=== PATIENT | female | born 1945 | race Caucasian/White ===

== ENCOUNTER 2019-03-14 11:05 | Emergency (ER) | payer MEDICARE ==
[2019-03-14 11:25] LABS: #Lymphocytes 2.3 thou/uL (1.20-3.40); #Monocytes 0.7 thou/uL (0.11-0.59); #Neutrophils 11.4 thou/uL (1.40-6.50); %Basophils 0.3 % (0.0-1.0); %Eosinophils 0.1 % (0.0-10.0); %Lymphocytes 15.8 % (21.0-51.0); %Neutrophils 78.8 % (42.0-75.0); Hemoglobin 12.8 g/dL (12.0-16.0); Mean Corpuscular HGB CONC 31.4 g/dL (32.0-36.0); Mean Corpuscular Hemoglobin 27.4 pg (27.0-31.0); Mean Corpuscular Volume 87.2 fL (78.0-98.0); Mean Platelet Volume 9.1 fL (7.4-10.4); Platelet Count 256 thou/uL (130-400); RBC Distribution Width 13.6 % (11.5-14.5); Red Blood Cell (RBC) Count 4.66 mill/uL (4.20-5.40); White Blood Cell (WBC) Count 14.5 thou/uL (4.8-10.8)
--- NOTE | 2019-03-14 11:30 | RAD ---
Chest one view HISTORY: Dyspnea. COPD. COMPARISON: 04/10/2018. FINDINGS: Cardiac silhouette is magnified and upper limits of normal. Right restrictive mediastinum i s similar in appearance prior study with extensive volume loss and scarring throughout the right lung, most pronounced at the apex. Appearance is stable. Left lung is well-inflated. No evidence of p neumothorax. ekg monitor tech leads overlie the chest. IMPRESSION: Extensive volume loss and scarring throughout the right lung, stable. No active cardiopulmonary abnormalities are apparent.
[2019-03-14 11:49] LABS: ALT (SGPT) 20 U/L (8-55); AST (SGOT) 22 U/L (5-34); Albumin 4.5 g/dL (3.4-4.8); Alkaline Phosphatase 97 U/L (40-150); Anion Gap 16 mmol/L (10-20); BUN (Urea Nitrogen) 19 mg/dL (9.8-20.1); Bilirubin, Total 0.4 mg/dL (0.2-1.2); Calc. Creatinine Clearance 0 mL/min (70-130); Calcium 10.2 mg/dL (7.8-10.44); Carbon Dioxide 27 mmol/L (23-31); Chloride 97 mmol/L (98-107); Estimated GFR-MDRD 73; Globulin 2.7 g/dL (2.4-3.5); Glucose 103 mg/dL (83-110); Potassium 4.7 mmol/L (3.5-5.1); Protein, Total 7.2 g/dL (6.0-8.3); Sodium 135 mmol/L (136-145)
--- NOTE | 2019-03-14 12:15 | ULT ---
VENOUS DOPPLER ULTRASOUND OF THE RIGHT LOWER EXTREMITY: Date: 03/14/19 HISTORY: Right lower extremity pain. TECHNIQUE: Rios scale ultrasound with color flow and spectral Doppler imaging of the deep venous system of the r ight lower extremity performed. FINDINGS: There is good flow, compression, and augmentation noted in the right common femoral, femoral, deep fe moral, popliteal, posterior tibial, and greater saphenous veins. There is an avascular fluid collection in the posterior right knee superior to the popliteal vessels. IMPRESSION: No evidence of deep venous thrombosis in the right lower extremity. POS: TPC
== END 2019-03-14 12:55 | disposition home or self-care (01) ==
LOC: ERS 11:05
DX: L03.115 Cellulitis of right lower limb (principal); I11.0 Hypertensive heart disease with heart failure; I50.9 Heart failure, unspecified; J44.9 Chronic obstructive pulmonary disease, unspecified; F41.9 Anxiety disorder, unspecified; F17.210 Nicotine dependence, cigarettes, uncomplicated; Z79.899 Other long term (current) drug therapy; Z79.51 Long term (current) use of inhaled steroids; Z79.01 Long term (current) use of anticoagulants
CPT/HCPCS: 36415; 71045; 80053; 83605; 83880; 85025; 87040; 93005; 94640; J7620

== ENCOUNTER 2019-04-07 08:34 | Inpatient (IN) | payer MEDICARE ==
[2019-04-07 09:23] LABS: #Basophils 0.1 thou/uL (0.0-0.2); #Eosinphils 0.1 thou/uL (0.0-0.7); #Lymphocytes 2.5 thou/uL (1.20-3.40); #Monocytes 0.7 thou/uL (0.11-0.59); #Neutrophils 5.3 thou/uL (1.40-6.50); %Basophils 0.7 % (0.0-1.0); %Eosinophils 0.8 % (0.0-10.0); %Lymphocytes 29.4 % (21.0-51.0); %Neutrophils 61.1 % (42.0-75.0); Hemoglobin 13.5 g/dL (12.0-16.0); Mean Corpuscular HGB CONC 31.1 g/dL (32.0-36.0); Mean Corpuscular Hemoglobin 26.8 pg (27.0-31.0); Platelet Count 252 thou/uL (130-400); RBC Distribution Width 14.5 % (11.5-14.5); Red Blood Cell (RBC) Count 5.03 mill/uL (4.20-5.40); White Blood Cell (WBC) Count 8.6 thou/uL (4.8-10.8)
[2019-04-07 09:26] LABS: INR-International Normal Ratio 0.9; PTT 27.2 SEC (22.9-36.1); Prothrombin Time 12.4 SEC (12.0-14.7)
[2019-04-07] MEDS ORDERED: Morphine 4 MG/ML VIAL ONE (09:35)
[2019-04-07] MEDS ORDERED: Ondansetron PF 4 MG/2 ML Vial ONE (09:35)
--- NOTE | 2019-04-07 09:37 | RAD ---
Portable chest: HISTORY: Dyspnea COMPARISON: 03/14/2019 FINDINGS:Cardiomegaly. Right apical opacification is stable. Parenchymal and pleural opacities in the right mid and lower lung appear stable and probably chronic. Left lung remains clear. CP angles are blunted and stable in appearance. IMPRESSION:Stable chest findings
--- NOTE | 2019-04-07 09:42 | RAD ---
Right ankle: 3 views HISTORY: Infection COMPARISON: 03/12/2019 No osseous abnormality. No plain film evidence of osteomyelitis identified. Diffuse soft tissue swelling involving mid foot and forefoot, especially along the dorsal surface. So ft tissue swelling has increased consistent with cellulitis. IMPRESSION: No acute osseous abnormality or interval change in the osseous structures. Increased soft tissue swelling.
[2019-04-07 09:44] LABS: ALT (SGPT) 30 U/L (8-55); AST (SGOT) 43 U/L (5-34); Albumin 4.5 g/dL (3.4-4.8); Alkaline Phosphatase 111 U/L (40-150); Anion Gap 17 mmol/L (10-20); BUN (Urea Nitrogen) 18 mg/dL (9.8-20.1); Bilirubin, Total 0.4 mg/dL (0.2-1.2); CK (CPK) 126 U/L (29-168); Calc. Creatinine Clearance 0 mL/min (70-130); Calcium 10.5 mg/dL (7.8-10.44); Carbon Dioxide 24 mmol/L (23-31); Chloride 100 mmol/L (98-107); Estimated GFR-MDRD 61; Globulin 3.2 g/dL (2.4-3.5); Glucose 80 mg/dL (83-110); Protein, Total 7.7 g/dL (6.0-8.3); Sodium 136 mmol/L (136-145)
[2019-04-07] MEDS ORDERED: Piperacillin/Tazobactam 4.5 GM VIAL ONE (09:58)
[2019-04-07 10:26] LABS: Bilirubin Negative (Negative); Blood, Urine Negative (Negative); Clarity CLEAR (Clear); Glucose, Urine (Dipstick) Negative (Negative); Leukocyte Negative (Negative); Nitrite Negative (Negative); Protein, Urine (Dipstick) Negative (Neg-Trace); Specific Gravity, Urine 1.014 (1.002-1.036); Urobilinogen 0.2 mg/dL (0.2-1.0)
[2019-04-07] MEDS ORDERED: Diltiazem 125 MG/25 ML ONE (10:47)
[2019-04-07] MEDS ORDERED: ISOVUE-370 76%-LOCM 1 ML ONE (11:47)
[2019-04-07] MEDS ORDERED: Bisacodyl 5 MG TAB PO PRN (13:23)
[2019-04-07] MEDS ORDERED: Acetaminophen 325 MG TAB PO PRN (13:23)
--- NOTE | 2019-04-07 14:13 | HP ---
PRIMARY CARE PROVIDER: Dr. Leon. CHIEF COMPLAINT: Leg wound. HISTORY OF PRESENT ILLNESS: Ms. Powell is a pleasant 73-year-old lady, who was seen at [facility] on April 07, 2019. She reports that she developed some erythema over her right lateral malleolus about four weeks ago. This was followed by progressive worsening, with eventual skin breakdown. She was started on Bactrim by her primary care provider, but she did not take it because she did not like the medication. Following that, she was actually started on levofloxacin for respiratory infection. She has been taking levofloxacin. She describes that her leg wound has been having discharge, initially watery and now yellow. She denies any fevers or chills. She reports that she has 10/10 pain in the right leg, nonradiating, worse with movement. She is having a difficult time bearing weight on that foot. She denies any nausea or vomiting. She denies any diarrhea. REVIEW OF SYSTEMS: All other systems reviewed and found to be negative. PAST MEDICAL HISTORY: Congestive heart failure; hypertension; COPD, on home oxygen at 2 L while asleep; and atrial fibrillation. PAST SURGICAL HISTORY: Cholecystectomy. PSYCHIATRIC HISTORY: Anxiety. SOCIAL HISTORY: Occasional alcohol use. The patient smokes three packs of cigarettes a day. She denies recreational drug use. FAMILY HISTORY: Significant for heart disease. ALLERGIES: NO KNOWN DRUG ALLERGIES. CURRENT MEDICATIONS: 1. Sertraline 50 mg daily. 2. Protonix 20 mg daily. 3. Eliquis 5 mg two times a day. 4. Prednisone taper. 5. Lasix 20 mg daily. 6. Tramadol 50 mg every 12 hours as needed. 7. Levofloxacin 500 mg daily. 8. Cartia XT 300 mg daily. 9. DuoNeb p.r.n. 10. ProAir HFA p.r.n. 11. Symbicort two puffs two times a day. PHYSICAL EXAMINATION: GENERAL: On examination, Ms. Powell is awake and alert, not in acute distress. VITAL SIGNS: Blood pressure is 96/56, pulse 103, respiratory rate 20, and oxygen saturation 93% on 2 L of oxygen. She is afebrile. EYES: No scleral icterus, no conjunctival pallor. ENT: Moist mucosal membranes. No oropharyngeal erythema or exudates. NECK: Supple, nontender. Trachea is midline. RESPIRATORY: Accessory muscles of breathing are not active. She has occasional expiratory wheeze over the right lung. CARDIOVASCULAR: S1 and S2 are heard, tachycardic and irregular. Peripheral pulses palpable. No carotid bruit. No pericardial rub. ABDOMEN: Soft, nontender. Bowel sounds heard. NEUROLOGIC: Cranial nerves 2 through 12 are intact. MUSCULOSKELETAL: Power is 5/5 in all 4 extremities. SKIN: She has right leg and foot erythema. She has a circular ulcer over her right lateral malleolus with yellow base. LYMPHATIC: No inguinal lymphadenopathy. PSYCHIATRIC: Normal mood, normal affect. The patient is oriented to person, place, and time. LABORATORY DATA: Ms. Powell's labs and investigations were reviewed. I reviewed her electrocardiogram, which shows atrial fibrillation with rapid ventricular response with premature ventricular complexes. I reviewed her chest x-ray, which shows cardiomegaly. She also had x-rays of the right ankle, which did not show any acute osseous abnormality. She has an unremarkable CBC, INR 0.9, mildly elevated calcium of 10.5, mildly elevated AST of 43, otherwise unremarkable comprehensive metabolic profile. Normal CK and normal troponin-I. BNP is elevated at 990. Urinalysis is negative. ASSESSMENT AND PLAN: Ms. Powell is a pleasant 73-year-old lady, who was seen at [facility] on April 07, 2019, Her problem list includes: 1. Foot wound: Ms. Powell is presenting with foot wound. She was taking levofloxacin as outpatient for respiratory infection. She reports that the wound has been progressively getting worse. She will be admitted to the hospital for further management. She has received vancomycin and Zosyn in the emergency room , which I will continue. 2. Atrial fibrillation: We will continue the patient's home medications including calcium channel rica and anticoagulation. 3. Chronic obstructive pulmonary disease: The patient does not appear to be in chronic obstructive pulmonary disease exacerbation at this time. We will continue bronchodilators. 4. Tobacco abuse: The patient has been counseled regarding tobacco cessation, we will start nicotine replacement therapy. 5. Hypertension: We will monitor vital signs and titrate antihypertensives as needed. Many thanks for allowing me to participate in your patient's care. Please feel free to contact me with any questions or concerns. LEVEL OF RISK: High. LEVEL OF COMPLEXITY: High. Job ID: [id number] [facility]
[2019-04-07 17:14] VITALS: BMI 18.6
[2019-04-07] MEDS ORDERED: PROVENTIL INHALER 6.7 G (200 INHALATIONS) INH PRN (19:07)
[2019-04-07] MEDS ORDERED: Mometasone/Formoterol 120 PUFF INHALER INH PRN (19:08)
[2019-04-07] MEDS ORDERED: Furosemide 40 MG TAB PO PRN ×2 (19:09→21:39)
[2019-04-07] MEDS ORDERED: traMADol HCl 50 MG TAB PO SCH (21:00)
[2019-04-07 21:09] LABS: INR-International Normal Ratio 0.9; PTT 24.1 SEC (22.9-36.1); Prothrombin Time 12.6 SEC (12.0-14.7)
--- NOTE | 2019-04-07 21:13 | CT ---
CT Brain WO Con History: [Code stroke right-sided facial droop] Comparison: CT brain November 2016 Findings: There is subtle asymmetric loss of miller-white matter differentiation of the anterior left insula axial image 18. Extensive chronic microvascular ischemic changes. No acute hemorrhage. No midline shift or mass effect. Paranasal sinuses and mastoids are clear. Calvarium is intact. Globes are intact. Impression: Subtle loss of normal miller-white matter differentiation anterior left insula axial image 18 concerning for acute infarction.
[2019-04-07 21:25] LABS: Troponin I 0.031 ng/mL (< 0.028)
--- NOTE | 2019-04-07 21:29 | CT ---
CTA Angio Head W WO Con History: [Stroke alert. Right-sided facial droop.] Comparison: CT brain same day Findings: CT angiogram of the head and neck was performed after the intravenous ministration of contr ast. 3-D rendering provided. Severe emphysematous changes in lung apices. Large bullous formation in cavitation in the right upper lobe with volume loss. Advanced degenerative changes of the cervical spine. No cervical adenopathy. Vessels: Right vertebral artery origin is patent. No stenosis, thrombosis, nor aneurysm formation. [place] vertebral artery is dominant. No stenosis, thrombosis, or aneurysm formation. The intradural component of the vertebral arteries is poorly evaluated due to motion. Right common carotid artery origin is patent. Mass effect criteria, no hemodynamically significant stenosis, thrombosis, or aneurysm formation. Left common carotid artery origin is patent. Cardiac masses criteria there is approximately 50% steno sis proximal left internal carotid artery due to calcific plaque. [place] is patent. Impression: 1. Patent [place] without stenosis, thrombosis, nor aneurysm formation. 2. 50% stenosis proximal left internal carotid artery just after the carotid bulb due to calcific ximena que. 3. Scarring right lung apex with cavitation and underlying emphysematous changes.
--- NOTE | 2019-04-07 21:38 | PDOC.EVN ---
Event Note - Event Note Event Note: code green activated due to new stroke like symptoms, please see code sheet for details, pt sent for CT as per radiology there is concern for small acute infarction, will do stroke protocol, started on cardizem drip to control rate, consult cardiology, neuro, follow rec's
[2019-04-07] MEDS: Diltiazem 125 MG in Sodium Chloride 0.9% 100 ML IVPB SCH (22:18)
[2019-04-07] MEDS: Apixaban 5 MG TAB PO SCH (22:43)
[2019-04-07] MEDS ORDERED: Vancomycin HCl 1 GM in Premix Bag 1 BAG IVPB SCH (23:00)
[2019-04-08] MEDS: Piperacillin/Tazobactam 4.5 GM in Sodium Chloride 0.9% 100 ML IVPB SCH ×2 (02:07→09:50)
[2019-04-08 05:48] LABS: #Basophils 0.1 thou/uL (0.0-0.2); #Eosinphils 0.2 thou/uL (0.0-0.7); #Lymphocytes 2.1 thou/uL (1.20-3.40); #Monocytes 0.7 thou/uL (0.11-0.59); #Neutrophils 4.2 thou/uL (1.40-6.50); %Basophils 0.9 % (0.0-1.0); %Eosinophils 2.6 % (0.0-10.0); %Lymphocytes 29.5 % (21.0-51.0); %Neutrophils 57.9 % (42.0-75.0); Hemoglobin 12.4 g/dL (12.0-16.0); Mean Corpuscular Hemoglobin 27.9 pg (27.0-31.0); Mean Corpuscular Volume 87.5 fL (78.0-98.0); Platelet Count 207 thou/uL (130-400); RBC Distribution Width 14.5 % (11.5-14.5); Red Blood Cell (RBC) Count 4.44 mill/uL (4.20-5.40); White Blood Cell (WBC) Count 7.2 thou/uL (4.8-10.8)
[2019-04-08 06:03] LABS: Anion Gap 13 mmol/L (10-20); BUN (Urea Nitrogen) 12 mg/dL (9.8-20.1); Calc. Creatinine Clearance 58 mL/min (70-130); Calcium 9.1 mg/dL (7.8-10.44); Carbon Dioxide 26 mmol/L (23-31); Cardiac Risk 3.4 (Less than 4.5); Chloride 100 mmol/L (98-107); Cholesterol 209 mg/dl (< 200 Desired); Estimated GFR-MDRD 82; Glucose 78 mg/dL (83-110); HDL Cholesterol 61 mg/dL (>60 Neg Risk); LDL Cholesterol, Calculated 121 mg/dL; Potassium 4.3 mmol/L (3.5-5.1); Sodium 135 mmol/L (136-145); Triglycerides 134 mg/dL (Less than 150)
[2019-04-08] MEDS ORDERED: Acetaminophen 500 MG TAB PO PRN (07:19)
[2019-04-08] MEDS ORDERED: Loratadine 10 MG TAB PO PRN (07:19)
[2019-04-08] MEDS ORDERED: Artificial Tears 18 DROP/0.9 ML EA EYE PRN (07:19)
[2019-04-08] MEDS ORDERED: Loperamide HCl 2 MG CAP PO PRN (07:19)
[2019-04-08] MEDS ORDERED: Zolpidem Tartrate 5 MG TAB PO PRN (07:19)
[2019-04-08] MEDS ORDERED: Sodium Chloride 0.65% Nasal 44 ML BOT EA NARE PRN (07:19)
[2019-04-08] MEDS ORDERED: Ondansetron ODT 4 MG TAB PO PRN (07:19)
[2019-04-08] MEDS ORDERED: Cepastat Lozenges 1 LOZ PO PRN (07:19)
[2019-04-08] MEDS ORDERED: Ondansetron PF 4 MG/2 ML Vial IVP PRN (07:19)
[2019-04-08] MEDS ORDERED: Eucerin (Mineral Oil/Petrolatum,White) 30 gm Jar TOP PRN (07:19)
[2019-04-08] MEDS ORDERED: hydrALAZINE 20 MG/ML VIAL SLOW IVP PRN (07:19)
[2019-04-08] MEDS ORDERED: predniSONE 20 MG TAB PO SCH (08:00)
[2019-04-08] MEDS ORDERED: Apixaban 5 MG TAB PO SCH (09:00)
[2019-04-08] MEDS ORDERED: Non-Formulary Item 1 EACH (Sertraline Hcl [Zoloft] 50 MG) PO SCH (09:00)
[2019-04-08] MEDS ORDERED: Diltiazem HCl CD 300 mg Capsule PO SCH ×2 (09:00)
[2019-04-08] MEDS ORDERED: Non-Formulary Item 1 EACH (Pantoprazole Sodium [Protonix] 40 MG) PO SCH (09:00)
[2019-04-08] MEDS ORDERED: Aspirin 325 mg Enteric Coated Tablet PO SCH (09:00)
[2019-04-08] MEDS: Apixaban 5 MG TAB PO SCH ×2 (09:50→21:33)
[2019-04-08] MEDS: Aspirin Chewable 81 MG TAB PO SCH (09:50)
[2019-04-08] MEDS: Saccharomyces boulardii 250 MG CAP PO SCH (09:50)
--- NOTE | 2019-04-08 10:25 | PDOC.PN ---
- Subjective Encounter Start Date: 04/08/19 Encounter Start Time: 07:30 -: old records requested/rev last night code jessica was called for stroke like symptoms, this morning sleepy but arousable and follows command, moves all four limbs, not good historian - Objective Resuscitation Status - Order Detail: 04/07/19 13:23 Resuscitation Status Routine Resuscitation Status: DNAR: NO Resuscitation Discussed with: patient MAR Reviewed: Yes Vital Signs & Weight: Vital Signs (12 hours) Temp Pulse Resp BP Pulse Ox 04/08/19 07:56 98.3 F 103 H 18 111/67 92 L 04/08/19 06:35 84 16 95 04/08/19 04:00 98.5 F 87 19 98/53 L 96 04/08/19 00:00 99.5 F 95 20 115/55 L 95 Weight Weight 112 lb 3.2 oz I&O: 04/07/19 04/08/19 04/09/19 06:59 06:59 06:59 Output Total 20 Balance -20 Result Diagrams: 04/08/19 05:14 04/08/19 05:14 Additional Labs: Accuchecks 04/07/19 20:40 POC Glucose 94 Radiology Reviewed by me: Yes EKG Reviewed by me: Yes (afib) Phys Exam - Physical Examination Constitutional: NAD HEENT: PERRLA, moist MMs, sclera anicteric Neck: no JVD, supple Respiratory: no wheezing, no rhonchi Cardiovascular: no significant murmur, irregular Gastrointestinal: soft, non-tender, no distention, positive bowel sounds Musculoskeletal: no edema, pulses present multiple skin lesion noted with erythema Neurological: moves all 4 limbs Lymphatic: no nodes Psychiatric: normal affect Skin: no rash, normal turgor Dx/Plan (1) Acute CVA (cerebrovascular accident) Code(s): I63.9 - CEREBRAL INFARCTION, UNSPECIFIED Status: Acute (2) Wound infection Code(s): T14.8XXA - OTHER INJURY OF UNSPECIFIED BODY REGION, INITIAL ENCOUNTER; L08.9 - LOCAL INFECTION OF THE SKIN AND SUBCUTANEOUS TISSUE, UNSP Status: Acute (3) Anxiety and depression Code(s): F41.9 - ANXIETY DISORDER, UNSPECIFIED; F32.9 - MAJOR DEPRESSIVE DISORDER, SINGLE EPISODE, UNSPECIFIED Status: Chronic (4) Atrial fibrillation Code(s): I48.91 - UNSPECIFIED ATRIAL FIBRILLATION Status: Chronic Qualifiers: Atrial fibrillation type: chronic Qualified Code(s): I48.2 - Chronic atrial fibrillation Comment: with paroxysmal RVR (5) COPD (chronic obstructive pulmonary disease) Status: Chronic (6) Chronic stage c diastolic heart failure Code(s): I50.32 - CHRONIC DIASTOLIC (CONGESTIVE) HEART FAILURE Status: Chronic (7) Hypertension Code(s): I10 - ESSENTIAL (PRIMARY) HYPERTENSION Status: Chronic Qualifiers: Hypertension type: essential hypertension Qualified Code(s): I10 - Essential (primary) hypertension (8) Left carotid stenosis Code(s): I65.22 - OCCLUSION AND STENOSIS OF LEFT CAROTID ARTERY Status: Chronic (9) Protein-calorie malnutrition, moderate Code(s): E44.0 - MODERATE PROTEIN-CALORIE MALNUTRITION Status: Chronic (10) Tobacco use Code(s): Z72.0 - TOBACCO USE Status: Chronic - Plan cont current plan of care, continue antibiotics, PT/OT * today MRI brain , echo as a part of stroke work up * stroke team evaluation including neurology * medication reviewed as below * symptomatic treatment * continue empiric vancomycin and zosyn * ID consulted * wound care * continue cardizem drip * cardio consulted * continue elliquis * repeat labs * counselled to avoid smoking. * add lipitor * dc carotid US as she already had CT angio neck * selected home meds reconciled Review of Systems - Review of Systems ENT: negative: Ear Pain, Ear Discharge, Nose Pain, Nose Discharge, Nose Congestion, Mouth Pain, Mouth Swelling, Throat Pain, Throat Swelling, Other Respiratory: Cough. negative: Dry, Shortness of Breath, Hemoptysis, SOB with Excertion, Pleuritic Pain, Sputum, Wheezing Cardiovascular: negative: chest pain, palpitations, orthopnea, paroxysmal nocturnal dyspnea, edema, light headedness, other Gastrointestinal: negative: Nausea, Vomiting, Abdominal Pain, Diarrhea, Constipation, Melena, Hematochezia, Other Genitourinary: negative: Dysuria, Frequency, Incontinence, Hematuria, Retention , Other Musculoskeletal: negative: Neck Pain, Shoulder Pain, Arm Pain, Back Pain, Hand Pain, Leg Pain, Foot Pain, Other - Medications/Allergies Allergies/Adverse Reactions: Allergies Allergy/AdvReac Type Severity Reaction Status Date / Time sulfamethoxazole Allergy Verified 04/07/19 17:13 [From Bactrim] trimethoprim [From Bactrim] Allergy Verified 04/07/19 17:13 Medications: Current Medications Acetaminophen (Tylenol) 500 mg PO Q6H PRN PRN Reason: Mild Pain (1-3) Hydrocodone Bitart/Acetaminophen ([place] 5/325) 1 tab PO Q4H PRN PRN Reason: Moderate Pain (4-6) Albuterol Sulfate (Proventil Hfa) 2 puff INH Q6H PRN PRN Reason: SOB &/or Wheezing Albuterol/Ipratropium (Duoneb) 3 ml NEB [id number] [facility] Last Admin: 04/08/19 06:35 Dose: 3 ml Apixaban (Eliquis) 5 mg PO BID [facility] Last Admin: 04/08/19 09:50 Dose: 5 mg Artificial Tears (Tears Naturale) 2 drop EA EYE PRN PRN PRN Reason: Dry Eyes Aspirin (Aspirin Chewable) 81 mg PO DAILY [facility] Last Admin: 04/08/19 09:50 Dose: 81 mg Atorvastatin Calcium (Lipitor) 40 mg PO HS [facility] Bisacodyl (Dulcolax) 10 mg PO DAILYPRN PRN PRN Reason: Constipation Furosemide (Lasix) 40 mg PO DAILY PRN PRN Reason: SWELLING Guaifenesin (Robitussin Sf) 200 mg PO Q4H PRN PRN Reason: Cough Hydralazine HCl (Apresoline) 10 mg SLOW IVP Q4H PRN PRN Reason: SBP > 180 and HR < 70 Diltiazem HCl 125 mg/ Sodium (Chloride) 125 mls @ 5 mls/hr IVPB INF [facility]; Protocol Last Admin: 04/07/19 22:18 Dose: 125 mls Piperacillin Sod/Tazobactam (Sod 4.5 gm/ Sodium Chloride) 100 mls @ 200 mls/hr IVPB 0200,1000,1800 [facility] Last Admin: 04/08/19 09:50 Dose: 100 mls Vancomycin HCl 1 gm/ Device 200 mls @ 200 mls/hr IVPB 2300 [facility] Last Admin: 04/07/19 22:52 Dose: 200 mls Loperamide HCl (Imodium) 2 mg PO PRN PRN PRN Reason: Diarrhea/Loose Stools Loratadine (Claritin) 10 mg PO DAILYPRN PRN PRN Reason: Sinus Symptoms Methylprednisolone Sodium Succinate (Solu-Medrol) 20 mg IVP Q8HR [facility] Mineral Oil/White Petrolatum (Eucerin Cream) 0 gm TOP BIDPRN PRN PRN Reason: Dry Skin Miscellaneous Medication (Pharmacy To Dose) 1 each PO ONE PRN PRN Reason: DOSING Stop: 05/07/19 21:54 Mometasone Furoate/Formoterol Fumar (Dulera 200 Mcg/5 Mcg Inhaler) 2 puff INH DAILY-RT PRN PRN Reason: SOB &/or Wheezing Ondansetron HCl (Zofran Odt) 4 mg PO Q6H PRN PRN Reason: Nausea/Vomiting Ondansetron HCl (Zofran) 4 mg IVP Q6H PRN PRN Reason: Nausea/Vomiting Pantoprazole Sodium (Protonix) 40 mg PO DAILY [facility] Last Admin: 04/08/19 09:50 Dose: 40 mg Saccharomyces Boulardii (Florastor) 250 mg PO DAILY [facility] Last Admin: 04/08/19 09:50 Dose: 250 mg Sertraline HCl (Zoloft) 50 mg PO DAILY [facility] Last Admin: 04/08/19 09:50 Dose: 50 mg Sodium Chloride (Flush - Normal Saline) 10 ml IVF PRN PRN PRN Reason: Saline Flush Sodium Chloride ([place] Nasal [place] 0.65%) 0 ml EA NARE QIDPRN PRN PRN Reason: Nasal Congestion Throat Lozenges (Cepastat Lozenges) 1 cecy PO Q2H PRN PRN Reason: Sore Throat Zolpidem Tartrate (Ambien) 5 mg PO HSPRN PRN PRN Reason: Insomnia
[2019-04-08] MEDS ORDERED: Lorazepam 2 MG/ML VIAL SLOW IVP SCH (11:15)
--- NOTE | 2019-04-08 12:40 | CON ---
DATE OF CONSULTATION: 04/08/2019 CHIEF COMPLAINT: Possible stroke. HISTORY OF PRESENT ILLNESS: The patient is a 73-year-old lady, who was admitted for her skin problems and cellulitis in her legs and she has been found to have sudden onset of deterioration of consciousness and I have reviewed the code record, a jose m lopez was called for CVA. She was disoriented, unable to answer questions and she was in AFib and she was given a NIH Stroke Scale of [address] of the head with suspicious acute stroke and the patient had a CT of the head last night at about [address] and there was subtle loss of normal miller-white matter differentiation concerning for acute infarct. She is pending an MRI at this time. The patient herself does not remember any details of this event. She does not complain of weakness of arms or legs or numbness or any To the disorientation. At this time, she was back to her normal. PREVIOUS MEDICAL HISTORY: Significant for history of atrial fibrillation, she is on Eliquis at home. She has congestive heart failure, hypertension, and COPD, she is on home oxygen as well. PAST SURGICAL HISTORY: She had a cholecystectomy. PSYCHIATRIC HISTORY: Positive for anxiety. SOCIAL HISTORY: She uses alcohol occasionally. She smokes 3 packs of cigarettes a day. She lives with her . FAMILY HISTORY: Positive for heart disease. ALLERGIES: NO KNOWN DRUG ALLERGIES. MEDICATIONS: At home, she is on; 1. Sertraline. 2. Protonix. 3. Eliquis. 4. Prednisone taper. 5. Lasix. 6. Tramadol. 7. Levofloxacin. 8. Cartia. 9. DuoNeb. 10. ProAir HFA. 11. Symbicort. REVIEW OF SYSTEMS: PULMONARY: Positive for shortness of breath. CARDIAC: Positive for atrial fibrillation. NEUROLOGIC: Positive for disorientation, which was transient last night and has recovered overnight. Dermatologic: Skin with ulcer on the right lateral malleolar of her foot. HEMATOLOGIC: Negative for any bleeding diatheses. ENDOCRINE: Negative for diabetes or thyroid dysfunction. LABORATORY DATA: White count 7.2, hemoglobin 12.4, hematocrit 38.8, and platelet count 207, Chemistry; sodium 135, potassium 4.3, chloride 100, bicarb 26, BUN 12, and creatinine 0.7. Urinalysis is negative. Coags, PTT 24.1, INR 0.9, and PT 12.6. CT of the head and [place] and CT angio performed on 04/07 showed patent [place] of [place] without stenosis, 50% stenosis of the left ICA and scarring of the right lung apex with cavitation and underlying emphysematous changes. CT of the head performed on 04/07/2019 at 9:11 p.m. showed subtle loss of normal miller white matter differentiation in the anterior left insula and axial image 18, concerning for acute infarction. PHYSICAL EXAMINATION: VITAL SIGNS: Blood pressure 111/67, temperature 98.3, pulse 103, respiratory rate 18, and O2 saturations 92. GENERAL APPEARANCE: Thin built well-nourished lady with multiple scars and redness in her leg. She has very thin skin. She also had redness in the right arm in the legs. She had a wound on the right lateral malleolus and she also has a right shoulder restricted movement due to pain from arthritis. CHEST: Clear vesicular breathing with decreased breath sounds. Heart rate was rapid with tachycardia. ABDOMEN: Soft and nontender. NEUROLOGIC: Higher intellectual functions, normal orientation to time, place, and person and appropriate conversation. Cranial nerves 2 through 12 normal. Pupillary reaction at 2 mm bilaterally. Normal extraocular movements. No facial asymmetry. Mild facial asymmetry with mild facial weakness on the right side and she had tongue midline. No atrophy noted. Normal hearing bilaterally. Normal elevation of palate motor bulk normal. Tone normal. Strength is 5/5 throughout despite limitation of mobility in the right shoulder. Muscle groups tested are deltoid, biceps, triceps, wrist extension, flexion, finger extension and flexion bilaterally. Deep tendon reflexes were 1+ throughout. Normal sensory exam with normal sensation bilaterally. Coordination with normal [id number] and [id number]. Gait was not tested. IMPRESSION: The patient is elderly lady with history of atrial fibrillation and congestive heart failure. She was admitted for possible cellulitis in the right leg and abnormal skin with multiple injury. Multiple wounds and redness and she had acute neurological event last night with the associated with disorientation. She might have had a small stroke. Her examination today is normal except for mild right facial droop. She is currently pending MRI of the brain to establish the diagnosis. Her stroke with risk factors are atrial fibrillation and heart failure and less limited mobility. RECOMMENDATIONS: I will check on the MRI of the brain. If MRI is positive for acute stroke, we can add aspirin to Eliquis. Please start physical therapy for the patient. Please complete her stroke workup including echocardiogram. I will follow up the patient with you tomorrow. Job ID: [id number]
[2019-04-08] MEDS: methylPREDNISolone Sod Succ 40 MG VIAL IVP SCH ×2 (13:27→21:34)
--- NOTE | 2019-04-08 15:10 | CT ---
CTA Angio Head W WO Con History: [Stroke alert. Right-sided facial droop.] Comparison: CT brain same day Findings: CT angiogram of the head and neck was performed after the intravenous ministration of contr ast. 3-D rendering provided. Severe emphysematous changes in lung apices. Large bullous formation in cavitation in the right upper lobe with volume loss. Advanced degenerative changes of the cervical spine. No cervical adenopathy. Vessels: Right vertebral artery origin is patent. No stenosis, thrombosis, nor aneurysm formation. [place] vertebral artery is dominant. No stenosis, thrombosis, or aneurysm formation. The intradural component of the vertebral arteries is poorly evaluated due to motion. Right common carotid artery origin is patent. Mass effect criteria, no hemodynamically significant stenosis, thrombosis, or aneurysm formation. Left common carotid artery origin is patent. Cardiac masses criteria there is approximately 50% steno sis proximal left internal carotid artery due to calcific plaque. [place] is patent. Impression: 1. Patent [place] of [place] without stenosis, thrombosis, nor aneurysm formation. 2. 50% stenosis proximal left internal carotid artery just after the carotid bulb due to calcific ximena que. 3. Scarring right lung apex with cavitation and underlying emphysematous changes. Transcribed Date/Time: 04/08/2019 3:10 PM
--- NOTE | 2019-04-08 15:55 | CON ---
DATE OF CONSULTATION: 04/08/2019 REASON FOR CONSULTATION: Right ankle ulcer. HISTORY OF PRESENT ILLNESS: A 73-year-old with history of COPD; atrial fibrillation, paroxysmal; chronic smoking, still actively smoking, who has 1 previous admission 2 years ago for dyspnea, decompensated COPD, and respiratory tract infection. This time, she presented with a worsening ulceration in the right lateral malleolus, which has been present for the past 4 weeks approximately. This has failed oral Bactrim in the outpatient setting, although she did not take it more than few days. After that, she had some respiratory symptoms and was given levofloxacin. No headaches. No visual symptoms, sore throat, odynophagia, or dysphagia. No neck pain or back pain. Chronic dyspnea, unchanged. No cough or sputum production. No chest pain. No abdominal pain or diarrhea. She is actually constipated. Voiding without difficulty. No joint symptoms outside the area of involvement. PAST MEDICAL HISTORY: COPD, atrial fibrillation, previous normal cardiac stress test with normal EF. She is home O2 dependent. PAST SURGICAL HISTORY: Cholecystectomy. SOCIAL HISTORY: Still smoking 3 packs of cigarettes a day, believe it or not. FAMILY HISTORY: Coronary artery disease. ALLERGIES: NONE. CURRENT MEDICATIONS: 1. Tylenol. 2. [place]. 3. Proventil. 4. DuoNeb. 5. Eliquis. 6. Lipitor. 7. Diltiazem. 8. Lasix. 9. Robitussin. 10. Claritin. 11. Medrol. 12. Zosyn. 13. Vancomycin. PHYSICAL EXAMINATION: VITAL SIGNS: T-max 98.8 to 99.5, BP 115/57, pulse 101, respirations 16, O2 saturation 93%. SKIN: There is a round-shaped 3 x 2 cm ulcer with yellow base. A little bit of undermining right above the right lateral malleolus. The dermis is thin. There is some erythema along the extent of the leg. There is a little bit of exfoliation of the skin around that area. Onychodystrophy is noted in all toenails. There is one area of bruising, sort of a very tender area of bruising in the medial aspect of the right leg. She has a little bit of bruising in the anterior aspect of the left leg, but that is not tender to palpation. She has areas of superficial ulceration with scab in the presacral area. LYMPHATICS: No lymphadenopathy. HEENT: Ocular movements conjugate. No [place] teeth. Oral mucosa, normal. NECK: Supple. No jugular vein distention or carotid bruits. LUNGS: Symmetric air entry. No wheezing or crackles. HEART: S1 and S2. Regular rate. Soft aortic murmur, but no S3 or S4. ABDOMEN: Soft. Not distended or tender. No ascites. : No bladder distention. EXTREMITIES: No joint inflammatory activity. I was able to palpate popliteal pulses 1+. I could not identify any dorsalis pedis or posterior tibialis pulses. Quite tender skin of the distal lower extremity on the right side. She moves all extremities equally with limitations imposed by the ulcer and the tenderness of inflammatory process, right leg. NEUROLOGIC: Her cognitive function appears to be intact. She is oriented. Speech is normal. LABORATORY DATA: White cell count 8.6, hemoglobin 13.5, platelets 242 with normal differential. INR 0.9. Sodium 135, creatinine 0.7, calcium 10.5, AST 43, ALT 30, alkaline phosphatase 111. CK 126. BNP 990 with albumin 4.5. Urinalysis was normal. Microbiology: Two sets of blood cultures thus far negative. IMAGING STUDIES: Brain CT with loss of normal miller-white matter differentiation in the anterior left insula, axial image 18, concerning for acute infarction. She had a CT of [place] angio with contrast with patency of the [place], 50% stenosis of the left ICA. There is a consultation by neurologist with, I guess, looks like an MRI has been ordered and is pending. ASSESSMENT: 1. Heavy smoking. 2. Peripheral vascular disease. 3. Cellulitis, right leg with chronic ulcer. DISCUSSION: The ulcer is most likely ischemic in nature, and she has developed some cellulitis. I would switch her to Rocephin. Discontinue her vancomycin and Zosyn. Check arterial duplex ultrasound of lower extremity to see if she has any areas that could be revascularized and improve the blood flow to the feet to assist with healing of the ulcer. Job ID: [id number]
[2019-04-08] MEDS: cefTRIAXone\\ROCEPHIN 1 GM in Sodium Chloride 0.9% 100 ML IVPB SCH (16:05)
--- NOTE | 2019-04-08 16:14 | ULT ---
Doppler arterial evaluation the right lower extremity INDICATION: History of absent pulses to the right lower extremity with a chronic right ankle ulcer FINDINGS: There are triphasic waveforms seen from the right common femoral artery through the level o f the right posterior tibial artery. No hemodynamically significant stenosis is evident. Triphasic waveform is seen at the right anterior tibial artery. More biphasic wave forms seen at the level of t he right dorsalis pedis artery. There is moderate atherosclerotic calcification of the right common femoral artery. IMPRESSION: Mild atherosclerotic disease seen at the level of the right dorsalis pedis artery. No hem odynamically significant stenosis is evident.
[2019-04-08] MEDS: Diltiazem 125 MG in Sodium Chloride 0.9% 100 ML IVPB SCH (21:31)
[2019-04-08] MEDS: HYDROcodone/Acetaminophen 5/325 mg Tablet PO PRN (21:32)
[2019-04-08] MEDS: Diabetic Tussin 200 MG/10 ML UDCUP PO PRN (21:33)
[2019-04-08] MEDS: Atorvastatin Calcium 40 MG TAB PO SCH (21:33)
--- NOTE | 2019-04-08 22:53 | CON ---
DATE OF CONSULTATION: HISTORY OF PRESENT ILLNESS: Francia Powell is a 73-year-old white female, who was evaluated in November [address] Briseno. She was admitted for shortness of breath and mental status changes. She was found to be in atrial fibrillation. She had hypoxemia secondary to COPD exacerbation. She was discharged on Eliquis 5 mg b.i.d. She was placed on digoxin and Cardizem for rate control. During that admission , she underwent Cardiolite testing, which revealed no evidence of ischemia and ejection fraction of 66%. She now is admitted with skin breakdown over the right lateral malleolus. This started 4 or 5 weeks ago. She complains of a great deal of pain in the area. Prior to this skin breakdown, she denied any claudication. She however would have episodes of nocturnal cramping mostly in her right calf, but occasionally right thigh. She denied any fever or chills. Evaluation of this with lower extremity arterial ultrasound reveals mild atherosclerotic disease in the right dorsalis pedis artery, but otherwise unremarkable. Today she became disoriented, was unable to answer questions. CT was questionable for stroke. Apparently, MRI has been performed, but I do not see any result of that. PAST MEDICAL HISTORY: Diastolic heart failure, COPD, hypertension, chronic atrial fibrillation. OPERATIONS: Cholecystectomy. MEDICATIONS: 1. Albuterol 2 puffs q.6 hours p.r.n. 2. Eliquis 5 mg b.i.d. 3. Symbicort 2 puffs daily p.r.n. 4. Diltiazem 300 mg daily. 5. Furosemide 40 daily p.r.n. 6. DuoNebs q.6 hours. 7. Levaquin 500 mg daily. 8. Protonix 40 mg daily. 9. Prednisone 5 mg daily. 10. Zoloft 50 daily. 11. Tramadol 50 b.i.d. ALLERGIES: SULFA. SOCIAL HISTORY: She continues to smoke 2 packs per day. She does not drink. REVIEW OF SYSTEMS: Difficult to obtain at this time. PHYSICAL EXAMINATION: VITAL SIGNS: Blood pressure 111/56, pulse of 108, irregularly irregular, atrial fibrillation on the monitor. HEENT: PERRL. NECK: Supple. CHEST: Reveals occasional expiratory wheezing. CARDIOVASCULAR: S1, S2 normal without any S3, S4, or murmurs. ABDOMEN: Normal bowel sounds without tenderness. EXTREMITIES: Revealed trace pretibial edema. She has a sock on her right foot and due to pain, does not want me to take this off. NEUROLOGIC: At the present time, it is grossly intact except for very mild lethargy and some confusion. LABORATORY DATA: EKG revealed atrial fibrillation with fast ventricular response of 107 per minute with occasional PVC. Echocardiogram was technically difficult. Ejection fraction was 55% to 60% with mild left atrial enlargement, mild mitral regurgitation, and mild tricuspid regurgitation. Hemoglobin 12.4, hematocrit 38.8, white count 7200, platelets 207,000. Sodium 135, potassium 4.3, chloride 100, carbon dioxide 26, BUN 12, creatinine 0.70. Troponin I 0.031. Cholesterol 209, triglycerides 134, HDL 61, LDL 121. BNP 990.4. IMPRESSION: 1. Cellulitis of the right leg with chronic ulcer. Lower extremity arterial Dopplers are fairly unremarkable and it does not appear that this is arterial in nature. She also denies any claudication. In the past, she has had calf cramping at night and this certainly may be a venous stasis ulcer and at sometime lower extremity venous duplex scan should be performed in the office. 2. Chronic atrial fibrillation, chronically anticoagulated. 3. Possible stroke. 4. Hypertension. 5. Chronic obstructive pulmonary disease. The patient continues to smoke. PLAN: The patient currently is on Cardizem 5 mg/hour and heart rate is fairly well controlled. She should continue on the Eliquis. Certainly may need to add low- dose aspirin with her recent neurological event. She was given broad-spectrum antibiotics. Consideration should be given to lower extremity venous duplex scan in the office to evaluate for venous insufficiency. Job ID: [id number] [facility]
[2019-04-09] MEDS: methylPREDNISolone Sod Succ 40 MG VIAL IVP SCH (05:30)
[2019-04-09 05:45] LABS: #Lymphocytes 1.2 thou/uL (1.20-3.40); #Monocytes 0.2 thou/uL (0.11-0.59); #Neutrophils 3.1 thou/uL (1.40-6.50); %Basophils 0.9 % (0.0-1.0); %Eosinophils 0.5 % (0.0-10.0); %Lymphocytes 26.4 % (21.0-51.0); %Monocytes 4.1 % (0.0-10.0); %Neutrophils 68.1 % (42.0-75.0); Hemoglobin 11.7 g/dL (12.0-16.0); Mean Corpuscular HGB CONC 32.1 g/dL (32.0-36.0); Mean Corpuscular Hemoglobin 27.5 pg (27.0-31.0); Mean Corpuscular Volume 85.7 fL (78.0-98.0); Mean Platelet Volume 8.9 fL (7.4-10.4); Platelet Count 205 thou/uL (130-400); RBC Distribution Width 14.1 % (11.5-14.5); Red Blood Cell (RBC) Count 4.24 mill/uL (4.20-5.40); White Blood Cell (WBC) Count 4.5 thou/uL (4.8-10.8)
[2019-04-09 06:10] LABS: Anion Gap 11 mmol/L (10-20); BUN (Urea Nitrogen) 14 mg/dL (9.8-20.1); Calc. Creatinine Clearance 66 mL/min (70-130); Calcium 9.1 mg/dL (7.8-10.44); Carbon Dioxide 31 mmol/L (23-31); Cardiac Risk 3.4 (Less than 4.5); Chloride 98 mmol/L (98-107); Cholesterol 202 mg/dl (< 200 Desired); Estimated GFR-MDRD Greater than 90; Glucose 139 mg/dL (83-110); HDL Cholesterol 60 mg/dL (>60 Neg Risk); LDL Cholesterol, Calculated 126 mg/dL; Potassium 4.5 mmol/L (3.5-5.1); Sodium 135 mmol/L (136-145); Triglycerides 79 mg/dL (Less than 150)
[2019-04-09] MEDS: Saccharomyces boulardii 250 MG CAP PO SCH (09:27)
[2019-04-09] MEDS: Apixaban 5 MG TAB PO SCH ×2 (09:27→21:08)
[2019-04-09] MEDS: Aspirin Chewable 81 MG TAB PO SCH (09:27)
[2019-04-09] MEDS: HYDROcodone/Acetaminophen 5/325 mg Tablet PO PRN (09:28)
[2019-04-09] MEDS: Diabetic Tussin 200 MG/10 ML UDCUP PO PRN (09:29)
--- NOTE | 2019-04-09 10:02 | PDOC.PN ---
- Subjective Encounter Start Date: 04/09/19 Encounter Start Time: 07:30 yesterday MRI was not done as pt was not able to lie still, no new problems - Objective Resuscitation Status - Order Detail: 04/07/19 13:23 Resuscitation Status Routine Resuscitation Status: DNAR: NO Resuscitation Discussed with: patient JARROD Reviewed: Yes Vital Signs & Weight: Vital Signs (12 hours) Temp Pulse Resp BP Pulse Ox 04/09/19 08:00 98.0 F 118 H 18 159/77 H 96 04/09/19 07:03 103 H 20 94 L 04/09/19 04:00 98.2 F 97 16 133/75 96 04/09/19 00:22 84 16 04/09/19 00:00 98.1 F 113 H 16 129/76 99 Weight Admit Weight 112 lb 3.2 oz Weight 112 lb 3.2 oz I&O: 04/08/19 04/09/19 04/10/19 06:59 06:59 06:59 Intake Total 980 Output Total 20 1100 Balance -20 -120 Result Diagrams: 04/09/19 05:05 04/09/19 05:05 Phys Exam - Physical Examination Constitutional: NAD HEENT: PERRLA, moist MMs, sclera anicteric Neck: no JVD, supple Respiratory: no wheezing, no rales, no rhonchi Cardiovascular: no significant murmur, no rub, irregular Gastrointestinal: soft, non-tender, no distention, positive bowel sounds Musculoskeletal: no edema, pulses present Neurological: moves all 4 limbs Lymphatic: no nodes Psychiatric: normal affect, A&O x 3 Skin: normal turgor Dx/Plan (1) Acute CVA (cerebrovascular accident) Code(s): I63.9 - CEREBRAL INFARCTION, UNSPECIFIED Status: Acute (2) Wound infection Code(s): T14.8XXA - OTHER INJURY OF UNSPECIFIED BODY REGION, INITIAL ENCOUNTER; L08.9 - LOCAL INFECTION OF THE SKIN AND SUBCUTANEOUS TISSUE, UNSP Status: Acute Comment: ischemic ulcer over ankle with surrounding cellulitis (3) Anxiety and depression Code(s): F41.9 - ANXIETY DISORDER, UNSPECIFIED; F32.9 - MAJOR DEPRESSIVE DISORDER, SINGLE EPISODE, UNSPECIFIED Status: Chronic (4) Atrial fibrillation Code(s): I48.91 - UNSPECIFIED ATRIAL FIBRILLATION Status: Chronic Qualifiers: Atrial fibrillation type: chronic Qualified Code(s): I48.2 - Chronic atrial fibrillation Comment: with paroxysmal RVR (5) COPD (chronic obstructive pulmonary disease) Status: Chronic (6) Chronic stage c diastolic heart failure Code(s): I50.32 - CHRONIC DIASTOLIC (CONGESTIVE) HEART FAILURE Status: Chronic (7) Hypertension Code(s): I10 - ESSENTIAL (PRIMARY) HYPERTENSION Status: Chronic Qualifiers: Hypertension type: essential hypertension Qualified Code(s): I10 - Essential (primary) hypertension (8) Left carotid stenosis Code(s): I65.22 - OCCLUSION AND STENOSIS OF LEFT CAROTID ARTERY Status: Chronic (9) Protein-calorie malnutrition, moderate Code(s): E44.0 - MODERATE PROTEIN-CALORIE MALNUTRITION Status: Chronic (10) Tobacco use Code(s): Z72.0 - TOBACCO USE Status: Chronic - Plan cont current plan of care, plan discussed w/ family, continue antibiotics, PT/OT , social worker aide, respiratory therapy * try MRI if possible * medication reviewed as below * symptomatic treatment. * updated plan to son * continue cardizem drip * will change to prednisone * continue elliquis, aspirin Review of Systems - Review of Systems ENT: negative: Ear Pain, Ear Discharge, Nose Pain, Nose Discharge, Nose Congestion, Mouth Pain, Mouth Swelling, Throat Pain, Throat Swelling, Other Respiratory: negative: Cough, Dry, Shortness of Breath, Hemoptysis, SOB with Excertion, Pleuritic Pain, Sputum, Wheezing Cardiovascular: negative: chest pain, palpitations, orthopnea, paroxysmal nocturnal dyspnea, edema, light headedness, other Gastrointestinal: negative: Nausea, Vomiting, Abdominal Pain, Diarrhea, Constipation, Melena, Hematochezia, Other Genitourinary: negative: Dysuria, Frequency, Incontinence, Hematuria, Retention , Other Musculoskeletal: negative: Neck Pain, Shoulder Pain, Arm Pain, Back Pain, Hand Pain, Leg Pain, Foot Pain, Other - Medications/Allergies Allergies/Adverse Reactions: Allergies Allergy/AdvReac Type Severity Reaction Status Date / Time sulfamethoxazole Allergy Verified 04/07/19 17:13 [From Bactrim] trimethoprim [From Bactrim] Allergy Verified 04/07/19 17:13 Medications: Current Medications Acetaminophen (Tylenol) 500 mg PO Q6H PRN PRN Reason: Mild Pain (1-3) Hydrocodone Bitart/Acetaminophen ([place] 5/325) 1 tab PO Q4H PRN PRN Reason: Moderate Pain (4-6) Last Admin: 04/09/19 09:28 Dose: 1 tab Albuterol Sulfate (Proventil Hfa) 2 puff INH Q6H PRN PRN Reason: SOB &/or Wheezing Albuterol/Ipratropium (Duoneb) 3 ml NEB [id number] [facility] Last Admin: 04/09/19 07:03 Dose: 3 ml Apixaban (Eliquis) 5 mg PO BID [facility] Last Admin: 04/09/19 09:27 Dose: 5 mg Artificial Tears (Tears Naturale) 2 drop EA EYE PRN PRN PRN Reason: Dry Eyes Aspirin (Aspirin Chewable) 81 mg PO DAILY [facility] Last Admin: 04/09/19 09:27 Dose: 81 mg Atorvastatin Calcium (Lipitor) 40 mg PO HS [facility] Last Admin: 04/08/19 21:33 Dose: 40 mg Bisacodyl (Dulcolax) 10 mg PO DAILYPRN PRN PRN Reason: Constipation Furosemide (Lasix) 40 mg PO DAILY PRN PRN Reason: SWELLING Guaifenesin (Robitussin Sf) 200 mg PO Q4H PRN PRN Reason: Cough Last Admin: 04/09/19 09:29 Dose: 200 mg Hydralazine HCl (Apresoline) 10 mg SLOW IVP Q4H PRN PRN Reason: SBP > 180 and HR < 70 Diltiazem HCl 125 mg/ Sodium (Chloride) 125 mls @ 5 mls/hr IVPB INF JAZMIN; Protocol Last Admin: 04/08/19 21:31 Dose: 125 mls Ceftriaxone Sodium 1 gm/ (Sodium Chloride) 100 mls @ 200 mls/hr IVPB Q24HR [facility] Last Admin: 04/08/19 16:05 Dose: 100 mls Loperamide HCl (Imodium) 2 mg PO PRN PRN PRN Reason: Diarrhea/Loose Stools Loratadine (Claritin) 10 mg PO DAILYPRN PRN PRN Reason: Sinus Symptoms Methylprednisolone Sodium Succinate (Solu-Medrol) 20 mg IVP Q8HR [facility] Last Admin: 04/09/19 05:30 Dose: 20 mg Mineral Oil/White Petrolatum (Eucerin Cream) 0 gm TOP BIDPRN PRN PRN Reason: Dry Skin Miscellaneous Medication (Pharmacy To Dose) 1 each PO ONE PRN PRN Reason: DOSING Stop: 05/07/19 21:54 Mometasone Furoate/Formoterol Fumar (Dulera 200 Mcg/5 Mcg Inhaler) 2 puff INH DAILY-RT PRN PRN Reason: SOB &/or Wheezing Ondansetron HCl (Zofran Odt) 4 mg PO Q6H PRN PRN Reason: Nausea/Vomiting Ondansetron HCl (Zofran) 4 mg IVP Q6H PRN PRN Reason: Nausea/Vomiting Pantoprazole Sodium (Protonix) 40 mg PO DAILY [facility] Last Admin: 04/09/19 09:29 Dose: 40 mg Saccharomyces Boulardii (Florastor) 250 mg PO DAILY [facility] Last Admin: 04/09/19 09:27 Dose: 250 mg Sertraline HCl (Zoloft) 50 mg PO DAILY [facility] Last Admin: 04/09/19 09:29 Dose: 50 mg Sodium Chloride (Flush - Normal Saline) 10 ml IVF PRN PRN PRN Reason: Saline Flush Last Admin: 04/09/19 09:30 Dose: 10 ml Sodium Chloride ([place] Nasal [place] 0.65%) 0 ml EA NARE QIDPRN PRN PRN Reason: Nasal Congestion Throat Lozenges (Cepastat Lozenges) 1 cecy PO Q2H PRN PRN Reason: Sore Throat Zolpidem Tartrate (Ambien) 5 mg PO HSPRN PRN PRN Reason: Insomnia
[2019-04-09] MEDS ORDERED: Diazepam 10 MG/2 ML SYRINGE IVP SCH (12:15)
[2019-04-09] MEDS ORDERED: Lorazepam 2 MG/ML VIAL SLOW IVP SCH (14:30)
[2019-04-09] MEDS: cefTRIAXone\\ROCEPHIN 1 GM in Sodium Chloride 0.9% 100 ML IVPB SCH (15:43)
[2019-04-09] MEDS: Atorvastatin Calcium 40 MG TAB PO SCH (21:08)
[2019-04-09] MEDS: Diltiazem 125 MG in Sodium Chloride 0.9% 100 ML IVPB SCH (21:09)
--- NOTE | 2019-04-10 08:50 | PDOC.PN ---
- Subjective Encounter Start Date: 04/10/19 Encounter Start Time: 08:48 Subjective: no new problems, no distress - Objective Resuscitation Status - Order Detail: 04/07/19 13:23 Resuscitation Status Routine Resuscitation Status: DNAR: NO Resuscitation Discussed with: patient JARROD Reviewed: Yes Vital Signs & Weight: Vital Signs (12 hours) Temp Pulse Resp BP Pulse Ox 04/10/19 08:00 98.2 F 85 20 131/76 97 04/10/19 07:42 89 18 93 L 04/10/19 04:00 97.9 F 69 16 113/58 L 99 04/10/19 00:00 97.9 F 105 H 16 132/69 99 Weight Admit Weight 112 lb 3.2 oz Weight 112 lb 3.2 oz I&O: 04/09/19 04/10/19 04/11/19 06:59 06:59 06:59 Intake Total 980 680 Output Total 1100 900 Balance -120 -220 Result Diagrams: 04/09/19 05:05 04/09/19 05:05 Phys Exam - Physical Examination Neck: no JVD hyperresonant, coarse BS Cardiovascular: irregular controlled rate Gastrointestinal: soft, non-tender, positive bowel sounds Musculoskeletal: no edema bendaged R ankle Dx/Plan (1) Cellulitis of right ankle Code(s): L03.115 - CELLULITIS OF RIGHT LOWER LIMB Status: Acute (2) Atrial fibrillation Code(s): I48.91 - UNSPECIFIED ATRIAL FIBRILLATION Status: Chronic Qualifiers: Atrial fibrillation type: chronic Qualified Code(s): I48.2 - Chronic atrial fibrillation Comment: with paroxysmal RVR (3) COPD (chronic obstructive pulmonary disease) Status: Chronic (4) Chronic stage c diastolic heart failure Code(s): I50.32 - CHRONIC DIASTOLIC (CONGESTIVE) HEART FAILURE Status: Chronic (5) Hypertension Code(s): I10 - ESSENTIAL (PRIMARY) HYPERTENSION Status: Chronic Qualifiers: Hypertension type: essential hypertension Qualified Code(s): I10 - Essential (primary) hypertension (6) Tobacco use Code(s): Z72.0 - TOBACCO USE Status: Chronic - Plan cont iv rocephin, wound care -: cont eliquis, po cardizem, DC iv cardizem * .
[2019-04-10] MEDS: Diltiazem HCl CD 300 mg Capsule PO SCH (08:54)
[2019-04-10] MEDS: predniSONE 20 MG TAB PO SCH (08:54)
[2019-04-10] MEDS: Saccharomyces boulardii 250 MG CAP PO SCH (08:54)
[2019-04-10] MEDS: Apixaban 5 MG TAB PO SCH ×2 (08:54→20:04)
[2019-04-10] MEDS: Furosemide 40 MG TAB PO SCH (08:55)
[2019-04-10] MEDS: Aspirin Chewable 81 MG TAB PO SCH (08:55)
--- NOTE | 2019-04-10 11:17 | CT ---
EXAM: CT Brain W WO Con DATE: 04/10/2019 10:15 AM INDICATION: Possible CVA with inability to perform MRI COMPARISON: CTA of the head with and without contrast dated April 07, [address] of the brain dated April 07, 2019 FINDING: No acute infarct, hemorrhage or hydrocephalus is present. There is stable moderate chronic small vessel white matter ischemic change. No area of abnormal enhancement is demonstrated. The generalized cerebral and cerebellar atrophy is stable. Mastoid air cells and paranasal sinuses are cl ear. The skull is intact. IMPRESSION:No acute intracranial abnormality.
[2019-04-10] MEDS ORDERED: Iopamidol 370 76% 100 ML VIAL ONE (12:03)
[2019-04-10] MEDS: cefTRIAXone\\ROCEPHIN 1 GM in Sodium Chloride 0.9% 100 ML IVPB SCH (14:40)
[2019-04-10] MEDS: Atorvastatin Calcium 40 MG TAB PO SCH (20:04)
[2019-04-11] MEDS ORDERED: predniSONE 5 MG TAB PO SCH (08:00)
[2019-04-11] MEDS: Saccharomyces boulardii 250 MG CAP PO SCH (08:46)
[2019-04-11] MEDS: Diltiazem HCl CD 300 mg Capsule PO SCH (08:47)
[2019-04-11] MEDS: Aspirin Chewable 81 MG TAB PO SCH (08:48)
[2019-04-11] MEDS: Furosemide 40 MG TAB PO SCH (08:48)
[2019-04-11] MEDS: predniSONE 20 MG TAB PO SCH (08:49)
[2019-04-11] MEDS: Apixaban 5 MG TAB PO SCH ×2 (08:49→21:36)
[2019-04-11] MEDS: HYDROcodone/Acetaminophen 5/325 mg Tablet PO PRN ×2 (10:07→21:41)
[2019-04-11] MEDS: cefTRIAXone\\ROCEPHIN 1 GM in Sodium Chloride 0.9% 100 ML IVPB SCH (13:18)
--- NOTE | 2019-04-11 18:26 | PRG ---
DATE OF SERVICE: 04/11/2019 SUBJECTIVE: Still with quite a bit of pain, but less than before. No diarrhea. OBJECTIVE: VITAL SIGNS: T-max 98.8, BP 120/77, pulse 101. GENERAL: Still with pain in the right ankle, particularly around the ulcer, but less than before. LUNGS: Clear. HEART: S1 and S2. Regular rate. ABDOMEN: Soft. Ulcer is unchanged. LABORATORY DATA: White cell count 4.5, hemoglobin 11.7, platelets 205. Sodium 135, creatinine 0.61. Brain CT with no acute intracranial abnormality. Lower extremity ultrasound showed normal triphasic blood flow with mild atherosclerotic disease. ASSESSMENT AND DISCUSSION: Heavy smoking, peripheral vascular disease, cellulitis right leg, chronic ulcer. In view of the results of the arterial duplex ultrasound, it is more likely that the ulcer represents venous stasis or venous hypertension associated with ulceration with now cellulitis. Eventually transition to oral Keflex for discharge planning. She will be a candidate for compression stockings to accelerate healing of the ulcer. The other option would be to do a biopsy to confirm the diagnosis of ulcer associated with venous hypertension. I do not think it is necessary at this point in time. If she does not heal with compressive dressings, then biopsy would be necessary. Job ID: [id number]
--- NOTE | 2019-04-11 18:34 | PDOC.PN ---
- Subjective Encounter Start Date: 04/11/19 Encounter Start Time: 18:30 Subjective: f/u for RLE cellulitis on Rocephin with chronic RLE ulcer likely -: venous stasis in nature. Overall feels better. SOB moderately -: improved with pulmonary support, Duonebs. - Objective Resuscitation Status - Order Detail: 04/07/19 13:23 Resuscitation Status Routine Resuscitation Status: DNAR: NO Resuscitation Discussed with: patient MAR Reviewed: Yes Vital Signs & Weight: Vital Signs (12 hours) Temp Pulse Pulse Pulse Resp BP BP 04/11/19 18:17 92 20 04/11/19 15:28 98 F 84 17 04/11/19 12:07 106 H 18 04/11/19 11:38 98.7 F 113 H 20 04/11/19 11:08 101 H 113 H 122/77 04/11/19 08:47 103 H 128/76 04/11/19 07:53 97.2 F L 103 H 18 04/11/19 07:08 80 16 BP BP Pulse Ox Pulse Ox 04/11/19 18:17 95 04/11/19 15:28 109/62 95 04/11/19 12:07 96 04/11/19 11:38 121/63 96 04/11/19 11:08 121/63 96 04/11/19 08:47 04/11/19 07:53 128/76 96 04/11/19 07:08 98 Weight Admit Weight 112 lb 3.2 oz Weight 112 lb 3.2 oz I&O: 04/10/19 04/11/19 04/12/19 06:59 06:59 06:59 Intake Total 680 780 Output Total 900 Balance -220 780 Result Diagrams: 04/09/19 05:05 04/09/19 05:05 Additional Labs: Microbiology 04/07/19 09:12 Venous blood - Left Arm Blood Culture - Preliminary NO GROWTH AT 48 HOURS 04/07/19 08:55 Venous blood - Right Arm Blood Culture - Preliminary NO GROWTH AT 48 HOURS Radiology Reviewed by me: Yes (CT brain - no acute process) EKG Reviewed by me: Yes (Tele - A-fib in 90's) Phys Exam - Physical Examination Constitutional: NAD alert, responsive receiving Duoneb HEENT: PERRLA, sclera anicteric, oral pharynx no lesions Neck: no nodes, no JVD, supple, full ROM coarse sounds bilat, diminished in bases S1, S2 Cardiovascular: no significant murmur, no rub, gallop, irregular Gastrointestinal: soft, non-tender, no distention, positive bowel sounds RLE with mild erythema around ankle Musculoskeletal: pulses present Neurological: normal sensation, moves all 4 limbs Psychiatric: A&O x 3 Skin: normal turgor, cap refill <2 seconds Dx/Plan (1) Cellulitis of right ankle Code(s): L03.115 - CELLULITIS OF RIGHT LOWER LIMB Status: Acute Comment: Likely due to longstanding venous stasis and peripheral arterial insufficiency, currently tx with Rocephin with plans to transition to Keflex and use compression stockings retirement (2) Atrial fibrillation Code(s): I48.91 - UNSPECIFIED ATRIAL FIBRILLATION Status: Chronic Qualifiers: Atrial fibrillation type: chronic Qualified Code(s): I48.2 - Chronic atrial fibrillation Comment: with paroxysmal RVR, rate improved and controlled currently, continue Diltiazem, Eliquis and ASA (3) COPD (chronic obstructive pulmonary disease) Status: Chronic Comment: Continue Duonebs, Prednisone and Dulera, O2 prn (4) Hypertension Code(s): I10 - ESSENTIAL (PRIMARY) HYPERTENSION Status: Chronic Qualifiers: Hypertension type: essential hypertension Qualified Code(s): I10 - Essential (primary) hypertension Comment: Continue BP regimen, serial monitoring (5) Tobacco use Code(s): Z72.0 - TOBACCO USE Status: Chronic Comment: Tobacco cessation resources - Plan social professionals, respiratory therapy, out of bed/ambulate, DVT proph w/SCDs Stable currently -: Continue Rocephin another 24h -: Likely transition to Keflex -: Tobacco cessation resources -: CM assisting with SNF placement in [place] * .
[2019-04-11] MEDS: Atorvastatin Calcium 40 MG TAB PO SCH (21:36)
[2019-04-12 07:43] VITALS: BP 122/71; TEMP 98.6
[2019-04-12] MEDS: Diltiazem HCl CD 300 mg Capsule PO SCH (08:46)
[2019-04-12] MEDS: predniSONE 20 MG TAB PO SCH (08:46)
[2019-04-12] MEDS: Apixaban 5 MG TAB PO SCH (08:46)
[2019-04-12] MEDS: Aspirin Chewable 81 MG TAB PO SCH (08:46)
[2019-04-12] MEDS: Saccharomyces boulardii 250 MG CAP PO SCH (08:47)
[2019-04-12] MEDS: Furosemide 40 MG TAB PO SCH (08:48)
--- NOTE | 2019-04-13 04:18 | DIS ---
DATE OF ADMISSION: 04/07/2019 DATE OF DISCHARGE: 04/12/2019 DISCHARGE DIAGNOSES: 1. Right lower extremity venous stasis ulcer/cellulitis. 2. Chronic atrial fibrillation on chronic anticoagulation with Eliquis, rate controlled. 3. Chronic obstructive pulmonary disease with exacerbation, mild. 4. Hypertension, stable. 5. Tobacco abuse. 6. Deconditioning. CONSULTATIONS: 1. Dr. Jaramillo with Cardiology Service. 2. Dr. Jason Cotton with Infectious Disease Service. 3. Dr. Angel with Neurology Service. PERTINENT LAB AND X-RAY FINDINGS: Troponin I ranged between 0.018 to 0.031. BNP 990; previously noted 781, 03/14/2019. Total cholesterol 209, triglycerides 134, HDL 61, LDL 121. CBC within normal limits. Urinalysis, negative, 04/07/2019. Blood cultures x2 dated 04/07/2019 showed no growth at [address] angiogram of the head and neck dated 04/07/2019 showed 50% stenosis of the proximal left internal carotid artery. Patent nez perce of Jauregui without stenosis. Three views of the right ankle dated 04/07/2019 showed no acute process. Portable chest x-ray dated 04/07/2019 showed bilateral chronic lung changes consistent with emphysema. CT of the brain without contrast dated 04/07/2019 showed extensive chronic microvascular ischemic changes. Subtle asymmetry of the anterior left insula region. Arterial duplex Dopplers of the right lower extremity dated 04/08/2019 showed mild atherosclerotic changes at the level of the right dorsalis pedis artery. No hemodynamically significant stenosis noted. 2D transthoracic echocardiogram dated 04/08/2019 showed technically limited exam. Ejection fraction of 55% to 60%. Mild left atrial enlargement. CT of the brain without contrast dated 04/10/2019 showed no acute intracranial process. HOSPITAL COURSE: The patient was initially admitted after presenting with increasing redness of the right ankle region with skin breakdown and ulceration. The patient was initially placed on a broad-spectrum antibiotic therapy for right lower extremity ulceration and cellulitis. The patient apparently developed stroke-like symptoms on 04/07/2019 and was placed under general stroke protocol. Initial CT imaging showed questionable area of abnormality as stated previously undergoing general stroke protocol including evaluation by the Neurology Service. The patient remained on aspirin 81 mg daily and underwent vascular evaluation showing mild carotid artery disease in the left internal carotid approximately 50%. The patient continued to receive Rocephin intravenously throughout the hospital course after evaluation by the Infectious Disease Service. The patient also underwent arterial Doppler exam of the right lower extremity showing remarkably preserved arterial flow of the right lower extremity without insufficiency. The patient's condition likely venous stasis in nature, receiving local wound care and IV antibiotics. The patient transitioned to Keflex 500 mg b.i.d. and will continue a 10-day course of antibiotic therapy after discharge. The patient continued to receive general pulmonary supportive management throughout the hospital course including prednisone therapy, bronchodilator treatments with DuoNeb. The patient also continued on oxygen supplementation at 2 L/minute by nasal cannula. The patient was given counseling regarding the need for tobacco cessation and will need additional encouragement and followup after discharge. The patient was also treated transiently for atrial fibrillation with rapid ventricular response with Cardizem infusion, however, was able to rapidly transition to oral rate control measures including diltiazem 300 mg daily. The patient continued on Eliquis 5 mg b.i.d. for anticoagulation in addition to aspirin 81 mg daily. Due to the patient's overall deconditioned status and comorbid conditions, the patient was deemed an appropriate candidate for ongoing skilled care. The patient has been approved to transition to [facility] as well as Wound Care Services. I have examined the patient at the time of discharge and discussed followup instructions. The patient verbalized understanding and in agreement, ready for discharge on 04/12/2019. DISCHARGE MEDICATIONS: 1. ProAir HFA 2 puffs inhaled q.6 hours p.r.n. 2. Tramadol 50 mg p.o. b.i.d. p.r.n. 3. Eliquis 5 mg p.o. b.i.d. 4. Enteric-coated aspirin 81 mg p.o. daily. 5. Lipitor 40 mg p.o. at bedtime. 6. Keflex 500 mg p.o. b.i.d. until 04/22/2019. 7. Cardizem CD 300 mg p.o. daily. 8. Lasix 40 mg p.o. daily. 9. DuoNeb 3 mL nebulized q.6 hours p.r.n. 10. Dulera 2 puffs inhaled daily. 11. Protonix 40 mg p.o. daily. 12. Prednisone 20 mg p.o. q.a.m. until 04/18/2019. 13. Florastor 250 mg p.o. daily. 14. Zoloft 50 mg p.o. daily. FOLLOWUP: The patient may follow up with Dr. Leon at [facility]. CONDITION ON DISCHARGE: Fair. ACTIVITY: Ad-leeroy. Rolling walker with standby/contact guard assistance. DIET: Heart healthy with Ensure supplements t.i.d. CODE STATUS: Do not attempt resuscitation. DISPOSITION: Discharged to [facility] on 04/12/2019. TIME SPENT: Total time preparing and coordinating discharge is 35 minutes. Job ID: [id number]
--- NOTE | 2019-04-13 06:55 | PQF ---
[employer] Model Maker Crystal Reports Winform Viewer NANI PFEIFFER CAMRON CARABALLO [id number] [facility] [id number] CLINICAL DOCUMENTATION CLARIFICATION FORM: POST DISCHARGE Addendum to original discharge summary date: ____ Late entry note date: __ DATE: 04-13-2019 ATTN:Camron Womack Please exercise your independent, professional judgment in responding to the clarification form. Clinical indicators are provided on the bottom of this form for your review Can you please specify whether acute CVA is ruled in or ruled out during this encounter? Please check appropriate box(s) to clarify if the following diagnosis has been ruled in or ruled out: CVA [ ] Ruled in diagnosis [ ] Continue to treat [ ] Resolved [ x ] Ruled out diagnosis [ ] Cannot rule out diagnosis [ ] Other diagnosis please specify: [ ] Unable to determine For continuity of documentation, please document condition throughout progress notes and discharge summary. Thank You. CLINICAL INDICATORS: Event note 04/[address] Sanchez jose m lopez activated due to new stroke like symptoms, pt sent for CT as per radiology there is concern for small acute infarction PN 04/[address] Lindsey last night jose m lopez was called for stroke like symptoms, this morning sleepy but arousable and follow command, moves four limbs , not good historian PN 04/[address] Lindsey Acute CVA Consult 04/[address] Angel she has been found to have sudden onset of deterioration of consciousness and I have reviewed the code record, a jose m lopez was called for CVA. She was disoriented, unable to answer questions and she was in Afib and she was given a NIH stroke scale of [address] of the head with suspicious acute stroke and the patient had a CT of the head last night and there was subtle loss of normal miller white matter differentiation concerning for acute infarct Consult 04/[address] Angel Her examination today is normal except for mild facial droop. She is currently pending MRI of the brain to establish the diagnosis PN 04/[address] Lindsey yesterday MRI was not done as pt was not able to lie still, no new problems Brain CT 04/10 Dr. Esquivel- Impression: No acute intracranial abnormality DS 04/[address] of the brain without contrast dated 04/10/2019 showed no acute intracranial process. RISK FACTOR: H&P Dr. Posey- Smokes three packs of cigarettes a day H&P Dr. Posey- Congestive Heart failure H&P Dr. Posey-HTN H&P Dr. Posey- Atrial Fibrillation PN Dr. Lindsey- Left carotid stenosis TREATMENTS: CT angiography by Dr Hughes-04/[address] Jaramillo 04/08 Cardizem 125 mg drip-FEB 01 Discharge Medication addition: Enteric-coated aspirin 81 mg p.o. daily (This form is maintained as a part of the permanent medical record) 2014 [employer]. All Rights Reserved Naomi [email or web address] [not provided] MTDD
--- NOTE | 2019-04-13 14:41 | EKG ---
Test Reason : STAT Blood Pressure : / mmHG Vent. Rate : 118 BPM Atrial Rate : 129 BPM P-R Int : 000 ms QRS Dur : 098 ms QT Int : 302 ms P-R-T Axes : 000 086 081 degrees QTc Int : 423 ms Atrial fibrillation with rapid ventricular response with premature ventricular or aberrantly conducte d complexes Cannot exclude Septal infarct , age undetermined Abnormal ECG Confirmed by FLOR ORR ([id number]) on 04/13/2019 2:41:10 PM Referred By: BERNABE Confirmed By:FLOR ORR
== END 2019-04-12 11:07 | DRG 603 ==
LOC: ERS 08:34 → ERHOLD 11:25 → 2SE 16:31
PROVIDERS: ADMIT Internal Medicine; ATTEND Internal Medicine
DX: L03.115 Cellulitis of right lower limb (principal); I50.32 Chronic diastolic (congestive) heart failure; E44.0 Moderate protein-calorie malnutrition; Z68.1 Body mass index [BMI] 19.9 or less, adult; L97.919 Non-pressure chronic ulcer of unspecified part of right lower leg with unspecified severity; F41.9 Anxiety disorder, unspecified; Z66 Do not resuscitate; I11.0 Hypertensive heart disease with heart failure; F17.210 Nicotine dependence, cigarettes, uncomplicated; F32.9 Major depressive disorder, single episode, unspecified; I65.22 Occlusion and stenosis of left carotid artery; I48.0 Paroxysmal atrial fibrillation; I87.301 Chronic venous hypertension (idiopathic) without complications of right lower extremity; I73.9 Peripheral vascular disease, unspecified; J44.9 Chronic obstructive pulmonary disease, unspecified; R29.810 Facial weakness; I87.8 Other specified disorders of veins; Z88.1 Allergy status to other antibiotic agents; Z90.49 Acquired absence of other specified parts of digestive tract; Z99.81 Dependence on supplemental oxygen; Z88.2 Allergy status to sulfonamides; Z79.01 Long term (current) use of anticoagulants; Z79.52 Long term (current) use of systemic steroids; Z79.891 Long term (current) use of opiate analgesic
CPT/HCPCS: 36415; 36416; 70450; 70470; 70496; 70498; 71045; 80048; 80053; 80061; 81003; 82550; 82553; 83605; 83880; 84484; 85025; 85610; 85730; 87040; 93005; 93010; 93306; 93923; 94640; 94760; 96361; 96365; 96366; 96367; 96375; J0696; J2060; J2270; J2405; J2543; J2920; J3370; J3490; J7512; J7620; Q9966; Q9967

== ENCOUNTER 2019-05-12 04:44 | Inpatient (IN) | payer MEDICARE ==
[2019-05-12] MEDS ORDERED: Diltiazem 125 MG/25 ML ONE (05:16)
[2019-05-12] MEDS ORDERED: Magnesium 2 GM/50 ML BAG (IN WATER) ONE (05:16)
[2019-05-12] MEDS ORDERED: Ondansetron PF 4 MG/2 ML Vial IVP PRN (06:27)
[2019-05-12] MEDS ORDERED: Ondansetron ODT 4 MG TAB SL PRN (06:27)
[2019-05-12] MEDS ORDERED: Acetaminophen 325 MG TAB PO PRN ×2 (06:27→22:22)
[2019-05-12 06:28] VITALS: BMI 19.1
[2019-05-12] MEDS ORDERED: Diltiazem HCl 125 MG, Admixture Fee 1 EACH in Sodium Chloride 0.9% 100 ML IVPB SCH (06:30)
[2019-05-12 07:23] LABS: Troponin I Less than 0.010 ng/mL (< 0.028)
[2019-05-12] MEDS ORDERED: Nicotine 14 MG PATCH TD PRN (09:30)
[2019-05-12 10:13] LABS: Troponin I Less than 0.010 ng/mL (< 0.028)
--- NOTE | 2019-05-12 10:21 | HP ---
PRIMARY CARE PHYSICIAN: Dr. Leon. CHIEF COMPLAINT: Shortness of breath. HISTORY OF PRESENT ILLNESS: The patient is a 74-year-old female with COPD, on home oxygen; hypertension; tobacco dependence; and chronic atrial fibrillation, on anticoagulation; presented to the emergency room at [facility] with above complaints. Four days ago, the patient was seen in the emergency room with shortness of breath. A chest x-ray at that time was negative for infiltrate. She was diagnosed with COPD exacerbation. She received 1 dose of azithromycin and IV steroids and was discharged home on prednisone taper as well as azithromycin p.o. Her symptoms partially improved. However, over the last 2 to 3 days, her shortness of breath got worse. She had cough productive of thick yellowish phlegm. She was short of breath on minimal exertion. No leg swelling, orthopnea reported. She had intermittent palpitations, however, denies any chest pain or syncope. She denies recent immobilization travel. She is compliant with all of her medications including Eliquis and Cardizem. Please note, the patient was discharged from this facility a month ago with a diagnosis of right lower extremity venous stasis ulcer/cellulitis. PAST MEDICAL HISTORY: 1. COPD. 2. Chronic hypoxic respiratory failure, on home oxygen at night. 3. Chronic atrial fibrillation, on anticoagulation. 4. Chronic right lower extremity venous stasis ulcer. The patient has wound care by herself. 5. Hypertension. 6. Tobacco dependence. 7. Chronic diastolic heart failure. 8. Anxiety. PAST SURGICAL HISTORY: Cholecystectomy. ALLERGIES: THE PATIENT IS ALLERGIC TO BACTRIM. CURRENT HOME MEDICATIONS: 1. Eliquis 5 mg b.i.d. 2. Aspirin 81 mg daily. 3. DuoNeb every 6 hourly. 4. Florastor 250 mg daily. 5. Zoloft 50 mg daily. 6. Prednisone 50 mg daily, that was started in the emergency room 4 days ago (for a total of 5 days). 7. Protonix 20 mg daily. 8. Lasix 20 mg daily. 9. Cardizem CD 300 mg daily. 10. Symbicort two puffs b.i.d. 11. Albuterol inhaler as needed. 12. Flonase nasal spray daily. SOCIAL HISTORY: The patient continues to smoke up to three packs a day. She currently lives at home. She denies alcohol or drug use. She makes her own decision with the help of her family. FAMILY HISTORY: Positive for heart disease. REVIEW OF SYSTEMS: All other review of systems was reviewed and were found negative. PHYSICAL EXAMINATION: VITAL SIGNS: In the emergency room showed temperature 97.7, respirations of 24, pulse rate of 101, blood pressure 130/77, with O2 saturation of 85% on room air. GENERAL: A 74-year-old female, in mild respiratory distress. Feels somewhat better after ER treatment. HEENT: Head, atraumatic and normocephalic. Sclerae anicteric. Moist mucous membranes. No oral lesion. NECK: Supple. No JVD appreciated. No carotid bruit. LUNGS: There were accessory muscle use. There were diffuse expiratory wheezing with scattered rhonchi. No rales appreciated. HEART: S1 and S2 present. Irregularly irregular. No significant rubs or gallops appreciated. ABDOMEN: Soft, nontender. Bowel sounds present. EXTREMITIES: No edema or calf tenderness. NEUROLOGY: Grossly nonfocal. Moves all 4 extremities. PSYCHIATRY: Alert, awake, and oriented x3. SKIN: Warm and dry. Chronic ulcer over the right lateral malleolus approximately 4 cm in diameter with raised edges and well-healing granular base. LYMPH NODES: No palpable lymph nodes in the neck. PERIPHERAL VASCULAR: Radial pulses palpable bilaterally. MUSCULOSKELETAL: No joint swelling tenderness. LABORATORY FINDINGS: CBC showed WBC of 7.9 with hemoglobin of 11.5, hematocrit 35.3, platelets 273. PT/INR in normal range. BNP 461. Sodium 144, potassium 3.9, BUN 14, creatinine 0.5. Troponins negative. TSH 1.3. Chest x-ray by my review was negative for infiltrate. EKG by my review showed atrial fibrillation with rapid ventricular response. IMPRESSION: 1. Acute on chronic hypoxic respiratory failure secondary to chronic obstructive pulmonary disease exacerbation. 2. Atrial fibrillation with rapid ventricular response. 3. Ongoing tobacco abuse. The patient was counseled. 4. Chronic diastolic heart failure, appears to be compensated. 5. Hypertension. 6. History of chronic obstructive pulmonary disease. 7. Anxiety. 8. Chronic right lower extremity venous stasis ulcer. 9. Physical deconditioning. PLAN: The patient will be monitored on the telemetry unit. Cardizem drip will be continued. We will continue IV steroids along with cefepime and azithromycin. We will wean O2 as tolerated. The patient is on 2 L home oxygen. Her troponins have been negative. She had a recent echo that showed ejection fraction of 55% to 60% with mild mitral regurgitation and mild tricuspid regurgitation. Anticoagulation will be continued. We will consult Wound Care. We will start her on oral Cardizem and try weaning the drip. The patient will require 2 to 3 days for stabilization. Plan of care was discussed with the patient in detail. She stated understanding. Job ID: [id number]
[2019-05-12] MEDS ORDERED: Nitroglycerin 0.4 MG TAB (25 Tab Bottle) PO PRN (10:28)
[2019-05-12] MEDS ORDERED: PROVENTIL INHALER 6.7 G (200 INHALATIONS) INH PRN (10:29)
[2019-05-12] MEDS ORDERED: Aspirin Chewable 81 MG TAB PO SCH (10:30)
[2019-05-12] MEDS ORDERED: Apixaban 5 MG TAB PO SCH (10:30)
[2019-05-12] MEDS ORDERED: Diltiazem 125 MG in Sodium Chloride 0.9% 100 ML IVPB SCH (10:30)
[2019-05-12] MEDS: Azithromycin 500 MG in Sodium Chloride 0.9% 250 ML 250 ML IVPB SCH (11:34)
[2019-05-12] MEDS: traMADol HCl 50 MG TAB PO PRN (12:11)
[2019-05-12] MEDS: Cefepime 1 GM in Sodium Chloride 0.9% 100 ML IVPB SCH (13:12)
[2019-05-12] MEDS: Mometasone/Formoterol 120 PUFF INHALER INH SCH (18:23)
[2019-05-12] MEDS: guaiFENesin ER 600 MG TAB PO SCH (20:35)
[2019-05-12] MEDS: Apixaban 5 MG TAB PO SCH (20:35)
[2019-05-12] MEDS ORDERED: Non-Formulary Item 1 EACH (Budesonide-Formoterol [Symbicort 160-4.5] 2 PUFF) INH SCH (21:00)
[2019-05-12] MEDS: Diabetic Tussin 200 MG/10 ML UDCUP PO PRN (21:01)
[2019-05-13] MEDS: Cefepime 1 GM in Sodium Chloride 0.9% 100 ML IVPB SCH ×2 (01:01→13:38)
[2019-05-13] MEDS: Diabetic Tussin 200 MG/10 ML UDCUP PO PRN ×2 (01:01→21:57)
[2019-05-13 04:39] LABS: #Lymphocytes 1.7 thou/uL (1.20-3.40); #Monocytes 0.5 thou/uL (0.11-0.59); %Basophils 0.2 % (0.0-1.0); %Eosinophils 0.3 % (0.0-10.0); %Lymphocytes 20.5 % (21.0-51.0); %Monocytes 6.4 % (0.0-10.0); %Neutrophils 72.6 % (42.0-75.0); Hemoglobin 11.7 g/dL (12.0-16.0); Mean Corpuscular HGB CONC 31.6 g/dL (32.0-36.0); Mean Corpuscular Volume 85.6 fL (78.0-98.0); Mean Platelet Volume 7.9 fL (7.4-10.4); Platelet Count 310 thou/uL (130-400); RBC Distribution Width 14.7 % (11.5-14.5); Red Blood Cell (RBC) Count 4.35 mill/uL (4.20-5.40); White Blood Cell (WBC) Count 8.3 thou/uL (4.8-10.8)
[2019-05-13 04:44] LABS: Hemoglobin 11.6 g/dL (12.0-16.0); Platelet Count 303 thou/uL (130-400)
[2019-05-13 04:55] LABS: Calc. Creatinine Clearance 69 mL/min (70-130); Estimated GFR-MDRD Greater than 90
[2019-05-13 04:57] LABS: Anion Gap 12 mmol/L (10-20); BUN (Urea Nitrogen) 17 mg/dL (9.8-20.1); Calc. Creatinine Clearance 69 mL/min (70-130); Calcium 9.4 mg/dL (7.8-10.44); Carbon Dioxide 27 mmol/L (23-31); Chloride 102 mmol/L (98-107); Estimated GFR-MDRD Greater than 90; Glucose 143 mg/dL (83-110); Magnesium 2.2 mg/dL (1.6-2.6); Sodium 137 mmol/L (136-145)
[2019-05-13] MEDS ORDERED: Furosemide 40 MG TAB PO SCH (07:30)
[2019-05-13] MEDS: Mometasone/Formoterol 120 PUFF INHALER INH SCH ×2 (07:36→19:30)
[2019-05-13] MEDS: Famotidine 20 MG TAB PO SCH ×2 (08:08→21:57)
[2019-05-13] MEDS: predniSONE 20 MG TAB PO SCH ×2 (08:08→16:09)
[2019-05-13] MEDS: Aspirin Chewable 81 MG TAB PO SCH (08:08)
[2019-05-13] MEDS: Furosemide 20 MG TAB PO SCH (08:08)
[2019-05-13] MEDS: Apixaban 5 MG TAB PO SCH ×2 (08:08→21:56)
[2019-05-13] MEDS: Fluticasone Propionate Nasal Spray 16 gm Bottle NASAL SCH (08:09)
[2019-05-13] MEDS: Senokot S 8.6-50 MG TAB PO SCH ×2 (08:09→21:57)
[2019-05-13] MEDS: Saccharomyces boulardii 250 MG CAP PO SCH (08:09)
[2019-05-13] MEDS: guaiFENesin ER 600 MG TAB PO SCH ×2 (08:09→21:57)
[2019-05-13] MEDS: traMADol HCl 50 MG TAB PO PRN (08:13)
[2019-05-13] MEDS ORDERED: Digoxin 0.25 MG TAB PO SCH ×2 (08:30→21:00)
[2019-05-13] MEDS: Azithromycin 500 MG in Sodium Chloride 0.9% 250 ML 250 ML IVPB SCH (12:15)
--- NOTE | 2019-05-13 16:22 | PDOC.PN ---
- Subjective Encounter Start Date: 05/13/19 Encounter Start Time: 13:00 Patient seen and examined for Resp failure/Afib with RVR. Productive cough. Wheezing +. No CP. No new complaints. No overnight events - Objective Resuscitation Status - Order Detail: 05/12/19 22:22 Resuscitation Status Routine Resuscitation Status: FULL: Full Resuscitation MAR Reviewed: Yes Vital Signs & Weight: Vital Signs (12 hours) Temp Pulse Resp BP Pulse Ox 05/13/19 16:07 98.2 F 96 18 139/60 94 L 05/13/19 14:53 88 16 98 05/13/19 11:40 85 16 05/13/19 11:12 98.2 F 85 12 120/85 97 05/13/19 09:10 85 05/13/19 08:08 106 H 05/13/19 07:36 93 12 05/13/19 07:28 93 12 05/13/19 07:01 98.2 F 88 18 120/85 96 Weight Admit Weight 114 lb 14.4 oz Weight 115 lb I&O: 05/12/19 05/13/19 05/14/19 06:59 06:59 06:59 Intake Total 1340 Output Total 200 Balance 1140 Result Diagrams: 05/13/19 04:18 05/13/19 04:18 EKG Reviewed by me: Yes (Tele Afib) Phys Exam - Physical Examination Constitutional: NAD Respiratory: wheezing present Scat rhonchi, Few rales at bases, Minimal accessory muscle use Cardiovascular: no rub, irregular no heaves/pulsations Gastrointestinal: soft, non-tender, no distention, positive bowel sounds Musculoskeletal: no edema Neurological: non-focal, normal sensation, moves all 4 limbs Psychiatric: normal affect, A&O x 3 Skin: no rash Dx/Plan - Plan DVT proph w/SCDs IMPRESSION: 1. Acute on chronic hypoxic respiratory failure secondary to COPD exacerbation. 2. Atrial fibrillation with rapid ventricular response requiring Cardizem drip - on Eliquis. 3. Ongoing tobacco abuse. 4. Chronic diastolic heart failure - compensated 5. Hypertension. 6. Physical deconditioning. 7. Anxiety. 8. Chronic right lower extremity venous stasis ulcer. PLAN: Wean Cardizem drip Add Digoxin after loading dose. Cont PO Cardizem Cont IV Atbx Cont Steroids Cont Nebs/O2 supp DC in 24-48 hr if stable AM labs Review of Systems - Review of Systems Respiratory: Cough, SOB with Excertion, Sputum, Wheezing. negative: Dry, Shortness of Breath, Hemoptysis, Pleuritic Pain Cardiovascular: negative: chest pain, palpitations, orthopnea, paroxysmal nocturnal dyspnea, edema, light headedness, other - Medications/Allergies Allergies/Adverse Reactions: Allergies Allergy/AdvReac Type Severity Reaction Status Date / Time sulfamethoxazole Allergy Verified 05/12/19 08:48 [From Bactrim] trimethoprim [From Bactrim] Allergy Verified 05/12/19 08:48 Medications: Current Medications Acetaminophen (Tylenol) 650 mg PO Q4H PRN PRN Reason: Headache/Fever/Mild Pain (1-3) Albuterol Sulfate (Proventil Hfa) 2 puff INH Q4H PRN PRN Reason: Wheezing Albuterol/Ipratropium (Duoneb) 3 ml NEB [id number] [facility] Last Admin: 05/13/19 14:53 Dose: 3 ml Albuterol/Ipratropium (Duoneb) 3 ml NEB [id number] PRN PRN Reason: SOB &/or Wheezing Apixaban (Eliquis) 5 mg PO BID [facility] Last Admin: 05/13/19 08:08 Dose: 5 mg Aspirin (Aspirin Chewable) 81 mg PO DAILY [facility] Last Admin: 05/13/19 08:08 Dose: 81 mg Digoxin (Lanoxin) 0.125 mg PO DAILY [facility] Digoxin (Lanoxin) 0.25 mg PO HS [facility] Stop: 05/13/19 21:01 Diltiazem HCl (Cardizem Cd) 240 mg PO BID [facility] Last Admin: 05/13/19 08:08 Dose: 240 mg Famotidine (Pepcid) 20 mg PO BID [facility] Last Admin: 05/13/19 08:08 Dose: 20 mg Fluticasone Propionate (Flonase Nasal [place]) 0 gm NASAL DAILY [facility] Last Admin: 05/13/19 08:09 Dose: 1 spr Furosemide (Lasix) 20 mg PO DAILY-AC [facility] Last Admin: 05/13/19 08:08 Dose: 20 mg Guaifenesin (Mucinex) 600 mg PO Q12HR [facility] Last Admin: 05/13/19 08:09 Dose: 600 mg Guaifenesin (Robitussin Sf) 200 mg PO Q4H PRN PRN Reason: Cough Last Admin: 05/13/19 01:01 Dose: 200 mg Azithromycin 500 mg/ Sodium (Chloride) 250 mls @ 250 mls/hr IVPB Q24H [facility] Last Admin: 05/13/19 12:15 Dose: 250 mls Cefepime HCl 1 gm/ Sodium (Chloride) 100 mls @ 200 mls/hr IVPB 0100,1300 [facility] Last Admin: 05/13/19 13:38 Dose: 100 mls Mometasone Furoate/Formoterol Fumar (Dulera 200 Mcg/5 Mcg Inhaler) 2 puff INH BID-RT [facility] Last Admin: 05/13/19 07:36 Dose: 2 puff Nicotine (Nicoderm Patch) 14 mg TD Q24HR PRN PRN Reason: Smoking craving Nitroglycerin (Nitrostat) 0.4 mg PO Q5MIN PRN PRN Reason: Chest Pain Pantoprazole Sodium (Protonix) 40 mg PO DAILY [facility] Last Admin: 05/13/19 08:09 Dose: 40 mg Prednisone (Prednisone) 20 mg PO BID-[facility] Last Admin: 05/13/19 16:09 Dose: 20 mg Saccharomyces Boulardii (Florastor) 250 mg PO DAILY [facility] Last Admin: 05/13/19 08:09 Dose: 250 mg Senna/Docusate Sodium (Senokot S) 1 tab PO BID [facility] Last Admin: 05/13/19 08:09 Dose: 1 tab Sertraline HCl (Zoloft) 50 mg PO DAILY [facility] Last Admin: 05/13/19 08:09 Dose: 50 mg Sodium Chloride (Flush - Normal Saline) 10 ml IVF Q12HR [facility] Last Admin: 05/13/19 08:10 Dose: 10 ml Sodium Chloride (Flush - Normal Saline) 10 ml IVF PRN PRN PRN Reason: Saline Flush Last Admin: 05/13/19 01:01 Dose: 10 ml Tramadol HCl (Ultram) 50 mg PO BID PRN PRN Reason: pain Last Admin: 05/13/19 08:13 Dose: 50 mg
[2019-05-14] MEDS: Cefepime 1 GM in Sodium Chloride 0.9% 100 ML IVPB SCH (02:32)
[2019-05-14 05:18] LABS: Anion Gap 9 mmol/L (10-20); BUN (Urea Nitrogen) 19 mg/dL (9.8-20.1); Calc. Creatinine Clearance 74 mL/min (70-130); Calcium 9.3 mg/dL (7.8-10.44); Carbon Dioxide 33 mmol/L (23-31); Chloride 100 mmol/L (98-107); Estimated GFR-MDRD Greater than 90; Glucose 112 mg/dL (83-110); Potassium 3.6 mmol/L (3.5-5.1); Sodium 138 mmol/L (136-145)
[2019-05-14] MEDS: Mometasone/Formoterol 120 PUFF INHALER INH SCH (07:46)
[2019-05-14] MEDS: Fluticasone Propionate Nasal Spray 16 gm Bottle NASAL SCH (08:35)
[2019-05-14] MEDS: predniSONE 20 MG TAB PO SCH (08:36)
[2019-05-14] MEDS: Apixaban 5 MG TAB PO SCH (08:36)
[2019-05-14] MEDS: Famotidine 20 MG TAB PO SCH (08:37)
[2019-05-14] MEDS: Aspirin Chewable 81 MG TAB PO SCH (08:37)
[2019-05-14] MEDS: guaiFENesin ER 600 MG TAB PO SCH (08:37)
[2019-05-14] MEDS: Senokot S 8.6-50 MG TAB PO SCH (08:38)
[2019-05-14] MEDS: Furosemide 20 MG TAB PO SCH (08:38)
[2019-05-14] MEDS: Diabetic Tussin 200 MG/10 ML UDCUP PO PRN (08:41)
[2019-05-14] MEDS: Saccharomyces boulardii 250 MG CAP PO SCH (08:41)
[2019-05-14] MEDS ORDERED: Azithromycin 250 MG TAB PO SCH (09:00)
[2019-05-14] MEDS ORDERED: Digoxin 0.125 MG TAB PO SCH (09:00)
[2019-05-14] MEDS ORDERED: Cefdinir 300 MG CAP PO SCH (09:00)
[2019-05-14] MEDS ORDERED: Diltiazem HCl CD 300 mg Capsule PO SCH (09:00)
[2019-05-14 12:35] VITALS: BP 128/72; TEMP 97.8
--- NOTE | 2019-05-14 12:59 | DIS ---
DATE OF ADMISSION: 05/12/2019 DATE OF DISCHARGE: 05/14/2019 DISCHARGE DISPOSITION: Home. FOLLOWUP: 1. Follow up with primary care physician, Dr. Leon, in 1 week. 2. Follow up with Cardiology in 2 to 3 weeks. The patient was seen and examined on the day of discharge. Denies any new complaints. No chest pain, shortness of breath, or palpitations. DISCHARGE MEDICATIONS: 1. Digoxin 0.125 mg daily. 2. Omnicef 300 mg b.i.d. for next 5 days. 3. Azithromycin 250 mg daily for next 4 days. 4. Prednisone taper. All other home medications were left unchanged. BRIEF HOSPITAL COURSE: The patient is a 74-year-old female with COPD; chronic atrial fibrillation, on anticoagulation; and chronic respiratory failure, on home oxygen, presented to the hospital with shortness of breath. A workup was consistent with COPD exacerbation along with atrial fibrillation with rapid ventricular response. She was started on Cardizem drip along with nebulizer treatment, antibiotics, steroids, and O2 supplementation. Later on, Cardizem drip was weaned off. Digoxin was added as well. Antibiotics and steroids have been changed to p.o. She is symptomatically feeling much better. Her O2 saturation at discharge is 95% on 2 L nasal cannula. Her heart rate is in 80s. Tobacco cessation was extensively emphasized. FINAL DIAGNOSES: 1. Acute on chronic hypoxic respiratory failure, secondary to chronic obstructive pulmonary disease exacerbation. 2. Atrial fibrillation with rapid ventricular response, requiring Cardizem drip. 3. Chronic anticoagulation with Eliquis. 4. Ongoing tobacco abuse. The patient was counseled. 5. Chronic diastolic heart failure, compensated. 6. Hypertension. 7. Physical deconditioning. 8. Anxiety. 9. Chronic right lower extremity venous stasis ulcer, well healing. 10. Chronic anemia. Total time coordinating the discharge of this patient was 34 minutes. Job ID: [id number]
== END 2019-05-14 12:37 | disposition home or self-care (01) | DRG 189 ==
LOC: ERS 04:44 → 2NO 06:22
PROVIDERS: ADMIT Internal Medicine; ATTEND Internal Medicine
DX: J96.21 Acute and chronic respiratory failure with hypoxia (principal); J44.1 Chronic obstructive pulmonary disease with (acute) exacerbation; I50.32 Chronic diastolic (congestive) heart failure; I48.2 Chronic atrial fibrillation; I11.0 Hypertensive heart disease with heart failure; F41.9 Anxiety disorder, unspecified; I83.018 Varicose veins of right lower extremity with ulcer other part of lower leg; R53.81 Other malaise; I08.1 Rheumatic disorders of both mitral and tricuspid valves; D64.9 Anemia, unspecified; F17.210 Nicotine dependence, cigarettes, uncomplicated; Z71.6 Tobacco abuse counseling; Z90.49 Acquired absence of other specified parts of digestive tract; Z79.82 Long term (current) use of aspirin
CPT/HCPCS: 36415; 80048; 83735; 85025; 94640; 96365; J0456; J0692; J3475; J3490; J7050; J7512; J7620

== ENCOUNTER 2019-05-17 19:53 | Inpatient (IN) | payer MEDICARE ==
[2019-05-17] MEDS ORDERED: Ondansetron PF 4 MG/2 ML Vial IVP PRN (23:01)
[2019-05-17] MEDS ORDERED: Acetaminophen 650 MG Suppository PR PRN (23:01)
[2019-05-17] MEDS ORDERED: Bacteriostatic Water 30 ML VIAL FS PRN (23:36)
[2019-05-17] MEDS: methylPREDNISolone Sod Succ 40 MG VIAL IVP SCH (23:50)
[2019-05-17] MEDS: Cefepime 1 GM in Sodium Chloride 0.9% 100 ML IVPB SCH (23:50)
--- NOTE | 2019-05-18 01:27 | HP ---
CODE STATUS: Full code. TIME OF EVALUATION: 10 p.m. CHIEF COMPLAINT: Cough and rapid heart rate. Information was gathered from records. The patient is not a good historian. HISTORY OF PRESENT ILLNESS: This is a 74-year-old female patient with past medical history of COPD, came to the hospital and was discharged three days ago. The patient had at that time COPD exacerbation with AFib with RVR. The patient reported feeling better and she presented today with the similar symptoms, cough, shortness of breath, and also was found to be in AFib with RVR. Also, have low-grade fever. The reason for this admission, the patient may be having underlying infection at this time. Symptoms were moderate. No clear triggers, no alleviating factors, and has been gradually getting worse. REVIEW OF SYSTEMS: CONSTITUTIONAL: The patient has fever. No chills. The patient has generalized weakness. RESPIRATORY: The patient has cough, scant sputum production, and shortness of breath. CARDIOVASCULAR: Palpitation. No chest pain. GASTROINTESTINAL: No nausea. No vomiting, diarrhea, or abdominal pain. LICENSED MASTER SOCIAL WORKER: No dizziness, headache, or feeling lightheaded. GENITOURINARY: No burning on urination. EXTREMITIES: No leg swelling. All other systems were reviewed and negative except for the findings mentioned above. PAST MEDICAL HISTORY: The patient has history of arrhythmia, AFib, history of congestive heart failure, hypertension, and COPD. The patient uses home oxygen 2 L via nasal cannula at night. PAST SURGICAL HISTORY: Cholecystectomy. FAMILY HISTORY: Reviewed and non contributory to current presentation. PSYCHIATRIC HISTORY: Anxiety. SOCIAL HISTORY: No drug use. Lives at home with family. The patient drinks socially. The patient currently uses tobacco, smokes cigarettes. The patient smokes three packs per day, smoking since age 50. KNOWN ALLERGIES: Sulfa, trimethoprim. REPORTED MEDICATIONS: 1. HFA. 2. DuoNeb. 3. Protonix. 4. Eliquis. 5. Sertraline. 6. Cartia XT. 7. Symbicort. 8. Albuterol sulfate. PHYSICAL EXAMINATION: VITAL SIGNS: On presentation, blood pressure 148/78 with heart rate 116, respiratory rate was 24, temperature 100.6, oxygen saturation was 89% on room air. GENERAL APPEARANCE: The patient is chronically malnourished, slim body habitus. The patient is alert, oriented, not in acute distress. HEENT: Eyes; normal conjunctivae. Moist oral mucosa. Anicteric. No JVD. RESPIRATORY: Bilateral air entry. The patient has rales, bilateral wheezing. Symmetric expansion. CARDIOVASCULAR: The patient has irregular heart rhythm at the rate of 107. No murmurs. No gallop. No edema. ABDOMEN: Soft. Normal bowel sounds. MUSCULOSKELETAL: Baseline range of motion and strength. No tenderness. SKIN: Warm, intact. No pallor. No rash. No redness, except for two wounds that the patient has in the left leg and other on the right foot. Capillary refill seems to be intact. NEUROLOGIC: No evidence of any new focal weakness. Cranial nerves seems to be intact. PSYCHIATRIC: The patient is in good mood. No anxiety. Optimal judgment. RADIOLOGY DATA: Telemetry strip showed AFib with RVR at the rate of 107. Chest x-ray was reviewed, which shows stable chronic changes involving the right hemithorax with prominent right apical pleural-parenchymal scarring with questionable area of cavitation in the right lung apex. LABORATORY DATA: Labs were reviewed. The patient has a white count of 17.6 with hemoglobin 13.5, MCV 81, and platelet count 336. Sodium 140, potassium 4.2, chloride 97, carbon dioxide was 30, anion gap 17, BUN 12, creatinine 0.57, GFR greater than 90, glucose 95. LFTs were negative. Beta-natriuretic peptide was 385. Urine was done, was negative. ASSESSMENT AND PLAN: The patient will be placed in the hospital with following medical problems; 1. Atrial fibrillation with rapid ventricular rate, the patient was started on Cardizem drip; however, the rate is in better control right now, could be due to underlying infection. The patient has low-grade fever prior to transfer her. Reconcile home medications and we will call Cardiology. 2. Possible chronic obstructive pulmonary disease exacerbation. The patient has some wheezing, needing oxygen. She reported having the same symptoms when she first came here a few days ago and has been getting worse, so we will reconcile home medications with the patient's DuoNeb, antibiotics, and Solu-Medrol. 3. Possible sepsis. The patient has a fever of 100.5, and the patient also has leukocytosis. The patient is being started on antibiotics for now. We will follow cultures. We will do a CT chest since it has been reported by Cardiology that the patient may be having cavity in the right upper lobe. Lung could be a source for sepsis at this point. 4. Deep vein thrombosis prophylaxis. 5. Chronic respiratory failure. The patient needs oxygen at home, now needing oxygen 2 L nasal cannula. Job ID: [id number]
[2019-05-18 04:39] LABS: #Basophils 0.1 thou/uL (0.0-0.2); #Lymphocytes 1.8 thou/uL (1.20-3.40); #Monocytes 0.1 thou/uL (0.11-0.59); #Neutrophils 10.3 thou/uL (1.40-6.50); %Basophils 0.7 % (0.0-1.0); %Eosinophils 0.2 % (0.0-10.0); %Lymphocytes 14.6 % (21.0-51.0); %Neutrophils 83.4 % (42.0-75.0); Mean Corpuscular HGB CONC 31.8 g/dL (32.0-36.0); Mean Platelet Volume 8.4 fL (7.4-10.4); Platelet Count 267 thou/uL (130-400); RBC Distribution Width 14.7 % (11.5-14.5); Red Blood Cell (RBC) Count 4.82 mill/uL (4.20-5.40); White Blood Cell (WBC) Count 12.4 thou/uL (4.8-10.8)
[2019-05-18 04:58] LABS: Anion Gap 13 mmol/L (10-20); BUN (Urea Nitrogen) 14 mg/dL (9.8-20.1); Calc. Creatinine Clearance 65 mL/min (70-130); Calcium 9.5 mg/dL (7.8-10.44); Carbon Dioxide 30 mmol/L (23-31); Chloride 99 mmol/L (98-107); Estimated GFR-MDRD Greater than 90; Glucose 155 mg/dL (83-110); Sodium 137 mmol/L (136-145)
[2019-05-18] MEDS: methylPREDNISolone Sod Succ 40 MG VIAL IVP SCH ×3 (05:56→17:10)
--- NOTE | 2019-05-18 08:50 | CT ---
CT CHEST WITH IV CONTRAST HISTORY: Abnormal chest radiograph. Cavitation seen on chest x-ray FINDINGS: There is consolidative change in the right upper lobe with the a 2.9 cm cavity. No air-fluid level is seen in the cavity. The previous exam of 05/15/2011 demonstrated scarring in this region. Increased consolidative change on the current exam could represent worsening of scarring, though other etiologi es cannot be excluded. There are calcified pleural plaques in the right hemithorax. Mild the consolidation/atelectatic changes seen in the right posterior lung. A 8 mm nodule is seen posteriorly in the left upper lobe, 5 diameter nodule in the left lower lobe and 6 cm nodule in the right upper lobe. No pleural or pericardial effusions are seen. There are vascular calcifications without evidence of a neurysmal dilatation of the thoracic aorta. There are degenerative changes spine. IMPRESSION: 1. Right upper lobe cavity with associated surrounding consolidation/scarring. Acute process or neopl asm cannot be excluded. 2. Indeterminate lung nodules. Three-month follow-up exam is recommended.
[2019-05-18] MEDS ORDERED: Prevnar 13-Val Conj/PF 0.5 ML SYRINGE IM ONE (09:00)
[2019-05-18] MEDS: Cefepime 1 GM in Sodium Chloride 0.9% 100 ML IVPB SCH (12:51)
[2019-05-18] MEDS: Acetaminophen 325 MG TAB PO PRN (13:01)
[2019-05-18] MEDS ORDERED: Digoxin 0.125 MG TAB PO SCH (14:15)
--- NOTE | 2019-05-18 14:16 | PDOC.PN ---
- Subjective Encounter Start Date: 05/18/19 Encounter Start Time: 12:00 Subjective: Patient examined, resting comfortably, denies current SOB -: Admitted overnight for dyspnea, pneumonia -: Patient admits to still smoking when she is home - Objective Resuscitation Status - Order Detail: 05/17/19 23:01 Resuscitation Status Routine Resuscitation Status: FULL: Full Resuscitation Vital Signs & Weight: Vital Signs (12 hours) Temp Pulse Resp BP Pulse Ox 05/18/19 14:12 100 16 05/18/19 11:55 97.2 F L 118 H 18 126/58 L 99 05/18/19 10:45 90 14 05/18/19 07:35 96.8 F L 102 H 22 H 116/78 97 05/18/19 06:52 90 14 05/18/19 04:00 97.5 F L 101 H 20 137/71 95 Weight Admit Weight 50.031 kg Weight 50.031 kg Result Diagrams: 05/18/19 03:57 05/18/19 03:57 Phys Exam - Physical Examination HEENT: PERRLA, moist MMs Neck: no nodes, no JVD scattered rhonchi, wheezing, no increase work of breathing Cardiovascular: irregular Gastrointestinal: soft, non-tender Musculoskeletal: pulses present, edema present Neurological: non-focal, normal sensation Psychiatric: normal affect Deviation from normal: skin tear to left lower leg, ulceration to right ankle, dressings -: clean, dry and intact Dx/Plan (1) Acute exacerbation of chronic obstructive airways disease Code(s): J44.1 - CHRONIC OBSTRUCTIVE PULMONARY DISEASE W (ACUTE) EXACERBATION Status: Acute (2) Pneumonia Code(s): J18.9 - PNEUMONIA, UNSPECIFIED ORGANISM Status: Acute (3) Atrial fibrillation Code(s): I48.91 - UNSPECIFIED ATRIAL FIBRILLATION Status: Chronic Qualifiers: Atrial fibrillation type: chronic Qualified Code(s): I48.2 - Chronic atrial fibrillation Comment: with paroxysmal RVR, rate improved and controlled currently, continue Diltiazem, Eliquis and ASA (4) COPD (chronic obstructive pulmonary disease) Status: Chronic Comment: Continue Duonebs, Prednisone and Dulera, O2 prn (5) Chronic stage c diastolic heart failure Code(s): I50.32 - CHRONIC DIASTOLIC (CONGESTIVE) HEART FAILURE Status: Chronic (6) Hypertension Code(s): I10 - ESSENTIAL (PRIMARY) HYPERTENSION Status: Chronic Qualifiers: Hypertension type: essential hypertension Qualified Code(s): I10 - Essential (primary) hypertension Comment: Continue BP regimen, serial monitoring (7) Tobacco use Code(s): Z72.0 - TOBACCO USE Status: Chronic Comment: Tobacco cessation resources - Plan cont current plan of care, continue antibiotics, respiratory therapy Continue ABX, neb treatments, steroids, -: Lanoxin added on last admission, restarted, Dr. Sanford has been consulted -: for A fib RVR runs. -: Tobacco cessation counseling given * .
[2019-05-18] MEDS ORDERED: Digoxin 0.5 MG/2 ML AMP SLOW IVP SCH (16:00)
[2019-05-18] MEDS: Azithromycin 500 MG in Sodium Chloride 0.9% 250 ML 250 ML IVPB SCH (17:12)
[2019-05-18] MEDS: Mometasone/Formoterol 120 PUFF INHALER INH SCH (18:16)
[2019-05-18] MEDS ORDERED: Non-Formulary Item 1 EACH (Budesonide-Formoterol [Symbicort 160-4.5] 2 PUFF) INH SCH (21:00)
[2019-05-18] MEDS ORDERED: methylPREDNISolone Sod Succ 40 MG VIAL ONE (23:34)
[2019-05-18] MEDS ORDERED: Cefepime 1 GM VIAL ONE (23:34)
[2019-05-19] MEDS ORDERED: methylPREDNISolone Sod Succ 40 MG VIAL ONE (05:16)
[2019-05-19] MEDS: Mometasone/Formoterol 120 PUFF INHALER INH SCH ×3 (06:45→19:03)
--- NOTE | 2019-05-19 08:26 | CON ---
DATE OF CONSULTATION: PRIMARY CARE DOCTOR: Dr. Leon. PRIMARY MEDICATION COORDINATOR: Dr. Briseno. REASON FOR CARDIOLOGY CONSULTATION: Atrial fibrillation with RVR. HISTORY OF PRESENT ILLNESS: Ms. Powell is a 74-year-old female with a significant history of COPD, chronic atrial fibrillation, diastolic heart failure, hypertension, and current smoker. She was discharged from [facility] one week ago for atrial fibrillation with rapid ventricular response. The patient was discharged with digoxin. However, she has not taken the medicine at home according to nurse. The patient states that the patient is taking all medications that she was discharged from here. However, when the nurse asked the patient, she states that she has not been taking digoxin. She did citrus picker the medicine from pharmacy, but she has not taken it. However, she stated she is taking Eliquis 5 mg twice a day for chronic atrial fibrillation. Yesterday, she started having worsening of shortness of breath without any other cardiac complaints. She has home O2 she wears at night, but she cannot remember that she worn home O2 when she started having shortness of breath yesterday. She was transferred to emergency department for further evaluation and treatment. She was found to have atrial fibrillation with rapid ventricular response again at this time. She continues smoking 10 cigarettes per day. On the initial Cardiology consult assessment, the patient denied chest pain, discomfort, palpitation, fluttering in her chest, dizziness, lightheadedness, or any other cardiac complaints. She is on 2 L nasal cannula. Her oxygen level is stable. However, when she started coughing, it is very hard to stop, constant cough which she has. She had echocardiogram done in March 2019 with EF 55% to 60%, mild dilated left atrium, mild tricuspid regurgitation, and mild mitral valve regurgitation. The patient had a stress test done in November 2016 with no reversible ischemia and EF 66%. She has not followed up with any steward/stewardess banquet since 2017 except in the hospital. She stated the patient's primary care doctor prescribed those cardiac related medication and also her PCP managed her COPD medication. PAST MEDICAL HISTORY: 1. Diastolic heart failure. 2. COPD, with home O2. 3. Hypertension. 4. Chronic atrial fibrillation. 5. Anxiety. 6. Chronic anemia. 7. Current smoker, 10 cigarettes per day. PAST SURGICAL HISTORY: Cholecystectomy. FAMILY HISTORY: She does not have any significant family history of cardiac related disease. SOCIAL HISTORY: She is newly . She continues smoking at least 10 cigarettes per day. She denies EtOH or illicit drug abuse. She drinks at least two pitcher of tea a day. She does not do exercise. ALLERGIES: SHE IS ALLERGIC TO BACTRIM, WHICH CAUSES GENERALIZED ITCHINESS. HOME MEDICATIONS: 1. Eliquis 5 mg twice a day. 2. Zoloft 50 mg once a day. 3. Symbicort 160/4.5 two puffs twice a day. 4. Protonix 20 mg once a day. 5. Albuterol every 6 hours as needed. 6. Diltiazem 300 mg once a day. 7. DuoNeb 4 times a day as needed. 8. Albuterol (ProAir) one puff every 4 hours. 9. Again, she has not taken any digoxin at home. REVIEW OF SYSTEMS: 12-point review of systems negative unless otherwise mentioned in the HPI. She has ulcer to the left ankle for 5-6 months. She has a dressing over that site. She states that site is getting healing better, which is taken care of by the patient's home health nurse. PHYSICAL EXAMINATION: VITAL SIGNS: Blood pressure 126/58, pulse is 115, O2 saturation 99% on 2 L nasal cannula, temperature 97.2. GENERAL: The patient is alert and oriented x4, not in acute distress. HEENT: Normocephalic, atraumatic. Eyes, extraocular muscle movement intact. ENT and mouth, oral and nasal mucosa moist without lesion. NECK: Supple. Normal range of motion. No JVD. RESPIRATORY: Expiratory wheezing, coarse, very diminished at the bases. CARDIOVASCULAR: Irregular rate. No S3 or S4. No significant murmur, heaves, or thrill noted. EXTREMITIES: 2+ pulses in bilateral upper and lower extremities. No edema in lower extremities. Carotid pulses are present without bruit or thrill. ABDOMEN: Soft, nontender. No mass to palpitate. Bowel sounds are present. SKIN: The patient's skin is very thin and bruises in left hand and bruise to the bilateral forearms, but no rash or lesion noted except the left lateral lower extremity where she has a dressing. MUSCULOSKELETAL: The patient able to move all extremities. The patient denied claudication. NEUROLOGIC: The patient is alert and oriented x4. Nonfocal. PSYCHIATRIC: The patient's mood is appropriate. LABORATORY DATA: WBC 12.4, hemoglobin 13.0, hematocrit 40.9, platelets 267. D-dimer 0.87. Sodium 137, potassium 5.0, BUN 14, creatinine 0.60, glucose 155, calcium 9.5. CT chest for elevated D-dimer, which shows right upper lobe cavity with associated surrounding consolidation and scarring. Acute process or neoplasm cannot be excluded. Indeterminate lung nodule, 3-month followup exam is recommended. 12-lead EKG at the ER shows atrial fibrillation with heart rate 124. ASSESSMENT AND PLAN: 1. Atrial fibrillation with rapid ventricular response. The patient's heart rate today has been 100-130 and up to 180 with movement and severe cough. She is on diltiazem 300 mg once a day and Eliquis 5 mg twice a day. The patient's renal function is stable. She just received digoxin 0.125 mg p.o. However, since she has not taken digoxin for 1 week, we would like to give a loading dose of digoxin 0.25 mg IV push now and would like to continue digoxin 0.125 mg once a day. She is not on a beta rica at this moment due to the history of severe chronic obstructive pulmonary disease. 2. Chronic obstructive pulmonary disease extubation. The patient's condition is stable at this moment with 2 L nasal cannula. She has been on several breathing treatment, which is managed by primary care doctor. 3. Hypertension. The patient's blood pressure is stable at this moment. We would like to continue to monitor. 4. Anxiety. The patient's anxiety level is stable at this moment. She is on Zoloft at this moment. 5. Chronic anemia. The patient's hemoglobin level is stable at this moment. We would like to continue to monitor. 6. Current smoker. Smoking cessation education given to the patient. She would like to try Chantix if possible. She was prescribed Chantix before long time ago, however, she could not afford that time. Hopefully at this moment, she can afford it and she can quit smoking at this time. Thank you very much for allowing the Cardiology Service to participate in the care of this patient. We will follow along the patient's care team, make further recommendations as appropriate. Job ID: [id number] MTDD
--- NOTE | 2019-05-19 08:26 | CON ---
DATE OF CONSULTATION: 05/18/2019 INDICATION FOR CONSULTATION: A 74-year-old female with significant COPD, admitted with COPD exacerbation and also chronic atrial fibrillation. She is a patient who was recently seen by Dr. Briseno several years ago and has been readmitted recently back in March due to COPD exacerbation. At that time, she was noted to be in atrial fibrillation with rapid ventricular response. She was started on Eliquis as well as digoxin and diltiazem for rate control. She had been doing relatively well. She was in the hospital again recently and then was discharged to home. She was home for 3 days and then returned again due to increasing shortness of breath. She has home oxygen which she says she uses at night but not during the daytime and apparently this occurred at night. She was taken to the emergency room and then was transferred here for further evaluation and treatment. She is still somewhat confused. She is uncertain as to when she was here and exactly how many times, and what medicines, but otherwise can answer most of my questions and is denying any chest pain, but is still short of breath at this time despite being on oxygen and actually at the time she became short of breath at home, she was already taking oxygen. Also, she was on oxygen in the evening that night. PAST MEDICAL HISTORY: Significant for the COPD, chronic atrial fibrillation, hypertension, diastolic heart failure. She has had a cholecystectomy. MEDICATIONS: Prior to admission or at admission included; 1. Eliquis. 2. Symbicort. 3. Albuterol. 4. Furosemide. 5. Diltiazem. 6. DuoNeb. 7. Protonix. 8. Levaquin. 9. Prednisone. 10. Tramadol. 11. Zoloft. ALLERGIES: SHE IS ALLERGIC TO SULFA. SOCIAL HISTORY: Please refer to the notes dictated by my nurse practitioner, Regina Cain. REVIEW OF SYSTEMS: Please refer to the notes dictated by my nurse practitioner, Regina Cain. PHYSICAL EXAMINATION: GENERAL: Reveals an elderly, somewhat fragile female who appears to be somewhat confused. She is awake, however, and does answer most of the questions, but is confused about the timing and also does not give correct answers and does not know her medications and says that she is unaware that she had any atrial fibrillation, but then a few minutes later would admit that yes she does have an irregular rhythm. VITAL SIGNS: Her blood pressure is 126/58, heart rate is in the 100s to 118 with her atrial fibrillation, respiratory rate 16 to 18, O2 saturation 99%. She is afebrile. HEENT: Reveals the head to be normocephalic and atraumatic. Carotid pulses are present. I do not hear any gross bruits at this time. CHEST: Has decreased breath sounds throughout. I do not hear any rales, rhonchi, or wheezing. CARDIOVASCULAR: Reveals an irregularly irregular rhythm. I do not hear any gross murmurs. Heart sounds are somewhat distant, however. ABDOMEN: Soft and nontender. Positive bowel sounds are present. EXTREMITIES: Show no clubbing or cyanosis. She does have evidence of ecchymosis. She has a dressing on the left lateral lower leg. She also has a wound dressing on the right lateral aspect of the right foot on the ankle area due to a chronic ulceration. NEUROLOGIC: The patient is confused, but otherwise grossly intact. Femoral pulses are present as well as popliteal pulses. I cannot palpate pedal pulses. IMPRESSION: 1. Chronic atrial fibrillation with poorly controlled ventricular response. We will make sure that she is back on her medications at the correct doses. If she is most likely not able to take a beta rica, we may need to increase the dose of the diltiazem. We will reinstate her digoxin. She is not taking this I believe for the last 1 to 2 days. 2. Chronic obstructive pulmonary disease exacerbation. This is to be dealt with by the primary care service. She may need to see recovery auditor. 3. Cellulitis with nonhealing ulcers of the right lower ankle area and also now she has an ulceration which actually was caused due to an accident on the left lower extremity. 4. Hypertension. This is under reasonable control at this time. We will continue to monitor her. Further care of the patient will be by Dr. Briseno when he visits with the patient probably tomorrow. She did have an echocardiogram also in March of this year, which showed a normal ejection fraction of 55% to 60% with only mild mitral and tricuspid valve regurgitations. LABORATORY DATA: Show a WBC of 12.4, hemoglobin was 13, and platelet count was 267,000. Her D-dimer was 0.87. Chemistries show a sodium of 137, potassium 5.0, BUN 14, creatinine 0.6, and a blood sugar of 155. PLAN: At this time, from a cardiac standpoint, again we will try to lower her heart rate by digoxin as well as making sure that she is taking the right dose of diltiazem. If we are unable to control the heart rate, she may need to undergo pacemaker insertion and an AVJ ablation. This may be contributing some to her worsening of her shortness of breath and most likely is a combination of her COPD and some congestive heart failure. I suspect she has some degree of diastolic failure. Job ID: [id number]
[2019-05-19] MEDS: Digoxin 0.125 MG TAB PO SCH (09:47)
[2019-05-19] MEDS: Apixaban 5 MG TAB PO SCH ×3 (09:47→20:37)
[2019-05-19] MEDS: Diltiazem HCl CD 300 mg Capsule PO SCH (09:47)
[2019-05-19] MEDS: Cefepime 1 GM in Sodium Chloride 0.9% 100 ML IVPB SCH ×2 (10:02→12:43)
[2019-05-19] MEDS: methylPREDNISolone Sod Succ 40 MG VIAL IVP SCH ×3 (10:02→17:07)
[2019-05-19] MEDS: Mometasone/Formoterol 120 PUFF INHALER ONE ×2 (10:03→11:30)
[2019-05-19 11:01] LABS: Hemoglobin 11.9 g/dL (12.0-16.0); Platelet Count 289 thou/uL (130-400)
[2019-05-19 15:52] LABS: Calc. Creatinine Clearance 63 mL/min (70-130); Estimated GFR-MDRD Greater than 90
[2019-05-19] MEDS: Azithromycin 500 MG in Sodium Chloride 0.9% 250 ML 250 ML IVPB SCH (17:07)
--- NOTE | 2019-05-19 17:42 | PDOC.PN ---
- Subjective Encounter Start Date: 05/19/19 Encounter Start Time: 14:00 Ms. Powell was seen today in follow-up of COPD exacerbation. She says she feels fine. She does not have any new complaints - Objective Resuscitation Status - Order Detail: 05/17/19 23:01 Resuscitation Status Routine Resuscitation Status: FULL: Full Resuscitation MAR Reviewed: Yes Vital Signs & Weight: Vital Signs (12 hours) Temp Pulse Resp BP Pulse Ox 05/19/19 16:00 97.8 F 97 18 139/65 98 05/19/19 15:46 97 16 95 05/19/19 12:00 98.0 F 92 18 95 05/19/19 11:18 105 H 16 98 05/19/19 10:16 97 05/19/19 09:47 103 H 05/19/19 07:48 98.9 F 110 H 18 145/71 H 92 L 05/19/19 06:45 97 16 97 Weight Admit Weight 110 lb 4.8 oz Weight 110 lb 4.8 oz Result Diagrams: 05/19/19 05:49 05/19/19 15:09 Phys Exam - Physical Examination HEENT: PERRLA Respiratory: no wheezing, no rales, no rhonchi, clear to auscultation bilateral Cardiovascular: no significant murmur, no rub, irregular Gastrointestinal: soft, non-tender, no distention, positive bowel sounds Musculoskeletal: no edema, pulses present Neurological: non-focal, moves all 4 limbs Dx/Plan (1) Acute exacerbation of chronic obstructive airways disease Code(s): J44.1 - CHRONIC OBSTRUCTIVE PULMONARY DISEASE W (ACUTE) EXACERBATION Status: Acute (2) Atrial fibrillation Code(s): I48.91 - UNSPECIFIED ATRIAL FIBRILLATION Status: Chronic Qualifiers: Atrial fibrillation type: chronic Qualified Code(s): I48.2 - Chronic atrial fibrillation Comment: with paroxysmal RVR, rate improved and controlled currently, continue Diltiazem, Eliquis and ASA (3) Hypertension Code(s): I10 - ESSENTIAL (PRIMARY) HYPERTENSION Status: Chronic Qualifiers: Hypertension type: essential hypertension Qualified Code(s): I10 - Essential (primary) hypertension Comment: Continue BP regimen, serial monitoring - Plan * Acute respiratory failure due to COPD exacerbation- continue Azithromycin and Cefepime, Duonebs, and Dulera * Change steroids to p.o. * AFIB- she has been given Digoxin, and is on Cardizem- her heart rate is still a bit elevated- await further recommendations from Cardiology * Right upper lobe cavitary lesion- this may be unchanged, but I don't see another CT scan for comparison, and her potential for outpatient follow-up is unknown- will consult Pulmonary Medicine to evaluate * HTN- blood pressure is stable
[2019-05-19 18:59] LABS: Anion Gap 12 mmol/L (10-20); BUN (Urea Nitrogen) 23 mg/dL (9.8-20.1); Calc. Creatinine Clearance 70 mL/min (70-130); Carbon Dioxide 30 mmol/L (23-31); Chloride 99 mmol/L (98-107); Estimated GFR-MDRD Greater than 90; Glucose 130 mg/dL (83-110); Potassium 4.1 mmol/L (3.5-5.1); Sodium 137 mmol/L (136-145)
[2019-05-19 19:00] LABS: Calcium 9.5 mg/dL (7.8-10.44)
[2019-05-20] MEDS: Cefepime 1 GM in Sodium Chloride 0.9% 100 ML IVPB SCH ×2 (01:37→13:32)
[2019-05-20] MEDS: Mometasone/Formoterol 120 PUFF INHALER INH SCH ×2 (06:59→18:42)
[2019-05-20] MEDS: predniSONE 20 MG TAB PO SCH (08:52)
[2019-05-20] MEDS: Apixaban 5 MG TAB PO SCH ×2 (08:52→21:34)
[2019-05-20] MEDS: Digoxin 0.125 MG TAB PO SCH (08:53)
[2019-05-20] MEDS: Diltiazem HCl CD 300 mg Capsule PO SCH (08:53)
[2019-05-20] MEDS ORDERED: guaiFENesin ER 600 MG TAB PO SCH (11:15)
[2019-05-20] MEDS: Sodium Chloride 3% (15 ML) NEB NEB PRN (14:32)
--- NOTE | 2019-05-20 15:21 | CON ---
DATE OF CONSULTATION: 05/20/2019 SERVICE: Pulmonary Medicine. REASON FOR CONSULTATION: Cavitary lung lesion. HISTORY OF PRESENT ILLNESS: The patient is a 74-year-old white female with past medical history significant for a long smoking history. She has advanced COPD. She takes Symbicort and albuterol on a daily basis. She has been having increasing respiratory difficulties over several months. She notes daily sputum production. It ranges between yellow, green, and miller. Occasionally, she got flecks of blood in it. She has had a very profound weight loss over a period of 1-1/2 years. Additionally, she has been having night sweats. It has been occurring for a period of about 3 or 4 months. She denies any current nausea, vomiting, or diarrhea. Otherwise, she is in her usual state of health. She presented to the hospital because of shortness of breath and palpitations. She was discovered to have atrial fibrillation with RVR. At this point, she is still little short-winded, but much improved compared to presentation. PAST MEDICAL HISTORY: 1. COPD. 2. Chronic hypoxic respiratory failure. 3. Atrial fibrillation. 4. Chronic diastolic heart failure. 5. Hypertension. PAST SURGICAL HISTORY: Cholecystectomy. SOCIAL HISTORY: Negative for significant alcohol or illicit drug use. She does smoke 2 to 3 packs on a daily basis and has greater than [id number] history of smoking. She is not aware of any exposures to chemicals, dust, asbestos, or tuberculosis. FAMILY HISTORY: Non-contributory. ALLERGIES: SULFA. MEDICATIONS: List of her inpatient medications was reviewed. No specific updates were made at this time. REVIEW OF SYSTEMS: General; head, ears, eyes, nose, throat; cardiovascular; respiratory; GI; ; musculoskeletal; neurologic; and skin are negative except as mentioned is the HPI. PHYSICAL EXAMINATION: VITAL SIGNS: Afebrile, pulse 79, blood pressure 138/76, respirations 18, and saturation 98% on 2 L nasal cannula. GENERAL: The patient is awake and alert, in no apparent distress. LUNGS: There is profoundly reduced air entry. There is a long expiratory phase. I do not hear any adventitious sounds, but strictly told, she is not moving enough air to appreciate anything. HEART: Normal rate. Regular. ABDOMEN: Soft, nontender, and nondistended. Bowel sounds are positive. MUSCULOSKELETAL: No cyanosis or clubbing. There is trace pitting in bilateral lower extremities. NEUROLOGIC: Grossly nonfocal. LABORATORY DATA: WBC 12.4, hemoglobin 11.9, platelets 289,000. D-dimer 0.87. Creatinine 0.62 and stable. Basic metabolic profile is otherwise unremarkable. IMAGING STUDIES: CT of the chest shows a dense infiltrate in the right upper lobe. There is a cavitary lesion present. She also has nodular infiltrates with spiculation. Lastly, there were calcified pleural plaques predominantly in the right lung. Emphysematous changes are present. No obvious PE is present. ASSESSMENT: 1. Acute on chronic hypoxic respiratory failure. 2. Pulmonary cavity. 3. Community-acquired pneumonia. 4. Chronic obstructive pulmonary disease with acute exacerbation. 5. Atrial fibrillation with rapid ventricular response. 6. Likely asbestos-related lung disease, characterized by dependent rounded atelectasis and pleural plaques. DISCUSSION AND PLAN: We will see if we can liberate a sputum sample. I will have respiratory therapy administer 3% saline followed by nebulized medication. With physiotherapy, we will see if we can get a very nice sputum sample. We will send this for routine Gram stain and culture as well as AFB smear and culture. I will send off rheumatoid factor and ANCA, though I am doubtful she has a secondary reason to have cavitary disease. I am concerned most with atypical infectious organisms, and underlying cancer process. If we do not get a good answer from the sputum sample over the next 24 to 48 hours, we will need to prepare for bronchoscopy, likely on Thursday. Pulmonary/Critical Care will continue to follow along while the patient remains inhouse. 70 minutes have been devoted to this patient in various activities. I personally reviewed all imaging studies and laboratory data noted within this document. For fifty percent of this time, I was interacting with the patient at the bedside or coordinating care with the care team. For the remainder of the time I was immediately available to the patient in the hospital unit. Job ID: [id number] MTDD
--- NOTE | 2019-05-20 16:43 | PDOC.PN ---
- Subjective Encounter Start Date: 05/20/19 Encounter Start Time: 11:45 Ms. Powell was seen today in follow-up of COPD exacerbation, AFIB and RUL cavitary lesion. She does not have any complaints this afternoon. She says she feels fine and is breathing ok. She denies any chest pain. - Objective Resuscitation Status - Order Detail: 05/17/19 23:01 Resuscitation Status Routine Resuscitation Status: FULL: Full Resuscitation MAR Reviewed: Yes Vital Signs & Weight: Vital Signs (12 hours) Temp Pulse Resp BP Pulse Ox 05/20/19 14:32 79 16 98 05/20/19 14:18 85 20 98 05/20/19 14:09 77 16 99 05/20/19 13:06 99.7 F H 74 18 133/63 98 05/20/19 09:56 72 16 97 05/20/19 08:53 79 05/20/19 07:24 97.8 F 79 18 138/76 98 05/20/19 06:50 98 05/20/19 06:49 87 16 98 Weight Admit Weight 110 lb 4.8 oz Weight 115 lb I&O: 05/19/19 05/20/19 05/21/19 06:59 06:59 06:59 Intake Total 680 Balance 680 Result Diagrams: 05/19/19 05:49 05/19/19 15:09 Phys Exam - Physical Examination HEENT: PERRLA Respiratory: no wheezing, no rales, no rhonchi, clear to auscultation bilateral Cardiovascular: RRR, no significant murmur, no rub Gastrointestinal: soft, non-tender, no distention, positive bowel sounds Musculoskeletal: no edema, pulses present Neurological: non-focal Dx/Plan (1) Acute exacerbation of chronic obstructive airways disease Code(s): J44.1 - CHRONIC OBSTRUCTIVE PULMONARY DISEASE W (ACUTE) EXACERBATION Status: Acute (2) Atrial fibrillation Code(s): I48.91 - UNSPECIFIED ATRIAL FIBRILLATION Status: Chronic Qualifiers: Atrial fibrillation type: chronic Qualified Code(s): I48.2 - Chronic atrial fibrillation Comment: with paroxysmal RVR, rate improved and controlled currently, continue Diltiazem, Eliquis and ASA (3) Hypertension Code(s): I10 - ESSENTIAL (PRIMARY) HYPERTENSION Status: Chronic Qualifiers: Hypertension type: essential hypertension Qualified Code(s): I10 - Essential (primary) hypertension Comment: Continue BP regimen, serial monitoring - Plan * COPD exacerbation- continue Cefepime and Azithromycin * AFIB- her heart rate has improved * Continue Eliquis for stroke prevention * RUL cavitary lesion- Pulmonary input appreciated- she has been placed in respiratory isolation, and will need to rule out TB. * HTN- blood pressure is stable
[2019-05-20] MEDS: Azithromycin 500 MG in Sodium Chloride 0.9% 250 ML 250 ML IVPB SCH (17:32)
[2019-05-20] MEDS: guaiFENesin ER 600 MG TAB PO SCH (21:34)
[2019-05-20] MEDS: Temazepam 15 MG CAP PO PRN (21:47)
[2019-05-21] MEDS: Cefepime 1 GM in Sodium Chloride 0.9% 100 ML IVPB SCH ×2 (01:29→13:19)
[2019-05-21] MEDS: Sodium Chloride 3% (15 ML) NEB NEB PRN ×2 (06:25→12:44)
[2019-05-21] MEDS: Mometasone/Formoterol 120 PUFF INHALER INH SCH ×2 (06:44→19:00)
[2019-05-21] MEDS: Digoxin 0.125 MG TAB PO SCH (09:21)
[2019-05-21] MEDS: Apixaban 5 MG TAB PO SCH ×2 (09:22→20:19)
[2019-05-21] MEDS: Diltiazem HCl CD 300 mg Capsule PO SCH (09:22)
[2019-05-21] MEDS: predniSONE 20 MG TAB PO SCH (09:23)
[2019-05-21] MEDS: guaiFENesin ER 600 MG TAB PO SCH ×2 (09:24→20:19)
--- NOTE | 2019-05-21 15:48 | PRG ---
DATE OF SERVICE: 05/21/2019 SERVICE: Pulmonary Medicine. INTERVAL HISTORY: The patient has generated two very good sputum samples. Microbiology is going to be sending them soon. Third sample is going to be collected this evening. She has no complaints of chest pain, fevers, or chills. In fact, she indicates that her breathing is much improved with physiotherapy. PHYSICAL EXAMINATION: VITAL SIGNS: Afebrile. Pulse 63, blood pressure 122/59, respirations 20, and saturation 97% on 2 L nasal cannula. GENERAL: The patient is awake and alert, in no apparent distress. LUNGS: There is still profoundly reduced air entry. That being said, slightly improved compared to yesterday. I cannot appreciate any adventitious sounds, however. Heart: Normal rate. Regular. ABDOMEN: Soft, nontender, and nondistended. Bowel sounds are positive. MUSCULOSKELETAL: No cyanosis or clubbing. No pitting in the bilateral lower extremities. NEUROLOGIC: Grossly nonfocal. ASSESSMENT: 1. Acute on chronic hypoxic respiratory failure. 2. Pulmonary cavity. 3. Community-acquired pneumonia. 4. Chronic obstructive pulmonary disease with acute exacerbation. 5. Atrial fibrillation with rapid ventricular response, returned to normal rate. 6. Asbestos associated lung disease, characterized by rounded atelectasis and pleural plaques. DISCUSSION AND PLAN: We will get one more sample of sputum. If this is negative for AFB or a causative organism, we will proceed with bronchoscopy tomorrow morning. I will make her n.p.o. after midnight in the event that this is required. Pulmonary/Critical Care will continue to follow along. Job ID: [id number]
[2019-05-21] MEDS: Azithromycin 500 MG in Sodium Chloride 0.9% 250 ML 250 ML IVPB SCH (18:21)
[2019-05-21] MEDS: Temazepam 15 MG CAP PO PRN (20:19)
--- NOTE | 2019-05-21 21:29 | PDOC.PN ---
- Subjective Encounter Start Date: 05/21/19 Encounter Start Time: 09:45 Patient seen and examined for Afib and Resp failure. No CP. SOB better. Cough with small amt of sputum. No fever/chills. No new complaints. No overnight events - Objective Resuscitation Status - Order Detail: 05/17/19 23:01 Resuscitation Status Routine Resuscitation Status: FULL: Full Resuscitation MAR Reviewed: Yes Vital Signs & Weight: Vital Signs (12 hours) Temp Pulse Resp BP Pulse Ox 05/21/19 19:10 97.7 F 83 22 H 124/88 98 05/21/19 18:59 75 16 99 05/21/19 16:00 97.6 F 75 20 124/70 98 05/21/19 14:08 47 L 16 97 05/21/19 12:45 77 20 97 05/21/19 12:00 97.7 F 63 22 H 122/59 L 98 05/21/19 10:42 80 16 90 L Weight Admit Weight 110 lb 4.8 oz Weight 115 lb I&O: 05/20/19 05/21/19 05/22/19 06:59 06:59 06:59 Intake Total 680 660 Balance 680 660 Result Diagrams: 05/22/19 06:53 05/19/19 15:09 EKG Reviewed by me: Yes (Tele Afib) Phys Exam - Physical Examination Constitutional: NAD Respiratory: no wheezing Scat rhonchi Cardiovascular: no rub, irregular Gastrointestinal: soft, non-tender Musculoskeletal: no edema Neurological: moves all 4 limbs Dx/Plan - Plan DVT proph w/SCDs IMPRESSION: 1. Acute on chronic hypoxic respiratory failure due to COPD exacerbation/CAP ? Atypical bacteria 2. Atrial fibrillation with RVR on Eliquis. 3. Pulmonary cavitation in RUL 4. Chronic diastolic heart failure - compensated 5. Hypertension. 6. Physical deconditioning. 7. Anxiety. 8. Chronic right lower extremity venous stasis ulcer. 9. Ongoing tobacco abuse. 10. Lung nodules - 3 months f/u recommeded by Radiologist 11. Chronic anticoagulation with Eliquis PLAN: Cont Cefepime/Azithromycin with Prednisone Cont Nebs/O2 supp Cont PO Cardizem/Digoxin for rate control ?Bronchoscopy in AM AM labs Review of Systems - Review of Systems Cardiovascular: negative: chest pain, palpitations, orthopnea, paroxysmal nocturnal dyspnea, edema, light headedness, other Gastrointestinal: negative: Nausea, Vomiting, Abdominal Pain, Diarrhea, Constipation, Melena, Hematochezia, Other - Medications/Allergies Allergies/Adverse Reactions: Allergies Allergy/AdvReac Type Severity Reaction Status Date / Time sulfamethoxazole Allergy Verified 05/12/19 08:48 [From Bactrim] trimethoprim [From Bactrim] Allergy Verified 05/12/19 08:48 Medications: Current Medications Acetaminophen (Tylenol) 650 mg PO Q4H PRN PRN Reason: Headache/Fever/Mild Pain (1-3) Last Admin: 05/18/19 13:01 Dose: 650 mg Acetaminophen (Tylenol) 650 mg MS Q4H PRN PRN Reason: Headache/Fever/Mild Pain (1-3) Albuterol/Ipratropium (Duoneb) 3 ml NEB [id number] PRN PRN Reason: SOB &/or Wheezing Albuterol/Ipratropium (Duoneb) 3 ml NEB [id number] [facility] Last Admin: 05/21/19 18:59 Dose: 3 ml Apixaban (Eliquis) 5 mg PO BID [facility] Last Admin: 05/21/19 20:19 Dose: 5 mg Digoxin (Lanoxin) 0.125 mg PO DAILY [facility] Last Admin: 05/21/19 09:21 Dose: 0.125 mg Diltiazem HCl (Cardizem Cd) 300 mg PO DAILY [facility] Last Admin: 05/21/19 09:22 Dose: 300 mg Azithromycin 500 mg/ Sodium (Chloride) 250 mls @ 250 mls/hr IVPB Q24HR [facility] Last Admin: 05/21/19 18:21 Dose: 250 mls Cefepime HCl 1 gm/ Sodium (Chloride) 100 mls @ 200 mls/hr IVPB 1200,2359 [facility] Last Admin: 05/21/19 13:19 Dose: 100 mls Mometasone Furoate/Formoterol Fumar (Dulera 200 Mcg/5 Mcg Inhaler) 2 puff INH BID-RT [facility] Last Admin: 05/21/19 19:00 Dose: 2 puff Ondansetron HCl (Zofran) 4 mg IVP Q6H PRN PRN Reason: Nausea/Vomiting Pantoprazole Sodium (Protonix) 20 mg PO DAILY [facility] Last Admin: 05/21/19 09:23 Dose: 20 mg Prednisone (Prednisone) 40 mg PO QAM-WM [facility] Last Admin: 05/21/19 09:23 Dose: 40 mg Sertraline HCl (Zoloft) 50 mg PO DAILY [facility] Last Admin: 05/21/19 09:22 Dose: 50 mg Sodium Chloride (Flush - Normal Saline) 10 ml IVF Q12HR [facility] Last Admin: 05/21/19 20:20 Dose: 10 ml Sodium Chloride (Flush - Normal Saline) 10 ml IVF PRN PRN PRN Reason: Saline Flush Sodium Chloride (Sodium Chloride 3%) 15 ml NEB Q6H PRN PRN Reason: sputum sample Last Admin: 05/21/19 12:44 Dose: 15 ml Sterile Water (Bacteriostatic Water) 1 ml FS PRN PRN PRN Reason: RECONSTITUTION Temazepam (Restoril) 15 mg PO HSPRN PRN PRN Reason: Insomnia Last Admin: 05/21/19 20:19 Dose: 15 mg
[2019-05-22] MEDS: Cefepime 1 GM in Sodium Chloride 0.9% 100 ML IVPB SCH ×3 (00:24→23:13)
[2019-05-22] MEDS: Mometasone/Formoterol 120 PUFF INHALER INH SCH ×2 (06:34→19:14)
[2019-05-22 07:01] LABS: #Eosinphils 0.1 thou/uL (0.0-0.7); #Lymphocytes 2.6 thou/uL (1.20-3.40); #Monocytes 0.6 thou/uL (0.11-0.59); #Neutrophils 4.8 thou/uL (1.40-6.50); %Basophils 0.4 % (0.0-1.0); %Eosinophils 0.7 % (0.0-10.0); %Lymphocytes 32.2 % (21.0-51.0); %Monocytes 6.8 % (0.0-10.0); %Neutrophils 59.9 % (42.0-75.0); Hemoglobin 11.6 g/dL (12.0-16.0); Mean Corpuscular HGB CONC 31.9 g/dL (32.0-36.0); Mean Corpuscular Hemoglobin 27.4 pg (27.0-31.0); Mean Corpuscular Volume 85.8 fL (78.0-98.0); Mean Platelet Volume 7.9 fL (7.4-10.4); Platelet Count 263 thou/uL (130-400); RBC Distribution Width 14.7 % (11.5-14.5); Red Blood Cell (RBC) Count 4.25 mill/uL (4.20-5.40); White Blood Cell (WBC) Count 8.1 thou/uL (4.8-10.8)
[2019-05-22 07:21] LABS: Anion Gap 10 mmol/L (10-20); BUN (Urea Nitrogen) 13 mg/dL (9.8-20.1); Calc. Creatinine Clearance 76 mL/min (70-130); Calcium 9.5 mg/dL (7.8-10.44); Carbon Dioxide 35 mmol/L (23-31); Chloride 100 mmol/L (98-107); Estimated GFR-MDRD Greater than 90; Glucose 73 mg/dL (83-110); Magnesium 2.3 mg/dL (1.6-2.6); Potassium 3.9 mmol/L (3.5-5.1); Sodium 141 mmol/L (136-145)
[2019-05-22] MEDS ORDERED: Dextrose 50% Abboject 50 ML SYRINGE SLOW IVP PRN (07:25)
[2019-05-22] MEDS ORDERED: Dextrose 50% Abboject 50 ML SYRINGE SLOW IVP SCH (07:30)
[2019-05-22] MEDS ORDERED: Lidocaine 4% PF 5 ML AMP NEB SCH (08:15)
[2019-05-22] MEDS: Digoxin 0.125 MG TAB PO SCH (08:42)
[2019-05-22] MEDS: Diltiazem HCl CD 300 mg Capsule PO SCH (08:42)
[2019-05-22] MEDS: predniSONE 20 MG TAB PO SCH (08:42)
[2019-05-22] MEDS: Apixaban 5 MG TAB PO SCH ×2 (09:32→20:29)
[2019-05-22] MEDS ORDERED: Ondansetron PF 4 MG/2 ML Vial ONE (13:52)
[2019-05-22] MEDS ORDERED: Rocuronium Bromide 10 MG/ML (10ML VIAL) ONE (13:52)
[2019-05-22] MEDS ORDERED: Lidocaine 1% PF 5 ML VIAL ONE (13:52)
[2019-05-22] MEDS ORDERED: PROPOFOL 200 MG/20 ML VIAL ONE (13:52)
[2019-05-22] MEDS ORDERED: Dexamethasone 20 MG/5 ML VIAL ONE (13:52)
[2019-05-22] MEDS ORDERED: PHENYLEPHRINE-NS 100 MCG/ML 10 ML SYRINGE ONE (13:52)
[2019-05-22] MEDS ORDERED: Glycopyrrolate 0.2 MG/ML 5 ML SYRINGE ONE (13:52)
[2019-05-22] MEDS ORDERED: Fentanyl 100 MCG/2 ML VIAL ONE (14:18)
[2019-05-22] MEDS ORDERED: Midazolam HCl 2 mg/2 ml Vial ONE (14:23)
--- NOTE | 2019-05-22 15:07 | PRG ---
DATE OF SERVICE: 05/22/2019 SERVICE: Pulmonary Medicine. INTERVAL HISTORY: The patient is doing fine from respiratory standpoint. Denies any current chest pain, fevers, chills, nausea, or vomiting. She indicates her strength is improving day by day. She is coughing, bringing up a little bit of phlegm. That seems to be tapering off a little bit. There are no significant overnight events. PHYSICAL EXAMINATION: VITAL SIGNS: Afebrile currently with a T-max of 100.4, pulse 73, blood pressure 107/59, respirations 18, saturation 98% on 2 L nasal cannula. GENERAL: The patient is awake and alert, in no apparent distress. LUNGS: Much improved air entry. I can actually appreciate some wheezing today. There is a prolonged expiratory phase. No wheezing. HEART: Normal rate, regular. ABDOMEN: Soft, nontender, nondistended. Bowel sounds are positive. MUSCULOSKELETAL: No cyanosis or clubbing. No pitting in the bilateral lower extremities. NEUROLOGIC: Grossly nonfocal. LABORATORY DATA: WBC 8.1, hemoglobin 11.6, platelets 263,000. Bicarbonate 35. Basic metabolic profile is otherwise unremarkable. Magnesium 2.3. Sputum is growing Staph aureus. This is moderate. AFB smear is negative x2. Cultures are pending. ASSESSMENT: 1. Acute on chronic hypoxic respiratory failure. 2. Pulmonary cavity. 3. Community-acquired pneumonia, likely secondary to Staph aureus. 4. Chronic obstructive pulmonary disease with acute exacerbation. 5. Atrial fibrillation with rapid ventricular response, returned to normal rate. 6. Asbestos associated lung disease, characterized by rounded atelectasis, and pleural plaques. DISCUSSION AND PLAN: We will do a bronchoscopy today. Once the AFB smear comes back on the BAL specimen, if the AFB is negative, airborne isolation can be discontinued. We will add coverage for the Staph aureus, which is well known to cause cavitary lung disease. Rheumatoid factor and ANCA are currently pending, but unlikely to be abnormal. Dr. Alexander will assume care tomorrow morning. Job ID: [id number]
[2019-05-22] MEDS ORDERED: Promethazine HCl 25 MG/ML VIAL IM PRN (15:54)
[2019-05-22] MEDS ORDERED: Ondansetron HCl/PF 4 MG/2 ML Vial IVP PRN (15:54)
[2019-05-22] MEDS ORDERED: Promethazine HCl 25 MG/ML VIAL SLOW IVP PRN (15:54)
[2019-05-22] MEDS ORDERED: Vancomycin HCl 1 GM in Premix Bag 1 BAG IVPB SCH ×2 (16:00→21:00)
[2019-05-22 17:44] LABS: BF Color Colorless; BF RBC Count - Manual 1628 /cumm; BF WBC/Nonhematics Ct. - Manua 53 /cumm; Body Fluid Source Bronchial Washings; Clarity Cloudy/Turbid (Clear); Tube # EDTA
[2019-05-22] MEDS: Temazepam 15 MG CAP PO PRN (20:29)
--- NOTE | 2019-05-22 23:32 | PDOC.PN ---
- Subjective Encounter Start Date: 05/22/19 Encounter Start Time: 09:30 Patient seen and examined for Lung cavitation/Afib with RVR. Some dry cough. No fever/chills. No new complaints. No overnight events - Objective Resuscitation Status - Order Detail: 05/17/19 23:01 Resuscitation Status Routine Resuscitation Status: FULL: Full Resuscitation MAR Reviewed: Yes Vital Signs & Weight: Vital Signs (12 hours) Temp Pulse Resp BP Pulse Ox 05/22/19 22:25 74 12 05/22/19 19:13 84 16 96 05/22/19 19:00 96.7 F L 78 18 133/71 96 05/22/19 16:48 99.9 F H 84 20 103/57 L 92 L 05/22/19 12:00 97.8 F 73 18 107/59 L 98 Weight Admit Weight 110 lb 4.8 oz Weight 112 lb 6.4 oz I&O: 05/21/19 05/22/19 05/23/19 06:59 06:59 06:59 Intake Total 1370 240 Balance 1370 240 Result Diagrams: 05/23/19 05:18 05/23/19 05:18 Additional Labs: Accuchecks 05/22/19 05/22/19 17:21 08:11 POC Glucose 210 H 203 H EKG Reviewed by me: Yes (Tele Afib) Phys Exam - Physical Examination Constitutional: NAD Respiratory: no wheezing Scat rhonchi Cardiovascular: RRR, no rub Gastrointestinal: soft, non-tender, positive bowel sounds Musculoskeletal: no edema Neurological: moves all 4 limbs Dx/Plan - Plan DVT proph w/SCDs IMPRESSION: 1. Acute on chronic hypoxic respiratory failure due to COPD exacerbation/CAP ? Atypical bacteria 2. Atrial fibrillation with RVR - rate controlled. on Eliquis 3. Pulmonary cavitation in RUL 4. Chronic diastolic heart failure - compensated 5. Hypertension. 6. Physical deconditioning. 7. Anxiety. 8. Chronic right lower extremity venous stasis ulcer. 9. Ongoing tobacco abuse. 10. Lung nodules - 3 months f/u recommeded by Radiologist 11. Chronic anticoagulation with Eliquis PLAN: Cont curent IV Atbx Cont Prednisone Cont Nebs/O2 supp Cont PO Cardizem/Digoxin for rate control Bronchoscopy today AM labs Review of Systems - Review of Systems Cardiovascular: negative: chest pain, palpitations, orthopnea, paroxysmal nocturnal dyspnea, edema, light headedness, other Gastrointestinal: negative: Nausea, Vomiting, Abdominal Pain, Diarrhea, Constipation, Melena, Hematochezia, Other - Medications/Allergies Allergies/Adverse Reactions: Allergies Allergy/AdvReac Type Severity Reaction Status Date / Time sulfamethoxazole Allergy Verified 05/12/19 08:48 [From Bactrim] trimethoprim [From Bactrim] Allergy Verified 05/12/19 08:48 Medications: Current Medications Acetaminophen (Tylenol) 650 mg PO Q4H PRN PRN Reason: Headache/Fever/Mild Pain (1-3) Last Admin: 05/18/19 13:01 Dose: 650 mg Acetaminophen (Tylenol) 650 mg NE Q4H PRN PRN Reason: Headache/Fever/Mild Pain (1-3) Albuterol/Ipratropium (Duoneb) 3 ml NEB [id number] PRN PRN Reason: SOB &/or Wheezing Albuterol/Ipratropium (Duoneb) 3 ml NEB [id number] [facility] Last Admin: 05/22/19 22:25 Dose: 3 ml Apixaban (Eliquis) 5 mg PO BID [facility] Last Admin: 05/22/19 20:29 Dose: 5 mg Dextrose/Water (Dextrose 50%) 25 gm SLOW IVP ONE PRN PRN Reason: Hypoglycemia Stop: 05/25/19 07:26 Digoxin (Lanoxin) 0.125 mg PO DAILY [facility] Last Admin: 05/22/19 08:42 Dose: 0.125 mg Diltiazem HCl (Cardizem Cd) 300 mg PO DAILY [facility] Last Admin: 05/22/19 08:42 Dose: 300 mg Cefepime HCl 1 gm/ Sodium (Chloride) 100 mls @ 200 mls/hr IVPB 1200,2359 [facility] Last Admin: 05/22/19 23:13 Dose: 100 mls Vancomycin HCl 750 mg/ Sodium (Chloride) 250 mls @ 250 mls/hr IVPB 0400,1600 [facility] Miscellaneous Medication (Pharmacy To Dose) 1 each IVPB .VANCOMYCIN PRN PRN Reason: LABS Mometasone Furoate/Formoterol Fumar (Dulera 200 Mcg/5 Mcg Inhaler) 2 puff INH BID-RT [facility] Last Admin: 05/22/19 19:14 Dose: 2 puff Ondansetron HCl (Zofran) 4 mg IVP Q6H PRN PRN Reason: Nausea/Vomiting Pantoprazole Sodium (Protonix) 20 mg PO DAILY [facility] Last Admin: 05/22/19 08:42 Dose: 20 mg Prednisone (Prednisone) 40 mg PO QAM-WM [facility] Last Admin: 05/22/19 08:42 Dose: 40 mg Sertraline HCl (Zoloft) 50 mg PO DAILY [facility] Last Admin: 05/22/19 08:42 Dose: 50 mg Sodium Chloride (Flush - Normal Saline) 10 ml IVF Q12HR [facility] Last Admin: 05/22/19 20:29 Dose: 10 ml Sodium Chloride (Flush - Normal Saline) 10 ml IVF PRN PRN PRN Reason: Saline Flush Sodium Chloride (Sodium Chloride 3%) 15 ml NEB Q6H PRN PRN Reason: sputum sample Last Admin: 05/21/19 12:44 Dose: 15 ml Sterile Water (Bacteriostatic Water) 1 ml FS PRN PRN PRN Reason: RECONSTITUTION Temazepam (Restoril) 15 mg PO HSPRN PRN PRN Reason: Insomnia Last Admin: 05/22/19 20:29 Dose: 15 mg
--- NOTE | 2019-05-23 00:01 | OP ---
DATE OF PROCEDURE: 05/22/2019 SERVICE: Pulmonary Medicine. PROCEDURES PERFORMED: Fiberoptic bronchoscopy with: 1. Visual airway inspection. 2. Endobronchial brush of the right upper lobe, superior segment. 3. Bronchoalveolar lavage of the right upper lobe, superior segment. PREPROCEDURE DIAGNOSES: 1. Pulmonary cavity. 2. Pulmonary infiltrate. POSTPROCEDURE DIAGNOSES: 1. Pulmonary cavity. 2. Pulmonary infiltrate. MEDICATIONS USED: For list of medications, refer to Anesthesia documentation. PREANESTHESIA ASSESSMENT: H and P had been performed. The patient's medications and allergies were reviewed. Informed consent was obtained after discussing the risks, benefits, and rationale for performing the procedure as well as alternative options. DESCRIPTION OF PROCEDURE: A time-out was performed, identifying the correct procedure and patient with name and date of . A diagnostic fiberoptic bronchoscope was introduced through the 8.0 endotracheal tube. The bronchoscope was advanced into the trachea, where tracheobronchial tree inspection was carried out with clear identification of the right upper lobe, right middle lobe, right lower lobe, left upper lobe, lingula, and left lower lobe. Anatomy was normal to the segmental level. Bronchoalveolar lavage was obtained from the superior segment of the right upper lobe. Endobronchial brushings were obtained from the right upper lobe, superior segment under fluoroscopic guidance. Hemostasis was verified and the bronchoscope was subsequently removed from the patient. No endobronchial biopsies were performed as the patient is on anticoagulation. Postprocedure fluoroscopy did not demonstrate a pneumothorax. FINDINGS: 1. Karla was sharp. 2. Endobronchial secretions were moderate and quite thick and purulent. 3. No endobronchial disease was identified. SPECIMENS OBTAINED: 1. Pathology on BAL and brushing. 2. Microbiology on BAL. COMPLICATIONS: None. ESTIMATED BLOOD LOSS: 1 mL. FLUOROSCOPY TIME: 31 seconds. DISPOSITION: The patient will be sent back to the floor after she meets criteria in the postanesthesia care unit. Job ID: [id number]
[2019-05-23] MEDS: Vancomycin HCl 750 MG in Sodium Chloride 0.9% 250 ML 250 ML IVPB SCH ×2 (04:55→15:17)
[2019-05-23 05:35] LABS: #Lymphocytes 1.7 thou/uL (1.20-3.40); #Monocytes 0.2 thou/uL (0.11-0.59); #Neutrophils 6.6 thou/uL (1.40-6.50); %Basophils 0.2 % (0.0-1.0); %Eosinophils 0.3 % (0.0-10.0); %Lymphocytes 20.3 % (21.0-51.0); %Monocytes 2.8 % (0.0-10.0); %Neutrophils 76.5 % (42.0-75.0); Hemoglobin 11.8 g/dL (12.0-16.0); Mean Corpuscular HGB CONC 31.4 g/dL (32.0-36.0); Mean Corpuscular Hemoglobin 26.8 pg (27.0-31.0); Mean Corpuscular Volume 85.3 fL (78.0-98.0); Mean Platelet Volume 7.7 fL (7.4-10.4); Platelet Count 263 thou/uL (130-400); RBC Distribution Width 14.4 % (11.5-14.5); Red Blood Cell (RBC) Count 4.41 mill/uL (4.20-5.40); White Blood Cell (WBC) Count 8.6 thou/uL (4.8-10.8)
[2019-05-23 05:51] LABS: Anion Gap 13 mmol/L (10-20); BUN (Urea Nitrogen) 16 mg/dL (9.8-20.1); Calc. Creatinine Clearance 70 mL/min (70-130); Calcium 9.2 mg/dL (7.8-10.44); Carbon Dioxide 36 mmol/L (23-31); Chloride 94 mmol/L (98-107); Estimated GFR-MDRD Greater than 90; Glucose 122 mg/dL (83-110); Potassium 4.6 mmol/L (3.5-5.1); Sodium 138 mmol/L (136-145)
[2019-05-23] MEDS: Mometasone/Formoterol 120 PUFF INHALER INH SCH ×2 (07:29→19:18)
[2019-05-23] MEDS: Digoxin 0.125 MG TAB PO SCH (08:54)
[2019-05-23] MEDS: Apixaban 5 MG TAB PO SCH ×2 (08:54→22:00)
[2019-05-23] MEDS: predniSONE 20 MG TAB PO SCH (08:54)
[2019-05-23] MEDS: Diltiazem HCl CD 300 mg Capsule PO SCH (08:54)
--- NOTE | 2019-05-23 09:54 | PQF ---
CLINICAL DOCUMENTATION IMPROVEMENT CLARIFICATION FORM: ICD-10 Updated PLEASE DO AN ADDENDUM TO THE PROGRESS NOTE WITH ANY DOCUMENTATION UPDATES OR ADDITIONS AND CARRY THROUGH TO DC SUMMARY. THANK YOU. DATE: 05/23/19 ATTN: DR. CH Please exercise your independent, professional judgment in responding to the clarification form. Clinical indicators are provided on the bottom of this form for your review Please check appropriate box(s) to clarify if the following diagnosis has been ruled in or ruled out: "SEPSIS" [ ] Ruled in diagnosis [ ] Continue to treat [ ] Resolved [ ] Ruled out diagnosis [ ] Cannot rule out diagnosis [ ] Other diagnosis [ ] Unable to determine In addition, please specify: Present on Admission (POA): [ ] Yes [ ] No [ ] Unable to determine For continuity of documentation, please document condition throughout progress notes and discharge summary. Thank You. CLINICAL INDICATORS - SIGNS / SYMPTOMS / LABS H&P: "POSSIBLE SEPSIS" RR 24 WBC 12.4 RISKS: RUL CAVITARY LESION COPD TREATMENT: BRONCHOSCOPY RESPIRATORY CULTURE SERIAL LABS IV MAXIPIME (05/17-PRESENT) IV VANCOMYCIN (05/23) (This form is maintained as a part of the permanent medical record) [employer] 2015 [employer] All Rights Reserved SINA [email or web address] Office: [phone] [facility]
--- NOTE | 2019-05-23 10:06 | PQF ---
CLINICAL DOCUMENTATION IMPROVEMENT CLARIFICATION FORM: ICD-10 Updated PLEASE DO AN ADDENDUM TO THE PROGRESS NOTE WITH ANY DOCUMENTATION UPDATES OR ADDITIONS AND CARRY THROUGH TO DC SUMMARY. THANK YOU. DATE: 05/23/19 ATTN: DR. CH Please exercise your independent, professional judgment in responding to the clarification form. Clinical indicators are provided on the bottom of this form for your review Please check appropriate box(s) to clarify if the following diagnosis has been ruled in or ruled out: "PNEUMONIA" [ ] Ruled in diagnosis [ ] Continue to treat [ ] Resolved [ ] Ruled out diagnosis [ ] Cannot rule out diagnosis [ ] Other diagnosis [ ] Unable to determine In addition, please specify: Present on Admission (POA): [ ] Yes [ ] No [ ] Unable to determine For continuity of documentation, please document condition throughout progress notes and discharge summary. Thank You. CLINICAL INDICATORS - SIGNS / SYMPTOMS / LABS PROGRESS NOTE 05/18: "PNEUMONIA" WBC 12.4 RR 24 RISKS: COPD TREATMENT: RESPIRATORY ISOLATION BRONCHOSCOPY IV MAXIPIME (05/17-PRESENT) IV VANCOMYCIN (05/23) PULMONARY CONSULT [employer] Winform Viewer(This form is maintained as a part of the permanent medical record) 2014 [employer]. All Rights Reserved SINA [email or web address] Office: [phone] [facility] HOSPITALUmberto
[2019-05-23 12:15] LABS: CCP IgG Antibody Less than 0.4 EliAU/mL (<7 Negative); EliA RAS New Method **** NEW METHOD ****; Rheumatoid Factor IgA Antibody 1.9 IU/mL (<14 Negative)
[2019-05-23 12:42] VITALS: BMI 18.6
--- NOTE | 2019-05-23 12:42 | PRG ---
DATE OF SERVICE: 05/23/2019 SUBJECTIVE: Francia Powell says she is feeling much better. She underwent bronchoscopy yesterday. No endobronchial lesions were seen. Brushing pathology is pending. Brushings for acid-fast bacilli are pending. Two AFB sputum smears are negative. OBJECTIVE: VITAL SIGNS: She is afebrile, heart rate 80, respiratory rate 18, and oximetry is 97%. LUNGS: Clear. HEART: Regular rhythm. ABDOMEN: Soft. IMPRESSION: 1. Chronic obstructive pulmonary disease exacerbation. 2. Atrial fibrillation with controlled response now. 3. Necrotizing pneumonia, rule out tuberculosis. Staph aureus was isolated. 4. Pleural plaques. PLAN: Continue supportive care. Await stains and cultures as well as pathology. Job ID: [id number]
[2019-05-23] MEDS: Cefepime 1 GM in Sodium Chloride 0.9% 100 ML IVPB SCH (12:50)
--- NOTE | 2019-05-23 20:03 | PDOC.PN ---
- Subjective Encounter Start Date: 05/23/19 Encounter Start Time: 18:00 Patient seen and examined for SOB/Afib. No CP/SOB or palpitations. No new complaints. No overnight events - Objective Resuscitation Status - Order Detail: 05/17/19 23:01 Resuscitation Status Routine Resuscitation Status: FULL: Full Resuscitation MAR Reviewed: Yes Vital Signs & Weight: Vital Signs (12 hours) Temp Pulse Resp BP Pulse Ox 05/23/19 19:16 82 16 98 05/23/19 15:07 98.1 F 73 18 106/55 L 96 05/23/19 14:57 80 14 05/23/19 11:50 98.2 F 80 18 117/60 97 05/23/19 11:00 79 16 05/23/19 08:51 98 F 89 18 136/65 97 Weight Admit Weight 110 lb 4.8 oz Weight 111 lb 11.2 oz I&O: 05/22/19 05/23/19 05/24/19 06:59 06:59 06:59 Intake Total 1370 710 782 Balance 1370 710 782 Result Diagrams: 05/23/19 05:18 05/23/19 05:18 EKG Reviewed by me: Yes (Tele Afib) Phys Exam - Physical Examination Constitutional: NAD Respiratory: no rhonchi, wheezing present (scat) Cardiovascular: no rub, irregular Gastrointestinal: soft, non-tender, positive bowel sounds Musculoskeletal: no edema Neurological: moves all 4 limbs Dx/Plan - Plan IMPRESSION: 1. Acute on chronic hypoxic respiratory failure due to COPD exacerbation 2. Atrial fibrillation with RVR - rate controlled. on Eliquis 3. Sepsis due to Pnuemonia - ?Staph - on Vancomycin/Cefepime/Pulmonary cavitation in RUL s/p bronchoscopy 4. Chronic diastolic heart failure - compensated 5. Hypertension. 6. Physical deconditioning. 7. Anxiety. 8. Chronic right lower extremity venous stasis ulcer. 9. Ongoing tobacco abuse. 10. Lung nodules - 3 months f/u recommeded by Radiologist 11. Chronic anticoagulation with Eliquis PLAN: Cont IV Atbx/Prednisone/Nebs/O2 supp Cont PO Cardizem/Digoxin/Eliquis for Afib Await pathology Cont other meds as below SNF Eval Review of Systems - Review of Systems Cardiovascular: negative: chest pain, palpitations, orthopnea, paroxysmal nocturnal dyspnea, edema, light headedness, other Gastrointestinal: negative: Nausea, Vomiting, Abdominal Pain, Diarrhea, Constipation, Melena, Hematochezia, Other - Medications/Allergies Allergies/Adverse Reactions: Allergies Allergy/AdvReac Type Severity Reaction Status Date / Time sulfamethoxazole Allergy Verified 05/12/19 08:48 [From Bactrim] trimethoprim [From Bactrim] Allergy Verified 05/12/19 08:48 Medications: Current Medications Acetaminophen (Tylenol) 650 mg PO Q4H PRN PRN Reason: Headache/Fever/Mild Pain (1-3) Last Admin: 05/18/19 13:01 Dose: 650 mg Acetaminophen (Tylenol) 650 mg AK Q4H PRN PRN Reason: Headache/Fever/Mild Pain (1-3) Albuterol/Ipratropium (Duoneb) 3 ml NEB [id number] PRN PRN Reason: SOB &/or Wheezing Albuterol/Ipratropium (Duoneb) 3 ml NEB [id number] [facility] Last Admin: 05/23/19 19:16 Dose: 3 ml Apixaban (Eliquis) 5 mg PO BID [facility] Last Admin: 05/23/19 08:54 Dose: 5 mg Dextrose/Water (Dextrose 50%) 25 gm SLOW IVP ONE PRN PRN Reason: Hypoglycemia Stop: 05/25/19 07:26 Digoxin (Lanoxin) 0.125 mg PO DAILY [facility] Last Admin: 05/23/19 08:54 Dose: 0.125 mg Diltiazem HCl (Cardizem Cd) 300 mg PO DAILY [facility] Last Admin: 05/23/19 08:54 Dose: 300 mg Cefepime HCl 1 gm/ Sodium (Chloride) 100 mls @ 200 mls/hr IVPB 1200,2359 [facility] Last Admin: 05/23/19 12:50 Dose: 100 mls Vancomycin HCl 750 mg/ Sodium (Chloride) 250 mls @ 250 mls/hr IVPB 0400,1600 [facility] Last Admin: 05/23/19 15:17 Dose: 250 mls Miscellaneous Medication (Pharmacy To Dose) 1 each IVPB .VANCOMYCIN PRN PRN Reason: LABS Mometasone Furoate/Formoterol Fumar (Dulera 200 Mcg/5 Mcg Inhaler) 2 puff INH BID-RT [facility] Last Admin: 05/23/19 19:18 Dose: 2 puff Ondansetron HCl (Zofran) 4 mg IVP Q6H PRN PRN Reason: Nausea/Vomiting Pantoprazole Sodium (Protonix) 20 mg PO DAILY [facility] Last Admin: 05/23/19 08:54 Dose: 20 mg Prednisone (Prednisone) 40 mg PO QAM-WM [facility] Last Admin: 05/23/19 08:54 Dose: 40 mg Sertraline HCl (Zoloft) 50 mg PO DAILY [facility] Last Admin: 05/23/19 08:55 Dose: 50 mg Sodium Chloride (Flush - Normal Saline) 10 ml IVF Q12HR [facility] Last Admin: 05/23/19 08:55 Dose: 10 ml Sodium Chloride (Flush - Normal Saline) 10 ml IVF PRN PRN PRN Reason: Saline Flush Sodium Chloride (Sodium Chloride 3%) 15 ml NEB Q6H PRN PRN Reason: sputum sample Last Admin: 05/21/19 12:44 Dose: 15 ml Sterile Water (Bacteriostatic Water) 1 ml FS PRN PRN PRN Reason: RECONSTITUTION Temazepam (Restoril) 15 mg PO HSPRN PRN PRN Reason: Insomnia Last Admin: 05/22/19 20:29 Dose: 15 mg
[2019-05-23] MEDS: Temazepam 15 MG CAP PO PRN (22:00)
--- NOTE | 2019-05-23 22:58 | CON ---
DATE OF CONSULTATION: REASON FOR CONSULTATION: Cavitary lesion, right upper lung. HISTORY OF PRESENT ILLNESS: 74-year-old patient, whom I had seen in March 2019. At that time, she presented with a history of COPD and atrial fibrillation, still chronically smoking and right ankle ulcer. At that time, the impression was ischemic ulceration that is more likely scenario associated with cellulitis. Chest x-ray showed right apical opacification which appeared stable and probably felt to be chronic. On May 12, she presented to the emergency room with worsening dyspnea and sensation of tightness in the chest of gradual onset. She did have a cough productive for 5 days before this visit with no associated fever. She did not have a temperature elevation documented in the emergency room. There was mild respiratory distress with expiratory wheezing, which was diffuse. The breath sounds were diminished. Chest x-ray showed patchy infiltrate in right upper lobe and she was then admitted to [facility] and impression was acute on chronic hypoxic respiratory failure with COPD and stasis ulceration. She was given Cardizem drip and IV corticosteroids along with cefepime and azithromycin. She was discharged on Omnicef, azithromycin and prednisone taper. She presented back to the hospital with worsening cough and worsening dyspnea plus wheezing. This time, a CT of chest was completed which showed a 2.9 cm cavity in the right upper lobe without any air-fluid level and increased consolidative changes in the current exam. The patient underwent a bronchoscopy with lavage by Dr. Gao. The operative report was reviewed. Anatomy appeared normal to the segmental level and bronchoalveolar lavage was obtained from the superior segment of the right upper lobe with endobronchial brushings obtained as well. Under fluoroscopic guidance, biopsies were not feasible because of anticoagulation. The cultures from the specimen yielded Staphylococcus aureus with pending susceptibilities. Two samples of sputum and one bronchoalveolar lavage did not reveal any evidence of acid-fast bacilli on concentrated specimen stain. Cultures are pending. Ms. Powell is asking to go home at this time. She feels like she is back to baseline. Denies headaches. Mild dyspnea which is chronic. No chest pain. No sore throat, odynophagia, or dysphagia. No dental pain. No back pain. No abdominal pain or diarrhea. No genitourinary symptoms. No neurological symptoms. PAST MEDICAL HISTORY: Chronic obstructive lung disease with component of emphysema as a predominant one. Atrial fibrillation on Eliquis. Home O2 dependency. Still actively smoking. CHF, hypertension. PAST SURGICAL HISTORY: Cholecystectomy. FAMILY HISTORY: Noncontributory. SOCIAL HISTORY: Still smoking actively. Drinks occasionally. ALLERGIES: BACTRIM. MEDICATION LIST: 1. Tylenol. 2. DuoNeb. 3. Eliquis. 4. Cefepime. 5. Diltiazem. 6. Prednisone. 7. Protonix. 8. Zoloft. 9. Restoril. 10. Vancomycin. PHYSICAL EXAMINATION: VITAL SIGNS: T-max 100.4, blood pressure 106/55, pulse 73, respirations 18, O2 saturation 96. SKIN: Bruising in the extensor aspect of upper extremities. She has a round shaped ulcer in right ankle with about 50% red tissue. There is an area of dark eschar covered, more like a bruise covered area of shallow ulceration, mid lower leg, left side, some bruising in the right foot dorsal aspect. Peripheral IV access. She is urinating in the toilet. No lymphadenopathy. Temporal wasting noted. Ocular movements conjugate. Sclerae white. Conjunctivae normal. Oral cavity with dentures. NECK: Supple. LUNGS: Symmetric air entry but markedly diminished breath sounds, but no wheezing or crackles. HEART: S1 and S2, regular rate. ABDOMEN: Soft. No ascites. No bladder distention. No organomegaly. No joint inflammatory activity. Pulses 1+ in dorsalis pedis. No edema. Able to move extremities equally. She is awake and oriented, follows commands. LABORATORY DATA: White cell count is 12.4 and now is 8.6, hemoglobin 11, platelets 263. INR is not done. Chemistry with sodium 141, creatinine 0.52. The bronchoscopy sample with 53 WBCs, 1600 RBCs. Immunology with rheumatoid factor IgM at 9. Cyclic citrulline aided peptide was less than 0.4. Two sets of blood cultures from few days ago with no growth in 5 days. Multiple other blood cultures were negative. ASSESSMENT: Chronic obstructive pulmonary disease with marked reduction in functional capacity with progression of cavitary lesion with scarring and consolidation of right upper lobe associated with cough with purulent sputum. The patient has had diagnostic testing with bronchoscopy and cytology is pending from the specimen. The organism treated from the cultures may represent colonization of the airway rather than true pathogenic role. Typically in patients with cavitary tuberculosis have large numbers of bacilli and the acid-fast stain tends to be positive. Fungal etiology including Aspergillus appears to be less likely. Cryptococcus neoformans, Pneumocystis less likely as well. Rhodococcus is less likely as well. In view of the progression of disease for the past many months, malignancy is still a concern and we will wait for the pathology report. For the time being, we would advise treating the Staph aureus isolated as if it was truly pathogenic. We will have to adjust therapy according to results of the susceptibility profile. Job ID: [id number] MTDD
[2019-05-24] MEDS: Cefepime 1 GM in Sodium Chloride 0.9% 100 ML IVPB SCH ×2 (00:53→11:47)
[2019-05-24 03:42] LABS: Vancomycin, Trough 9.8 ug/mL
[2019-05-24] MEDS ORDERED: Vancomycin HCl 1 GM in Premix Bag 1 BAG IVPB SCH (04:00)
[2019-05-24] MEDS: Mometasone/Formoterol 120 PUFF INHALER INH SCH ×2 (07:16→18:31)
[2019-05-24] MEDS: Digoxin 0.125 MG TAB PO SCH (09:02)
[2019-05-24] MEDS: Apixaban 5 MG TAB PO SCH ×2 (09:03→20:45)
[2019-05-24] MEDS: predniSONE 20 MG TAB PO SCH (09:03)
[2019-05-24] MEDS: Diltiazem HCl CD 300 mg Capsule PO SCH (09:04)
--- NOTE | 2019-05-24 11:32 | PRG ---
DATE OF SERVICE: 05/24/2019 SUBJECTIVE: A 74-year-old female with COPD, chronic atrial fibrillation, on anticoagulation and recent COPD exacerbation, presented to the hospital on 17 May 2019, with shortness of breath along with rapid heart rate. A workup was consistent with atrial fibrillation with rapid ventricular response along with COPD exacerbation. She was started on Cardizem drip. She was also started on nebulizer treatment, antibiotics, as well as steroids. She had a chest CT scan next morning that showed right upper lobe cavity with associated surrounding consolidation/scarring. There were also some indeterminate lung nodules. She was seen by Pulmonary, Dr. Gao. On 22 May 2019, the patient underwent bronchoscopy with brush biopsies as well as bronchoalveolar lavage. Her sputum culture showed MRSA. She is currently on vancomycin and cefepime. Overnight, the patient denies any new changes. No new chest pain or shortness of breath. She continues to have intermittent wheezing. OBJECTIVE: VITAL SIGNS: Temperature 99.1, pulse rate of 89, respirations of 20, blood pressure 116/66, and O2 saturation 99% on 2 L nasal cannula. Telemetry monitoring by my review showed atrial fibrillation, rate controlled. CURRENT MEDICATIONS: Reviewed. The patient is on; 1. Cefepime. 2. Vancomycin. 3. Eliquis. 4. Digoxin. 5. Cardizem. 6. Protonix 40 mg. 7. Prednisone. 8. Zoloft. 9. Nebulizer treatment every 4 hours. PHYSICAL EXAMINATION: GENERAL: A 74-year-old female, in no apparent distress. LUNGS: Showed scattered rhonchi and wheezing. No significant rales appreciated. HEART: S1 and S2 present, irregularly irregular. ABDOMEN: Soft, nontender. Bowel sounds present. EXTREMITIES: No edema or calf tenderness. NEUROLOGIC: Grossly nonfocal. LABORATORY FINDINGS: CBC yesterday showed WBC 8.6, with hemoglobin 11.6, hematocrit 37.7, platelet 263. Sodium 138, potassium 4.6, chloride 94, bicarb 36, BUN 16, creatinine 0.57. Bronchial washing did not show any abnormal cells. Last vancomycin trough level was 9.8. Rheumatoid factor, IgM is 9.0. Acid fast smear was negative. Culture is pending at this time. IMPRESSION: 1. Acute on chronic hypoxic respiratory failure secondary to chronic obstructive pulmonary disease exacerbation. 2. Sepsis secondary to pneumonia, suspected Staphylococcal, on vancomycin and cefepime. 3. Right upper lobe pulmonary cavitation, status post bronchoscopy. 4. Atrial fibrillation with rapid ventricular response on admission, requiring Cardizem drip. Rate controlled on digoxin and Cardizem. The patient is also on Eliquis. 5. Chronic diastolic heart failure, appears to be compensated. 6. Hypertension. 7. Anxiety. 8. Chronic right lower extremity venous stasis ulcer, receiving wound care during this hospital stay. 9. Ongoing tobacco abuse. The patient was counseled. 10. Lung nodules found on the chest CT. A three-month followup is recommended by the radiologist. 11. Chronic anemia. 12. Abnormal rheumatoid factor, IgM. PLAN: Antibiotics will be continued. We will continue digoxin, Cardizem, with anticoagulation. The patient was evaluated by Dr. Cotton yesterday. According to Dr. Cotton, malignancy is still a concern. Pathology report is pending at this time. Dr. Cotton recommended to continue current antibiotics. We will adjust antibiotics based on the susceptibility profile. We will continue physical therapy, occupational therapy. Disposition to [facility]. plan manager is working. The patient will be transferred to medical floor. The patient has been cleared by Dr. Briseno for discharge. Disposition, probably in 1 to 2 days to [facility]. QuantiFERON TB testing as well as pathology is still pending. pANCA level is also pending at this time. Job ID: [id number]
--- NOTE | 2019-05-24 13:53 | PRG ---
DATE OF SERVICE: 05/24/2019 SUBJECTIVE: Francia Montiel says she is feeling better. She has not ambulated very far. Physical therapy has been consulted. Cultures were again reviewed. Her bronchial washings were growing out Pseudomonas in addition to Staph, so we will continue the cefepime. Vancomycin was discontinued. She will be started on Zyvox. It is impossible to know whether or not the MRSA is a pathogen or colonizer. I think it would be more likely that the gram negatives were necrotizing pneumonia and the MRSA is an incidental finding. In any event, she will be treated. OBJECTIVE: LUNGS: Remarkably free of wheezes. HEART: Regular rhythm. ABDOMEN: Soft. VITAL SIGNS: She is afebrile, heart rate is 80, respiratory rate is 16, oximetry is 98% on 2 L. LABORATORY DATA: Her acid-fast bacilli smears from bronchoscopy are negative. IMPRESSION: 1. Necrotizing pneumonia. 2. Chronic obstructive pulmonary disease. 3. Atrial fibrillation, on Eliquis. 4. Chronic hypoxemia with home oxygen dependency. 5. Ongoing tobacco use up until this admission. 6. History of cardiomyopathy. 7. Hypertension. PLAN: Continue supportive care. Dr. Cotton wants to adjust antibiotics __. I just realized she was consulted late yesterday afternoon. Job ID: [id number] [facility]
[2019-05-24 17:09] LABS: Cytoplasmic (C-ANCA) <1:20 titer (Neg:<1:20); Myeloperoxidase AutoAbs <9.0 U/mL (0.0-9.0); Perinuclear (P-ANCA) <1:20 titer (Neg:<1:20); Proteinase-3 AutoAbs Less than 3.5 U/mL (0.0-3.5)
--- NOTE | 2019-05-24 18:19 | PRG ---
DATE OF SERVICE: 05/24/2019 SUBJECTIVE: Sitting up, feeling okay, a little bit of cough here and there, but no sputum production, no chest pain, no dyspnea, no abdominal pain or diarrhea. OBJECTIVE: VITAL SIGNS: Temperature has been normal, BP is 100/62 and pulse is 76. LUNGS: With symmetric breath sounds, a little bit diminished in the right upper lobe. No wheezing. HEART: S1 and S2, regular rate. ABDOMEN: Soft and not distended. LABORATORY DATA: White cell count 8.6, hemoglobin 11.8, and platelets 263. Sodium 138, creatinine 0.57, now with bronchial washing with Pseudomonas and Staph aureus. We have the MRSA from the previous respiratory culture. Acid-fast stains are negative. The pathology showed reactive bronchial respiratory epithelial cells and macrophages, but no malignancy. ASSESSMENT AND DISCUSSION: Chronically obstructive lung disease, marked reduction in functional capacity, progression of area of scarring with infiltrate and cavitary lesion associated with cough and purulent sputum production. Does not appear that she has a malignancy there and mycobacterial infection is less likely as well in view of the negative stains in the setting of a cavitary lesion. My advice would be to continue treatment geared towards the Pseudomonas and the Staphylococcus aureus. May need IV therapy depending on the susceptibility results or could maybe potentially treat with oral Zyvox and quinolone if the organisms are susceptible. We will have to wait for the final results of susceptibility studies to plan continuation of therapy. The duration of therapy will be longer than the usual course of therapy in view of the cavitation. Job ID: [id number]
--- NOTE | 2019-05-24 20:21 | PDOC.PN ---
- Subjective Encounter Start Date: 05/24/19 Encounter Start Time: 14:30 - Objective Resuscitation Status - Order Detail: 05/17/19 23:01 Resuscitation Status Routine Resuscitation Status: FULL: Full Resuscitation Vital Signs & Weight: Vital Signs (12 hours) Temp Pulse Resp BP BP BP Pulse Ox 05/24/19 18:31 79 16 97 05/24/19 18:30 79 16 97 05/24/19 15:06 70 16 05/24/19 13:30 98.6 F 76 20 100/62 05/24/19 11:44 98.7 F 80 16 111/65 98 05/24/19 11:09 152/62 H 130/71 05/24/19 10:53 73 20 05/24/19 09:00 99.1 F 89 20 116/66 99 Pulse Ox Pulse Ox 05/24/19 18:31 05/24/19 18:30 05/24/19 15:06 05/24/19 13:30 05/24/19 11:44 05/24/19 11:09 95 95 05/24/19 10:53 05/24/19 09:00 Weight Admit Weight 110 lb 4.8 oz Weight 111 lb 11.2 oz I&O: 05/23/19 05/24/19 05/25/19 06:59 06:59 06:59 Intake Total 710 1182 300 Balance 710 1182 300 Result Diagrams: 05/23/19 05:18 05/23/19 05:18 Dx/Plan - Plan IMPRESSION: 1. Acute on chronic hypoxic respiratory failure due to COPD exacerbation 2. Atrial fibrillation with RVR - rate controlled. on Eliquis 3. Sepsis due to Pnuemonia - ?Staph - on Vancomycin/Cefepime/Pulmonary cavitation in RUL s/p bronchoscopy 4. Chronic diastolic heart failure - compensated 5. Hypertension. 6. Physical deconditioning. 7. Anxiety. 8. Chronic right lower extremity venous stasis ulcer. 9. Ongoing tobacco abuse. 10. Lung nodules - 3 months f/u recommeded by Radiologist 11. Chronic anticoagulation with Eliquis Review of Systems - Medications/Allergies Allergies/Adverse Reactions: Allergies Allergy/AdvReac Type Severity Reaction Status Date / Time sulfamethoxazole Allergy Verified 05/12/19 08:48 [From Bactrim] trimethoprim [From Bactrim] Allergy Verified 05/12/19 08:48 Medications: Current Medications Acetaminophen (Tylenol) 650 mg PO Q4H PRN PRN Reason: Headache/Fever/Mild Pain (1-3) Last Admin: 05/18/19 13:01 Dose: 650 mg Acetaminophen (Tylenol) 650 mg [place] Q4H PRN PRN Reason: Headache/Fever/Mild Pain (1-3) Albuterol/Ipratropium (Duoneb) 3 ml NEB [id number] PRN PRN Reason: SOB &/or Wheezing Albuterol/Ipratropium (Duoneb) 3 ml NEB [id number] [facility] Last Admin: 05/24/19 18:30 Dose: 3 ml Apixaban (Eliquis) 5 mg PO BID [facility] Last Admin: 05/24/19 09:03 Dose: 5 mg Dextrose/Water (Dextrose 50%) 25 gm SLOW IVP ONE PRN PRN Reason: Hypoglycemia Stop: 05/25/19 07:26 Digoxin (Lanoxin) 0.125 mg PO DAILY [facility] Last Admin: 05/24/19 09:02 Dose: 0.125 mg Diltiazem HCl (Cardizem Cd) 300 mg PO DAILY [facility] Last Admin: 05/24/19 09:04 Dose: 300 mg Cefepime HCl 1 gm/ Sodium (Chloride) 100 mls @ 200 mls/hr IVPB 1200,2359 [facility] Last Admin: 05/24/19 11:47 Dose: 100 mls Linezolid (Zyvox) 600 mg PO Q12HR [facility] Miscellaneous Medication (Pharmacy To Dose) 1 each IVPB .VANCOMYCIN PRN PRN Reason: LABS Mometasone Furoate/Formoterol Fumar (Dulera 200 Mcg/5 Mcg Inhaler) 2 puff INH BID-RT [facility] Last Admin: 05/24/19 18:31 Dose: 2 puff Ondansetron HCl (Zofran) 4 mg IVP Q6H PRN PRN Reason: Nausea/Vomiting Pantoprazole Sodium (Protonix) 20 mg PO DAILY [facility] Last Admin: 05/24/19 09:03 Dose: 20 mg Prednisone (Prednisone) 40 mg PO QAM-WM [facility] Last Admin: 05/24/19 09:03 Dose: 40 mg Sertraline HCl (Zoloft) 50 mg PO DAILY [facility] Last Admin: 05/24/19 09:04 Dose: 50 mg Sodium Chloride (Flush - Normal Saline) 10 ml IVF Q12HR [facility] Last Admin: 05/24/19 09:06 Dose: 10 ml Sodium Chloride (Flush - Normal Saline) 10 ml IVF PRN PRN PRN Reason: Saline Flush Sodium Chloride (Sodium Chloride 3%) 15 ml NEB Q6H PRN PRN Reason: sputum sample Last Admin: 05/21/19 12:44 Dose: 15 ml Sterile Water (Bacteriostatic Water) 1 ml FS PRN PRN PRN Reason: RECONSTITUTION Temazepam (Restoril) 15 mg PO HSPRN PRN PRN Reason: Insomnia Last Admin: 05/23/19 22:00 Dose: 15 mg
[2019-05-24] MEDS: Linezolid 600 MG TAB PO SCH (20:45)
[2019-05-25] MEDS: Cefepime 1 GM in Sodium Chloride 0.9% 100 ML IVPB SCH ×2 (00:39→15:05)
[2019-05-25 05:41] LABS: #Lymphocytes 2.4 thou/uL (1.20-3.40); #Monocytes 0.6 thou/uL (0.11-0.59); #Neutrophils 6.9 thou/uL (1.40-6.50); %Eosinophils 0.4 % (0.0-10.0); %Lymphocytes 24.6 % (21.0-51.0); %Neutrophils 69.1 % (42.0-75.0); Hemoglobin 11.2 g/dL (12.0-16.0); Mean Corpuscular HGB CONC 31.9 g/dL (32.0-36.0); Mean Corpuscular Hemoglobin 27.1 pg (27.0-31.0); Mean Corpuscular Volume 85.1 fL (78.0-98.0); Mean Platelet Volume 7.5 fL (7.4-10.4); Platelet Count 256 thou/uL (130-400); Red Blood Cell (RBC) Count 4.12 mill/uL (4.20-5.40); White Blood Cell (WBC) Count 9.9 thou/uL (4.8-10.8)
[2019-05-25 06:03] LABS: Anion Gap 9 mmol/L (10-20); BUN (Urea Nitrogen) 25 mg/dL (9.8-20.1); Calc. Creatinine Clearance 76 mL/min (70-130); Calcium 9.2 mg/dL (7.8-10.44); Carbon Dioxide 36 mmol/L (23-31); Chloride 100 mmol/L (98-107); Estimated GFR-MDRD Greater than 90; Glucose 85 mg/dL (83-110); Potassium 4.1 mmol/L (3.5-5.1); Sodium 141 mmol/L (136-145)
[2019-05-25] MEDS: Mometasone/Formoterol 120 PUFF INHALER INH SCH ×2 (08:11→18:20)
[2019-05-25] MEDS: predniSONE 20 MG TAB PO SCH (08:19)
[2019-05-25] MEDS: Apixaban 5 MG TAB PO SCH ×2 (08:20→20:36)
[2019-05-25] MEDS: Linezolid 600 MG TAB PO SCH ×2 (08:20→20:36)
[2019-05-25] MEDS: Digoxin 0.125 MG TAB PO SCH (08:38)
[2019-05-25] MEDS: Acetaminophen 325 MG TAB PO PRN ×2 (11:56→15:49)
[2019-05-25] MEDS: Diltiazem HCl CD 300 mg Capsule PO SCH (14:42)
--- NOTE | 2019-05-25 15:25 | PRG ---
DATE OF SERVICE: 05/25/2019 SUBJECTIVE: Ms. Powell has no new complaints other than wanting to go home. OBJECTIVE: VITAL SIGNS: She is afebrile. Heart rate 80, respiratory rate is 18, oximetry 99% on room air. LUNGS: Clear. HEART: Regular rhythm. ABDOMEN: Soft. Pseudomonas has been changed to Achromobacter, which is not sensitive to p.o. quinolones, but is sensitive to Bactrim and Zosyn. IMPRESSION: Pneumonia polymicrobial. PLAN: Antimicrobial therapy per Dr. Cotton. She is stable to go to a Swing Bed with a PICC line, if he feels this is indicated. We will continue to follow. Her COPD is stable. Job ID: [id number]
[2019-05-25] MEDS: Piperacillin/Tazobactam 4.5 GM in Sodium Chloride 0.9% 100 ML IVPB SCH (15:52)
--- NOTE | 2019-05-25 18:33 | PDOC.PN ---
- Subjective Encounter Start Date: 05/25/19 (f/u COPD exac) Encounter Start Time: 13:00 Subjective: Pt without complaints, is asking when she can go home. States her -: breathing is improved. Denies any n/v/abd pain/diarrhea - Objective Resuscitation Status - Order Detail: 05/17/19 23:01 Resuscitation Status Routine Resuscitation Status: FULL: Full Resuscitation Vital Signs & Weight: Vital Signs (12 hours) Temp Pulse Resp BP Pulse Ox 05/25/19 18:05 114 H 20 96 05/25/19 16:20 98.8 F 91 16 114/68 98 05/25/19 15:09 88 14 97 05/25/19 14:42 81 05/25/19 12:00 98.8 F 81 18 111/63 99 05/25/19 11:38 81 16 98 05/25/19 08:38 78 05/25/19 08:08 78 16 96 05/25/19 08:00 98.6 F 78 16 115/75 Weight Admit Weight 110 lb 4.8 oz Weight 111 lb 11.2 oz I&O: 05/24/19 05/25/19 05/26/19 06:59 06:59 06:59 Intake Total 1182 640 Balance 1182 640 Result Diagrams: 05/25/19 05:17 05/25/19 05:17 Phys Exam - Physical Examination Constitutional: NAD Respiratory: no rales, no rhonchi faint exp wheezing, fair air movement Cardiovascular: no significant murmur, irregular Gastrointestinal: soft, non-tender, no distention, positive bowel sounds Musculoskeletal: no edema Neurological: non-focal, moves all 4 limbs Psychiatric: normal affect Dx/Plan (1) Acute and chronic respiratory failure Code(s): J96.20 - ACUTE AND CHR RESP FAILURE, UNSP W HYPOXIA OR HYPERCAPNIA Status: Acute Qualifiers: Respiratory failure complication: hypoxia Qualified Code(s): J96.21 - Acute and chronic respiratory failure with hypoxia (2) Acute exacerbation of chronic obstructive airways disease Code(s): J44.1 - CHRONIC OBSTRUCTIVE PULMONARY DISEASE W (ACUTE) EXACERBATION Status: Acute (3) Sepsis Code(s): A41.9 - SEPSIS, UNSPECIFIED ORGANISM Status: Resolved (4) Chronic diastolic heart failure Code(s): I50.32 - CHRONIC DIASTOLIC (CONGESTIVE) HEART FAILURE Status: Chronic (5) Tobacco abuse Code(s): Z72.0 - TOBACCO USE Status: Chronic (6) Lung nodule Code(s): R91.1 - SOLITARY PULMONARY NODULE Status: Chronic (7) Pneumonia Code(s): J18.9 - PNEUMONIA, UNSPECIFIED ORGANISM Status: Acute Qualifiers: Laterality: right Lung location: upper lobe of lung (8) Atrial fibrillation Code(s): I48.91 - UNSPECIFIED ATRIAL FIBRILLATION Status: Chronic Qualifiers: Atrial fibrillation type: chronic Qualified Code(s): I48.2 - Chronic atrial fibrillation (9) Hypertension Code(s): I10 - ESSENTIAL (PRIMARY) HYPERTENSION Status: Chronic Qualifiers: Hypertension type: essential hypertension Qualified Code(s): I10 - Essential (primary) hypertension - Plan * Appreciate Pulm and ID consults - d/w Dr. Cotton antibiotics and changing cefepime to zosyn given what grew in the patient's culture, with a known adverse reaction with bactrim. Will plan for 10 days of abx and recommend repeat CXR at that time and f/u with Dr. Cotton. Continue zyvox to cover MRSA. Will order PICC line, and d/w patient going to SNF for abx treatment as a transition to home. * Continue nebs and steroids * given neg afb - will d/c droplet precautions * Known a fib - rate controlled, on full anticoagulation * continue home meds as ordered * * needs f/u in 3 months for lung nodules * * dvt prophy - full anticoag for known a fib * gi prophy - not indicated * code status full * * reviewed plan of care with patient, no questions or further needs at end of eval * pt remains at high risk in current condition *
[2019-05-26] MEDS: Piperacillin/Tazobactam 4.5 GM in Sodium Chloride 0.9% 100 ML IVPB SCH ×5 (00:25→23:23)
[2019-05-26] MEDS: Mometasone/Formoterol 120 PUFF INHALER INH SCH ×2 (06:57→19:06)
[2019-05-26] MEDS: Digoxin 0.125 MG TAB PO SCH (07:58)
[2019-05-26] MEDS: predniSONE 20 MG TAB PO SCH (07:59)
[2019-05-26] MEDS: Apixaban 5 MG TAB PO SCH ×3 (07:59→19:23)
[2019-05-26] MEDS: Diltiazem HCl CD 300 mg Capsule PO SCH (08:49)
[2019-05-26] MEDS: Linezolid 600 MG TAB PO SCH ×2 (08:53→20:14)
[2019-05-26 09:14] LABS: Fungus Stain Final report (.)
--- NOTE | 2019-05-26 15:47 | PQF ---
CLINICAL DOCUMENTATION IMPROVEMENT CLARIFICATION FORM: ICD-10 Updated PLEASE DO AN ADDENDUM TO THE PROGRESS NOTE WITH ANY DOCUMENTATION UPDATES OR ADDITIONS AND CARRY THROUGH TO DC SUMMARY. THANK YOU. Date: 05/26/19 ATTN: DR. HAYES Please exercise your independent, professional judgment in responding to the clarification form. Clinical indicators are provided on the bottom of this form for your review Please check appropriate box(s): [ ] Protein Calorie Malnutrition: [ ] Mild [ xx ] Moderate [ ] Severe [ ] Other Malnutrition (please specify) __ [ ] Underweight without malnutrition [ ] Cachexia [ ] Other diagnosis [ ] Unable to determine In addition, please specify: Present on Admission (POA): [ xx ] Yes [ ] No [ ] Unable to determine CLINICAL INDICATORS - SIGNS / SYMPTOMS / LABS H&P: "PATIENT IS CHRONICALLY MALNOURISHED; 2 WOUNDS LLE AND R FOOT" ID H&P (OTIS): "TEMPORAL MUSCLE WASTING" PULMONARY H&P (GINA): "SHE HAS HAD A VERY PROFOUND WEIGHT LOSS OVER A PERIOD OF 1 1/2 YEARS." BMI 18.6 RISKS: SEVERE COPD W/ CURRENT TOBACCO ABUSE RUL PULMONARY CAVITARY LESION TREATMENT: NUTRITION ASSESSMENT NUTRITION SUPPLEMENTS (JAYLEEN AND MIGHTY SHAKES) Moderate Malnutrition (in acute illness) Energy Intake: <75% of estimated energy requirement for > 7 days Weight Loss: 1-2%/1 week; 5%/ 1 month; 7.5%/3 months Other: mild body fat loss; mild muscle mass loss; mild fluid accumulation; Severe Malnutrition (in acute illness) Energy Intake: < 50% of estimated energy requirement for > 5 days Weight Loss: >1-2%/1 week; >5%/1 month; >7.5%/3 months Other: moderate body fat loss; moderate muscle mass loss; moderate- severe fluid accumulation; measurably reduced child nutrition director strength Moderate Malnutrition (in chronic illness) Energy Intake: <75% of estimated energy requirement for >1 month Weight Loss: 5%/1 month; 7.5%/3 months; 10%/6 months; 20%/1 year Other: mild body fat loss; mild muscle mass loss; mild fluid accumulation Severe Malnutrition (in chronic illness) Energy Intake: <75% of estimated energy requirement for >1 month Weight Loss: >5%/1 month; >7.5%/3 months; >10%/6 months; >20%/1 year Other: severe body fat loss; severe muscle mass loss; severe fluid accumulation ; measurably reduced child nutrition director strength (This form is maintained as a part of the permanent medical record) 2014 [employer], [employer]. All Rights Reserved [email or web address] Office: [phone] [facility]
--- NOTE | 2019-05-26 16:08 | PRG ---
DATE OF SERVICE: 05/26/2019 SUBJECTIVE: Ms. Powell has no complaints. She says she is ready to go to [place]. OBJECTIVE: GENERAL: She is in no distress. VITAL SIGNS: She is afebrile, heart rate is 84, respiratory rate 16, oximetry is 98% on 2L, and blood pressure 113/69. LUNGS: Remarkable for diffuse mild wheezes. HEART: Regular rhythm. ABDOMEN: Soft. IMPRESSION: 1. Pneumonia with lung abscess, it is polymicrobial. 2. Chronic obstructive pulmonary disease with ongoing tobacco use. 3. [id number] respiratory failure with hypoxemia. 4. Diastolic heart failure with heart failure exacerbation. PLAN: 1. I have explained to her that it is imperative that she keeps followup appointments as an outpatient. 2. She will need an x-ray in a month. I do not feel radiograph any sooner than that will add anything because her inflammatory infiltrates tend to heal slowly with significant obstructive lung disease. A PICC line has been ordered and Dr. Cotton has adjusted antimicrobial therapy. She remains anticoagulated for atrial fibrillation. Job ID: [id number]
--- NOTE | 2019-05-26 17:37 | PDOC.PN ---
- Subjective Encounter Start Date: 05/26/19 (f/u pneumonia) Encounter Start Time: 17:34 Subjective: Pt without complaints, states she remains ready to go home. Denies any -: shortness of breath, or concerns. Denies n/v/abd pain/diarrhea -: Pt reports she quit tobacco 3 months ago - Objective Resuscitation Status - Order Detail: 05/17/19 23:01 Resuscitation Status Routine Resuscitation Status: FULL: Full Resuscitation Vital Signs & Weight: Vital Signs (12 hours) Temp Pulse Resp BP BP Pulse Ox 05/26/19 14:37 70 16 98 05/26/19 12:31 98.3 F 84 18 113/69 99 05/26/19 10:22 103 H 16 98 05/26/19 08:49 111 H 120/73 05/26/19 08:00 98 05/26/19 07:58 107 H 05/26/19 07:11 98.4 F 107 H 18 110/77 98 05/26/19 06:59 97 05/26/19 06:58 106 H 16 97 05/26/19 06:57 106 H 16 97 Weight Admit Weight 110 lb 4.8 oz Weight 111 lb 11.2 oz I&O: 05/25/19 05/26/19 05/27/19 06:59 06:59 06:59 Intake Total 640 440 Balance 640 440 Result Diagrams: 05/25/19 05:17 05/25/19 05:17 Phys Exam - Physical Examination Constitutional: NAD Respiratory: no wheezing, no rales, no rhonchi fair air movement Cardiovascular: RRR, no significant murmur Gastrointestinal: soft, non-tender, no distention, positive bowel sounds Musculoskeletal: no edema Neurological: non-focal, moves all 4 limbs Psychiatric: normal affect Dx/Plan (1) Acute and chronic respiratory failure Code(s): J96.20 - ACUTE AND CHR RESP FAILURE, UNSP W HYPOXIA OR HYPERCAPNIA Status: Acute Qualifiers: Respiratory failure complication: hypoxia Qualified Code(s): J96.21 - Acute and chronic respiratory failure with hypoxia (2) Acute exacerbation of chronic obstructive airways disease Code(s): J44.1 - CHRONIC OBSTRUCTIVE PULMONARY DISEASE W (ACUTE) EXACERBATION Status: Acute (3) Sepsis Code(s): A41.9 - SEPSIS, UNSPECIFIED ORGANISM Status: Resolved (4) Chronic diastolic heart failure Code(s): I50.32 - CHRONIC DIASTOLIC (CONGESTIVE) HEART FAILURE Status: Chronic (5) Tobacco abuse Code(s): Z72.0 - TOBACCO USE Status: Chronic (6) Lung nodule Code(s): R91.1 - SOLITARY PULMONARY NODULE Status: Chronic (7) Pneumonia Code(s): J18.9 - PNEUMONIA, UNSPECIFIED ORGANISM Status: Acute Qualifiers: Laterality: right Lung location: upper lobe of lung (8) Atrial fibrillation Code(s): I48.91 - UNSPECIFIED ATRIAL FIBRILLATION Status: Chronic Qualifiers: Atrial fibrillation type: chronic Qualified Code(s): I48.2 - Chronic atrial fibrillation (9) Hypertension Code(s): I10 - ESSENTIAL (PRIMARY) HYPERTENSION Status: Chronic Qualifiers: Hypertension type: essential hypertension Qualified Code(s): I10 - Essential (primary) hypertension (10) Malnutrition Code(s): E46 - UNSPECIFIED PROTEIN-CALORIE MALNUTRITION Status: Chronic Qualifiers: Malnutrition type: protein-calorie malnutrition Protein-calorie malnutrition severity: moderate Qualified Code(s): E44.0 - Moderate protein- calorie malnutrition - Plan * Appreciate Pulm and ID consults - * PICC line and zosyn x 9 more days and zyvox for 9 more days * CBC and CMP tomorrow * Dr. Alexander recommends f/u CXR in a month - no sooner * Pt will need taper of steroids - will start that tomorrow. * Continue nebs and steroids * Known a fib - rate controlled, on full anticoagulation * continue home meds as ordered * moderate malnutrition associated with chronic disease on supplements * * needs f/u in 3 months for lung nodules * * dvt prophy - full anticoag for known a fib * gi prophy - not indicated * code status full * * reviewed plan of care with patient, no questions or further needs at end of eval * pt remains at high risk in current condition.
[2019-05-27] MEDS: Piperacillin/Tazobactam 4.5 GM in Sodium Chloride 0.9% 100 ML IVPB SCH ×2 (05:03→14:04)
[2019-05-27 05:21] LABS: #Eosinphils 0.1 thou/uL (0.0-0.7); #Lymphocytes 2.7 thou/uL (1.20-3.40); #Monocytes 0.4 thou/uL (0.11-0.59); #Neutrophils 5.6 thou/uL (1.40-6.50); %Basophils 0.4 % (0.0-1.0); %Eosinophils 0.7 % (0.0-10.0); %Lymphocytes 30.5 % (21.0-51.0); %Neutrophils 63.4 % (42.0-75.0); Hemoglobin 12.6 g/dL (12.0-16.0); Mean Corpuscular HGB CONC 31.3 g/dL (32.0-36.0); Mean Corpuscular Volume 86.3 fL (78.0-98.0); Mean Platelet Volume 8.2 fL (7.4-10.4); Platelet Count 250 thou/uL (130-400); RBC Distribution Width 15.2 % (11.5-14.5); Red Blood Cell (RBC) Count 4.67 mill/uL (4.20-5.40); White Blood Cell (WBC) Count 8.8 thou/uL (4.8-10.8)
[2019-05-27 05:28] LABS: Prothrombin Time 12.9 SEC (12.0-14.7)
[2019-05-27 05:39] LABS: ALT (SGPT) 19 U/L (8-55); AST (SGOT) 12 U/L (5-34); Albumin 3.8 g/dL (3.4-4.8); Alkaline Phosphatase 58 U/L (40-150); Anion Gap 12 mmol/L (10-20); BUN (Urea Nitrogen) 21 mg/dL (9.8-20.1); Bilirubin, Total 0.7 mg/dL (0.2-1.2); Calc. Creatinine Clearance 61 mL/min (70-130); Calcium 9.3 mg/dL (7.8-10.44); Carbon Dioxide 34 mmol/L (23-31); Chloride 98 mmol/L (98-107); Estimated GFR-MDRD 89; Globulin 2.1 g/dL (2.4-3.5); Glucose 88 mg/dL (83-110); Protein, Total 5.9 g/dL (6.0-8.3); Sodium 140 mmol/L (136-145)
[2019-05-27] MEDS: Mometasone/Formoterol 120 PUFF INHALER INH SCH (06:35)
[2019-05-27] MEDS ORDERED: predniSONE 5 MG TAB PO SCH (08:00)
[2019-05-27] MEDS: Digoxin 0.125 MG TAB PO SCH (08:57)
[2019-05-27] MEDS: Apixaban 5 MG TAB PO SCH (09:00)
[2019-05-27] MEDS: Linezolid 600 MG TAB PO SCH (09:04)
--- NOTE | 2019-05-27 10:13 | PRG ---
DATE OF SERVICE: 05/27/2019 SUBJECTIVE: She still does not have her PICC line. OBJECTIVE: VITAL SIGNS: She is afebrile. Heart rate is 102, respiratory rate is 18, oximetry is 100% on 2 L, and blood pressure 113/75. LUNGS: Clear. HEART: Regular rhythm. ABDOMEN: Soft. IMPRESSION: Pneumonia with lung abscess. PLAN: PICC line and then transfer to [facility] for ongoing antibiotic therapy and physical therapy. Job ID: [id number]
[2019-05-27 13:01] VITALS: BP 125/76; TEMP 98.4
[2019-05-27] MEDS: Diltiazem HCl CD 300 mg Capsule PO SCH (14:06)
[2019-05-27 20:08] LABS: QuantiFERON-TB Gold Plus Negative (Negative)
--- NOTE | 2019-05-28 01:52 | DIS ---
DATE OF ADMISSION: 05/17/2019 DATE OF DISCHARGE: 05/27/2019 CONSULTANTS: 1. Infectious Disease, Dr. Cotton. 2. Pulmonology, Dr. Alexander. 3. Cardiology, Dr. Briseno. MEDICATIONS RECONCILED AT DISCHARGE: Discontinued medications are: 1. DuoNeb. 2. Albuterol neb and albuterol inhaler. These have been replaced by scheduled medications here. New medications: 1. Tylenol 650 mg every 4 hours as needed for pain. 2. Digoxin 0.125 mg daily. 3. DuoNeb scheduled every 4 hours. 4. Linezolid 600 mg b.i.d. for 8 more days. 5. Zosyn 4.5 g IV q.6 hours for 8 more days. 6. Prednisone 30 mg daily to decrease by 10 mg every 3 days to stop. 7. Albuterol nebulizer 2.5 mg every 2 hours as needed for wheezing or shortness of breath. Medications to continue: 1. Eliquis 5 mg b.i.d. 2. Symbicort 160/4.5 two puffs b.i.d. 3. Diltiazem 300 mg daily. 4. Pantoprazole 20 mg daily. 5. Sertraline 50 mg daily. DISCHARGE DISPOSITION: [facility]. CODE STATUS: Full. FINAL DIAGNOSES: 1. Acute respiratory failure with hypoxia. 2. Atrial fibrillation. 3. Pneumonia with pulmonary cavitation. 4. Chronic obstructive pulmonary disease with exacerbation. 5. Leg wound secondary to reported falls. 6. Protein calorie malnutrition, moderate SECONDARY DIAGNOSES: 1. Chronic diastolic heart failure. 2. Hypertension. 3. History of tobacco abuse. 4. Gastroesophageal reflux disease. 5. Mood disorder, uncharacterized. HISTORY OF PRESENT ILLNESS: Ms. Powell is a 74-year-old female with the above medical problems, who re-presented to the hospital 3 days after her last discharge. The patient was complaining of cough, shortness of breath and found to be in atrial fibrillation with RVR. She also had a low-grade fever. The patient was admitted with a diagnosis of atrial fibrillation with RVR, as well as COPD with exacerbation. HOSPITAL COURSE: The patient was managed with Dr. Briseno for the atrial fibrillation, and has been rate controlled on diltiazem and digoxin. She has been fully anticoagulated with Eliquis here, and is asymptomatic. COPD with exacerbation. The patient found to have a cavitary lesion during this hospitalization and she underwent bronchoscopy on May 22, where BAL and endobronchial brushings were performed. She has been treated with broad- spectrum antibiotics initially, cefepime and vancomycin, transitioned to cefepime and Zyvox, and followed by transition to Zosyn and Zyvox. This is in response to the microbiology cultures. In discussion with Dr. Cotton, the plan is for 10 days of Zosyn starting 2 days ago, or two evenings ago, and patient will receive this over at the swing bed. The patient was ruled out for TB with 3 negative AFB smears here. For the COPD with exacerbation, she has been managed with steroids, nebulizer therapy, and has responded well. For other medical conditions,she has been kept on her usual home medicines for mood, reflux. The patient is overall improved, does meet criteria for discharge to the swing bed. The Zosyn and Zyvox will be for 8 more days to complete treatment. She will need a followup chest x-ray in a month and follow up with both Dr. Cotton and Dr. Alexander. She will also need her steroids titrated down with recommendation to 30 mg for 3 days, then 20 mg for 3 days, and then 10 mg for 3 days. PHYSICAL EXAMINATION: VITAL SIGNS: On day of discharge, blood pressure 125/76, temp 98.4, pulse 89, respirations 16, sats 100% on 2 L. GENERAL: She is awake, alert, responsive, in no apparent distress. LUNGS: Improved air movement. No audible wheezing, rhonchi, or rales. HEART: Normal S1, S2. No significant murmurs. ABDOMEN: Soft with present bowel sounds. EXTREMITIES: The patient does have crusting on her legs and will need wound care to them. SIERRA FINDINGS AND TEST RESULTS: CBC 8.8, 12.6, 40.3, 250. Chemistry; 140, 4.0, 98, 34, 21, 0.65, 88. LFTs, T bilirubin 0.7, AST 12, ALT 19, alkaline phosphatase 58, total protein 5.9, albumin 2.1. Bronchial washings showed 1628 red blood cells, 53 white blood cells. Rheumatoid factor IgM is 9.0, high IgA 1.9, CCP less than 0.4. Negative studies were anti-proteinase 3, ANCP-ANCA, anti myeloperoxidase, ANCA, ANCA pattern. Fungal stain was negative and fungal culture is pending. Microbiology, AFB smear x3 was negative, culture pending. Respiratory culture showed Achromobacter and Staph aureus. The Achromobacter is sensitive to Zosyn and Bactrim, indeterminate to Levaquin and tobramycin, and resistant to cefepime, amikacin, ceftriaxone, Cipro, and gentamicin. Sputum culture showed MRSA, sensitive to Bactrim, vancomycin, tetracycline, rifampin, linezolid, gentamicin, doxycycline, and clindamycin. The bronchial washings show reactive bronchial respiratory epithelium, no atypia or malignancy identified. Bronchoscopy performed on May 22 showed a visual airway inspection with samples taken. Chest CT performed May 18 shows a right upper lobe cavity with surrounding consolidations, scarring, acute process or neoplasm cannot be excluded, indeterminate lung nodules with 3-month followup recommended. DIET: Heart healthy with Hudson b.i.d. and MightyShakes daily for supplementation. ACTIVITY: As tolerated and encouraged with PT and OT. Wound care is needed to the lower extremities. CODE STATUS: Full. Reviewed with the patient's this hospitalization, plan for antibiotics, the transfer to [facility] and indication for it. There were no questions or further needs at the end of evaluation. TIME SPENT: Total time coordinating discharge is 45 minutes. FOLLOWUP: Follow up is needed with Dr. Cotton in [address] Alexander within a month. Job ID: [id number] [facility]
== END 2019-05-27 16:50 | DRG 871 ==
LOC: 2NO 20:47 → INTOOBSV 20:47 → OBSVTOIN 20:47 → 2NO 05-20 10:46 → T4-A 05-24 13:30
PROVIDERS: ADMIT Internal Medicine; ATTEND Internal Medicine
PROC: 0BD48ZX Extraction of Right Upper Lobe Bronchus, Via Natural or Artificial Opening Endoscopic, Diagnostic (ICD-10-PCS; principal; 2019-05-22)
PROC: 0B9C8ZX Drainage of Right Upper Lung Lobe, Via Natural or Artificial Opening Endoscopic, Diagnostic (ICD-10-PCS; 2019-05-22)
DX: A41.9 Sepsis, unspecified organism (principal); J96.21 Acute and chronic respiratory failure with hypoxia; J15.20 Pneumonia due to staphylococcus, unspecified; J44.1 Chronic obstructive pulmonary disease with (acute) exacerbation; J44.0 Chronic obstructive pulmonary disease with (acute) lower respiratory infection; I50.32 Chronic diastolic (congestive) heart failure; L03.115 Cellulitis of right lower limb; L97.819 Non-pressure chronic ulcer of other part of right lower leg with unspecified severity; E44.0 Moderate protein-calorie malnutrition; Z68.1 Body mass index [BMI] 19.9 or less, adult; I11.0 Hypertensive heart disease with heart failure; F17.210 Nicotine dependence, cigarettes, uncomplicated; I48.2 Chronic atrial fibrillation; I48.0 Paroxysmal atrial fibrillation; F41.9 Anxiety disorder, unspecified; D64.9 Anemia, unspecified; I83.018 Varicose veins of right lower extremity with ulcer other part of lower leg; R91.8 Other nonspecific abnormal finding of lung field; Z79.01 Long term (current) use of anticoagulants; Z79.52 Long term (current) use of systemic steroids; Z79.899 Other long term (current) drug therapy; Z88.2 Allergy status to sulfonamides; Z99.81 Dependence on supplemental oxygen; Z90.49 Acquired absence of other specified parts of digestive tract
CPT/HCPCS: 36415; 36416; 71260; 76000; 80048; 80053; 80202; 82565; 83520; 83735; 85014; 85018; 85025; 85049; 85060; 85379; 85610; 86200; 86256; 86480; 87070; 87077; 87102; 87116; 87186; 87205; 87206; 88112; 88305; 89051; 89220; 94640; 94664; 94667; 94668; J0456; J0692; J1100; J1160; J2001; J2250; J2405; J2543; J2704; J2920; J3010; J3370; J3490; J7050; J7512; J7620

== ENCOUNTER 2019-06-13 09:11 | Inpatient (IN) | payer MEDICARE ==
[2019-06-13 11:51] LABS: Troponin I Less than 0.010 ng/mL (< 0.028)
[2019-06-13] MEDS ORDERED: Albuterol Sulfate 2.5 mg/3 ml Neb NEB PRN (12:00)
[2019-06-13] MEDS ORDERED: Acetaminophen 325 MG TAB PO PRN (12:01)
[2019-06-13] MEDS ORDERED: Melatonin 3 MG TAB PO PRN (12:03)
--- NOTE | 2019-06-13 13:08 | HP ---
PRIMARY CARE PROVIDER: Shalom Leon MD CHIEF COMPLAINT: "Couldn't sleep." HISTORY OF PRESENT ILLNESS: This 74-year-old female with severe COPD, hospitalized at this facility from May 17 through May 27 for a cavitary lesion, treated with broad-spectrum antibiotics with linezolid and Zosyn that she completed at the [facility] for which she was discharged after completion of treatment on June 04. The patient also has known atrial fibrillation on full anticoagulation, hypertension, and history of depression, who presents to the emergency room in [place] due to shortness of breath that is interfering with her sleep. She is unable to say how long it has been going on, only that it is getting worse, and she is only sleeping at night for 2 to 3 hours. She wakes up short of breath and restless. There were no precipitating or relieving factors. She denies any chest pain, fevers, or chills. She is coughing that is productive of a light yellow fluid, and does endorse night sweats. The patient was evaluated with the AFB smears at this facility during her last hospitalization that were negative. She subsequently had positive cultures and was contacted by the community health, out at the [place] [facility]. In review of that discharge summary, the plan was to hold on treatment as the state was going to visit her home and determine if medication was needed. The patient states that she does not need medication; however, we do not have those records. In the emergency room in [place], the patient found to have atrial fibrillation with RVR, treated with diltiazem 10 mg IV, digoxin 500 mcg IV, as well as COPD with exacerbation, for which she received 3 DuoNebs and Solu-Medrol 250 mg IV. ALLERGIES TO MEDICINE: Bactrim/sulfa. CURRENT MEDICATIONS: Per her last discharge summary, 1. Tylenol 325 mg two tablets every 4 hours as needed. 2. DuoNeb every 4 hours as needed. 3. Eliquis 5 mg b.i.d. 4. Digoxin 0.125 mg daily. 5. Cardizem CD 300 mg daily. 6. Melatonin 3 mg at night as needed. 7. Symbicort 160/4.5 two inhalations b.i.d. 8. Pantoprazole 20 mg daily. 9. Sertraline 50 mg daily. PAST SURGICAL HISTORY: Cholecystectomy. FAMILY HISTORY: Significant for heart disease. REVIEW OF SYSTEMS: Positive for cough and night sweats. Negative for chest pains, fevers, or chills. Negative also for nausea, vomiting, abdominal pain, change in bowel or bladder function. All remaining review of systems are reviewed and negative. SOCIAL HISTORY: The patient is , does use tobacco 10 cigarettes per day , and drinks alcohol occasionally. Her is her surrogate decision maker and she is a full code. PHYSICAL EXAMINATION: VITAL SIGNS: Blood pressure 131/82, pulse 99, respirations 19, temperature 98.6 , and sats 97% on 2 L nasal cannula. GENERAL: She is awake, alert, responsive, speaking in regular sentences without difficulty. With movement, she does appear short of breath. HEENT: Her pupils are equal and round. Oral mucosa is pink and moist. NECK: Supple. Nontender. LYMPHATICS: No palpable cervical or supraclavicular lymphadenopathy. LUNGS: Fair air movement. Slight expiratory wheezing, faint bibasilar rales. HEART: Normal S1, S2. Irregular rate. No significant rhythm. ABDOMEN: Soft. Present bowel sounds. EXTREMITIES: Thin with no clubbing or cyanosis. SKIN: Area of crusting on her left lower extremity, a stage II ulcer overlying her right lateral malleolus. NEUROLOGIC: No gross focal deficits. PSYCH: Appears euthymic. VASCULAR: 2+ dorsalis pedis pulses. SIERRA FINDINGS AND TEST RESULTS: Chest x-ray shows chronic changes in the lung humphries bilateral. No acute abnormality. Troponin negative. CBC; 5.9, 9.3, 28.1, and 181. Chemistry; 147, 4.2, 108, 29, 33, 0.74 with a glucose of 77. Liver function tests are negative. BNP is 866. EKG, personally reviewed, tachycardia with a rate of 124, atrial fibrillation, normal axis, normal QRS, and QT corrected intervals and no ST changes and abnormal R-wave progression. IMPRESSION: 1. Severe chronic obstructive pulmonary disease with exacerbation in a patient with recent positive AFB cultures, and uncertain declaration by the [facility] with regard to need for antibiotic therapy. 2. Atrial fibrillation with rapid ventricular response, now controlled. 3. Anemia, appears chronic and normocytic. 4. Ongoing tobacco abuse. 5. Right lateral malleolus ulceration. 6. Chronic hypoxic respiratory failure. PLAN: 1. Admission to the hospital. 2. Consultation with ID and Pulmonology to help determine need on TB medications. We will have the patient in an isolation room until further recommendations by ID and/or Pulmonology. 3. Treat the COPD with exacerbation with steroids, inhaled nebulizers including long-acting bronchodilator, inhaled steroid, DuoNebs. 4. Continuing her home diltiazem and digoxin, with full anticoagulation by Eliquis. 5. Continuing her other home medications of sertraline, pantoprazole, and melatonin. 6. Wound care for the right lateral malleolus. 7. For the anemia, this appears stable and chronic. We will monitor. 8. Palliative care consult to discuss goals of care and support for patient/ . 9. DVT prophylaxis, not indicated. She is fully anticoagulated with Eliquis. 10. GI prophylaxis, not indicated. The patient is on a PPI at home. We will continue. 11. Code status is full. Surrogate decision maker is the patient's . The patient is at high risk given age, comorbidities, and current presentation. Reviewed the plan of care with the patient. No questions or further needs at the end of evaluation. Job ID: [id number] [id number]
[2019-06-13] MEDS: Arformoterol 15 MCG/2 ML NEB NEB SCH (18:51)
[2019-06-13] MEDS: Budesonide 0.5 MG/2 ML NEB INH SCH (18:52)
--- NOTE | 2019-06-13 21:28 | CON ---
DATE OF CONSULTATION: 06/13/2019 SERVICE: Pulmonary Medicine. REASON FOR CONSULT: AFB abnormalities in a cavitary lesion. HISTORY OF PRESENT ILLNESS: The patient is a 74-year-old white female with past medical history significant for COPD. Recently, she was in the hospital because of a COPD exacerbation. During the course of that investigation, CT of the chest was done demonstrating a cavitary lesion. I was consulted and ultimately did a bronchoscopy. The AFB was growing in all of the results. As such, the specimen was sent off to the [facility]. We just got confirmation back that this was not a tuberculous organism. 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 She is yet to initiate therapy. She has no other specific complaints of nausea, vomiting, or diarrhea, but came in with a 3-day history of increasing weakness, and shortness of breath. She is coughing and bringing up sputum. She is not having any night sweats and she indicates to me that her weight is stable. That being said, the patient's has suggested to me that he would like for her to be placed in a [place] [facility] facility where she can initiate the regimen that is going to be required because if she goes directly home from the hospital, she would be unlikely to comply with any of our request. PAST MEDICAL HISTORY: 1. COPD. 2. Chronic hypoxic respiratory failure. 3. Atrial fibrillation. 4. Chronic diastolic heart failure. 5. Hypertension. PAST SURGICAL HISTORY: Cholecystectomy. SOCIAL HISTORY: Negative for alcohol or illicit drug use. She smokes a pack to 2 packs on a daily basis and has a greater than [id number] history of smoking. She has no exposure to chemicals, dust, asbestos, or tuberculosis that she is aware of. FAMILY HISTORY: Noncontributory. ALLERGIES: SULFA. MEDICATIONS: List of her inpatient medications was reviewed. No specific updates were made at this time. REVIEW OF SYSTEMS: General, head, ears, eyes, nose, throat, cardiovascular, respiratory, GI, , musculoskeletal, neurologic, and skin is negative except as mentioned is the HPI. PHYSICAL EXAMINATION: VITAL SIGNS: Afebrile, pulse 72, respirations 15, and saturation 98% on room air. GENERAL: The patient is awake and alert, in no apparent distress. LUNGS: Reduced air entry with a prolonged expiratory phase. Polyphonic wheezing as well as rhonchi are present. I do not appreciate any crackles dependently. HEART: Normal rate, regular. ABDOMEN: Soft, nontender, nondistended. Bowel sounds are positive. MUSCULOSKELETAL: No cyanosis or clubbing. No pitting in the bilateral lower extremities. NEUROLOGIC: Grossly nonfocal. LABORATORY DATA: WBC 5.9, hemoglobin 9.3, platelets 181,000. INR 1.1. BNP 866 , which is near and historic high. Troponin is downtrending to less than the assay limit. TSH falls within the normal limits. Sodium 147, chloride 108. Basic metabolic profile is otherwise unremarkable. Albumin is 3.8 which is at her baseline. Rheumatoid factor was previously positive. ANCAs were unremarkable as well as the CCP. QuantiFERON Gold test was negative. Strep and Legionella urine antigens are unremarkable. Bronchial washings are growing AFB. The sputum is growing AFB in 2/2. These were non mycobacterial specimens. IMAGING: Chest x-ray demonstrates chronic changes of the lung without acute cardiopulmonary abnormality identified. ASSESSMENT: 1. Acute on chronic hypoxic respiratory failure. 2. Chronic obstructive pulmonary disease with acute exacerbation. 3. 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 4. Tobacco abuse. DISCUSSION AND PLAN: The patient does not require airborne isolation. These can be discontinued. We will continue antibiotics, nebulized medications, and steroids. We will watch her volume status very closely. Pulmonary/Critical Care will continue to follow along but Dr. Alexander has an established relationship with Ms. Powell and will take over from this point. Dr. Cotton has already been consulted. Three- drug therapy is likely indicated. Moving forward, the patient will likely require surveillance sputum samples. She will need at least 9 months of antibiotics from her 1st negative sputum. Dr. Alexander will assume coverage in the morning as he has an established relationship with Ms. Powell. 70 minutes have been devoted to this patient in various activities. I personally reviewed all imaging studies and laboratory data noted within this document. For fifty percent of this time, I was interacting with the patient at the bedside or coordinating care with the care team. For the remainder of the time I was immediately available to the patient in the hospital unit. Job ID: [id number] MTDD
[2019-06-13] MEDS: Apixaban 5 MG TAB PO SCH (21:34)
[2019-06-13 23:58] VITALS: BMI 18.1
[2019-06-14 05:03] LABS: #Basophils 0.1 thou/uL (0.0-0.2); #Lymphocytes 2.3 thou/uL (1.20-3.40); #Monocytes 0.5 thou/uL (0.11-0.59); #Neutrophils 4.2 thou/uL (1.40-6.50); %Basophils 0.9 % (0.0-1.0); %Eosinophils 0.1 % (0.0-10.0); %Lymphocytes 33.1 % (21.0-51.0); %Monocytes 6.3 % (0.0-10.0); %Neutrophils 59.5 % (42.0-75.0); Hemoglobin 10.4 g/dL (12.0-16.0); Mean Corpuscular HGB CONC 30.9 g/dL (32.0-36.0); Mean Corpuscular Hemoglobin 26.1 pg (27.0-31.0); Mean Corpuscular Volume 84.6 fL (78.0-98.0); Mean Platelet Volume 8.2 fL (7.4-10.4); Platelet Count 272 thou/uL (130-400); RBC Distribution Width 16.4 % (11.5-14.5); Red Blood Cell (RBC) Count 3.98 mill/uL (4.20-5.40); White Blood Cell (WBC) Count 7.1 thou/uL (4.8-10.8)
[2019-06-14 05:21] LABS: Anion Gap 14 mmol/L (10-20); BUN (Urea Nitrogen) 20 mg/dL (9.8-20.1); Calc. Creatinine Clearance 63 mL/min (70-130); Calcium 9.4 mg/dL (7.8-10.44); Carbon Dioxide 26 mmol/L (23-31); Chloride 103 mmol/L (98-107); Estimated GFR-MDRD Greater than 90; Glucose 104 mg/dL (83-110); Potassium 4.3 mmol/L (3.5-5.1); Sodium 139 mmol/L (136-145)
[2019-06-14] MEDS: Budesonide 0.5 MG/2 ML NEB INH SCH ×2 (07:17→18:35)
[2019-06-14] MEDS: Arformoterol 15 MCG/2 ML NEB NEB SCH ×2 (07:18→18:35)
[2019-06-14] MEDS ORDERED: methylPREDNISolone Sod Succ 40 MG VIAL IVP SCH (09:00)
[2019-06-14] MEDS: Digoxin 0.125 MG TAB PO SCH (09:26)
[2019-06-14] MEDS: predniSONE 20 MG TAB PO SCH (09:26)
[2019-06-14] MEDS: Apixaban 5 MG TAB PO SCH ×2 (09:26→21:03)
[2019-06-14] MEDS: Diltiazem HCl CD 300 mg Capsule PO SCH (09:26)
--- NOTE | 2019-06-14 16:10 | PRG ---
DATE OF SERVICE: 06/14/2019 SUBJECTIVE: Ms. Powell is in no distress. Events have been reviewed. She says she was smoking 10 cigarettes a day which likely led to her repeat admission. OBJECTIVE: VITAL SIGNS: She is afebrile, heart rate is 86, respiratory rate is 18, and oximetry is 100% on 2 L. LUNGS: Clear now. HEART: Regular rhythm. ABDOMEN: Soft. IMPRESSION: 1. Chronic obstructive pulmonary disease exacerbation. 2. Ongoing tobacco use. 3. Anemia of unclear etiology. 4. Mycobacterium which is nontuberculous, isolated on bronchial washings and sputum. Species has not yet been identified. She may be a candidate to go home tomorrow. We discussed multiple different ways to facilitate smoking cessation. Job ID: [id number]
--- NOTE | 2019-06-14 19:12 | PDOC.PN ---
- Subjective Encounter Start Date: 06/14/19 (f/u COPD exacerbation) Encounter Start Time: 19:10 Subjective: Pt reports feeling better today - able to sleep better last night. -: denies any n/v/abd pain - Objective Resuscitation Status - Order Detail: 06/13/19 12:01 Resuscitation Status Routine Resuscitation Status: FULL: Full Resuscitation Vital Signs & Weight: Vital Signs (12 hours) Temp Pulse Resp BP BP Pulse Ox 06/14/19 15:48 98 F 92 20 124/65 98 06/14/19 15:06 97 14 98 06/14/19 12:30 98.2 F 86 18 113/66 100 06/14/19 10:32 98 14 100 06/14/19 09:26 106 H 06/14/19 07:25 98 F 106 H 22 H 140/89 100 06/14/19 07:16 107 H 16 96 Weight Admit Weight 109 lb 4.8 oz Weight 109 lb 4.8 oz I&O: 06/13/19 06/14/19 06/15/19 06:59 06:59 06:59 Intake Total 350 1490 Balance 350 1490 Result Diagrams: 06/14/19 04:48 06/14/19 04:48 EKG Reviewed by me: Yes (tele - a fib with rates 110's, high of 135) Phys Exam - Physical Examination Constitutional: NAD Respiratory: no wheezing, no rales, no rhonchi slight improvement in air movement today Cardiovascular: no significant murmur, irregular Gastrointestinal: soft, non-tender, no distention, positive bowel sounds Musculoskeletal: no edema Neurological: non-focal, moves all 4 limbs Dx/Plan (1) Acute exacerbation of chronic obstructive airways disease Code(s): J44.1 - CHRONIC OBSTRUCTIVE PULMONARY DISEASE W (ACUTE) EXACERBATION Status: Acute (2) Mycobacterium avium complex Code(s): A31.0 - PULMONARY MYCOBACTERIAL INFECTION Status: Acute (3) Atrial fibrillation Code(s): I48.91 - UNSPECIFIED ATRIAL FIBRILLATION Status: Chronic Qualifiers: Atrial fibrillation type: chronic Qualified Code(s): I48.2 - Chronic atrial fibrillation (4) Cognitive impairment Code(s): R41.89 - OTH SYMPTOMS AND SIGNS W COGNITIVE FUNCTIONS AND AWARENESS Status: Chronic (5) Skin ulceration Code(s): L98.499 - NON-PRESSURE CHRONIC ULCER OF SKIN OF SITES W UNSP SEVERITY Status: Chronic Qualifiers: Non-pressure ulcer stage: limited to breakdown of skin Qualified Code(s): L98.491 - Non-pressure chronic ulcer of skin of other sites limited to breakdown of skin (6) Anemia Code(s): D64.9 - ANEMIA, UNSPECIFIED Status: Acute Qualifiers: Anemia type: unspecified type Qualified Code(s): D64.9 - Anemia, unspecified (7) Tobacco abuse Code(s): Z72.0 - TOBACCO USE Status: Chronic (8) Chronic respiratory failure Code(s): J96.10 - CHRONIC RESPIRATORY FAILURE, UNSP W HYPOXIA OR HYPERCAPNIA Status: Chronic Qualifiers: Respiratory failure complication: hypoxia Qualified Code(s): J96.11 - Chronic respiratory failure with hypoxia - Plan * Appreciate Pulm consult - continue steroids, nebs for COPD exacerbation, oxygen supplementation * Appreciate ID consult - await recs on tx of MAC - new diagnosis based on AFB cultures performed by the state and collected during her last hospitalization here. * * continue current home meds * wound care for chronic right lateral malleolus ulcer - present on admission. * * dvt prophy - fully anticoagulated * gi prophy - not indicated * code status full * * reviewed plan of care with patient, no questions or further needs at end of eval.
--- NOTE | 2019-06-14 20:13 | CON ---
DATE OF CONSULTATION: 06/14/2019 REASON FOR CONSULTATION: Atypical mycobacterial lung infection. HISTORY OF PRESENT ILLNESS: A 74-year-old who I had seen in May 23, 2019, when she presented with a history of COPD, atrial fibrillation, still actively smoking and right ankle ulcer, felt to be due to ischemic ulceration associated with cellulitis. She had evidence of reduction of functional capacity and a progression of cavitary lesion with scarring and consolidation of right upper lobe, associated with cough and purulent sputum. She had sputums and bronchoscopy samples submitted and the results indicate atypical mycobacterial organism yet to be fully identified. She continues to smoke. Her smokes as well and she was brought in because she was having worsening dyspnea that was interfering with her sleep. She is having some sputum production, but no hemoptysis. No fever. No chest pain. No diarrhea. No genitourinary symptoms. Chronic osteoarthritis in knees and ankles. MEDICAL HISTORY: COPD, cavitary lesion secondary to atypical mycobacterial infection, atrial fibrillation, on Eliquis, home O2 dependency, active smoking status, CHF, hypertension. SURGICAL HISTORY: Cholecystectomy, bronchoscopy. FAMILY HISTORY: Noncontributory. SOCIAL HISTORY: As above. She still smokes. Lives with her I believe in [place]. Drinks occasionally. ALLERGIES: BACTRIM WITH RASH. MEDICATIONS: 1. Tylenol. 2. Ventolin. 3. DuoNeb. 4. Eliquis. 5. Brovana. 6. Pulmicort. 7. Lanoxin. 8. Melatonin. 9. Protonix. 10. Prednisone. 11. Zoloft. PHYSICAL EXAMINATION: VITAL SIGNS: T-max 98.2, blood pressure 113/66, pulse 86, respirations 18, O2 saturation 100. SKIN: Area of round shaped ulcer around the right lateral malleolus. It has a better looking base with granulation tissue, most of it like pink, no erythema, no necrosis surrounding this ulcer, clearly improved from last visit. Peripheral IV access, she is voiding spontaneously. No lymphadenopathy. HEENT: Ocular movements conjugate. Sclerae white. Pupils are equal. Oral cavity with numerous missing teeth. NECK: Supple. LUNGS: With markedly diminished breath sounds. No obvious crackles or wheezing. HEART: S1 and S2. Diminished heart sounds. Irregular rate. ABDOMEN: Soft, not distended or tender. No ascites. No bladder distention. EXTREMITIES: Osteoarthrosis in knees and ankles. Pulses 1+ in dorsalis pedis, faintly palpable in popliteal. She moves all extremities equally. NEURO: Cognitive function appears to be intact. LABORATORY DATA: White cell count 7.1, hemoglobin 10.4, platelets 272 with normal differential. Sodium 139, creatinine 0.61, calcium 9.4. Immunology showed a positive rheumatoid factor IgM of 9, QuantiFERON was negative. Legionella and strep pneumoniae antigen negative from last admission. Microbiology; we have acid- fast in one to three different samples, one from BAL and two from sputums. She also has Staph aureus and Achromobacter, probably colonizers rather than true pathogens. Current chest x-ray with chronic changes in lung humphries bilaterally. Prominent heart size. ASSESSMENT: 1. Chronic obstructive pulmonary disease. 2. Active smoking status. 3. Chronic cavitary lesion right upper lobe among other chronic lesions. 4. Atypical mycobacterial lung infection with pending identification. DISCUSSION: The critical factor in her decompensation here is the continuing smoking habit. She is trying to cut down, but is going to be hard for her to achieve abstinence, particularly in view of the fact that her still smoking. The atypical mycobacterial pathogen is still being identified, I think it would be worthwhile to treat it and the nature of the treatment would heavily depend on the identification of the species of the organism and we will have to wait for that before recommending any treatment. Those infections are hard to treat. The end point is very difficult to achieve, which is basically a cure with negative serial sputum cultures. Typically the duration of therapy will last around 18 months and there is a higher rate of failure due to adverse reactions as well as relapse. So I think in her case, smoking cessation would be the top intervention to be attempted followed by the treatment of her atypical mycobacterial infection. Certain atypical mycobacterial pathogens are much harder to treat than others. Job ID: [id number] [facility]
--- NOTE | 2019-06-15 07:52 | HP ---
ADDENDUM: The history and physical is dated 06/13/2019. PAST MEDICAL HISTORY: Significant for; 1. Recent hospitalization for a pulmonary cavitation. 2. COPD. 3. Chronic atrial fibrillation. 4. Hypertension. 5. Chronic respiratory failure with hypoxia. 6. Right lower extremity venous stasis ulcer. 7. Tobacco abuse. 8. Chronic diastolic heart failure. 9. Anxiety. Job ID: [id number]
[2019-06-15] MEDS: predniSONE 20 MG TAB PO SCH (08:41)
[2019-06-15] MEDS: Apixaban 5 MG TAB PO SCH (08:42)
[2019-06-15] MEDS: Diltiazem HCl CD 300 mg Capsule PO SCH (08:42)
[2019-06-15] MEDS: Digoxin 0.125 MG TAB PO SCH (08:42)
[2019-06-15] MEDS: Budesonide 0.5 MG/2 ML NEB INH SCH (09:04)
[2019-06-15] MEDS: Arformoterol 15 MCG/2 ML NEB NEB SCH (09:14)
--- NOTE | 2019-06-15 14:40 | PRG ---
DATE OF SERVICE: 06/15/2019 SUBJECTIVE: Francia Powell states she is feeling much better. She states she will quit smoking and use electronic cigarettes, this is an option. I do believe it is a viable option for now. OBJECTIVE: VITAL SIGNS: She is afebrile. Heart rate 72, respiratory rate 15, oximetry is 99% on 2 L, blood pressure 140/65. She has a nebulizer medicine, on oxygen at home. LUNGS: Clear today. HEART: Regular rhythm. ABDOMEN: Soft, nontender. EXTREMITIES: Without edema. LABORATORY DATA: No new lab. IMPRESSION AND PLAN: Chronic obstructive pulmonary disease exacerbation, clinically stable. I do believe she is a candidate for discharge for routine follow up with me in the office in 2 weeks. I have given her my phone number. Job ID: [id number]
[2019-06-15 15:34] VITALS: TEMP 98.7
[2019-06-15 15:37] VITALS: BP 119/61
--- NOTE | 2019-06-15 22:34 | DIS ---
DATE OF ADMISSION: 06/13/2019 DATE OF DISCHARGE: 06/15/2019 DISCHARGE DIAGNOSES: 1. Severe chronic obstructive pulmonary disease exacerbation. 2. Acute on chronic hypoxic respiratory failure. 3. Cavitary lung disease with Mycobacterium avium with final ID pending. 4. Atrial fibrillation with rapid ventricular response. 5. Anemia, chronic normocytic. 6. Tobacco abuse. 7. Right lateral malleolus ulceration. 8. Chronic hypoxic respiratory failure. 9. Hypertension. HISTORY OF PRESENT ILLNESS: The patient is a 74-year-old female with severe COPD, chronic hypoxic respiratory failure requiring oxygen, who continues to smoke. The patient presented to the hospital via the emergency department complaining of shortness of breath to the point she was unable to sleep. The patient was noted to have a history of cavitary lesion previously found on the lung with AFB smears and cultures pending. TB has essentially been ruled out. Final ID had not been obtained as of yet. In the emergency department in [place], the patient was in atrial fibrillation with rapid ventricular response. Given diltiazem and digoxin. She was subsequently transferred to this facility. She was admitted to the hospital on the telemetry, seen in consultation by Pulmonary Critical Care, where she continued on aggressive nebulizer treatments, steroids, and it was felt that the cavitary lesion did not warrant immediate intervention. Dr. Cotton also saw the patient in consultation, who felt it was appropriate to wait for final identification before initiating treatment as this was likely going be a difficult AFB to treat. With the patient starting to feel better with her respiratory status getting back to her baseline, she was felt to be appropriate for discharge by her primary water quality technician, Dr. Alexander. The patient was perfectly comfortable with that. PHYSICAL EXAMINATION: VITAL SIGNS: On the day of discharge, temperature was 98.7, pulse 70, respirations 16, O2 saturation 98% on 2 L nasal cannula, BP was 119/61. GENERAL: She was awake, alert, pleasant, conversant. HEENT: PERRL. No OP lesions. EXTREMITIES: Regular rate and rhythm. LUNGS: Diminished with scattered wheezes and rales primarily at the bases, worse on the left. ABDOMEN: Soft, nontender, and nondistended. EXTREMITIES: No cyanosis, clubbing, or edema. DISPOSITION: The patient is discharged to home. ACTIVITY: As tolerated. DIET: She will be on a heart healthy diet. MEDICATIONS: She will be on prednisone 40 mg p.o. daily for 4 days. She will continue with, Eliquis, sertraline, Symbicort, pantoprazole, Cartia, Tylenol, albuterol, digoxin, DuoNeb, ethambutol, until final ID is noted. FOLLOWUP: She is to follow up with Dr. Leon, Dr. Cotton, and Dr. Alexander. She can return to the hospital should she have any problems prior to that time. Job ID: [id number]
== END 2019-06-15 17:07 | disposition home or self-care (01) | DRG 177 ==
LOC: ERS 09:11 → ERHOLD 10:12 → 2NO 18:15
PROVIDERS: ADMIT Family Medicine; ATTEND Family Medicine
DX: A31.0 Pulmonary mycobacterial infection (principal); J96.21 Acute and chronic respiratory failure with hypoxia; J44.1 Chronic obstructive pulmonary disease with (acute) exacerbation; I50.32 Chronic diastolic (congestive) heart failure; L97.329 Non-pressure chronic ulcer of left ankle with unspecified severity; F32.9 Major depressive disorder, single episode, unspecified; I48.91 Unspecified atrial fibrillation; F17.210 Nicotine dependence, cigarettes, uncomplicated; D64.9 Anemia, unspecified; I11.0 Hypertensive heart disease with heart failure; F41.9 Anxiety disorder, unspecified; Z79.01 Long term (current) use of anticoagulants; Z79.51 Long term (current) use of inhaled steroids; Z79.899 Other long term (current) drug therapy; Z99.81 Dependence on supplemental oxygen; Z90.49 Acquired absence of other specified parts of digestive tract; Z88.1 Allergy status to other antibiotic agents
CPT/HCPCS: 36415; 80048; 85025; 94640; 99285; J7512; J7611; J7620; J7626

== ENCOUNTER 2019-08-12 07:20 | Inpatient (IN) | payer MEDICARE ==
[2019-08-12] MEDS ORDERED: Morphine 2 MG/ML SYRINGE ONE (08:17)
[2019-08-12] MEDS ORDERED: Ondansetron PF 4 MG/2 ML Vial IVP PRN (09:15)
[2019-08-12] MEDS ORDERED: Dextrose 5% in Water 1,000 ML IV PRN (09:15)
[2019-08-12] MEDS ORDERED: Promethazine HCl 25 MG/ML VIAL IM PRN (09:15)
[2019-08-12] MEDS ORDERED: Dextrose 50% Abboject 50 ML SYRINGE SLOW IVP PRN (09:15)
[2019-08-12] MEDS ORDERED: hydrALAZINE 20 MG/ML VIAL SLOW IVP PRN (09:15)
--- NOTE | 2019-08-12 10:03 | CON ---
DATE OF CONSULTATION: 08/12/2019 This is Lakeshia Balbuena PA-C dictating a report for Chris Coburn MD. CONSULTING PHYSICIAN: Chris Coburn MD REASON FOR CONSULTATION: Left hip fracture. HISTORY OF PRESENT ILLNESS: This is a 74-year-old female, who presented to our facility by way of transfer from the [facility]. The patient resides at [facility] and suffered a mechanical fall. She was found to have a left hip fracture upon workup in the [place] [facility] and was transferred to our facility for higher level of care and orthopedic surgery. She has a history of underlying dementia, but reports that she tripped while getting up to give her friend a hamburger. She reports that she was unable to bear weight on the left lower extremity. She denies any numbness or tingling. She does state that she did strike her head, but did not lose consciousness. CT evaluation of the head has been negative at this time. Due to the patient's dementia, history is somewhat limited and obtained mainly from medical records. PAST MEDICAL HISTORY: Significant for atrial fibrillation, congestive heart failure, hyperlipidemia, hypertension, history of a cerebral infarct, pulmonary disease including COPD, cellulitis with MRSA in bilateral lower extremities, and carotid stenosis. The patient on home oxygen nasal cannula at night only. Depression and anxiety. PAST SURGICAL HISTORY: Cholecystectomy. SOCIAL HISTORY: The patient resides at [facility]. She states that she has been smoking for most of her life and currently still smokes. She states that she smokes 10 cigarettes per day, but her history includes 2 pack per day history of smoking. She states that she is an independent ambulator. FAMILY HISTORY: Reviewed and noncontributory. REVIEW OF SYSTEMS: Conducted and otherwise negative except for stated above. PHYSICAL EXAMINATION: VITAL SIGNS: Blood pressure 103/61, pulse of 104, respiratory rate of 20, temperature 98.1, and O2 saturation of 96% on room air. GENERAL: The patient is awake and alert. She answers questions, but seems somewhat confused. She does not know where she is located at this time, but believes she is still in [place]. She is in no apparent distress. Occasionally, she is wincing from muscle spasms and pain. HEENT: Head is normocephalic, but a large hematoma is noted to the anterior left forehead. This has been bandaged in the emergency department. NECK: Supple. Trachea midline. Breathing is nonlabored. EXTREMITIES: The left lower extremity is noticeably shortened and externally rotated. There are bandages that are present in both of her lower extremities including Coban and ABD pads. These were removed for examination. It does appear that she has multiple skin tears and what appears to be healing wounds and resolving cellulitis to bilateral lower extremities. The right lower extremity wounds appear mostly healed at this time. The left lower extremity wounds appear to have some drainage present to them. The patient is able to move toes in both feet. She is moving her right lower extremity about, mainly in pain and discomfort due to muscle cramping in the left side. Bilateral upper extremities were evaluated and no traumatic injuries were noted. RADIOGRAPHIC FINDINGS: I reviewed today with Dr. Coburn include views of the left hip, which demonstrate a comminuted and displaced intertrochanteric femur fracture. ASSESSMENT: Status post mechanical fall with dementia and left intertrochanteric femur fracture, on Eliquis. PLAN: At this time, the patient will be admitted to the trauma services. They will hold her Eliquis in preparation for surgery, which we will plan for Thursday. We would like Wound Care to address these wounds on her lower extremities. We will plan for a trochanteric nailing of intertrochanteric femur fracture on the left side in order to restore function and promote mobility. All questions have been answered at bedside today. No family is present. We will plan to proceed with the above-mentioned surgical intervention on Thursday. All questions have been answered today. Job ID: [id number]
[2019-08-12] MEDS: Acetaminophen 500 MG TAB PO SCH ×3 (12:42→23:10)
--- NOTE | 2019-08-12 12:54 | HP ---
TRAUMA SURGEON: Dr. Glez. CONSULTING PHYSICIAN: Dr. Coburn. HISTORY OF PRESENT ILLNESS: The patient is a 74-year-old female, who presents from longterm after a mechanical fall on Eliquis this morning. She was evaluated initially at an outside hospital with CT scans of the head C-spine, as well as a chest x-ray and x-rays of the left hip. It was noted that she has a left intertrochanteric femur fracture, a left forehead hematoma and chronic left lower extremity cellulitis. She was transferred here for orthopedic intervention. At the time of my evaluation, the patient denied loss of consciousness. She is on Eliquis for atrial fibrillation. She states that she has a left-sided thigh and hip pain as well as pain to the left forehead. She was previously hospitalized for cellulitis, and she will be completing her course of antibiotics next week. She denies loss of consciousness, shortness of breath, palpitations, chest pain, abdominal pain, numbness or tingling in the extremities. REVIEW OF SYSTEMS: All additional 10-point review of systems negative except as indicated above. PAST MEDICAL HISTORY: Cellulitis of the left lower extremity, pressure ulcer to the right lower extremity, moderate protein-calorie malnutrition, hyperlipidemia, depression, anxiety, hypertension, chronic atrial fibrillation, chronic diastolic heart failure, left carotid artery stenosis, COPD, CVA with facial weakness, and tobacco use. PAST SURGICAL HISTORY: The patient has previously had a cholecystectomy. No other surgical interventions that she can remember. SOCIAL HISTORY: The patient is a chronic smoker and smokes about half a pack per day. Denies drug and alcohol use. MEDICATIONS: 1. Silvadene cream. 2. Tylenol. 3. Breo Ellipta aerosol powder breathing, activated 100-25 mcg per inhalation. 4. Combivent. 5. Eliquis 5 mg once a day. 6. Ipratropium/albuterol scheduled and p.r.n. 7. Metoprolol 50 mg twice a day. 8. Nicotine patch. 9. Pantoprazole. 10. Sertraline. 11. Bactrim 800-160 mg twice a day until August 18, 2019. ALLERGIES: NO KNOWN DRUG ALLERGIES. PHYSICAL EXAMINATION: PRIMARY SURVEY: Airway intact. Adequate breath sounds bilaterally. 2+ pulses in the bilateral radials, femorals, and DPs. GCS is 15. Gross motor and sensation are intact. No lacerations. There is a large hematoma and abrasion to the left forehead. No external bleeding. SECONDARY SURVEY: HEAD: Normocephalic. There is a left-sided forehead bruise and hematoma with an abrasion. No active bleeding. EYES: Pupils 3 to 2, equal, round, and reactive to light bilaterally. ENT: No hemotympanum. No epistaxis. No septal hematoma. Midface stable to manipulation. No blood in the oropharynx. Dentition is intact. No anterior neck injury/crepitus/tenderness. C-SPINE: No step-offs or deformities. Nontender. C-collar not in place. CHEST: Nontender. No crepitus. No abrasions or ecchymosis. Equal chest movement. ABDOMEN: Soft, nontender, and nondistended. PELVIS: Stable to palpation. Tenderness to the left side. No ecchymosis or abrasions. RECTAL: Deferred. GENITOURINARY: Saxena in place with clear yellow urine in bag. EXTREMITIES: Left-sided thigh pain and hip pain with shortening of the left lower extremity. No abrasions or ecchymosis noted. 2+ pulses in the bilateral radials, femorals, and DPs. BACK/SPINE: No step-offs, deformities, or tenderness to palpation of the thoracic and lumbar spine. No abrasions or ecchymosis noted. NEUROLOGIC: 5/5 strength in bilateral stitching department supervisor, plantar flexion, and dorsiflexion. Gross normal sensation x4 extremities. LABORATORY FINDINGS: White count 7.5, hemoglobin 10.9, hematocrit 30.8, platelets 314. INR 1.2, PT 15.1. Sodium 136, potassium 4.5, chloride 101, carbon dioxide 25, BUN 22, creatinine 0.8, and glucose 118. UA is negative. DIAGNOSTIC FINDINGS: CT of the brain demonstrates no intracranial posttraumatic sequelae. There is a scalp hematoma and swelling. X-ray of the left hip demonstrates marked comminuted intertrochanteric and subtrochanteric fracture of the left femur with marked foreshortening and varus deformity. CT scan of the C-spine demonstrates no acute fracture. Chest x-ray demonstrates extensive chronic lung changes. No significant new processes. ASSESSMENT: 1. Status post mechanical fall, on Eliquis. 2. Left intertrochanteric femur fracture. 3. Left forehead hematoma. 4. Left lower extremity cellulitis, chronic, not new to this admission. 5. History of pressure ulcer to right lower extremity, moderate protein-calorie malnutrition, hyperlipidemia, depression, anxiety, hypertension, chronic atrial fibrillation, chronic diastolic heart failure, left carotid artery stenosis, chronic obstructive pulmonary disease, cerebrovascular accident with residual facial weakness. PLAN: The patient will be admitted to the Trauma Service. Orthopedic Surgery has been consulted, who recommends surgical fixation. They are planning for Thursday because the patient is on Eliquis. We will restart all of her home medications as clinically indicated except for her Eliquis. She will be n.p.o. at midnight the day of surgery. Postoperatively, she will work with Physical and Occupational Therapy and will be likely needed discharge to her long-term facility at the time of discharge. We will consult Wound Care to continue to evaluate her left lower extremity cellulitis. We will also continue her Bactrim until the previously scheduled August 18. The patient was discussed with Dr. Glez before this dictation. Job ID: [id number]
[2019-08-12 13:00] VITALS: BMI 19.6
[2019-08-12] MEDS: Ibuprofen 600 MG TAB PO SCH ×2 (14:06→21:26)
[2019-08-12] MEDS: Gabapentin 100 MG CAP PO SCH ×2 (14:07→21:26)
[2019-08-12] MEDS: Mometasone/Formoterol 120 PUFF INHALER INH SCH (19:48)
[2019-08-12] MEDS: Senokot S 8.6-50 MG TAB PO SCH (21:26)
[2019-08-12] MEDS: Metoprolol Tartrate 50 MG TAB PO SCH (21:26)
--- NOTE | 2019-08-12 22:15 | PRG ---
DATE OF SERVICE: 08/12/2019 SUBJECTIVE: This is a 74-year-old female who [facility] the [facility]. The patient does take Eliquis. The patient was found to have a left intertrochanteric femur fracture, left forehead hematoma, and chronic left lower extremity cellulitis. The patient is awake, alert, in no distress. The patient's family is at bedside and the patient denies any pain at this time. The patient has a good appetite currently. Family reports the patient is a heavy smoker and concerned about her going into nicotine withdrawals. OBJECTIVE: VITAL SIGNS: Stable, afebrile, mildly tachycardic. GENERAL: Elderly female, awake, alert, in no distress, sitting up in hospital bed. HEENT: Left-sided forehead hematoma with bandage clean, dry, and intact. RESPIRATORY: Equal chest rise and fall. Bilateral breath sounds clear. No respiratory distress. EXTREMITIES: Moves all extremities, pulses intact in all extremities. Left-sided thigh and hip pain with palpation. ASSESSMENT: 1. Status post mechanical fall, on Eliquis. 2. Left intertrochanteric femur fracture. 3. Left forehead hematoma. 4. Left lower extremity cellulitis, chronic, not new to this admission. 5. History of pressure ulcer to the right lower extremity, moderate protein calorie malnutrition, hyperlipidemia, depression, anxiety, hypertension, chronic atrial fibrillation, chronic diastolic heart failure, left carotid artery stenosis, chronic obstructive pulmonary disease, cerebrovascular accident with residual face weakness. PLAN: Continue supportive care. Continue pain regimen. Orthopedic Surgery plans to take the patient to the OR on Thursday for repair of her left intertrochanteric femur fracture as the patient is on Eliquis. The patient will be on a regular diet as tolerated in the meantime. We will continue nicotine patch. The plan has been discussed with the patient and family who agree. Job ID: [id number]
[2019-08-12] MEDS: Cyclobenzaprine 10 MG TAB PO PRN (23:10)
[2019-08-13] MEDS: Morphine 2 MG/ML SYRINGE SLOW IVP PRN ×2 (01:00→13:00)
[2019-08-13] MEDS ORDERED: Sodium Chloride 0.9% 250 ML IV SCH (02:15)
[2019-08-13] MEDS ORDERED: Sodium Chloride 0.9% 1,000 ML IV SCH (02:15)
[2019-08-13 04:42] LABS: #Basophils 0.1 thou/uL (0.0-0.2); #Lymphocytes 1.6 thou/uL (1.20-3.40); #Monocytes 0.9 thou/uL (0.11-0.59); #Neutrophils 5.3 thou/uL (1.40-6.50); %Basophils 0.8 % (0.0-1.0); %Eosinophils 0.4 % (0.0-10.0); %Lymphocytes 20.7 % (21.0-51.0); %Monocytes 10.9 % (0.0-10.0); %Neutrophils 67.3 % (42.0-75.0); Hemoglobin 8.4 g/dL (12.0-16.0); Mean Corpuscular HGB CONC 32.7 g/dL (32.0-36.0); Mean Corpuscular Hemoglobin 27.1 pg (27.0-31.0); Mean Corpuscular Volume 82.8 fL (78.0-98.0); Mean Platelet Volume 8.9 fL (7.4-10.4); Platelet Count 244 thou/uL (130-400); RBC Distribution Width 14.6 % (11.5-14.5); Red Blood Cell (RBC) Count 3.08 mill/uL (4.20-5.40); White Blood Cell (WBC) Count 7.9 thou/uL (4.8-10.8)
[2019-08-13 05:05] LABS: Anion Gap 14 mmol/L (10-20); BUN (Urea Nitrogen) 28 mg/dL (9.8-20.1); Calc. Creatinine Clearance 30 mL/min (70-130); Calcium 8.8 mg/dL (7.8-10.44); Carbon Dioxide 21 mmol/L (23-31); Chloride 106 mmol/L (98-107); Estimated GFR-MDRD 36; Glucose 88 mg/dL (83-110); Magnesium 1.9 mg/dL (1.6-2.6); Phosphorus 5.2 mg/dL (2.3-4.7); Potassium 4.5 mmol/L (3.5-5.1); Sodium 136 mmol/L (136-145)
[2019-08-13] MEDS ORDERED: Sodium Chloride 0.9% 500 ML IVPB SCH (06:15)
[2019-08-13] MEDS: Ibuprofen 600 MG TAB PO SCH ×2 (06:28→14:44)
[2019-08-13] MEDS: Acetaminophen 500 MG TAB PO SCH ×4 (06:29→23:00)
[2019-08-13] MEDS ORDERED: Magnesium 2 GM/50 ML 2 GM in Premix Bag 1 BAG IVPB SCH ×2 (07:00→08:15)
[2019-08-13] MEDS: Mometasone/Formoterol 120 PUFF INHALER INH SCH ×2 (07:57→18:30)
[2019-08-13] MEDS: Metoprolol Tartrate 50 MG TAB PO SCH ×2 (08:38→20:24)
[2019-08-13] MEDS: Gabapentin 100 MG CAP PO SCH ×3 (08:43→20:24)
[2019-08-13] MEDS: Polyethylene Glycol 3350 17 GM Packet PO SCH (08:43)
[2019-08-13] MEDS: Senokot S 8.6-50 MG TAB PO SCH ×2 (08:44→20:25)
[2019-08-13] MEDS: Nicotine 21 MG PATCH TD SCH (08:45)
--- NOTE | 2019-08-13 10:18 | PRG ---
DATE OF SERVICE: 08/13/2019 SUBJECTIVE: The patient was admitted for a left hip fracture after fall from standing. The patient is on Eliquis for atrial fibrillation and is therefore scheduled for surgery tomorrow. She is doing fine. She has no further complaints. OBJECTIVE: VITAL SIGNS: Her temperature is 98.2, pulse is 92, blood pressure is 88/53. HEENT: She has a hematoma on her left forehead that is stable. LUNGS: Clear. HEART: Regular rate and rhythm. ABDOMEN: Soft, nondistended, nontender. EXTREMITIES: Her left leg is externally rotated. She has an abrasion, avulsion of skin on the left knee, not bleeding. No cellulitis. No active cellulitis present, although she does have some dressings on the lower leg. LABORATORY DATA: Her white count is 7.9, H and H 8 and 25, platelet count of 244. Her electrolytes, her creatinine is elevated at 1.4, BUN of 28. Her BNP was 618. She has received some fluids. PLAN: The plan is to repeat her H and H. We will have some blood available for surgery. Job ID: [id number]
[2019-08-13] MEDS: traMADol HCl 50 MG TAB PO PRN ×2 (10:59→18:04)
[2019-08-13] MEDS ORDERED: Hydrocortisone Sod Succ/PF 100 mg/2 ml Vial IVP SCH (12:00)
[2019-08-13] MEDS: Cyclobenzaprine 10 MG TAB PO PRN (14:44)
[2019-08-13] MEDS: Sodium Chloride 0.9% 1,000 ML IV SCH (14:45)
[2019-08-13] MEDS: Hydrocortisone Sod Succ/PF 100 mg/2 ml Vial IVP SCH ×2 (18:05→23:03)
[2019-08-13] MEDS: Silver Sulfadiazine 1% Cream 50 GM JAR TOP SCH (18:52)
--- NOTE | 2019-08-13 22:24 | PRG ---
DATE OF SERVICE: 08/13/2019 SUBJECTIVE: This is a 74-year-old female, who [facility] [place] [facility] [place] [facility]. The patient remains on the surgical floor at this time. The patient is currently sleeping in no distress. OBJECTIVE: VITAL SIGNS: Stable, afebrile. RESPIRATORY: Equal chest rise and fall, no respiratory distress. ASSESSMENT: 1. Status post mechanical fall, on Eliquis. 2. Left intertrochanteric femur fracture. 3. Left forehead hematoma. 4. Left lower extremity cellulitis, chronic, not new to this admission. 5. Acute kidney injury. PLAN: Continue supportive care. The patient will be n.p.o. after midnight for Orthopedic Surgery tomorrow morning, repair of her left intertrochanteric femur fracture. The patient will be placed on maintenance fluids overnight. We will continue to monitor the patient's urinary output. Job ID: [id number]
[2019-08-14] MEDS: Sodium Chloride 0.9% 1,000 ML IV SCH ×3 (02:00→04:12)
[2019-08-14 05:19] LABS: #Lymphocytes 1.1 thou/uL (1.20-3.40); #Monocytes 0.4 thou/uL (0.11-0.59); #Neutrophils 6.5 thou/uL (1.40-6.50); %Basophils 0.1 % (0.0-1.0); %Eosinophils 0.2 % (0.0-10.0); %Lymphocytes 13.2 % (21.0-51.0); %Monocytes 5.1 % (0.0-10.0); %Neutrophils 81.3 % (42.0-75.0); Hemoglobin 7.6 g/dL (12.0-16.0); Mean Corpuscular HGB CONC 32.3 g/dL (32.0-36.0); Mean Corpuscular Hemoglobin 27.1 pg (27.0-31.0); Mean Corpuscular Volume 83.9 fL (78.0-98.0); Mean Platelet Volume 8.8 fL (7.4-10.4); Platelet Count 243 thou/uL (130-400); RBC Distribution Width 14.7 % (11.5-14.5); Red Blood Cell (RBC) Count 2.81 mill/uL (4.20-5.40)
[2019-08-14] MEDS: Acetaminophen 500 MG TAB PO SCH ×3 (05:39→17:23)
[2019-08-14] MEDS: traMADol HCl 50 MG TAB PO PRN ×2 (05:39→13:22)
[2019-08-14] MEDS: Hydrocortisone Sod Succ/PF 100 mg/2 ml Vial IVP SCH ×3 (05:40→17:24)
[2019-08-14 06:45] LABS: Anion Gap 11 mmol/L (10-20); BUN (Urea Nitrogen) 24 mg/dL (9.8-20.1); Calc. Creatinine Clearance 59 mL/min (70-130); Calcium 8.4 mg/dL (7.8-10.44); Carbon Dioxide 22 mmol/L (23-31); Chloride 107 mmol/L (98-107); Estimated GFR-MDRD 80; Glucose 124 mg/dL (83-110); Magnesium 2.2 mg/dL (1.6-2.6); Phosphorus 3.2 mg/dL (2.3-4.7); Potassium 4.7 mmol/L (3.5-5.1); Sodium 135 mmol/L (136-145)
[2019-08-14] MEDS: Mometasone/Formoterol 120 PUFF INHALER INH SCH ×2 (07:03→19:02)
[2019-08-14] MEDS ORDERED: Fentanyl 100 MCG/2 ML VIAL ONE ×2 (07:37→09:54)
--- NOTE | 2019-08-14 09:14 | RAD ---
Exam:Intraoperative fluoroscopy HISTORY: Left hip fracture COMPARISON: None FINDINGS: 4 intraoperative fluoroscopic views demonstrate internal fixation hardware with improved al ignment of a previously identified intertrochanteric fracture. EXPOSURE: 31.9 seconds. 3.74 mGy IMPRESSION: Intraoperative fluoroscopy as above
--- NOTE | 2019-08-14 09:22 | OP ---
DATE OF PROCEDURE: 08/14/2019 PROCEDURE PERFORMED: Left femur intramedullary nail. PREOPERATIVE DIAGNOSIS: Left intertrochanteric femur fracture. POSTOPERATIVE DIAGNOSIS: Left intertrochanteric femur fracture. COMPLICATIONS: None. ESTIMATED BLOOD LOSS: 100 mL. SUPERVISING PRODUCER: Lakeshia Balbuena PA-C IMPLANTS: Synthes 10-mm nail with helical blade. INDICATIONS: Ms. Powell is a 74-year-old female who fell and fractured her left femur. She was indicated for intramedullary nail fixation to restore anatomic alignment and promote healing. Risks have been reviewed. Goal is to provide the ability to ambulate and prevent complications of prolonged bedrest. DESCRIPTION OF PROCEDURE: Ms. Powell was identified in the preoperative holding area. Her correct extremity was marked. She was carried to the operating room. Positioned supine. General anesthesia was induced. The left lower extremity was prepped and draped in sterile fashion. At this point, we made a small incision over the tip of the trochanter. We dissected down through the subcutaneous tissues. We then inserted our guidewire in the proximal femur using intraoperative x-ray. We then overreamed the guide wire. Next, we placed our 10-mm Synthes trochanteric nail. This was seated appropriately. We placed a guidewire in the centered position of the femoral head and then a helical blade. Finally, we placed a distal Crosslock screw. At this point, we thoroughly irrigated. We then closed in appropriate layers. A sterile dressing was applied. The patient was taken to the recovery room in good condition without complication. Job ID: [id number]
[2019-08-14] MEDS ORDERED: Ondansetron HCl/PF 4 MG/2 ML Vial IVP PRN (09:28)
[2019-08-14] MEDS ORDERED: Morphine Sulfate 2 MG/ML SYRINGE SLOW IVP PRN (09:28)
[2019-08-14] MEDS ORDERED: Promethazine HCl 25 MG/ML VIAL IM PRN (09:28)
[2019-08-14] MEDS ORDERED: PACU-Morphine 4MG/ML VIAL SLOW IVP PRN (09:28)
[2019-08-14] MEDS ORDERED: Promethazine HCl 25 MG/ML VIAL SLOW IVP PRN (09:28)
[2019-08-14] MEDS ORDERED: HYDROmorphone 2 MG/ML VIAL SLOW IVP PRN (09:28)
[2019-08-14] MEDS ORDERED: Meperidine HCl/PF 25 MG/ML VIAL SLOW IVP PRN (09:28)
[2019-08-14] MEDS: Metoprolol Tartrate 50 MG TAB PO SCH ×2 (09:49→20:26)
[2019-08-14] MEDS: Polyethylene Glycol 3350 17 GM Packet PO SCH (09:49)
[2019-08-14] MEDS: Gabapentin 100 MG CAP PO SCH ×3 (09:49→20:22)
[2019-08-14] MEDS: Nicotine 21 MG PATCH TD SCH (09:49)
[2019-08-14] MEDS: Silver Sulfadiazine 1% Cream 50 GM JAR TOP SCH (09:50)
[2019-08-14] MEDS: Senokot S 8.6-50 MG TAB PO SCH ×2 (09:50→20:22)
[2019-08-14 13:17] LABS: #Lymphocytes 1.7 thou/uL (1.20-3.40); #Monocytes 0.4 thou/uL (0.11-0.59); #Neutrophils 8.6 thou/uL (1.40-6.50); %Basophils 0.4 % (0.0-1.0); %Eosinophils 0.1 % (0.0-10.0); %Lymphocytes 15.9 % (21.0-51.0); %Monocytes 3.2 % (0.0-10.0); %Neutrophils 80.3 % (42.0-75.0); Hemoglobin 9.8 g/dL (12.0-16.0); Mean Corpuscular HGB CONC 32.7 g/dL (32.0-36.0); Mean Corpuscular Hemoglobin 27.9 pg (27.0-31.0); Mean Corpuscular Volume 85.1 fL (78.0-98.0); Mean Platelet Volume 8.6 fL (7.4-10.4); Platelet Count 290 thou/uL (130-400); RBC Distribution Width 14.7 % (11.5-14.5); Red Blood Cell (RBC) Count 3.51 mill/uL (4.20-5.40); White Blood Cell (WBC) Count 10.6 thou/uL (4.8-10.8)
[2019-08-14] MEDS: CEFAZOLIN 2 GM in Premix Bag 1 BAG IVPB SCH ×4 (13:21→20:26)
--- NOTE | 2019-08-14 13:49 | PRG ---
DATE OF SERVICE: 08/14/2019 SUBJECTIVE: The patient was seen this afternoon postop, status post fixation of her left intertrochanteric femur fracture. At the time of my evaluation, the patient was awake and alert. She reported she was having some left-sided hip tenderness. She had not had anything to eat yet but had drunk water without any issues. Saxena is in place and will be discontinued tomorrow. She will start to work with Physical and Occupational Therapy. OBJECTIVE: VITAL SIGNS: Temperature 97.8, pulse 103, respirations 18, oxygen saturation 94% on 3 L nasal cannula, blood pressure 114/53. GENERAL: A frail, elderly female, sitting up in bed with no signs of acute distress. PULMONARY: Equal chest rise and fall. Clear breath sounds bilaterally. No signs of acute respiratory distress. CARDIAC: Regular rate and rhythm. No murmurs, gallops, or rubs. GI: Abdomen is soft, nontender, nondistended. EXTREMITIES: 2+ pulses in all extremities. No significant swelling noted. Gross motor and sensation are intact. NEUROLOGIC: GCS is 15. LABORATORY FINDINGS: White count 8.0, hemoglobin 7.6, hematocrit 23.6, platelets 243. Sodium 135, potassium 4.7, chloride 107, carbon dioxide 22, BUN 24, creatinine 0.71, glucose 124, phosphorus 3.2, magnesium 2.2. DIAGNOSTIC FINDINGS: There are no new diagnostic findings to report. ASSESSMENT: 1. Status post mechanical fall, on Eliquis. 2. Left intertrochanteric femur fracture, status post repair. 3. Left forehead hematoma, stable. 4. Acute kidney injury, resolved. 5. Acute adrenal insufficiency, stable. 6. Acute blood loss anemia. 7. Old left lower extremity cellulitis. 8. History of atrial fibrillation, chronic obstructive pulmonary disease, hyperlipidemia, depression, anxiety, hypertension, diastolic heart failure, coronary artery disease, cerebrovascular accident with residual facial weakness. PLAN: The patient received 1 unit of packed red blood cells just before going to the OR today. We will repeat a CBC this afternoon and give additional blood products as needed. She will be started on iron and vitamin C. Discontinue IV fluids. The patient can have a regular diet. We will discontinue Saxena tomorrow. We will have the patient start to work with Physical and Occupational Therapy and she will likely need placement at an acute rehab or group home facility. Wound Care is accessing the patient for her previously diagnosed left lower extremity cellulitis. We will continue Bactrim until August 18 as previously recommended on her last hospital admission. We will start deescalating her hydrocortisone tomorrow. Continue currently prescribed pain medications and home medications. Continue to hold home Eliquis. We will start the patient on aspirin b.i.d. tomorrow if the patient continues to be hemodynamically stable. Job ID: [id number]
[2019-08-14] MEDS ORDERED: ePHEDrine 50 MG/ML VIAL ONE (14:29)
[2019-08-14] MEDS ORDERED: Rocuronium Bromide 10 MG/ML (10ML VIAL) ONE (14:29)
[2019-08-14] MEDS ORDERED: Dexamethasone 20 MG/5 ML VIAL ONE (14:29)
[2019-08-14] MEDS ORDERED: PHENYLEPHRINE-NS 100 MCG/ML 10 ML SYRINGE ONE (14:29)
[2019-08-14] MEDS ORDERED: PROPOFOL 200 MG/20 ML VIAL ONE (14:29)
[2019-08-14] MEDS ORDERED: Glycopyrrolate 0.2 MG/ML 5 ML SYRINGE ONE (14:29)
[2019-08-14] MEDS ORDERED: Lidocaine 1% PF 5 ML VIAL ONE (14:29)
[2019-08-14] MEDS ORDERED: Ondansetron PF 4 MG/2 ML Vial ONE (14:29)
[2019-08-14] MEDS: Ferrous Sulfate 325 MG TAB PO SCH (17:23)
[2019-08-14] MEDS ORDERED: Ascorbic Acid 500 mg Chewable Tablet PO SCH (21:00)
--- NOTE | 2019-08-15 00:11 | PRG ---
DATE OF SERVICE: 08/14/2019 SUBJECTIVE: The patient remains on the surgical floor. The patient is postop day 0 status post fixation of her left intertrochanteric femur fracture. The patient is currently sleeping at this time. The patient with adequate urinary output. Nursing staff reports the patient's pain has been well controlled at this time. OBJECTIVE: VITAL SIGNS: Stable, afebrile, mildly tachycardic. RESPIRATORY: Equal chest rise and fall, no respiratory distress. ASSESSMENT: 1. Status post mechanical fall, on Eliquis. 2. Left intertrochanteric femur fracture, postop repair. 3. Left forehead hematoma, stable. 4. Acute kidney injury, resolved. 5. Acute adrenal insufficiency, stable. 6. Acute blood loss anemia. 7. Old left lower extremity cellulitis. 8. History of atrial fibrillation, chronic obstructive pulmonary disease, hyperlipidemia, depression, anxiety, hypertension, diastolic heart failure, coronary artery disease, cerebrovascular accident with residual facial weakness. PLAN: Continue supportive care and pain regimen. Continue to monitor the patient's hemoglobin and hematocrit. We will continue to monitor urinary output. Continue regular diet as tolerated. We will have Physical Therapy work with the patient. We will deescalate the patient's hydrocortisone starting tomorrow. Continue to hold the patient's home Eliquis. Job ID: [id number]
[2019-08-15] MEDS: Acetaminophen 500 MG TAB PO SCH ×5 (00:12→23:59)
[2019-08-15] MEDS: Hydrocortisone Sod Succ/PF 100 mg/2 ml Vial IVP SCH ×5 (00:12→23:58)
[2019-08-15 04:51] LABS: #Lymphocytes 1.3 thou/uL (1.20-3.40); #Monocytes 0.5 thou/uL (0.11-0.59); #Neutrophils 6.1 thou/uL (1.40-6.50); %Basophils 0.3 % (0.0-1.0); %Eosinophils 0.3 % (0.0-10.0); %Lymphocytes 16.7 % (21.0-51.0); %Monocytes 6.2 % (0.0-10.0); %Neutrophils 76.6 % (42.0-75.0); Hemoglobin 8.7 g/dL (12.0-16.0); Mean Corpuscular HGB CONC 32.6 g/dL (32.0-36.0); Mean Corpuscular Hemoglobin 27.8 pg (27.0-31.0); Mean Corpuscular Volume 85.2 fL (78.0-98.0); Mean Platelet Volume 8.4 fL (7.4-10.4); Platelet Count 282 thou/uL (130-400); RBC Distribution Width 14.6 % (11.5-14.5); Red Blood Cell (RBC) Count 3.15 mill/uL (4.20-5.40)
[2019-08-15 05:14] LABS: Anion Gap 8 mmol/L (10-20); BUN (Urea Nitrogen) 28 mg/dL (9.8-20.1); Calc. Creatinine Clearance 51 mL/min (70-130); Calcium 8.9 mg/dL (7.8-10.44); Carbon Dioxide 27 mmol/L (23-31); Chloride 105 mmol/L (98-107); Estimated GFR-MDRD 68; Glucose 120 mg/dL (83-110); Magnesium 2.1 mg/dL (1.6-2.6); Phosphorus 3.4 mg/dL (2.3-4.7); Potassium 5.3 mmol/L (3.5-5.1); Sodium 135 mmol/L (136-145)
[2019-08-15] MEDS: traMADol HCl 50 MG TAB PO PRN ×2 (05:22→13:10)
[2019-08-15] MEDS ORDERED: Sodium Chloride 0.9% 500 ML IV SCH (08:45)
[2019-08-15] MEDS: Aspirin 81 mg Enteric Coated Tablet PO SCH ×2 (10:03→20:50)
[2019-08-15] MEDS: Ferrous Sulfate 325 MG TAB PO SCH ×2 (10:03→17:58)
[2019-08-15] MEDS: Polyethylene Glycol 3350 17 GM Packet PO SCH (10:03)
[2019-08-15] MEDS: Senokot S 8.6-50 MG TAB PO SCH ×2 (10:04→20:50)
[2019-08-15] MEDS: Nicotine 21 MG PATCH TD SCH (10:04)
[2019-08-15] MEDS: Metoprolol Tartrate 50 MG TAB PO SCH ×2 (10:04→20:50)
[2019-08-15] MEDS: Silver Sulfadiazine 1% Cream 50 GM JAR TOP SCH (10:06)
[2019-08-15] MEDS: Gabapentin 100 MG CAP PO SCH (10:17)
[2019-08-15] MEDS: Mometasone/Formoterol 120 PUFF INHALER INH SCH ×2 (12:03→18:46)
--- NOTE | 2019-08-15 13:13 | PRG ---
DATE OF SERVICE: 08/15/2019 SUBJECTIVE: The patient is hospital day 4, postoperative day 1 status post left femur intramedullary nail. The patient was tired on the examination today. She has been mildly tachycardic overnight. Her urine output has been marginally normal. Her creatinine went back up today slightly, so bolus IV fluids were started. There was concern on evaluation that she has purpuric lesions on her extremities that may be new after the patient started Bactrim for lower extremity cellulitis, but the patients confirmed that her skin has been very thin and she has easily bruised for at least the last 6 months beyond the duration of when the Bactrim was started. He also reports of concerns for dementia as the patient has reportedly been hallucinating at times while at home and in the [facility]. It was discussed with that evaluation outpatient by Neurology or her primary care physician would likely help in determining if and how extensive her dementia is. OBJECTIVE: VITAL SIGNS: Temperature 98.1 Fahrenheit, pulse 102, respiratory rate 14, O2 saturation 99% on 2 L O2 nasal cannula, blood pressure 121/78. Intake 1480 mL, and urine output 725 mL over the last 24 hours through Saxena catheter. GENERAL: The patient is resting comfortably in bed, difficult to arouse. HEENT: Hematoma, left forehead, stable. LUNGS: Clear to auscultation bilaterally. HEART: Regular rate and rhythm. ABDOMEN: Active bowel sounds, soft, and nontender to palpation. EXTREMITIES: Purpuric lesions throughout all extremities. Clean, dry, and intact bandages on right foot. LABORATORY DATA: White blood cell count 8.0, hemoglobin 8.7, hematocrit 26.8, platelets 282. Sodium 135, potassium 5.3, chloride 105, carbon dioxide 27, BUN 28, creatinine 0.82, phosphorus 3.4, magnesium 2.1. ASSESSMENT: 1. Status post mechanical fall, on Eliquis. 2. Left intertrochanteric femur fracture, postoperative day 1. 3. Left forehead hematoma, stable. 4. Hyperkalemia, potassium of 5.3 today, likely due to dehydration. 5. Acute kidney injury, resolved. 6. Acute adrenal insufficiency, stable. 7. Acute blood loss anemia, stable. 8. Old left lower extremity cellulitis, stable. 9. History of atrial fibrillation, chronic obstructive pulmonary disease, hyperlipidemia, depression, anxiety, hypertension, diastolic heart failure, coronary artery disease, and cerebrovascular accident with residual facial weakness. PLAN: 1. Continue supportive care. 2. The patient is tolerating full diet well. 3. Continue to monitor urine output with possible discontinuation of Saxena catheter tomorrow. 4. Continue to monitor blood pressure and pulse today with bolus of fluids. 5. Continue to monitor electrolytes and replete as necessary. 6. Continue PT and OT. 7. Continue Bactrim for left extremity cellulitis until 08/18, as previously recommended. 8. Due to tachycardia and fluid bolus today, will postpone de-escalating hydrocortisone until tomorrow 9. Started on b.i.d. aspirin today, continue. 10. Discontinue gabapentin today to help with alertness. We will continue to monitor. 11. Continue to monitor anemia, stable at this time. 12. Recommend outpatient evaluation for dementia. The patient was seen and evaluated by Dr. Newell during morning rounds. Discussed plan of care with the patient and family, who are in agreement. Job ID: [id number] MTDD
[2019-08-15] MEDS: Sodium Chloride 0.9% 1,000 ML IV SCH ×2 (16:00→20:56)
[2019-08-15] MEDS: Ascorbic Acid 500 mg Chewable Tablet PO SCH (17:58)
--- NOTE | 2019-08-16 04:02 | PRG ---
DATE OF SERVICE: 08/15/2019 SUBJECTIVE: The patient is hospital day #4, postop day #1 status post left femoral intramedullary nail. The patient is currently sleeping in no distress. OBJECTIVE: VITAL SIGNS: Mildly tachycardic, afebrile, blood pressure stable. ASSESSMENT: 1. Status post mechanical fall, on Eliquis. 2. Left intertrochanteric femur fracture, postop day #1. 3. Left forehead hematoma, stable. 4. Hyperkalemia, likely due to dehydration. 5. Acute kidney injury, resolved. 6. Acute adrenal insufficiency, stable. 7. Acute blood loss anemia, stable. 8. Old left lower extremity cellulitis, stable. 9. History of atrial fibrillation, chronic obstructive pulmonary disease, hyperlipidemia, depression, anxiety, hypertension, diastolic heart failure, coronary artery disease, cerebrovascular accident with residual facial weakness. PLAN: Continue supportive care. Continue regular diet as tolerated. Continue to monitor urinary output. Continue physical and occupational therapy. Continue chemical and mechanical DVT prophylaxis. Job ID: [id number]
[2019-08-16 04:24] LABS: #Lymphocytes 1.3 thou/uL (1.20-3.40); #Monocytes 0.4 thou/uL (0.11-0.59); #Neutrophils 4.8 thou/uL (1.40-6.50); %Basophils 0.3 % (0.0-1.0); %Eosinophils 0.5 % (0.0-10.0); %Lymphocytes 19.9 % (21.0-51.0); %Monocytes 5.6 % (0.0-10.0); %Neutrophils 73.6 % (42.0-75.0); Hemoglobin 8.5 g/dL (12.0-16.0); Mean Corpuscular HGB CONC 32.6 g/dL (32.0-36.0); Mean Corpuscular Hemoglobin 28.2 pg (27.0-31.0); Mean Corpuscular Volume 86.5 fL (78.0-98.0); Mean Platelet Volume 8.2 fL (7.4-10.4); Platelet Count 292 thou/uL (130-400); RBC Distribution Width 14.8 % (11.5-14.5); White Blood Cell (WBC) Count 6.5 thou/uL (4.8-10.8)
[2019-08-16 05:48] LABS: Anion Gap 13 mmol/L (10-20); BUN (Urea Nitrogen) 35 mg/dL (9.8-20.1); Calc. Creatinine Clearance 64 mL/min (70-130); Calcium 8.8 mg/dL (7.8-10.44); Carbon Dioxide 22 mmol/L (23-31); Chloride 110 mmol/L (98-107); Estimated GFR-MDRD 89; Glucose 133 mg/dL (83-110); Phosphorus 2.5 mg/dL (2.3-4.7); Sodium 140 mmol/L (136-145)
[2019-08-16] MEDS: Acetaminophen 500 MG TAB PO SCH ×3 (06:30→18:52)
[2019-08-16] MEDS: Sodium Chloride 0.9% 1,000 ML IV SCH (06:30)
[2019-08-16] MEDS: Hydrocortisone Sod Succ/PF 100 mg/2 ml Vial IVP SCH (06:30)
[2019-08-16] MEDS: Mometasone/Formoterol 120 PUFF INHALER INH SCH ×2 (08:18→18:57)
[2019-08-16] MEDS: Polyethylene Glycol 3350 17 GM Packet PO SCH (08:29)
[2019-08-16] MEDS: Ascorbic Acid 500 mg Chewable Tablet PO SCH ×2 (08:30→18:52)
[2019-08-16] MEDS: Senokot S 8.6-50 MG TAB PO SCH ×2 (08:30→20:01)
[2019-08-16] MEDS: Aspirin 81 mg Enteric Coated Tablet PO SCH (08:30)
[2019-08-16] MEDS: Ferrous Sulfate 325 MG TAB PO SCH ×2 (08:30→18:51)
[2019-08-16] MEDS: Nicotine 21 MG PATCH TD SCH (08:31)
[2019-08-16] MEDS: Metoprolol Tartrate 50 MG TAB PO SCH ×2 (08:31→20:01)
[2019-08-16] MEDS: traMADol HCl 50 MG TAB PO PRN ×2 (10:14→18:51)
[2019-08-16] MEDS: Silver Sulfadiazine 1% Cream 50 GM JAR TOP SCH (10:19)
[2019-08-16] MEDS ORDERED: Ketorolac Tromethamine 30 MG/ML VIAL IVP SCH (10:30)
--- NOTE | 2019-08-16 14:03 | PRG ---
DATE OF SERVICE: 08/16/2019 SUBJECTIVE: The patient is hospital day 5, postop day 2, status post left femur intramedullary nail. The patient reported of chest pain overnight. Troponins were ordered and they were negative, an EKG showed AFib, controlled, without ST- segment elevation. When the patient was re-evaluated, she reports that her pain only lasted briefly and then resolved. She has also been mildly tachycardic overnight, though less so than the previous night. The patient was more alert today. Her urine output has remained steady, so an order was placed to remove her Saxena today. She was endorsing increased pain during rounds and a now order was placed for Toradol, and p.r.n. ibuprofen was added as well. Her home Eliquis was also restarted and her postop aspirin was discontinued today. Per Case Management, the patient was accepted to return to [facility] when she is discharged, likely tomorrow. OBJECTIVE: VITAL SIGNS: Temperature 98.2 Fahrenheit, pulse 69, respiratory rate 16, 100% on 3 L oxygen nasal cannula, blood pressure 125/76. GENERAL: The patient is getting ready to be bathed, complaining of pain. HEENT: Hematoma, left forehead. LUNGS: Clear to auscultation bilaterally. HEART: Regular rate, AFib. ABDOMEN: Soft, nontender to palpation, active bowel sounds. EXTREMITIES: Purpuric lesions throughout all extremities, stable. Clean, dry, intact bandages on right foot. LABORATORY DATA: White blood cell count 6.5, hemoglobin 8.5, hematocrit 26.0, platelets 292. Sodium 140, potassium 5.0, chloride 110, carbon dioxide 22, BUN 35, creatinine 0.65, phosphorus 2.5, magnesium 2.0. Troponin is less than 0.01. ASSESSMENT: 1. Status post mechanical fall, on Eliquis. 2. Left intertrochanteric femur fracture, postoperative day 2. 3. Left forehead hematoma, stable. 4. Hyperkalemia, potassium of 5.0 today, resolved. 5. Acute kidney injury, resolved. 6. Acute adrenal insufficiency, resolved. 7. Acute blood loss anemia, stable. 8. Old left lower extremity cellulitis, stable. 9. History of atrial fibrillation, chronic obstructive pulmonary disease, hyperlipidemia, depression, anxiety, hypertension, diastolic heart failure, coronary artery disease, cerebrovascular accident with residual facial weakness. PLAN: 1. Continue supportive care. 2. The patient is tolerating full diet well. 3. Discontinue Saxena today with continued monitoring of urine output. 4. Continue to monitor vitals. 5. 100% on 3 L oxygen, wean oxygen today. 6. Continue to monitor electrolytes and replete as necessary. 7. Continue PT and OT. 8. Continue Bactrim for left lower extremity cellulitis until 08/18 as previously recommended. 9. Switch from b.i.d. aspirin to home Eliquis today. 10. Continue to monitor anemia, stable. 11. Anticipate discharge to [facility], likely tomorrow. 12. Recommend outpatient evaluation for dementia. The patient was seen and evaluated by Dr. Newell during morning rounds. Discussed plan of care with the patient and family who are in agreement. Job ID: [id number] MTDD
[2019-08-16] MEDS ORDERED: Ibuprofen 200 MG TAB PO PRN (18:30)
[2019-08-16] MEDS: Apixaban 5 MG TAB PO SCH (20:01)
--- NOTE | 2019-08-17 00:50 | PRG ---
DATE OF SERVICE: SUBJECTIVE: The patient is currently on the surgical floor. She is hospital day 5, postop day 2, status post left femur intramedullary nailing. The patient is currently awaiting placement. OBJECTIVE: VITAL SIGNS: Stable. The patient is afebrile. GENERAL: The patient is resting comfortably in bed. She is awake and appropriate, has no complaints at this time. She reports that she was told she may be leaving tomorrow. HEENT: Shows contusion on left side of her forehead. LUNGS: The patient is moving air effortlessly. ABDOMEN: Nontender. EXTREMITIES: Neurovascularly intact x4. Postop dressing is clean, dry, and intact. ASSESSMENT AND PLAN: 1. Status post mechanical fall, on Eliquis. 2. Left intertrochanteric femur fracture, postop day 2. 3. Left forehead hematoma, stable. 4. Acute kidney injury, resolved. 5. Hyperkalemia, resolved. 6. Acute adrenal insufficiency, resolved. 7. Acute blood loss anemia, stable. Plan will be to continue supportive care and the patient likely to be discharged to [facility] tomorrow. Job ID: [id number]
[2019-08-17] MEDS: Acetaminophen 500 MG TAB PO SCH ×2 (01:34→05:31)
[2019-08-17 04:19] VITALS: TEMP 97.8
[2019-08-17] MEDS: Mometasone/Formoterol 120 PUFF INHALER INH SCH (07:38)
[2019-08-17 09:12] VITALS: BP 127/83
[2019-08-17] MEDS: Senokot S 8.6-50 MG TAB PO SCH (09:44)
[2019-08-17] MEDS: Ascorbic Acid 500 mg Chewable Tablet PO SCH (09:45)
[2019-08-17] MEDS: Ferrous Sulfate 325 MG TAB PO SCH (09:45)
[2019-08-17] MEDS: Apixaban 5 MG TAB PO SCH (09:45)
[2019-08-17] MEDS: Metoprolol Tartrate 50 MG TAB PO SCH (09:45)
[2019-08-17] MEDS: Nicotine 21 MG PATCH TD SCH (09:47)
[2019-08-17] MEDS: Polyethylene Glycol 3350 17 GM Packet PO SCH ×2 (09:47→09:58)
[2019-08-17] MEDS: Silver Sulfadiazine 1% Cream 50 GM JAR TOP SCH (09:48)
--- NOTE | 2019-08-17 14:29 | DIS ---
DATE OF ADMISSION: 08/12/2019 DATE OF DISCHARGE: 08/17/2019 CONSULT: Orthopedic Surgery/Dr. Coburn. PROCEDURES: Left femur intramedullary nail. PRIMARY DIAGNOSES: Status post mechanical fall on Eliquis, left intertrochanteric femur fracture, stable left forehead hematoma, resolved hyperkalemia, resolved acute kidney injury, resolved acute adrenal insufficiency, stable acute blood loss anemia, stable old left lower extremity cellulitis. SECONDARY DIAGNOSES: History of atrial fibrillation, chronic obstructive pulmonary disease, hyperlipidemia, depression, anxiety, hypertension, diastolic heart failure, coronary artery disease, cerebrovascular accident with residual facial weakness. DISCHARGE MEDICATIONS: 1. 650 mg acetaminophen p.o. q.4 hours p.r.n. 2. 5 mg Eliquis p.o. b.i.d. 3. One inhalation Breo Ellipta daily. 4. DuoNeb q.4 hours p.r.n. 5. 50 mg metoprolol p.o. b.i.d. 6. 21 mg nicotine patch daily. 7. 20 mg pantoprazole p.o. daily. 8. 50 mg sertraline p.o. daily. 9. 800 mg Bactrim p.o. b.i.d. DISCONTINUED MEDICATIONS: 1. 81 mg aspirin b.i.d. 2. 1000 mg acetaminophen q.6 hours. 3. Vitamin C. 4. 5 mg Flexeril p.o. t.i.d. p.r.n. 5. 325 mg ferrous sulfate p.o. b.i.d. 6. 400 mg ibuprofen p.o. q.8 hours p.r.n. 7. 12.5 mg Phenergan q.4 hours p.r.n. 8. 1% silver sulfadiazine topical daily. 9. 50 mg tramadol p.o. q.6 hours p.r.n. 10. 100 mg tramadol p.o. q.6 hours p.r.n. HISTORY OF PRESENT ILLNESS/HOSPITAL COURSE: The patient is a 74yo female, who was seen and evaluated after she experienced a mechanical fall on Eliquis at the [facility]. She was found to have a stable left forehead hematoma and a left intertrochanteric femur fracture. The patient had to be off her Eliquis for 2 days before surgery, but she underwent a successful left femur intramedullary nail surgery on 08/14. Status post surgery, the patient's pain was continuously monitored and controlled accordingly. Overnight on the night of 08/15, the patient had reported chest pain, and troponins were ordered which were negative, and an EKG was done that demonstrated controlled atrial fibrillation. When the patient was re-evaluated, she stated that her chest pain had only lasted momentarily and then resolved. On admission, she was also found to have an XAVIER with a creatinine of 1.41 and hyperkalemia with a potassium of 5.3. Both resolved with fluids. On discharge, she had a creatinine of 0.65 and a potassium of 5.0. She was also found to have a cortisol of 11.3 during hospitalization, and was treated with 3 full days of 50 mg of hydrocortisone q.6 hours, which was discontinued a few days before discharge. The patient was found to have acute traumatic anemia that was stable. Her hemoglobin and hematocrit upon admission were 8.4 and 25.5, and on discharge, they were 8.5 and 26.0. She worked with PT/OT throughout the hospitalization, and it was recommended that she continue PT b.i.d. with rolling walker and OT 2 to 3 times per week. For her lower leg cellulitis that she had before admission at hospital, her Bactrim was continued and wound care monitored and bandaged her leg as needed. At times throughout the hospitalization, the patient did act somewhat confused, and after speaking with the patient's it was determined that this has been a chronic issue throughout the past several months. He was encouraged to seek an evaluation for dementia as an outpatient. On the day of discharge, the patient was evaluated by Dr. Newell. She denied pain and stated that she was agreeable with the current plan of care to return back to the [facility]. Her vitals were stable. The patient at times did require oxygen throughout the hospitalization to maintain her oxygen saturation above 90% and is recommended that she continue to receive oxygen as needed at the [facility] to maintain oxygen saturation of at least 90%. PHYSICAL EXAMINATION: VITAL SIGNS: Temperature 97.8 Fahrenheit, pulse 85, respiratory rate 16, oxygen saturation 100% on 2 L nasal cannula, and blood pressure 127/83. GENERAL: The patient is lying in bed comfortably. HEENT: Hematoma on left forehead. LUNGS: Clear to auscultation bilaterally, poor inspiratory and expiratory effort and poor cough effort. HEART: Regular rate, atrial fibrillation. ABDOMEN: Active bowel sounds, soft, and nontender to palpation. EXTREMITIES: Purpuric lesions throughout all extremities, clean, dry, intact bandages on the right foot. DISPOSITION: Stable. DISCHARGE INSTRUCTIONS: 1. Location: [facility]. 2. Diet: Heart healthy. 3. Activity: Weightbearing as tolerated. 4. Followup: The patient should have raina out within 10 to 14 days, follow up in 2 to [address] Coburn or Dr. Turner from Orthopedic Surgery, and follow up with primary care provider within 1 week, consider outpatient evaluation for dementia. Job ID: [id number] [facility]
--- NOTE | 2019-08-17 16:44 | EKG ---
Test Reason : ? Blood Pressure : / mmHG Vent. Rate : 099 BPM Atrial Rate : 079 BPM P-R Int : 000 ms QRS Dur : 094 ms QT Int : 314 ms P-R-T Axes : 000 070 070 degrees QTc Int : 402 ms Atrial fibrillation Abnormal ECG When compared with ECG of 07-APR-2019 21:34, No significant change was found Confirmed by DR. Shari LOCK ([id number]) on 08/17/2019 4:44:01 PM Referred By: HAYDEN COTO Confirmed By:DR. Shari LOCK
[2019-08-18] MEDS ORDERED: Sulfameth/Trimethoprim DS 800-160mg TAB PO SCH (21:00)
== END 2019-08-17 11:40 | DRG 481 ==
LOC: ERS 07:20 → SURG A 12:07
PROVIDERS: ADMIT Surgery; ATTEND Surgery
PROC: 0QHC36Z Insertion of Intramedullary Internal Fixation Device into Left Lower Femur, Percutaneous Approach (ICD-10-PCS; principal; 2019-08-12)
DX: S72.142A Displaced intertrochanteric fracture of left femur, initial encounter for closed fracture (principal); L03.116 Cellulitis of left lower limb; E44.0 Moderate protein-calorie malnutrition; I50.32 Chronic diastolic (congestive) heart failure; N17.9 Acute kidney failure, unspecified; D62 Acute posthemorrhagic anemia; E27.40 Unspecified adrenocortical insufficiency; Z68.1 Body mass index [BMI] 19.9 or less, adult; W18.30XA Fall on same level, unspecified, initial encounter; I11.0 Hypertensive heart disease with heart failure; I48.91 Unspecified atrial fibrillation; E78.5 Hyperlipidemia, unspecified; E78.00 Pure hypercholesterolemia, unspecified; J44.9 Chronic obstructive pulmonary disease, unspecified; F17.210 Nicotine dependence, cigarettes, uncomplicated; F32.9 Major depressive disorder, single episode, unspecified; F03.90 Unspecified dementia, unspecified severity, without behavioral disturbance, psychotic disturbance, mood disturbance, and anxiety; F41.9 Anxiety disorder, unspecified; I48.2 Chronic atrial fibrillation; E87.5 Hyperkalemia; E86.0 Dehydration; S00.83XA Contusion of other part of head, initial encounter; Z86.14 Personal history of Methicillin resistant Staphylococcus aureus infection; Z88.1 Allergy status to other antibiotic agents; Z79.01 Long term (current) use of anticoagulants; Z88.2 Allergy status to sulfonamides; Z88.8 Allergy status to other drugs, medicaments and biological substances; Z90.49 Acquired absence of other specified parts of digestive tract; I69.392 Facial weakness following cerebral infarction
CPT/HCPCS: 36415; 36430; 76000; 80048; 82533; 83735; 83880; 84100; 84484; 85025; 86850; 86900; 86901; 87086; 93005; 93010; 94640; 96374; C1713; G0390; J0690; J1100; J1720; J1885; J2001; J2270; J2405; J2704; J3010; J3475; J3490; J7620; P9016

== ENCOUNTER 2019-09-01 08:28 | Inpatient (IN) | payer MEDICARE ==
[2019-09-01 08:46] LABS: Actual Bicarbonate (HCO3a) 22.8 mEq/L (22-28); Analyzer IN Cardio ER; Base Excess (BEa) -2.2 mEq/L (-2.0 to +3.0); CO2 Tension 39.8 mmHg (35.0-45.0); Calcium, Ionized 1.16 mmol/L (1.12-1.30); Carboxyhemoglobin (COHb) 0.4 gm% (0.0-3.0); Hemoglobin (Hb) 10.6 g/dL (12.0-16.0); O2 Tension (PaO2) 69.1 mmHg (> 70.0); Potassium - ABG Lab 4.02 mmol/L (3.70-5.30); pH, Arterial 7.38 (7.35-7.45)
[2019-09-01 08:52] LABS: Bacteria/HPF None Seen HPF (None Seen); Bilirubin Negative (Negative); Blood, Urine Negative (Negative); Clarity Turbid (Clear); Glucose, Urine (Dipstick) Normal (Negative); Leukocyte Negative Leu/uL (Negative); Mucous/LPF Rare LPF (<2+); Nitrite Negative (Negative); Protein, Urine (Dipstick) 100 mg/dL (Neg-Trace); Squamous Epithelial None Seen HPF (0-3); Yeast-Budding 2+ HPF (None Seen)
[2019-09-01 08:59] LABS: Puncture Site L.R.
--- NOTE | 2019-09-01 08:59 | RAD ---
EXAM: CHEST ONE VIEW HISTORY: Hip surgery 2 weeks ago. History of COPD. Sepsis. COMPARISON: None 2018. FINDINGS: Cardiac silhouette is magnified by projection but does appear mildly enlarged. Pulmonary vasculature is within normal limits. The pleural and parenchymal changes right lung apex are again seen with generalized volume loss in the right hemithorax and shift of the midline structures to the right pred ominantly involving the upper mediastinum. This is a stable finding compared to the prior exam. There is now increased density seen in the right midlung zone at the right lung base which may be rel ated to volume loss, but pneumonia at the right lung base cannot be entirely excluded. The left lung is clear. No other interval change IMPRESSION: 1. Interval development of increased density at the right lung base which could be related to volume loss as there does appear to be slightly greater degree of generalized volume loss of the right hemithorax. However, pneumonia at the right lung base is also a differential consideration. Follow-up evaluation is recommended. 2. Chronic right apical pleural and parenchymal lung changes. 3. Stable calcified pleural-based plaque right midlung zone and at the right lung base.
[2019-09-01 09:01] LABS: #Lymphocytes 2.3 thou/uL (1.20-3.40); #Monocytes 0.6 thou/uL (0.11-0.59); #Neutrophils 7.4 thou/uL (1.40-6.50); %Basophils 0.2 % (0.0-1.0); %Eosinophils 0.1 % (0.0-10.0); %Lymphocytes 22.2 % (21.0-51.0); %Neutrophils 71.5 % (42.0-75.0); Hemoglobin 11.1 g/dL (12.0-16.0); Mean Corpuscular HGB CONC 30.8 g/dL (32.0-36.0); Mean Corpuscular Hemoglobin 27.5 pg (27.0-31.0); Mean Corpuscular Volume 89.1 fL (78.0-98.0); Mean Platelet Volume 8.6 fL (7.4-10.4); Platelet Count 227 thou/uL (130-400); RBC Distribution Width 17.5 % (11.5-14.5); Red Blood Cell (RBC) Count 4.06 mill/uL (4.20-5.40); White Blood Cell (WBC) Count 10.3 thou/uL (4.8-10.8)
[2019-09-01 09:23] LABS: ALT (SGPT) 15 U/L (8-55); AST (SGOT) 28 U/L (5-34); Albumin 3.1 g/dL (3.4-4.8); Alkaline Phosphatase 190 U/L (40-110); Anion Gap 17 mmol/L (10-20); BUN (Urea Nitrogen) 21 mg/dL (9.8-20.1); Bilirubin, Total 0.8 mg/dL (0.2-1.2); Calc. Creatinine Clearance 0 mL/min (70-130); Calcium 8.6 mg/dL (7.8-10.44); Carbon Dioxide 21 mmol/L (23-31); Chloride 106 mmol/L (98-107); Estimated GFR-MDRD Greater than 90; Globulin 2.9 g/dL (2.4-3.5); Glucose 92 mg/dL (83-110); Potassium 4.5 mmol/L (3.5-5.1); Sodium 139 mmol/L (136-145)
[2019-09-01] MEDS ORDERED: Piperacillin/Tazobactam 4.5 GM VIAL ONE (09:40)
[2019-09-01] MEDS ORDERED: Lorazepam 2 MG/ML VIAL ONE (10:33)
[2019-09-01] MEDS ORDERED: Acetaminophen 1,000 MG in Premix Bag 1 BAG IVPB SCH (11:00)
[2019-09-01] MEDS ORDERED: Fentanyl 100 MCG/2 ML VIAL ONE (11:10)
[2019-09-01] MEDS ORDERED: PROPOFOL 20 ML ONE (11:10)
[2019-09-01] MEDS ORDERED: Digoxin 0.5 MG/2 ML AMP ONE (11:48)
[2019-09-01] MEDS ORDERED: Acetaminophen 325 MG TAB PO PRN ×2 (12:01→12:49)
[2019-09-01] MEDS ORDERED: Ondansetron ODT 4 MG TAB SL PRN (12:49)
[2019-09-01] MEDS ORDERED: Ondansetron PF 4 MG/2 ML Vial IVP PRN (12:49)
--- NOTE | 2019-09-01 12:57 | CON ---
DATE OF CONSULTATION: 09/01/2019 A 45 minutes of critical care time. HISTORY OF PRESENT ILLNESS: The patient is a 74-year-old female, who was staying at a care home rehab facility. She developed increasing shortness of breath over the last day and was subsequently brought here. She was febrile. She was tachycardic. She was placed on BiPAP. She developed atrial fibrillation with rapid ventricular response. She had to be sedated and cardioverted. Of note, she has a standing out of hospital DNR order, which is to remain in place according to the patient's . PAST MEDICAL HISTORY: 1. Severe COPD. 2. Hyperlipidemia. 3. Protein-calorie malnutrition. 4. Chronic atrial fibrillation. 5. Chronic diastolic heart failure. 6. Stroke. 7. Ongoing tobacco abuse. 8. Peripheral vascular disease. 9. Recent hip fracture of the left. PAST SURGICAL HISTORY: 1. Cholecystectomy. 2. Recent left hip operative repair. SOCIAL HISTORY: Continues to smoke about 1/2 pack per day, prior to that smoked a carton a week. Does not consume alcohol. Does not use illicit drugs. MEDICATIONS: Prior to admission according to the list from the emergency room, she was taking; 1. Tramadol 50 mg as needed. 2. Breo Ellipta one puff daily. 3. Protonix 20 mg daily. 4. Eliquis 5 mg b.i.d. 5. Sertraline 50 mg daily. 6. Metoprolol 50 mg twice daily. 7. DuoNeb. 8. Acetaminophen. REVIEW OF SYSTEMS: Cannot be obtained as the patient is currently on mechanical ventilation. ALLERGIES: BACTRIM AND SULFA. PHYSICAL EXAMINATION: VITAL SIGNS: Temperature has been as high as 102.6, pulse currently at low 100s, respiratory rate 20, and O2 saturation in the mid 90s on BiPAP. GENERAL: She is somnolent and is difficult to arouse with stimulation. Must be stated; however, that she recently underwent conscious sedation. HEENT: Pupils are sluggishly reactive. Sclerae anicteric. Oropharynx clear. NECK: No adenopathy or JVD. LUNGS: Generalized poor air movement. CARDIAC: S1 and S2. Irregularly irregular. ABDOMEN: Soft and nontender. EXTREMITIES: Severe muscle wasting. LABORATORY DATA: White blood cell count 10.3, hematocrit 36, and platelet count 227. ABG; pH of 7.38, pCO2 of 39, and pO2 of 69, that was on BiPAP 14/5. Sodium 139, potassium 4.5, chloride 106, CO2 of 21, BUN 21, creatinine 0.5, glucose 92, and lactate 3.0. Her chest x-ray shows a fairly marked right lower lobe infiltrate. She also has a cavitation in the right upper lobe, which has been there. ASSESSMENT: 1. Atrial fibrillation with rapid ventricular response. 2. Right lower lobe pneumonia. 3. Chronic obstructive pulmonary disease exacerbation. 4. Chronic right upper lobe cavitation. PLAN: The patient is being placed in the intensive care unit for BiPAP therapy and antibiotics. I will add nebulization therapy and steroids to this. She can stay on Cardizem for rate control of her atrial fibrillation. She has a central line that is placed in the right groin. That can be used for vasopressors as needed. Her prognosis is poor. Discussed with . Job ID: [id number]
[2019-09-01 13:14] VITALS: BMI 20.6
[2019-09-01 13:15] LABS: Lactic Acid 2.7 mmol/L (0.5-2.2)
[2019-09-01] MEDS: Sodium Chloride 0.9% 1,000 ML IV SCH (13:51)
--- NOTE | 2019-09-01 17:20 | RAD ---
Radiograph left hip 2 views: DATE: 09/01/2019 HISTORY: 74-year-old female with traumatic intertrochanteric fracture COMPARISON: Intraoperative study of 08/14/2019 FINDINGS: Again noted is the recently placed gamma nail type metallic fixation device. However, now there has b een interval recurrence of the varus angulation at the intertrochanteric fracture, and associated displacement of the metallic hardware in the femoral head and neck to a position superior to, outside of the femoral head. The distal tip of the hardware actually abuts the superolateral edge of the femoral head, overlying the lateral edge of the hip joint space and acetabulum. IMPRESSION: Acute hardware complication: Interval recurrence of varus angulation at the acute intertrochanteric f racture, and associated migration of the upper tip of the gamma nail to position outside of bone, outside of the femoral head.
[2019-09-01] MEDS: Piperacillin/Tazobactam 3.375 GM in Sodium Chloride 0.9% 100 ML IVPB SCH ×2 (17:54→23:51)
[2019-09-01] MEDS: methylPREDNISolone Sod Succ 40 MG VIAL IVP SCH ×2 (17:55→23:52)
[2019-09-01] MEDS: Arformoterol 15 MCG/2 ML NEB NEB SCH (18:17)
[2019-09-01] MEDS: Budesonide 0.5 MG/2 ML NEB INH SCH (18:17)
--- NOTE | 2019-09-01 18:46 | HP ---
CHIEF COMPLAINT: Shortness of breath. HISTORY OF PRESENT ILLNESS: This patient is a 74-year-old female, who has severe COPD, who has home oxygen which she wears intermittently. The patient was admitted here in May with atrial fibrillation with RVR and COPD exacerbation. She was re-admitted in June with lower extremity cellulitis, and then she presented to the emergency department on 08/12/2019 after a fall where she had broken her hip. She was admitted here, underwent surgical repair for intertrochanteric left hip fracture. She was subsequently discharged to rehab in [place]. The patient's reports that yesterday she was more lethargic and less interactive. Subsequently, today, she apparently had increased shortness of breath and EMS was called. The patient is currently a bit sedated and unable to give a substantial amount of history. However, when EMS arrived, the patient was found to be hypoxic with saturations in the 80s. She was started on BiPAP, given Solu-Medrol, DuoNebs, and had a temperature of 101. She apparently had indicated some subjective wheezing as well. In the emergency department, the patient was found to be in AFib with RVR with heart rate in the 180s. She was given propofol and had cardioversion x3. She is still in AFib, but her heart rate has improved; however, she is currently still somewhat sedated from the propofol and unable to give much more detailed history. REVIEW OF SYSTEMS: Currently, unobtainable because of the patient's sedation. Her review of systems did indicate fever and wheezing based on the emergency department notes. 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 PAST SURGICAL HISTORY: Cholecystectomy. FAMILY HISTORY: Notable for heart disease. SOCIAL HISTORY: The patient is . She is a half pack-a-day smoker. Occasional alcohol drinker. She is DNR/DNI and her is her surrogate decision maker. ALLERGIES: NONE. CURRENT MEDICATIONS: 1. Bactrim 800 b.i.d. 2. Zoloft 50 mg daily. 3. Protonix 40 daily. 4. Nicotine patch. 5. Metoprolol 50 mg p.o. b.i.d. 6. DuoNebs p.r.n. 7. Breo Ellipta 1 inhalation daily. 8. Eliquis 5 b.i.d. 9. Tylenol 650. PHYSICAL EXAMINATION: VITAL SIGNS: The initial vital signs on presentation to the emergency department; temperature was 102.6, pulse was 196, and blood pressure 95/78. Last set of vitals in the ER, blood pressure is 115/75, pulse 107, respirations 40, temperature 101.8, and O2 saturation was 100% on CPAP. GENERAL APPEARANCE: The patient is somewhat sedated. She is breathing spontaneously on BiPAP. She is in no distress. HEENT: Pupils are sluggish. She has no OP lesions, although the BiPAP mask was not removed for the exam. NECK: Supple and symmetric. HEART: Irregular, faint. No murmurs noted. LUNGS: Diminished with poor air exchange. No wheezes are noted presently. ABDOMEN: Soft, nontender, and nondistended. Positive bowel sounds. No masses. No organomegaly. EXTREMITIES: No cyanosis, clubbing, or edema. She does have a compression wrap on the left lower extremity and a bandage over the left mid thigh. PSYCH: The patient is again somewhat sedated. NEUROLOGIC: The patient is moving her extremities spontaneously, but is sedated still. LABORATORY DATA: White count 10.3, hemoglobin 11.1, and platelets 227. ABG; pH 7.38, pCO2 is 39.8, pO2 is 69. Sodium 139, potassium 4.5, chloride 106, CO2 is 21, BUN is 21, creatinine 0.57, and glucose 92. Lactic acid 3.0, subsequent 2.7. LFTs normal except alkaline phosphatase of 190. Troponin less than 0.01. Albumin 3.3. Urinalysis shows specific gravity 1.037, protein is present, ketones present, urobilinogen, red cells 4 to 6, white cells 11 to 20, and 2+ budding yeast. Chest x-ray shows right lung base density, which could be related to volume loss. There does appear to be slightly greater degree of generalized volume loss of the right hemithorax, although pneumonia in the right lung base is consideration, chronic right apical pleural and parenchymal lung changes, stable calcified pleural base plaque of the right mid lung zone at the right lung base. IMPRESSION AND PLAN: 1. Acute hypoxic respiratory failure, likely secondary to chronic obstructive pulmonary disease and pneumonia. Continue with BiPAP support. She is a DNI. 2. Right lower lobe pneumonia. This patient has had a history of severe chronic obstructive pulmonary disease. She has had a history of Mycobacterium avium complex infection. She had a history in April of right upper lobe pneumonia with abscess formation. She is unfortunately very debilitated and her prognosis is poor. We will continue with broad-spectrum antibiotic coverage to cover hospital-acquired infection with vancomycin, cefepime, and Zosyn. She will have consultations by Pulmonary/Critical Care. 3. Atrial fibrillation with rapid ventricular response, improved with cardioversion. However, she remains in atrial fibrillation. We will continue with Eliquis as long as she is able to take p.o. Continue with metoprolol for rate control. 4. Several chronic wounds of the left lower extremity and by photographic evidence of some stage II decubiti on the sacral area. We will ask Wound Care to see her. Job ID: [id number]
[2019-09-01] MEDS: Cefepime 1 GM in Sodium Chloride 0.9% 100 ML IVPB SCH (20:22)
[2019-09-01] MEDS: Famotidine/PF 20 mg/2ml Vial SLOW IVP SCH (20:23)
[2019-09-01] MEDS ORDERED: Famotidine 20 MG TAB PO SCH (21:00)
[2019-09-01] MEDS: Morphine 2 MG/ML SYRINGE SLOW IVP PRN (22:34)
[2019-09-02] MEDS: Sodium Chloride 0.9% 1,000 ML IV SCH ×2 (05:06→18:31)
[2019-09-02] MEDS: methylPREDNISolone Sod Succ 40 MG VIAL IVP SCH ×3 (06:35→18:30)
[2019-09-02] MEDS: Piperacillin/Tazobactam 3.375 GM in Sodium Chloride 0.9% 100 ML IVPB SCH ×3 (06:35→18:31)
[2019-09-02] MEDS: Budesonide 0.5 MG/2 ML NEB INH SCH ×2 (06:57→18:14)
[2019-09-02] MEDS: Arformoterol 15 MCG/2 ML NEB NEB SCH ×2 (06:57→18:13)
[2019-09-02] MEDS: Morphine 2 MG/ML SYRINGE SLOW IVP PRN ×4 (07:38→20:47)
[2019-09-02] MEDS: Famotidine/PF 20 mg/2ml Vial SLOW IVP SCH ×2 (08:17→20:32)
[2019-09-02] MEDS: Cefepime 1 GM in Sodium Chloride 0.9% 100 ML IVPB SCH (08:18)
[2019-09-02] MEDS ORDERED: Diltiazem 125 MG in Sodium Chloride 0.9% 100 ML IVPB SCH (09:15)
[2019-09-02] MEDS ORDERED: Apixaban 5 MG TAB PO SCH (09:30)
[2019-09-02 09:56] LABS: #Lymphocytes 1.1 thou/uL (1.20-3.40); #Monocytes 0.3 thou/uL (0.11-0.59); #Neutrophils 6.4 thou/uL (1.40-6.50); %Basophils 0.1 % (0.0-1.0); %Eosinophils 0.1 % (0.0-10.0); %Lymphocytes 13.6 % (21.0-51.0); %Monocytes 3.6 % (0.0-10.0); %Neutrophils 82.6 % (42.0-75.0); Hemoglobin 9.2 g/dL (12.0-16.0); Mean Corpuscular HGB CONC 31.1 g/dL (32.0-36.0); Mean Corpuscular Hemoglobin 28.4 pg (27.0-31.0); Mean Corpuscular Volume 91.5 fL (78.0-98.0); Platelet Count 236 thou/uL (130-400); RBC Distribution Width 17.4 % (11.5-14.5); Red Blood Cell (RBC) Count 3.23 mill/uL (4.20-5.40); White Blood Cell (WBC) Count 7.8 thou/uL (4.8-10.8)
[2019-09-02] MEDS: guaiFENesin ER 600 MG TAB PO SCH ×2 (09:59→20:32)
--- NOTE | 2019-09-02 09:59 | CON ---
DATE OF CONSULTATION: CHIEF COMPLAINT: Hip pain. HISTORY OF PRESENT ILLNESS: Ms. Powell is a 74-year-old female, who has had multiple medical issues recently. She has advanced COPD. She was admitted earlier in the summer with atrial fibrillation with RVR as well as COPD exacerbation. She has been readmitted subsequently for cellulitis of the lower extremity. Subsequent to that, she was admitted for hip fracture. She had a left intertrochanteric femur fracture, which I treated with intramedullary nail. She was subsequently discharged to [facility]. Unfortunately, she has worsened again. She was admitted back to the hospital with AFib with RVR. She has had multiple cardioversion procedures. She has also had COPD with respiratory failure and pneumonia. X-rays were obtained of her hip because she has had increased pain. This has shown loosening and displacement of her fracture with hardware failure. REVIEW OF SYSTEMS: The patient is confused and somewhat demented this morning. She does not answer questions appropriately. PAST MEDICAL HISTORY: Congestive heart failure, atrial fibrillation with history of RVR, hyperlipidemia, hypertension, CVA, advanced COPD, history of cellulitis, and history of Mycobacterium avium in the sputum. PAST SURGICAL HISTORY: Cholecystectomy and left hip intramedullary nail. FAMILY MEDICAL HISTORY: Cardiovascular disease. SOCIAL HISTORY: The patient has been at [facility]. She is a half a pack a day smoker. ALLERGIES: NONE. PHYSICAL EXAMINATION: VITAL SIGNS: Temperature is 98, blood pressure is 148/81, and oxygen saturation is 98%. GENERAL: She is confused. She is sitting upright and talkative. However, she does not answer questions appropriately. HEENT: The patient has resolving ecchymosis and eschar over her left eye. RESPIRATORY: She is currently breathing comfortably without oxygen. ABDOMEN: Soft, nontender, and nondistended. MUSCULOSKELETAL: The patient's left lower extremity has well-healed wounds over the hip. There is no drainage. No erythema. No increased warmth. There is no evidence of infection at her wounds. She does have a wound more distally on the thigh from adhesive, it appears. Her legs are wrapped for chronic edema beyond the knee. Mild pain with hip rotation. IMAGING DATA: X-rays of the left hip demonstrate intertrochanteric femur fracture. She has an intramedullary nail, which has loosened. There has been cut out of the proximal screw. There has been displacement of the fracture. IMPRESSION: Elderly female with multiple medical problems including chronic obstructive pulmonary disease, atrial fibrillation with rapid ventricular response, and dementia, now with failure of left hip fixation. PLAN: At this point, we would like to see how the patient does over the weekend. Hopefully, she continues to improve from a medical standpoint as well as mental status standpoint. I am unsure why her hardware felt early. I think it is likely that she has fallen in the interim displacing her fracture. If she improves and her family wishes, we could consider converting her hip to a hemiarthroplasty. She is DNR, however, so her family may not want to proceed with further surgery given that she has a very high risk of complication. We will continue to follow her over the next several days to see how she progresses and have ongoing discussions with her and her family on best options for her hip. Job ID: [id number]
[2019-09-02] MEDS: Vancomycin HCl 1 GM in Premix Bag 1 BAG IVPB SCH (10:00)
[2019-09-02 10:16] LABS: Lactic Acid 1.9 mmol/L (0.5-2.2)
[2019-09-02 10:22] LABS: ALT (SGPT) 27 U/L (8-55); AST (SGOT) 29 U/L (5-34); Alkaline Phosphatase 202 U/L (40-110); Anion Gap 12 mmol/L (10-20); BUN (Urea Nitrogen) 22 mg/dL (9.8-20.1); Bilirubin, Total 0.5 mg/dL (0.2-1.2); Calc. Creatinine Clearance 71 mL/min (70-130); Calcium 8.8 mg/dL (7.8-10.44); Carbon Dioxide 25 mmol/L (23-31); Chloride 109 mmol/L (98-107); Estimated GFR-MDRD Greater than 90; Globulin 2.9 g/dL (2.4-3.5); Glucose 149 mg/dL (83-110); Magnesium 1.9 mg/dL (1.6-2.6); Potassium 4.2 mmol/L (3.5-5.1); Protein, Total 5.9 g/dL (6.0-8.3); Sodium 142 mmol/L (136-145)
[2019-09-02 10:33] LABS: CRP (Inflammatory) 41.97 mg/dL (= or < 0.5)
--- NOTE | 2019-09-02 12:11 | PDOC.PALCO ---
Palliative Care Consult - Consult Details Requesting Physician: Dr Curtis Reason for Consult: goals of care - Pertinent HPI 74 year old female who [facility] to increase in lethargy and altered mental status with increase in shortness of breath. Upon arrival to the emergency room at [facility] patient was found to require cardioversion secondary to Afib with RVR, admitted to CCU for further management. Patient was at rehab for s/p fall resulting with a hip fracture and repair. SIgnificant COPD and o2 dependent. - Social History Smoking Status: Current every day smoker Smoking: less than 1 pack/day Alcohol Use: rarely Drug Use History: none Living Situation: - Medications MAR Reviewed: Yes - Allergies Allergies/Adverse Reactions: Allergies Allergy/AdvReac Type Severity Reaction Status Date / Time No Known Allergies Allergy Verified 09/01/19 13:56 - Subjective awake, alert, mildly confused. States she wants to "Go home". Does not have recall of presentation to the hospital or emergency room. Generalized mild pain , cough, weakness. - Objective Vital Signs: Vital Signs - Most Recent Temp Pulse Resp BP Pulse Ox 98.4 F 118 H 24 H 94 L 09/02/19 12:00 09/02/19 10:37 09/02/19 10:37 09/02/19 10:37 Palliative Performance Scale: 30 - Physical Exam Constitutional: confusion, mild distress HEENT: moist MMs, EOMI Respiratory: wheezing present, tachypnea Deviation from normal: Labored respiraitons Cardiovascular: irregular Deviation from normal: elevated heart rate Gastrointestinal: soft, non-tender, positive bowel sounds Musculoskeletal: pulses present Neurological: moves all 4 limbs Psychiatric: normal affect Deviation from normal: slightly anxious Skin: cap refill <2 seconds Deviation from normal: poor turgor, brusing, wounds to lower, lower extremity wounds/left - Problem List (1) Palliative care encounter Code(s): Z51.5 - ENCOUNTER FOR PALLIATIVE CARE Current Visit: Yes Status: Acute (2) Pneumonia Code(s): J18.9 - PNEUMONIA, UNSPECIFIED ORGANISM Current Visit: No Status: Acute Qualifiers: Laterality: right Lung location: upper lobe of lung (3) Wound infection Code(s): T14.8XXA - OTHER INJURY OF UNSPECIFIED BODY REGION, INITIAL ENCOUNTER; L08.9 - LOCAL INFECTION OF THE SKIN AND SUBCUTANEOUS TISSUE, UNSP Current Visit: No Status: Acute (4) Atrial fibrillation Code(s): I48.91 - UNSPECIFIED ATRIAL FIBRILLATION Current Visit: No Status: Chronic Qualifiers: Atrial fibrillation type: chronic (5) Chronic diastolic heart failure Code(s): I50.32 - CHRONIC DIASTOLIC (CONGESTIVE) HEART FAILURE Current Visit: No Status: Chronic (6) Cognitive impairment Code(s): R41.89 - OTH SYMPTOMS AND SIGNS W COGNITIVE FUNCTIONS AND AWARENESS Current Visit: No Status: Chronic (7) Protein-calorie malnutrition, moderate Code(s): E44.0 - MODERATE PROTEIN-CALORIE MALNUTRITION Current Visit: No Status: Chronic - Plan/Recommendations Plan: Initial visit with patient and to introduce palliative care. Life review primarily with and initiation of goals of care. Both patient and desire to return home, however states he will need assistance as he can no longer care for her independently. Ginny Bedolla CM to identify if assistance would be available if patient returns home and with hospice. Will address further after CM identifies if patient has coverage for both hospice and home assistance prior to further conversation in relation to goals of care. Ashley Gabriel RNaerial photographer to continue to follow. [60] minutes spent on this encounter with >50% of the time in counseling and coordination of care. Thank you for this very appropriate consult.
--- NOTE | 2019-09-02 15:24 | CON ---
DATE OF CONSULTATION: REASON FOR CONSULTATION: Atrial fibrillation with rapid ventricular response. PRIMARY GRADUATE ADVISOR: Dr. Eduardo Briseno. HISTORY OF PRESENT ILLNESS: Ms. Powell is a 74-year-old woman, who has been seen and evaluated by Dr. Eduardo Briseno in the past. She has a history of chronic atrial fibrillation in addition to diastolic dysfunction. She recently was admitted for hip pain and hip fracture. She underwent an intramedullary nail by Dr. Enrico Coburn. She was discharged and returned to the hospital. There was concern for fall per nursing staff. She has developed atrial fibrillation with rapid ventricular response. She had multiple cardioversions while in the emergency room for unknown reason. She is currently resting comfortably with rate control on IV Cardizem. PAST MEDICAL HISTORY: Chronic diastolic dysfunction, chronic atrial fibrillation, previous CVA, tobacco abuse, PVD, COPD, hyperlipidemia, cholecystectomy. HOME MEDICATIONS: Include: 1. Breo. 2. Eliquis. 3. Protonix. 4. Sertraline. 5. Tramadol. 6. Metoprolol. REVIEW OF SYSTEMS: Difficult to obtain. She has underlying dementia. PHYSICAL EXAMINATION: GENERAL: Patient is a pleasant woman, who is in no acute distress. The patient appears their stated age. VITAL SIGNS: Blood pressure 117/65, pulse 92, temperature afebrile. NEUROLOGIC: The patient is alert and oriented x3 with no focal neurologic deficits. HEENT: Sclerae without icterus. Mouth has moist mucous membranes with normal pallor. NECK: No JVD. Carotid upstroke brisk. No bruits bilaterally. LUNGS: Clear to auscultation with unlabored respirations. BACK: No scoliosis or kyphosis. CARDIAC: Irregularly irregular rate and rhythm with normal S1 and S2. No S3 or S4 noted. No significant rubs, murmurs, thrills, or gallops noted throughout the precordium. PMI is not displaced. There is no parasternal heave. ABDOMEN: Soft, nontender, nondistended. No peritoneal signs present. No hepatosplenomegaly. No abnormal striae. EXTREMITIES: 2+ femoral and 2+ dorsalis pedis pulses. No cyanosis, clubbing, or edema. SKIN: No gross abnormalities. PERTINENT LABORATORY DATA: Hemoglobin 9.2, creatinine 0.62. IMPRESSION: Atrial fibrillation with rapid ventricular response. RECOMMENDATIONS: She is currently on IV Cardizem and we will continue. We will try and continue with Eliquis at 5 mg b.i.d. We will supplement with p.o. Cardizem and try and wean off IV dosing. Otherwise, we will continue with conservative means and measures. Job ID: [id number]
[2019-09-02] MEDS: Mometasone/Formoterol 120 PUFF INHALER INH SCH (18:14)
[2019-09-02] MEDS: Calcium Carbonate + Vit D 1 TAB PO SCH (18:30)
--- NOTE | 2019-09-02 19:41 | PRG ---
DATE OF SERVICE: 09/02/2019 SUBJECTIVE: Francia Powell did well overnight. She has no complaints. OBJECTIVE: VITAL SIGNS: She is afebrile. Heart rate is 104, respiratory rates in the 20s, oximetry is 98% on 2 L, blood pressure 136/81. LUNGS: Clear and distant. HEART: Regular rhythm. ABDOMEN: Soft. IMPRESSION: 1. Advanced chronic obstructive pulmonary disease. 2. Diastolic dysfunction. 3. Atrial fibrillation for recent hip fracture and fall. 4. Ongoing tobacco use. 5. History of CVA. 6. History of cholecystectomy and lipid disorder. LABORATORY DATA: White count 7.8, hemoglobin 9.2, and platelets 336. Electrolytes are unremarkable. PLAN: Continue supportive care. She is stable to transfer out of critical care to the telemetry unit. She is on a Cardizem drip since she has a rate control. Job ID: [id number]
[2019-09-02] MEDS ORDERED: Digoxin 0.5 MG/2 ML AMP SLOW IVP SCH (20:30)
[2019-09-02] MEDS: Apixaban 5 MG TAB PO SCH (20:32)
--- NOTE | 2019-09-02 23:07 | PDOC.HOSPP ---
- Subjective Encounter Date: 09/02/19 Encounter Time: 08:30 Subjective: Patient seen and examined for Resp failure/Afib with RVR. SOB improving. No CP. No new complaints. No overnight events - Objective Vital Signs & Weight: Vital Signs (12 hours) Temp Pulse Resp BP Pulse Ox 09/02/19 20:35 140 H 09/02/19 18:11 104 H 22 H 98 09/02/19 15:52 98.0 F 88 18 136/81 100 09/02/19 12:00 98.4 F Weight Admit Weight 123 lb 14.397 oz Weight 123 lb 14.397 oz Most Recent Monitor Data Heart Rate from ECG 85 NIBP 117/65 NIBP BP-Mean 82 Respiration from ECG 21 SpO2 91 I&O: 09/01/19 09/02/19 09/03/19 06:59 06:59 06:59 Intake Total 1337 200 Output Total 580 135 Balance 757 65 Result Diagrams: 09/02/19 09:48 09/02/19 09:48 Radiology Reviewed by me: Yes (CXR - Pneumonia) EKG Reviewed by me: Yes (Tele Afib with RVR) Hospitalist ROS - Review of Systems Cardiovascular: denies: chest pain, palpitations, orthopnea, paroxysmal noc. dyspnea, edema, light headedness, other Gastrointestinal: denies: nausea, vomiting, abdominal pain, diarrhea, constipation, melena, hematochezia, other - Medication Medications: Active Medications Generic Name Dose Route Start Last Admin Trade Name Freq PRN Reason Stop Dose Admin Albuterol/Ipratropium 3 ml 09/01/19 14:30 09/02/19 22:07 Duoneb NEB Not Given [id number] JAZMIN Apixaban 5 mg 09/02/19 21:00 09/02/19 20:32 Eliquis PO 5 mg BID JAZMIN Administration Arformoterol Tartrate 15 mcg 09/01/19 18:30 09/02/19 18:13 Brovana NEB 15 mcg BID-RT JAZMIN Administration Budesonide 0.5 mg 09/01/19 18:30 09/02/19 18:14 Pulmicort Neb Solution INH 0.5 mg BID-RT JAZMIN Administration Calcium/Vitamin D 1 tab 09/02/19 17:00 09/02/19 18:30 Caltrate 600 + Vit D PO 1 tab BID-WM JAZMIN Administration Diltiazem HCl 30 mg 09/02/19 18:00 09/02/19 18:30 Cardizem PO 30 mg Q6HR JAZMIN Administration Famotidine 20 mg 09/01/19 21:00 09/02/19 20:32 Pepcid SLOW IVP 20 mg BID JAZMIN Administration Guaifenesin 600 mg 09/02/19 09:00 09/02/19 20:32 Mucinex PO 600 mg Q12HR JAZMIN Administration Vancomycin HCl 1 gm/ Device 200 mls @ 200 mls/hr 09/02/19 10:00 09/02/19 10: 00 IVPB 200 mls 1000 JAZMIN Administration Sodium Chloride 1,000 mls @ 70 mls/hr 09/01/19 12:30 09/02/19 18:31 Normal Saline 0.9% IV 1,000 mls .[id number] JAZMIN Administration Diltiazem HCl 125 mg/ Sodium 125 mls @ 7.5 mls/hr 09/02/19 09:15 09/02/19 10: 00 Chloride IVPB 125 mls INF JAZMIN Administration Protocol Piperacillin Sod/Tazobactam 100 mls @ 200 mls/hr 09/02/19 12:00 09/02/19 18: 31 Sod 3.375 gm/ Sodium Chloride IVPB 100 mls Q6HR JAZMIN Administration Methylprednisolone Sodium Succinate 40 mg 09/01/19 18:00 09/02/19 18:30 Solu-Medrol IVP 40 mg Q6HR JAZMIN Administration Mometasone Furoate/Formoterol Fumar 2 puff 09/02/19 18:30 09/02/19 18:14 Dulera 200 Mcg/5 Mcg Inhaler INH 2 puff BID-RT JAZMIN Administration Morphine Sulfate 2 mg 09/01/19 16:25 09/02/19 20:47 Morphine SLOW IVP 2 mg Q4H PRN Administration Pain - Exam General Appearance: ill appearing General - other findings: Mild resp distress, Anxious Neck: supple, no JVD Heart: no rubs, irregular Heart - other findings: no heaves/pulsations Respiratory: normal chest expansion, rales, rhonchi, tachypneic, wheezes Gastrointestinal: soft, non-tender, non-distended, normal bowel sounds Extremities: no edema Neurological: no new deficit Psychiatric: normal affect, A&O x 3 Hosp A/P - Plan Acute hypoxic Resp failure/COPD Exacerbation s/p NIPPV Severe Sepsis due to Pneumonia ? gram negatives Afib with RVR Chronic venous stasis ulcer Chronic diastolic HF Anxiety Type 2 W[place] PLAN: Start Cardizem drip Restart Eliquis Cardio/Pulm consult Restart home meds Wound care consult Cont Nebs/Steroids DC IVF when tolerating PO Cont Zosyn/Vancomycin DC Cefepime AM labs
[2019-09-03] MEDS: Lorazepam 2 MG/ML VIAL SLOW IVP PRN ×2 (00:09→21:01)
[2019-09-03] MEDS: methylPREDNISolone Sod Succ 40 MG VIAL IVP SCH ×5 (00:10→23:47)
[2019-09-03] MEDS: Piperacillin/Tazobactam 3.375 GM in Sodium Chloride 0.9% 100 ML IVPB SCH ×5 (00:27→23:46)
[2019-09-03 00:29] LABS: Hemoglobin 9.8 g/dL (12.0-16.0)
[2019-09-03] MEDS: Sodium Chloride 0.9% 1,000 ML IV SCH ×2 (02:17→18:32)
[2019-09-03 05:00] LABS: #Lymphocytes 1.3 thou/uL (1.20-3.40); #Monocytes 0.3 thou/uL (0.11-0.59); #Neutrophils 5.5 thou/uL (1.40-6.50); %Basophils 0.6 % (0.0-1.0); %Eosinophils 0.3 % (0.0-10.0); %Lymphocytes 18.1 % (21.0-51.0); %Monocytes 4.2 % (0.0-10.0); %Neutrophils 76.7 % (42.0-75.0); Hemoglobin 9.3 g/dL (12.0-16.0); Mean Corpuscular HGB CONC 31.7 g/dL (32.0-36.0); Mean Corpuscular Volume 88.3 fL (78.0-98.0); Mean Platelet Volume 7.9 fL (7.4-10.4); Platelet Count 235 thou/uL (130-400); RBC Distribution Width 17.1 % (11.5-14.5); Red Blood Cell (RBC) Count 3.32 mill/uL (4.20-5.40); White Blood Cell (WBC) Count 7.2 thou/uL (4.8-10.8)
[2019-09-03 05:21] LABS: ALT (SGPT) 26 U/L (8-55); AST (SGOT) 31 U/L (5-34); Albumin 2.9 g/dL (3.4-4.8); Alkaline Phosphatase 186 U/L (40-110); Anion Gap 15 mmol/L (10-20); BUN (Urea Nitrogen) 25 mg/dL (9.8-20.1); Bilirubin, Total 0.4 mg/dL (0.2-1.2); Calc. Creatinine Clearance 78 mL/min (70-130); Calcium 8.8 mg/dL (7.8-10.44); Carbon Dioxide 21 mmol/L (23-31); Chloride 110 mmol/L (98-107); Estimated GFR-MDRD Greater than 90; Globulin 2.8 g/dL (2.4-3.5); Glucose 122 mg/dL (83-110); Magnesium 2.1 mg/dL (1.6-2.6); Potassium 4.1 mmol/L (3.5-5.1); Protein, Total 5.7 g/dL (6.0-8.3); Sodium 142 mmol/L (136-145)
[2019-09-03 05:45] LABS: CKMB 3.8 ng/mL (0-6.6)
[2019-09-03] MEDS: Budesonide 0.5 MG/2 ML NEB INH SCH ×2 (07:33→18:55)
[2019-09-03] MEDS: Arformoterol 15 MCG/2 ML NEB NEB SCH ×2 (07:47→18:56)
[2019-09-03] MEDS: Mometasone/Formoterol 120 PUFF INHALER INH SCH ×2 (07:52→18:56)
[2019-09-03] MEDS: Morphine 2 MG/ML SYRINGE SLOW IVP PRN ×4 (08:29→19:31)
[2019-09-03] MEDS: Famotidine/PF 20 mg/2ml Vial SLOW IVP SCH ×2 (08:30→20:48)
[2019-09-03] MEDS: Multivit, Therapeutic 1 TAB PO SCH ×2 (08:30→08:40)
[2019-09-03] MEDS: Calcium Carbonate + Vit D 1 TAB PO SCH ×2 (08:31→17:36)
[2019-09-03] MEDS: Apixaban 5 MG TAB PO SCH ×3 (08:31→20:49)
[2019-09-03] MEDS: guaiFENesin ER 600 MG TAB PO SCH ×3 (08:31→20:49)
[2019-09-03] MEDS: Vancomycin HCl 1 GM in Premix Bag 1 BAG IVPB SCH (09:18)
[2019-09-03] MEDS ORDERED: Diltiazem 125 MG in Sodium Chloride 0.9% 100 ML IVPB SCH ×2 (09:20→12:00)
[2019-09-03 09:32] LABS: Vancomycin, Trough 5.3 ug/mL
--- NOTE | 2019-09-03 10:01 | PDOC.CPN ---
- Subjective Date: 09/03/19 Time: 10:00 Interval history: Unable to obtain. Refusing po meds per nurse. - Review of Systems ROS unobtainable: due to mental status - Objective Allergies/Adverse Reactions: Allergies Allergy/AdvReac Type Severity Reaction Status Date / Time No Known Allergies Allergy Verified 09/01/19 13:56 Visit Medications: Current Medications Acetaminophen (Tylenol) 650 mg PO Q4H PRN PRN Reason: Headache/Fever/Mild Pain (1-3) Albuterol/Ipratropium (Duoneb) 3 ml NEB [id number] JAZMIN Last Admin: 09/03/19 07:33 Dose: 3 ml Apixaban (Eliquis) 5 mg PO BID JAZMIN Last Admin: 09/03/19 08:40 Dose: Not Given Arformoterol Tartrate (Brovana) 15 mcg NEB BID-RT JAZMIN Last Admin: 09/03/19 07:47 Dose: 15 mcg Budesonide (Pulmicort Neb Solution) 0.5 mg INH BID-RT JAZMIN Last Admin: 09/03/19 07:33 Dose: 0.5 mg Calcium/Vitamin D (Caltrate 600 + Vit D) 1 tab PO BID-WM JAZMIN Last Admin: 09/03/19 08:31 Dose: 1 tab Diltiazem HCl (Cardizem) 60 mg PO Q6H JAZMIN Last Admin: 09/03/19 09:48 Dose: Not Given Famotidine (Pepcid) 20 mg SLOW IVP BID JAZMIN Last Admin: 09/03/19 08:30 Dose: 20 mg Guaifenesin (Mucinex) 600 mg PO Q12HR JAZMIN Last Admin: 09/03/19 08:40 Dose: Not Given Vancomycin HCl 1 gm/ Device 200 mls @ 200 mls/hr IVPB 1000 JAZMIN Last Admin: 09/03/19 09:18 Dose: 200 mls Sodium Chloride (Normal Saline 0.9%) 1,000 mls @ 70 mls/hr IV .[id number] JAZMIN Last Admin: 09/03/19 02:17 Dose: 1,000 mls Piperacillin Sod/Tazobactam (Sod 3.375 gm/ Sodium Chloride) 100 mls @ 200 mls/ hr IVPB Q6HR JAZMIN Last Admin: 09/03/19 06:31 Dose: 100 mls Diltiazem HCl 125 mg/ Sodium (Chloride) 125 mls @ 5 mls/hr IVPB INF JAZMIN; Protocol Lorazepam (Ativan) 1 mg SLOW IVP Q4H PRN PRN Reason: Anxiety/Agitation Last Admin: 09/03/19 00:09 Dose: 1 mg Methylprednisolone Sodium Succinate (Solu-Medrol) 40 mg IVP Q6HR [facility] Last Admin: 09/03/19 06:31 Dose: 40 mg Miscellaneous Medication (Pharmacy To Dose) 0 each IVPB ASDIR JAZMIN Mometasone Furoate/Formoterol Fumar (Dulera 200 Mcg/5 Mcg Inhaler) 2 puff INH BID-RT [facility] Last Admin: 09/03/19 07:52 Dose: Not Given Morphine Sulfate (Morphine) 2 mg SLOW IVP Q4H PRN PRN Reason: Pain Last Admin: 09/03/19 08:29 Dose: 2 mg Multivitamins (Theragran) 1 tab PO DAILY [facility] Last Admin: 09/03/19 08:40 Dose: Not Given Pantoprazole Sodium (Protonix) 20 mg PO DAILY [facility] Last Admin: 09/03/19 08:40 Dose: Not Given Sertraline HCl (Zoloft) 50 mg PO DAILY [facility] Last Admin: 09/03/19 08:40 Dose: Not Given Vital Signs & Weight: Vital Signs Temp Pulse Resp BP Pulse Ox 09/03/19 07:47 92 24 H 09/03/19 07:37 94 L 09/03/19 07:33 92 24 H 09/03/19 07:30 97.9 F 97 17 121/59 L 100 09/03/19 02:52 97 F L 91 21 H 111/60 100 09/03/19 01:58 118 H 20 95 09/02/19 23:38 125 H 126/71 Admit Weight 123 lb 14.397 oz Weight 123 lb 14.397 oz - Physical Exam General: other (no distress, but agitated) HEENT: mucus membranes moist Neck: supple neck Cardiac: irregularly regular Lungs: no wheeze, rales, rhonchi Neuro: grossly intact Abdomen: soft Skin: clear - Labs Result Diagrams: 09/03/19 04:40 09/03/19 04:40 Troponin/CKMB CK-MB (CK-2) 3.8 ng/mL (0-6.6) 09/03/19 04:40 Troponin I 0.132 ng/mL (< 0.028) H 09/03/19 04:40 - Telemetry Supraventricular conduction: atrial fibrillation - Assessment/Plan Assessment/Plan: 1. AF with RVR 2. MS changes Continue gtt for now as patient refusing pills. When MS changes improve will start po cardizem and titrate gtt. RG Pt seen and examined. AGree with the above.
[2019-09-03] MEDS ORDERED: Pantoprazole 40 MG VIAL IVP SCH (14:45)
--- NOTE | 2019-09-03 17:17 | PRG ---
DATE OF SERVICE: 09/03/2019 SUBJECTIVE: Francia Powell has no complaints. OBJECTIVE: VITAL SIGNS: She is afebrile. Heart rate is 102, respiratory rate 17, oximetry is 100%, blood pressure 123/79. LUNGS: Clear. HEART: Regular rhythm. ABDOMEN: Soft, nontender. LABORATORY DATA: She still has 1/2 blood cultures positive for coag-negative Staphylococcus. Urine cultures positive for yeast. IMPRESSION: 1. Status post fall. 2. Probable false-positive blood culture. 3. Underlying chronic obstructive pulmonary disease. 4. She has hardware issues that may require surgical repair. 5. Not sure if she is going to recover with this and seems highly likely she will be bed ridden if she does require another surgery. We will follow with the other physicians caring for. Job ID: [id number] [facility]
--- NOTE | 2019-09-03 17:34 | PDOC.HOSPP ---
- Subjective Encounter Date: 09/03/19 Encounter Time: 08:00 Subjective: Pt seen for followup re: acute hypoxic respiratory failure. Pt not answering questions, unable to complete ROS. - Objective Vital Signs & Weight: Vital Signs (12 hours) Temp Pulse Resp BP Pulse Ox 09/03/19 15:30 102 H 18 09/03/19 15:22 97.8 F 102 H 17 123/59 L 100 09/03/19 12:00 98.7 F 107 H 19 120/56 L 99 09/03/19 11:18 87 20 09/03/19 07:47 92 24 H 09/03/19 07:37 94 L 09/03/19 07:33 92 24 H 09/03/19 07:30 97.9 F 97 17 121/59 L 100 Weight Admit Weight 123 lb 14.397 oz Weight 123 lb 14.397 oz Most Recent Monitor Data Heart Rate from ECG 85 NIBP 117/65 NIBP BP-Mean 82 Respiration from ECG 21 SpO2 91 I&O: 09/02/19 09/03/19 09/04/19 06:59 06:59 06:59 Intake Total 1337 1450 Output Total 580 635 Balance 757 815 Result Diagrams: 09/03/19 04:40 09/03/19 04:40 Additional Labs: Labs and MARs reviewed by me EKG Reviewed by me: Yes (Tele: maria ines parham) Hospitalist ROS - Medication Medications: Active Medications Generic Name Dose Route Start Last Admin Trade Name Freq PRN Reason Stop Dose Admin Albuterol/Ipratropium 3 ml 09/01/19 14:30 09/03/19 15:30 Duoneb NEB 3 ml [id number] JAZMIN Administration Apixaban 5 mg 09/02/19 21:00 09/03/19 08:40 Eliquis PO Not Given BID JAZMIN Arformoterol Tartrate 15 mcg 09/01/19 18:30 09/03/19 07:47 Brovana NEB 15 mcg BID-RT JAZMIN Administration Budesonide 0.5 mg 09/01/19 18:30 09/03/19 07:33 Pulmicort Neb Solution INH 0.5 mg BID-RT JAZMIN Administration Calcium/Vitamin D 1 tab 09/02/19 17:00 09/03/19 08:31 Caltrate 600 + Vit D PO 1 tab BID-WM JAZMIN Administration Diltiazem HCl 60 mg 09/03/19 08:00 09/03/19 15:25 Cardizem PO 60 mg Q6H JAZMIN Administration Famotidine 20 mg 09/01/19 21:00 09/03/19 08:30 Pepcid SLOW IVP 20 mg BID JAZMIN Administration Guaifenesin 600 mg 09/02/19 09:00 09/03/19 08:40 Mucinex PO Not Given Q12HR JAZMIN Sodium Chloride 1,000 mls @ 70 mls/hr 09/01/19 12:30 09/03/19 02:17 Normal Saline 0.9% IV 1,000 mls .[id number] JAZMIN Administration Piperacillin Sod/Tazobactam 100 mls @ 200 mls/hr 09/02/19 12:00 09/03/19 17: 22 Sod 3.375 gm/ Sodium Chloride IVPB 100 mls Q6HR JAZMIN Administration Lorazepam 1 mg 09/02/19 23:43 09/03/19 00:09 Ativan SLOW IVP 1 mg Q4H PRN Administration Anxiety/Agitation Methylprednisolone Sodium Succinate 40 mg 09/01/19 18:00 09/03/19 17:24 Solu-Medrol IVP 40 mg Q6HR JAZMIN Administration Mometasone Furoate/Formoterol Fumar 2 puff 09/02/19 18:30 09/03/19 07:52 Dulera 200 Mcg/5 Mcg Inhaler INH Not Given BID-RT JAZMIN Morphine Sulfate 2 mg 09/01/19 16:25 09/03/19 17:19 Morphine SLOW IVP 2 mg Q4H PRN Administration Pain Multivitamins 1 tab 09/03/19 09:00 09/03/19 08:40 Theragran PO Not Given DAILY [facility] Sertraline HCl 50 mg 09/03/19 09:00 09/03/19 08:40 Zoloft PO Not Given DAILY JAZMIN - Exam General Appearance: NAD Eye: anicteric sclera ENT: moist mucosa Neck: supple Heart: RRR Respiratory: CTAB Gastrointestinal: soft, non-tender Extremities: no cyanosis Skin: no lesions Psychiatric - other findings: Unable to assess Hosp A/P (1) Acute respiratory failure with hypoxia Code(s): J96.01 - ACUTE RESPIRATORY FAILURE WITH HYPOXIA Status: Acute (2) COPD exacerbation Code(s): J44.1 - CHRONIC OBSTRUCTIVE PULMONARY DISEASE W (ACUTE) EXACERBATION Status: Acute (3) Atrial fibrillation Code(s): I48.91 - UNSPECIFIED ATRIAL FIBRILLATION Status: Chronic Qualifiers: Atrial fibrillation type: chronic (4) Chronic diastolic heart failure Code(s): I50.32 - CHRONIC DIASTOLIC (CONGESTIVE) HEART FAILURE Status: Chronic (5) Cognitive impairment Code(s): R41.89 - OTH SYMPTOMS AND SIGNS W COGNITIVE FUNCTIONS AND AWARENESS Status: Chronic (6) Hypertension Code(s): I10 - ESSENTIAL (PRIMARY) HYPERTENSION Status: Chronic Qualifiers: Hypertension type: essential hypertension Qualified Code(s): I10 - Essential (primary) hypertension (7) Protein-calorie malnutrition, moderate Code(s): E44.0 - MODERATE PROTEIN-CALORIE MALNUTRITION Status: Chronic - Plan out of bed/ambulate Consults: Palliative Care Continue Zosyn, vancomycin, solu-medrol and DuoNebs. Pt is refusing oral medications, is on cardizem drip. Orthopedic surgery following, to decide re: hip surgery for displaced hardware.
[2019-09-03] MEDS: Vancomycin HCl 750 MG in Sodium Chloride 0.9% 250 ML 250 ML IVPB SCH (21:03)
[2019-09-03] MEDS ORDERED: Vancomycin HCl 1 GM in Premix Bag 1 BAG IVPB SCH (22:00)
[2019-09-04] MEDS: Morphine 2 MG/ML SYRINGE SLOW IVP PRN ×5 (05:00→21:11)
[2019-09-04] MEDS: Piperacillin/Tazobactam 3.375 GM in Sodium Chloride 0.9% 100 ML IVPB SCH ×3 (05:06→17:58)
[2019-09-04] MEDS: methylPREDNISolone Sod Succ 40 MG VIAL IVP SCH ×3 (05:06→17:20)
[2019-09-04] MEDS: Lorazepam 2 MG/ML VIAL SLOW IVP PRN ×3 (05:24→17:56)
[2019-09-04] MEDS: Arformoterol 15 MCG/2 ML NEB NEB SCH ×2 (07:45→18:59)
[2019-09-04] MEDS: Famotidine/PF 20 mg/2ml Vial SLOW IVP SCH ×2 (08:18→20:48)
[2019-09-04] MEDS: Budesonide 0.5 MG/2 ML NEB INH SCH ×2 (08:19→18:57)
[2019-09-04] MEDS: Mometasone/Formoterol 120 PUFF INHALER INH SCH ×2 (08:21→19:00)
[2019-09-04] MEDS ORDERED: Pantoprazole 40 MG VIAL IVP SCH (09:00)
[2019-09-04] MEDS: Calcium Carbonate + Vit D 1 TAB PO SCH ×2 (09:38→17:06)
[2019-09-04] MEDS: Multivit, Therapeutic 1 TAB PO SCH (09:39)
[2019-09-04] MEDS: Apixaban 5 MG TAB PO SCH ×2 (09:39→20:46)
[2019-09-04] MEDS: guaiFENesin ER 600 MG TAB PO SCH ×2 (09:39→20:47)
[2019-09-04] MEDS: Vancomycin HCl 750 MG in Sodium Chloride 0.9% 250 ML 250 ML IVPB SCH ×2 (10:55→20:48)
[2019-09-04] MEDS: Sodium Chloride 0.9% 1,000 ML IV SCH (10:58)
--- NOTE | 2019-09-04 12:58 | PDOC.HOSPP ---
- Subjective Encounter Date: 09/04/19 Encounter Time: 07:20 Subjective: Pt seen for followup re: acute hypoxic respiratory failure. Pt lethargic, not answering questions, could not complete ROS. - Objective Vital Signs & Weight: Vital Signs (12 hours) Temp Pulse Resp BP Pulse Ox 09/04/19 11:30 117 H 16 09/04/19 07:45 91 12 09/04/19 07:40 98.1 F 88 18 126/64 100 09/04/19 04:00 98.5 F 93 16 114/60 95 09/04/19 02:30 80 16 09/04/19 02:22 98 Weight Admit Weight 123 lb 14.397 oz Weight 123 lb 14.397 oz Most Recent Monitor Data Heart Rate from ECG 85 NIBP 117/65 NIBP BP-Mean 82 Respiration from ECG 21 SpO2 91 I&O: 09/03/19 09/04/19 09/05/19 06:59 06:59 06:59 Intake Total 1450 910 Output Total 635 750 Balance 815 160 Result Diagrams: 09/03/19 04:40 09/03/19 04:40 Additional Labs: Labs and MARs reviewed by me EKG Reviewed by me: Yes (Tele: maria ines parham) Hospitalist ROS - Medication Medications: Active Medications Generic Name Dose Route Start Last Admin Trade Name Freq PRN Reason Stop Dose Admin Acetaminophen 650 mg 09/01/19 12:01 09/03/19 20:49 Tylenol PO 650 mg Q4H PRN Administration Headache/Fever/Mild Pain (1-3) Albuterol/Ipratropium 3 ml 09/01/19 14:30 09/04/19 11:30 Duoneb NEB 3 ml [id number] JAZMIN Administration Apixaban 5 mg 09/02/19 21:00 09/04/19 09:39 Eliquis PO Not Given BID JAZMIN Arformoterol Tartrate 15 mcg 09/01/19 18:30 09/04/19 07:45 Brovana NEB 15 mcg BID-RT JAZMIN Administration Budesonide 0.5 mg 09/01/19 18:30 09/04/19 08:19 Pulmicort Neb Solution INH 0.5 mg BID-RT JAZMIN Administration Calcium/Vitamin D 1 tab 09/02/19 17:00 09/04/19 09:38 Caltrate 600 + Vit D PO Not Given BID-WM JAZMIN Diltiazem HCl 60 mg 09/03/19 08:00 09/04/19 09:39 Cardizem PO Not Given Q6H JAZMIN Famotidine 20 mg 09/01/19 21:00 09/04/19 08:18 Pepcid SLOW IVP 20 mg BID JAZMIN Administration Guaifenesin 600 mg 09/02/19 09:00 09/04/19 09:39 Mucinex PO Not Given Q12HR JAZMIN Sodium Chloride 1,000 mls @ 70 mls/hr 09/01/19 12:30 09/04/19 10:58 Normal Saline 0.9% IV 1,000 mls .[id number] JAZMIN Administration Piperacillin Sod/Tazobactam 100 mls @ 200 mls/hr 09/02/19 12:00 09/04/19 11: 50 Sod 3.375 gm/ Sodium Chloride IVPB 100 mls Q6HR JAZMIN Administration Vancomycin HCl 750 mg/ Sodium 250 mls @ 250 mls/hr 09/03/19 22:00 09/04/19 10 :55 Chloride IVPB 250 mls 1000,2200 JAZMIN Administration Lorazepam 1 mg 09/02/19 23:43 09/04/19 11:48 Ativan SLOW IVP 1 mg Q4H PRN Administration Anxiety/Agitation Methylprednisolone Sodium Succinate 40 mg 09/01/19 18:00 09/04/19 11:51 Solu-Medrol IVP 40 mg Q6HR JAZMIN Administration Mometasone Furoate/Formoterol Fumar 2 puff 09/02/19 18:30 09/04/19 08:21 Dulera 200 Mcg/5 Mcg Inhaler INH Not Given BID-RT [facility] Morphine Sulfate 2 mg 09/03/19 17:50 09/04/19 08:16 Morphine SLOW IVP 2 mg Q2H PRN Administration Pain Multivitamins 1 tab 09/03/19 09:00 09/04/19 09:39 Theragran PO Not Given DAILY [facility] Sertraline HCl 50 mg 09/03/19 09:00 09/04/19 09:39 Zoloft PO Not Given DAILY [facility] - Exam General - other findings: malnourished Eye: anicteric sclera ENT: moist mucosa Neck: supple Heart: no rubs, irregular Respiratory: CTAB, no rales Gastrointestinal: soft, non-tender Skin: no rashes Psychiatric - other findings: Unable to assess Hosp A/P (1) Acute respiratory failure with hypoxia Code(s): J96.01 - ACUTE RESPIRATORY FAILURE WITH HYPOXIA Status: Acute (2) COPD exacerbation Code(s): J44.1 - CHRONIC OBSTRUCTIVE PULMONARY DISEASE W (ACUTE) EXACERBATION Status: Acute (3) Atrial fibrillation Code(s): I48.91 - UNSPECIFIED ATRIAL FIBRILLATION Status: Chronic Qualifiers: Atrial fibrillation type: chronic (4) Chronic diastolic heart failure Code(s): I50.32 - CHRONIC DIASTOLIC (CONGESTIVE) HEART FAILURE Status: Chronic (5) Cognitive impairment Code(s): R41.89 - [facility] SYMPTOMS AND SIGNS W COGNITIVE FUNCTIONS AND AWARENESS Status: Chronic (6) Hypertension Code(s): I10 - ESSENTIAL (PRIMARY) HYPERTENSION Status: Chronic Qualifiers: Hypertension type: essential hypertension Qualified Code(s): I10 - Essential (primary) hypertension (7) Protein-calorie malnutrition, moderate Code(s): E44.0 - MODERATE PROTEIN-CALORIE MALNUTRITION Status: Chronic - Plan out of bed/ambulate Continue IV antibiotics and steroids. Continue bronchodilators. Pt is on Cardizem drip (10 mg/hr) for a. fib with RVR Orthopedic surgery to decide re: hip surgery for displaced hardware.
--- NOTE | 2019-09-04 16:17 | PRG ---
DATE OF SERVICE: 09/04/2019 OBJECTIVE: VITAL SIGNS: Care plans is afebrile, heart rate is 104, respiratory rate 20, oximetry is 100% on 2 L, and blood pressure 124/64. LUNGS: She is not wheezing early this morning. HEART: Regular rhythm. IMPRESSION: 1. Chronic obstructive pulmonary disease, clinically stable. 2. Extreme deconditioning. 3. Status post multiple falls. 4. Atrial fibrillation, on Cardizem. She told me that she was tentatively being evaluated for surgery on Thursday, but she is still anticoagulated with Eliquis, so this is left to be worked out. We will continue to follow. Job ID: [id number]
[2019-09-04 21:47] LABS: Vancomycin, Trough 40.1 ug/mL
[2019-09-05] MEDS: Piperacillin/Tazobactam 3.375 GM in Sodium Chloride 0.9% 100 ML IVPB SCH ×4 (02:20→17:30)
[2019-09-05] MEDS: methylPREDNISolone Sod Succ 40 MG VIAL IVP SCH ×3 (02:21→13:27)
[2019-09-05] MEDS: Sodium Chloride 0.9% 1,000 ML IV SCH (02:28)
[2019-09-05] MEDS: Morphine 2 MG/ML SYRINGE SLOW IVP PRN ×3 (02:32→21:53)
[2019-09-05] MEDS: Arformoterol 15 MCG/2 ML NEB NEB SCH ×2 (06:34→18:06)
[2019-09-05] MEDS: Budesonide 0.5 MG/2 ML NEB INH SCH ×2 (06:36→18:06)
[2019-09-05] MEDS: Mometasone/Formoterol 120 PUFF INHALER INH SCH ×2 (06:38→18:07)
[2019-09-05] MEDS: Famotidine/PF 20 mg/2ml Vial SLOW IVP SCH ×2 (08:44→20:03)
[2019-09-05] MEDS: Multivit, Therapeutic 1 TAB PO SCH (08:57)
[2019-09-05] MEDS: guaiFENesin ER 600 MG TAB PO SCH ×2 (08:57→20:03)
[2019-09-05] MEDS: Apixaban 5 MG TAB PO SCH ×2 (08:57→20:02)
[2019-09-05] MEDS: Calcium Carbonate + Vit D 1 TAB PO SCH ×2 (08:57→16:33)
--- NOTE | 2019-09-05 09:00 | PQF ---
NANI PFEIFFER DAVID [id number] CLINICAL DOCUMENTATION IMPROVEMENT CLARIFICATION FORM: ICD-10 Updated PLEASE DO AN ADDENDUM TO THE PROGRESS NOTE WITH ANY DOCUMENTATION UPDATES OR ADDITIONS AND CARRY THROUGH TO DC SUMMARY. THANK YOU. DATE: 09/05 ATTN: DR. ORVILLE DISLA Please exercise your independent, professional judgment in responding to the clarification form. Clinical indicators are provided on the bottom of this form for your review. Please check appropriate box(es): [ ] Sepsis due to RLL Pneumonia [ ] Severe sepsis with acute organ dysfunction of: Hypoxic Respiratory Failure [ ] Localized infection without sepsis [ ] Other diagnosis [ ] Unable to determine In addition, please specify: Present on Admission (POA): [ ] Yes [ ] No [ ] Unable to determine For continuity of documentation, please document condition throughout progress notes and discharge summary. Thank You. CLINICAL INDICATORS - SIGNS / SYMPTOMS / LABS ER PRESENTATION 09/01: T: 102.7 ON CPAP > BIPAP RR: 30 LACTIC ACID : 3.0 CRP: 41.97 FINAL ER PHYSICIAN DIAGNOSES: SEPSIS, PNEUMONIA, RESP FAILURE PN 09/02 (LADHA): SEVERE SEPSIS D/T PNEUMONIA RISKS: ACUTE HYPOXIC RESPIRATORY FAILURE (H&P, TREVON, 09/01) RLL PNEUMONIA (H&P, TREVON, 09/01) TREATMENT: IV ANTIBIOTICS (IV VANC & ZOSYN (09/01 - PRESENT; MEDICATION RECORD) IVF (NS 09/01 - PRESENT; MEDICATION RECORD) THANK YOU! Lety (This form is maintained as a part of the permanent medical record) 2014 [employer]. All Rights Reserved Lety Covarrubias RN, BSN [email or web address] Office: [phone] [facility]PITALUmberto
[2019-09-05 09:28] LABS: Vancomycin, Trough 13.3 ug/mL
[2019-09-05 10:14] LABS: ALT (SGPT) 29 U/L (8-55); AST (SGOT) 31 U/L (5-34); Albumin 3.1 g/dL (3.4-4.8); Alkaline Phosphatase 138 U/L (40-110); Anion Gap 14 mmol/L (10-20); BUN (Urea Nitrogen) 29 mg/dL (9.8-20.1); Bilirubin, Total 0.5 mg/dL (0.2-1.2); Calc. Creatinine Clearance 63 mL/min (70-130); Calcium 8.7 mg/dL (7.8-10.44); Carbon Dioxide 29 mmol/L (23-31); Chloride 115 mmol/L (98-107); Estimated GFR-MDRD 83; Globulin 2.6 g/dL (2.4-3.5); Glucose 167 mg/dL (83-110); Protein, Total 5.7 g/dL (6.0-8.3); Sodium 154 mmol/L (136-145)
[2019-09-05 10:30] LABS: Hemoglobin 9.4 g/dL (12.0-16.0); Mean Corpuscular HGB CONC 30.9 g/dL (32.0-36.0); Mean Corpuscular Hemoglobin 27.6 pg (27.0-31.0); Mean Corpuscular Volume 89.3 fL (78.0-98.0); Mean Platelet Volume 7.4 fL (7.4-10.4); Platelet Count 339 thou/uL (130-400); RBC Distribution Width 17.2 % (11.5-14.5); Red Blood Cell (RBC) Count 3.39 mill/uL (4.20-5.40); White Blood Cell (WBC) Count 8.8 thou/uL (4.8-10.8)
[2019-09-05] MEDS: Vancomycin HCl 1 GM in Premix Bag 1 BAG IVPB SCH ×2 (10:58→21:55)
[2019-09-05 11:40] LABS: Band 6 % (5-11); Lymphocytes 19 % (21-51); MDiff Complete? YES; Metamyelocyte 1 % (0-0); Monocytes 1 % (0-10); Myelocyte 1 % (0-0); Neutrophil 72 % (42-75); Platelet Morphology Comment Appears Adequate; Polychromasia MODERATE = 3-4 cells (100X) (0-2/hpf)
[2019-09-05 12:37] VITALS: BP 150/75
[2019-09-05] MEDS ORDERED: Digoxin 0.5 MG/2 ML AMP SLOW IVP SCH ×2 (13:15→15:30)
[2019-09-05] MEDS ORDERED: Scopolamine 1.5 mg/72 hour Patch TD SCH (14:00)
--- NOTE | 2019-09-05 14:26 | RAD ---
PORTABLE CHEST: Date: 09/05/19 INDICATION: Shortness of breath. COMPARISON: 09/01/19. FINDINGS/IMPRESSION: Right apical opacity is again seen. Right mid and lower lung infiltrate and atelectasis again noted. Left lung remains clear. No significant change from 09/01/19. POS: [facility]
[2019-09-05 14:27] LABS: CO2 Tension 72.3 mmHg (35.0-45.0); O2 Tension (PaO2) 87.1 mmHg (> 70.0); pH, Arterial 7.23 (7.35-7.45)
[2019-09-05 14:28] LABS: Actual Bicarbonate (HCO3a) 29.3 mEq/L (22-28); Base Excess (BEa) 0.4 mEq/L (-2.0 to +3.0); Hemoglobin (Hb) 10.7 g/dL (12.0-16.0)
--- NOTE | 2019-09-05 14:29 | PRG ---
DATE OF SERVICE: 09/05/2019 SERVICE: Pulmonary Medicine. INTERVAL HISTORY: The patient appears toxic today. She is nearly agonal. She cannot provide any additional elements of the history as she has fairly extensive encephalopathy. Otherwise, there were no significant events. PHYSICAL EXAMINATION: VITAL SIGNS: Afebrile, pulse 117, blood pressure 150/75, respirations 14, and saturation 99% on 1 L nasal cannula. GENERAL: The patient is somnolent. She has incomprehensible sounds that she makes. With significant stimulation, she will open up her eyes spontaneously. She has been witnessed to move all 4 extremities. HEENT: Normocephalic and atraumatic. Sclerae white. Conjunctivae pink. Oral mucosa is moist without lesions. LUNGS: Decreased air entry with a prolonged expiratory phase. I do not appreciate any crackles or rhonchi. HEART: Tachycardic. Irregular. ABDOMEN: Soft, nontender, and nondistended. Bowel sounds are positive. MUSCULOSKELETAL: No cyanosis or clubbing. No pitting in the bilateral lower extremities. NEUROLOGIC: Grossly nonfocal. LABORATORY DATA: WBC 8.8, hemoglobin 9.4 and stable, and platelets 339,000. Sodium 154, potassium 4.0, chloride 115, and BUN 29. Basic metabolic profile is otherwise unremarkable. Troponin is 0.132. Urinalysis is negative. Vancomycin trough is 13.3. Coag-negative staph is growing in 1/2 blood cultures. Yeast is growing in the urine. IMAGING STUDIES: Chest x-ray demonstrates right-sided pleural thickening and volume loss. On the left, she has good air entry, no consolidating changes. Compared to presentation, there has been a mild interval improvement in aeration at the right base. ASSESSMENT: 1. Hypernatremia. 2. Metabolic encephalopathy. 3. Chronic obstructive pulmonary disease with mild exacerbation. 4. Deconditioning, severe. 5. Atrial fibrillation with rapid ventricular response. DISCUSSION AND PLAN: I will initiate some free water. We will continue working on rate control. I am going to get a stat ABG to make sure she is not significantly hypercapnic. Pulmonary/Critical Care will continue to follow very closely. We may need to be moving her back to the [facility] to initiate noninvasive ventilation if she proves to have hypercapnia once again. From a respiratory standpoint, she is not currently optimized for surgical interventions. Job ID: [id number]
[2019-09-05 14:30] LABS: Analyzer IN Cardio OR; Calcium, Ionized 1.29 mmol/L (1.12-1.30); Potassium - ABG Lab 4.48 mmol/L (3.70-5.30)
[2019-09-05 14:31] LABS: ALV-art Gradient 79.205 (0-20); Puncture Site LRA
[2019-09-05] MEDS: Dextrose 5% in Water 1,000 ML IV SCH (15:23)
--- NOTE | 2019-09-05 17:45 | PDOC.HOSPP ---
- Subjective Encounter Date: 09/05/19 Encounter Time: 17:43 Subjective: Pt seen for followup re: acute on chronic hypercapnic respiratory failure. Nonverbal, unable to complete ROS. - Objective Vital Signs & Weight: Vital Signs (12 hours) Temp Pulse Resp BP Pulse Ox 09/05/19 15:36 99.2 F 09/05/19 15:23 123 H 09/05/19 14:44 123 H 09/05/19 14:00 95 09/05/19 13:26 122 H 09/05/19 12:00 97.7 F 117 H 14 150/75 H 99 09/05/19 10:31 122 H 18 97 09/05/19 08:00 97.8 F 130 H 22 H 139/68 100 09/05/19 06:38 100 09/05/19 06:37 113 H 18 100 09/05/19 06:36 18 100 09/05/19 06:34 113 H 18 100 Weight Admit Weight 123 lb 14.397 oz Weight 123 lb 14.397 oz Most Recent Monitor Data Heart Rate from ECG 85 NIBP 117/65 NIBP BP-Mean 82 Respiration from ECG 21 SpO2 91 I&O: 09/04/19 09/05/19 09/06/19 06:59 06:59 06:59 Intake Total 910 1010 Output Total 750 700 Balance 160 310 Result Diagrams: 09/05/19 10:12 09/05/19 09:35 Additional Labs: Labs and MARs reviewed by me EKG Reviewed by me: Yes (Tele: NSR) Hospitalist ROS - Medication Medications: Active Medications Generic Name Dose Route Start Last Admin Trade Name Freq PRN Reason Stop Dose Admin Acetaminophen 650 mg 09/01/19 12:01 09/03/19 20:49 Tylenol PO 650 mg Q4H PRN Administration Headache/Fever/Mild Pain (1-3) Albuterol/Ipratropium 3 ml 09/01/19 14:30 09/05/19 14:00 Duoneb NEB 3 ml [id number] JAZMIN Administration Apixaban 5 mg 09/02/19 21:00 09/05/19 08:57 Eliquis PO Not Given BID JAZMIN Arformoterol Tartrate 15 mcg 09/01/19 18:30 09/05/19 06:34 Brovana NEB 15 mcg BID-RT JAZMIN Administration Budesonide 0.5 mg 09/01/19 18:30 09/05/19 06:36 Pulmicort Neb Solution INH 0.5 mg BID-RT JAZMIN Administration Calcium/Vitamin D 1 tab 09/02/19 17:00 09/05/19 16:33 Caltrate 600 + Vit D PO Not Given BID-WM JAZMIN Diltiazem HCl 60 mg 09/03/19 08:00 09/05/19 15:23 Cardizem PO Not Given Q6H JAZMIN Famotidine 20 mg 09/01/19 21:00 09/05/19 08:44 Pepcid SLOW IVP 20 mg BID JAZMIN Administration Guaifenesin 600 mg 09/02/19 09:00 09/05/19 08:57 Mucinex PO Not Given Q12HR JAZMIN Piperacillin Sod/Tazobactam 100 mls @ 200 mls/hr 09/02/19 12:00 09/05/19 17: 30 Sod 3.375 gm/ Sodium Chloride IVPB 100 mls Q6HR JAZMIN Administration Vancomycin HCl 1 gm/ Device 200 mls @ 250 mls/hr 09/05/19 10:00 09/05/19 10: 58 IVPB 200 mls 1000,2200 JAZMIN Administration Dextrose/Water 1,000 mls @ 75 mls/hr 09/05/19 14:15 09/05/19 15:23 D5w IV 1,000 mls .[id number] JAZMIN Administration Lorazepam 1 mg 09/02/19 23:43 09/04/19 17:56 Ativan SLOW IVP 1 mg Q4H PRN Administration Anxiety/Agitation Mometasone Furoate/Formoterol Fumar 2 puff 09/02/19 18:30 09/05/19 06:38 Dulera 200 Mcg/5 Mcg Inhaler INH Not Given BID-RT JAZMIN Morphine Sulfate 2 mg 09/03/19 17:50 09/05/19 08:47 Morphine SLOW IVP 2 mg Q2H PRN Administration Pain Multivitamins 1 tab 09/03/19 09:00 09/05/19 08:57 Theragran PO Not Given DAILY JAZMIN Scopolamine 1.5 mg 09/05/19 14:00 09/05/19 15:22 Transderm Scop TD 1.5 mg Q3D JAZMIN Administration Sertraline HCl 50 mg 09/03/19 09:00 09/05/19 08:58 Zoloft PO Not Given DAILY JAZMIN - Exam General - other findings: malnourished Eye: anicteric sclera ENT: dry oral mucosa Neck: supple, no JVD Heart: RRR, no rubs Respiratory: CTAB Gastrointestinal: soft, non-tender Skin: no rashes Psychiatric - other findings: Unable to assess Hosp A/P (1) Acute hypercapnic respiratory failure Code(s): J96.02 - ACUTE RESPIRATORY FAILURE WITH HYPERCAPNIA Status: Acute (2) COPD exacerbation Code(s): J44.1 - CHRONIC OBSTRUCTIVE PULMONARY DISEASE W (ACUTE) EXACERBATION Status: Acute (3) Pneumonia Code(s): J18.9 - PNEUMONIA, UNSPECIFIED ORGANISM Status: Acute Qualifiers: Laterality: right Lung location: upper lobe of lung (4) Severe sepsis Code(s): A41.9 - SEPSIS, UNSPECIFIED ORGANISM; R65.20 - SEVERE SEPSIS WITHOUT SEPTIC SHOCK Status: Acute Plan: with acute organ dysfunction of hypoxic respiratory failure, present on admission. (5) Atrial fibrillation Code(s): I48.91 - UNSPECIFIED ATRIAL FIBRILLATION Status: Chronic Qualifiers: Atrial fibrillation type: chronic (6) Chronic diastolic heart failure Code(s): I50.32 - CHRONIC DIASTOLIC (CONGESTIVE) HEART FAILURE Status: Chronic (7) Cognitive impairment Code(s): R41.89 - OTH SYMPTOMS AND SIGNS W COGNITIVE FUNCTIONS AND AWARENESS Status: Chronic (8) Hypertension Code(s): I10 - ESSENTIAL (PRIMARY) HYPERTENSION Status: Chronic Qualifiers: Hypertension type: essential hypertension Qualified Code(s): I10 - Essential (primary) hypertension (9) Protein-calorie malnutrition, moderate Code(s): E44.0 - MODERATE PROTEIN-CALORIE MALNUTRITION Status: Chronic - Plan plan discussed w/ family, continue antibiotics Pt was moved to [facility] for BiPAP therapy for acute hypercapnic respiratory failure. Continue IV vancomycin and IV Zosyn. Continue Cardizem drip for a. prasad with RVR Orthopedic surgery wants to see how she does before deciding re: surgery.
[2019-09-05] MEDS: Docusate 100 MG CAP PO SCH (20:03)
[2019-09-05] MEDS: Lorazepam 2 MG/ML VIAL SLOW IVP PRN (20:04)
[2019-09-06] MEDS: Piperacillin/Tazobactam 3.375 GM in Sodium Chloride 0.9% 100 ML IVPB SCH ×4 (00:25→17:11)
[2019-09-06] MEDS: Lorazepam 2 MG/ML VIAL SLOW IVP PRN (01:07)
[2019-09-06] MEDS: Diltiazem 125 MG in Sodium Chloride 0.9% 100 ML IVPB SCH (03:22)
[2019-09-06] MEDS: Dextrose 5% in Water 1,000 ML IV SCH ×2 (05:25→21:12)
[2019-09-06] MEDS: Morphine 2 MG/ML SYRINGE SLOW IVP PRN (05:25)
[2019-09-06 05:34] LABS: #Lymphocytes 1.6 thou/uL (1.20-3.40); #Monocytes 0.4 thou/uL (0.11-0.59); #Neutrophils 6.3 thou/uL (1.40-6.50); %Eosinophils 0.1 % (0.0-10.0); %Lymphocytes 19.5 % (21.0-51.0); %Monocytes 4.3 % (0.0-10.0); %Neutrophils 76.2 % (42.0-75.0); Mean Corpuscular HGB CONC 31.2 g/dL (32.0-36.0); Mean Corpuscular Hemoglobin 28.2 pg (27.0-31.0); Mean Corpuscular Volume 90.3 fL (78.0-98.0); Mean Platelet Volume 7.3 fL (7.4-10.4); Platelet Count 319 thou/uL (130-400); RBC Distribution Width 16.8 % (11.5-14.5); Red Blood Cell (RBC) Count 3.18 mill/uL (4.20-5.40); White Blood Cell (WBC) Count 8.3 thou/uL (4.8-10.8)
[2019-09-06 05:46] LABS: Anion Gap 8 mmol/L (10-20); BUN (Urea Nitrogen) 26 mg/dL (9.8-20.1); Calc. Creatinine Clearance 63 mL/min (70-130); Calcium 8.6 mg/dL (7.8-10.44); Carbon Dioxide 35 mmol/L (23-31); Chloride 110 mmol/L (98-107); Estimated GFR-MDRD 82; Glucose 182 mg/dL (83-110); Potassium 3.8 mmol/L (3.5-5.1); Sodium 149 mmol/L (136-145)
[2019-09-06] MEDS: Arformoterol 15 MCG/2 ML NEB NEB SCH ×2 (07:20→18:44)
[2019-09-06] MEDS: Budesonide 0.5 MG/2 ML NEB INH SCH ×2 (07:20→18:44)
[2019-09-06] MEDS: Calcium Carbonate + Vit D 1 TAB PO SCH ×2 (08:12→17:14)
[2019-09-06] MEDS: Docusate 100 MG CAP PO SCH ×2 (08:13→21:02)
[2019-09-06] MEDS: Polyethylene Glycol 3350 17 GM Packet PO SCH (08:13)
[2019-09-06] MEDS: Multivit, Therapeutic 1 TAB PO SCH (08:13)
[2019-09-06] MEDS: guaiFENesin ER 600 MG TAB PO SCH ×2 (08:13→21:02)
[2019-09-06] MEDS: Apixaban 5 MG TAB PO SCH ×2 (08:13→21:02)
[2019-09-06] MEDS: Vancomycin HCl 1 GM in Premix Bag 1 BAG IVPB SCH ×2 (08:16→21:12)
[2019-09-06] MEDS: Digoxin 0.5 MG/2 ML AMP SLOW IVP SCH (08:16)
[2019-09-06] MEDS: Famotidine/PF 20 mg/2ml Vial SLOW IVP SCH ×2 (08:16→21:03)
[2019-09-06] MEDS: methylPREDNISolone Sod Succ 40 MG VIAL IVP SCH (08:17)
[2019-09-06] MEDS: Mometasone/Formoterol 120 PUFF INHALER INH SCH ×2 (08:27→20:45)
--- NOTE | 2019-09-06 17:48 | PDOC.HOSPP ---
- Subjective Encounter Date: 09/06/19 Encounter Time: 10:00 Subjective: Pt seen for followup re: acute hypercapnic respiratory failure. Pt is nonverbal , unable to complete ROS. - Objective Vital Signs & Weight: Vital Signs (12 hours) Pulse Resp Pulse Ox 09/06/19 14:08 99 23 H 09/06/19 11:12 94 09/06/19 11:11 94 22 L 09/06/19 08:16 97 09/06/19 08:00 97 09/06/19 07:20 90 21 H 94 L Weight Admit Weight 123 lb 14.397 oz Weight 123 lb 14.397 oz Most Recent Monitor Data Heart Rate from ECG 100 NIBP 148/82 NIBP BP-Mean 104 Respiration from ECG 24 SpO2 99 I&O: 09/05/19 09/06/19 09/07/19 06:59 06:59 06:59 Intake Total 1010 1487 Output Total 700 930 Balance 310 557 Result Diagrams: 09/06/19 05:15 09/06/19 05:15 Additional Labs: Labs and MARs reviewed by me EKG Reviewed by me: Yes (Tele: maria ines parham) Hospitalist ROS - Medication Medications: Active Medications Generic Name Dose Route Start Last Admin Trade Name Freq PRN Reason Stop Dose Admin Acetaminophen 650 mg 09/01/19 12:01 09/03/19 20:49 Tylenol PO 650 mg Q4H PRN Administration Headache/Fever/Mild Pain (1-3) Albuterol/Ipratropium 3 ml 09/01/19 14:30 09/06/19 14:08 Duoneb NEB 3 ml [id number] JAZMIN Administration Apixaban 5 mg 09/02/19 21:00 09/06/19 08:13 Eliquis PO Not Given BID JAZMIN Arformoterol Tartrate 15 mcg 09/01/19 18:30 09/06/19 07:20 Brovana NEB 15 mcg BID-RT JAZMIN Administration Budesonide 0.5 mg 09/01/19 18:30 09/06/19 07:20 Pulmicort Neb Solution INH 0.5 mg BID-RT JAZMIN Administration Calcium/Vitamin D 1 tab 09/02/19 17:00 09/06/19 17:14 Caltrate 600 + Vit D PO Not Given BID-WM JAZMIN Digoxin 0.125 mg 09/06/19 09:00 09/06/19 08:16 Lanoxin SLOW IVP 0.125 mg QAM JAZMIN Administration Diltiazem HCl 60 mg 09/03/19 08:00 09/06/19 17:01 Cardizem PO Not Given Q6H JAZMIN Docusate Sodium 100 mg 09/05/19 21:00 09/06/19 08:13 Colace PO Not Given BID JAZMIN Famotidine 20 mg 09/01/19 21:00 09/06/19 08:16 Pepcid SLOW IVP 20 mg BID JAZMIN Administration Guaifenesin 600 mg 09/02/19 09:00 09/06/19 08:13 Mucinex PO Not Given Q12HR JAZMIN Piperacillin Sod/Tazobactam 100 mls @ 200 mls/hr 09/02/19 12:00 09/06/19 17: 11 Sod 3.375 gm/ Sodium Chloride IVPB 100 mls Q6HR JAZMIN Administration Diltiazem HCl 125 mg/ Sodium 125 mls @ 5 mls/hr 09/04/19 11:45 09/06/19 03:22 Chloride IVPB 125 mls INF JAZMIN Administration Protocol 5 MG/HR Vancomycin HCl 1 gm/ Device 200 mls @ 250 mls/hr 09/05/19 10:00 09/06/19 08: 16 IVPB 200 mls 1000,2200 JAZMIN Administration Dextrose/Water 1,000 mls @ 75 mls/hr 09/05/19 14:15 09/06/19 05:25 D5w IV 1,000 mls .[id number] JAZMIN Administration Lorazepam 1 mg 09/02/19 23:43 09/06/19 01:07 Ativan SLOW IVP 1 mg Q4H PRN Administration Anxiety/Agitation Methylprednisolone Sodium Succinate 40 mg 09/06/19 09:00 09/06/19 08:17 Solu-Medrol IVP 40 mg DAILY JAZMIN Administration Mometasone Furoate/Formoterol Fumar 2 puff 09/02/19 18:30 09/06/19 08:27 Dulera 200 Mcg/5 Mcg Inhaler INH 2 puff BID-RT JAZMIN Administration Morphine Sulfate 2 mg 09/03/19 17:50 09/06/19 05:25 Morphine SLOW IVP 2 mg Q2H PRN Administration Pain Multivitamins 1 tab 09/03/19 09:00 09/06/19 08:13 Theragran PO Not Given DAILY JAZMIN Polyethylene Glycol 17 gm 09/06/19 09:00 09/06/19 08:13 Miralax PO Not Given DAILY JAZMIN Scopolamine 1.5 mg 09/05/19 14:00 09/05/19 15:22 Transderm Scop TD 1.5 mg Q3D JAZMIN Administration Sertraline HCl 50 mg 09/03/19 09:00 09/06/19 08:14 Zoloft PO Not Given DAILY JAZMIN - Exam General - other findings: Malnourished Eye: anicteric sclera ENT: moist mucosa Neck: no thyromegaly Heart: no rubs, irregular Respiratory: CTAB Gastrointestinal: soft, non-tender Psychiatric - other findings: Unable to assess Hosp A/P (1) Acute hypercapnic respiratory failure Code(s): J96.02 - ACUTE RESPIRATORY FAILURE WITH HYPERCAPNIA Status: Acute (2) COPD exacerbation Code(s): J44.1 - CHRONIC OBSTRUCTIVE PULMONARY DISEASE W (ACUTE) EXACERBATION Status: Acute (3) Pneumonia Code(s): J18.9 - PNEUMONIA, UNSPECIFIED ORGANISM Status: Acute Qualifiers: Laterality: right Lung location: upper lobe of lung (4) Severe sepsis Code(s): A41.9 - SEPSIS, UNSPECIFIED ORGANISM; R65.20 - SEVERE SEPSIS WITHOUT SEPTIC SHOCK Status: Acute (5) Atrial fibrillation Code(s): I48.91 - UNSPECIFIED ATRIAL FIBRILLATION Status: Chronic Qualifiers: Atrial fibrillation type: chronic (6) Chronic diastolic heart failure Code(s): I50.32 - CHRONIC DIASTOLIC (CONGESTIVE) HEART FAILURE Status: Chronic (7) Cognitive impairment Code(s): R41.89 - OTH SYMPTOMS AND SIGNS W COGNITIVE FUNCTIONS AND AWARENESS Status: Chronic (8) Hypertension Code(s): I10 - ESSENTIAL (PRIMARY) HYPERTENSION Status: Chronic Qualifiers: Hypertension type: essential hypertension Qualified Code(s): I10 - Essential (primary) hypertension (9) Protein-calorie malnutrition, moderate Code(s): E44.0 - MODERATE PROTEIN-CALORIE MALNUTRITION Status: Chronic - Plan continue antibiotics Pt is on BiPAP for hypercapnia. Pt is on IV vancomycin and IV Zosyn. Pt is not taking oral meds, is on Cardizem drip for a. fib with RVR Orthopedic surgery following re: dislodged hip hardware.
[2019-09-06 22:43] LABS: Vancomycin, Trough 17.1 ug/mL
[2019-09-07] MEDS: Piperacillin/Tazobactam 3.375 GM in Sodium Chloride 0.9% 100 ML IVPB SCH ×4 (00:28→18:22)
[2019-09-07] MEDS: Morphine 2 MG/ML SYRINGE SLOW IVP PRN ×5 (01:45→18:19)
[2019-09-07] MEDS: Diltiazem 125 MG in Sodium Chloride 0.9% 100 ML IVPB SCH (05:31)
[2019-09-07] MEDS: Dextrose 5% in Water 1,000 ML IV SCH ×2 (06:15→20:00)
[2019-09-07 06:48] LABS: Hemoglobin 9.5 g/dL (12.0-16.0); Mean Corpuscular HGB CONC 30.8 g/dL (32.0-36.0); Mean Corpuscular Hemoglobin 27.9 pg (27.0-31.0); Mean Corpuscular Volume 90.5 fL (78.0-98.0); Mean Platelet Volume 7.3 fL (7.4-10.4); Platelet Count 383 thou/uL (130-400); RBC Distribution Width 16.9 % (11.5-14.5); White Blood Cell (WBC) Count 15.6 thou/uL (4.8-10.8)
[2019-09-07 07:06] LABS: Anion Gap 10 mmol/L (10-20); BUN (Urea Nitrogen) 19 mg/dL (9.8-20.1); Calc. Creatinine Clearance 68 mL/min (70-130); Carbon Dioxide 35 mmol/L (23-31); Chloride 106 mmol/L (98-107); Estimated GFR-MDRD Greater than 90; Glucose 161 mg/dL (83-110); Potassium 3.9 mmol/L (3.5-5.1); Sodium 147 mmol/L (136-145)
[2019-09-07 07:25] LABS: Band 9 % (5-11); Lymphocytes 15 % (21-51); MDiff Complete? YES; Monocytes 4 % (0-10); Neutrophil 72 % (42-75); Nucleated RBC 1 % (0); Platelet Morphology Comment Appears Adequate; Polychromasia SLIGHT = 2-3 cells (100X) (0-2/hpf)
[2019-09-07] MEDS: Mometasone/Formoterol 120 PUFF INHALER INH SCH ×2 (07:42→18:44)
[2019-09-07] MEDS: Arformoterol 15 MCG/2 ML NEB NEB SCH ×2 (07:45→18:43)
[2019-09-07] MEDS: Budesonide 0.5 MG/2 ML NEB INH SCH ×2 (07:45→18:43)
[2019-09-07] MEDS: Calcium Carbonate + Vit D 1 TAB PO SCH ×2 (09:43→15:44)
[2019-09-07] MEDS: guaiFENesin ER 600 MG TAB PO SCH (09:43)
[2019-09-07] MEDS: Apixaban 5 MG TAB PO SCH (09:43)
[2019-09-07] MEDS: Docusate 100 MG CAP PO SCH (09:43)
[2019-09-07] MEDS: Multivit, Therapeutic 1 TAB PO SCH (09:44)
[2019-09-07] MEDS: Polyethylene Glycol 3350 17 GM Packet PO SCH (09:44)
[2019-09-07] MEDS: Digoxin 0.5 MG/2 ML AMP SLOW IVP SCH (09:45)
[2019-09-07] MEDS: Famotidine/PF 20 mg/2ml Vial SLOW IVP SCH (09:45)
[2019-09-07] MEDS: Vancomycin HCl 1 GM in Premix Bag 1 BAG IVPB SCH (09:46)
[2019-09-07] MEDS: methylPREDNISolone Sod Succ 40 MG VIAL IVP SCH (09:46)
[2019-09-07] MEDS: Lorazepam 2 MG/ML VIAL SLOW IVP PRN ×2 (10:05→16:14)
--- NOTE | 2019-09-07 10:47 | PRG ---
DATE OF SERVICE: 09/06/2019 SERVICE: Pulmonary Medicine. INTERVAL HISTORY: The patient is currently on BiPAP. She is much less obtunded today. She will spontaneously open up her eyes and close them. She is no longer having pre-agonal respirations. Otherwise, there has been no interval change to her condition and she is strictly not able to provide any elements of the history. PHYSICAL EXAMINATION: VITAL SIGNS: Afebrile, pulse 99, blood pressure 138/71, respirations 23, saturation currently 100% on BiPAP. GENERAL: The patient is somnolent. Mentation has improved slightly. HEENT: Normocephalic, atraumatic. Sclerae white. Conjunctivae pink. Oral mucosa is moist without lesions. LUNGS: Extensive rhonchi are present throughout bilateral lung humphries. There is a slightly prolonged expiratory phase, but no wheezing. HEART: Normal rate, regular. ABDOMEN: Soft, nontender, nondistended. Bowel sounds are positive. MUSCULOSKELETAL: No cyanosis or clubbing. No pitting in the bilateral lower extremities. NEUROLOGIC: Grossly nonfocal. LABORATORY DATA: WBC 8.3, hemoglobin 9.0, and platelets 319,000. Sodium 149, bicarb 35. Basic metabolic profile is otherwise unremarkable. Vancomycin trough was previously 40.1, but is now downtrending. Central line is growing coag-negative Staph. Urine culture is growing yeast species. ASSESSMENT: 1. Hypernatremia, improving. 2. Metabolic encephalopathy, improving. 3. Chronic obstructive pulmonary disease with mild exacerbation. 4. Deconditioning, severe. 5. Atrial fibrillation with rapid ventricular response. DISCUSSION AND PLAN: We will continue our free water. This seems to be improving her hypernatremia. Her mentation seems to be improving ever so slightly. We will start giving the patient BiPAP breaks 3 times daily and increase as tolerated. Hopefully, once her mentation allows for it, we can start mobilizing the patient. We will initiate some physiotherapy to see if we can mobilize secretions. The patient remains in critical status. I have updated the family at bedside. They are hoping for a good recovery, but understand that if things get worse, she will be passing away during this hospital stay. Job ID: [id number]
[2019-09-07 11:23] VITALS: TEMP 99.7
--- NOTE | 2019-09-07 13:35 | PDOC.HOSPP ---
- Subjective Encounter Date: 09/07/19 Encounter Time: 09:40 Subjective: Pt seen for followup re: acute hypercapnic respiratory failure. Pt is nonverbal , unable to complete ROS. - Objective Vital Signs & Weight: Vital Signs (12 hours) Temp Pulse Resp Pulse Ox 09/07/19 11:23 99.7 F H 09/07/19 11:06 82 23 H 97 09/07/19 09:45 96 09/07/19 07:45 92 28 H 96 09/07/19 07:44 103 H 28 H 96 09/07/19 07:42 110 H 28 H 98 09/07/19 07:33 98.2 F 09/07/19 04:12 99.7 F H 09/07/19 03:16 104 H 09/07/19 03:14 93 24 H 100 09/07/19 02:24 100 Weight Admit Weight 123 lb 14.397 oz Weight 123 lb 14.397 oz Most Recent Monitor Data Heart Rate from ECG 108 NIBP 147/78 NIBP BP-Mean 101 Respiration from ECG 20 SpO2 97 I&O: 09/06/19 09/07/19 09/08/19 06:59 06:59 06:59 Intake Total 1487 1920 Output Total 930 950 Balance 557 970 Result Diagrams: 09/07/19 06:00 09/07/19 06:00 Additional Labs: Labs and MARs reviewed by [place] Hospital[place] ROS - Medication Medications: Active Medications Generic Name Dose Route Start Last Admin Trade Name Freq PRN Reason Stop Dose Admin Acetaminophen 650 mg 09/01/19 12:01 09/03/19 20:49 Tylenol PO 650 mg Q4H PRN Administration Headache/Fever/Mild Pain (1-3) Albuterol/Ipratropium 3 ml 09/01/19 14:30 09/07/19 11:06 Duoneb NEB 3 ml [id number] JAZMIN Administration Apixaban 5 mg 09/02/19 21:00 09/07/19 09:43 Eliquis PO Not Given BID JAZMIN Arformoterol Tartrate 15 mcg 09/01/19 18:30 09/07/19 07:45 Brovana NEB 15 mcg BID-RT JAZMIN Administration Budesonide 0.5 mg 09/01/19 18:30 09/07/19 07:45 Pulmicort Neb Solution INH 0.5 mg BID-RT JAZMIN Administration Calcium/Vitamin D 1 tab 09/02/19 17:00 09/07/19 09:43 Caltrate 600 + Vit D PO Not Given BID-WM JAZMIN Digoxin 0.125 mg 09/06/19 09:00 09/07/19 09:45 Lanoxin SLOW IVP 0.125 mg QAM JAZMIN Administration Diltiazem HCl 60 mg 09/03/19 08:00 09/07/19 09:43 Cardizem PO Not Given Q6H JAZMIN Docusate Sodium 100 mg 09/05/19 21:00 09/07/19 09:43 Colace PO Not Given BID JAZMIN Famotidine 20 mg 09/01/19 21:00 09/07/19 09:45 Pepcid SLOW IVP 20 mg BID JAZMIN Administration Guaifenesin 600 mg 09/02/19 09:00 09/07/19 09:43 Mucinex PO Not Given Q12HR JAZMIN Piperacillin Sod/Tazobactam 100 mls @ 200 mls/hr 09/02/19 12:00 09/07/19 05: 46 Sod 3.375 gm/ Sodium Chloride IVPB 100 mls Q6HR JAZMIN Administration Diltiazem HCl 125 mg/ Sodium 125 mls @ 5 mls/hr 09/04/19 11:45 09/07/19 05:31 Chloride IVPB 125 mls INF JAZMIN Administration Protocol 5 MG/HR Vancomycin HCl 1 gm/ Device 200 mls @ 250 mls/hr 09/05/19 10:00 09/07/19 09: 46 IVPB 200 mls 1000,2200 JAZMNI Administration Dextrose/Water 1,000 mls @ 75 mls/hr 09/05/19 14:15 09/07/19 06:15 D5w IV Not Given .[id number] JAZMIN Lorazepam 1 mg 09/02/19 23:43 09/07/19 10:05 Ativan SLOW IVP 1 mg Q4H PRN Administration Anxiety/Agitation Methylprednisolone Sodium Succinate 40 mg 09/06/19 09:00 09/07/19 09:46 Solu-Medrol IVP 40 mg DAILY JAZMIN Administration Mometasone Furoate/Formoterol Fumar 2 puff 09/02/19 18:30 09/07/19 07:42 Dulera 200 Mcg/5 Mcg Inhaler INH 2 puff BID-RT JAZMIN Administration Morphine Sulfate 2 mg 10/05/19 17:50 09/07/19 10:04 Morphine SLOW IVP 2 mg Q2H PRN Administration Pain Multivitamins 1 tab 09/03/19 09:00 09/07/19 09:44 Theragran PO Not Given DAILY JAZMIN Polyethylene Glycol 17 gm 09/06/19 09:00 09/07/19 09:44 Miralax PO Not Given DAILY JAZMIN Scopolamine 1.5 mg 09/05/19 14:00 09/05/19 15:22 Transderm Scop TD 1.5 mg Q3D JAZMIN Administration Sertraline HCl 50 mg 09/03/19 09:00 09/07/19 09:44 Zoloft PO Not Given DAILY JAZMIN - Exam General - other findings: Malnourished Eye: anicteric sclera ENT: moist mucosa Neck: supple Heart: RRR Respiratory: CTAB Gastrointestinal: soft, non-tender Musculoskeletal: diffuse muscle atrophy Psychiatric - other findings: Unable to assess Hosp A/P (1) Acute hypercapnic respiratory failure Code(s): J96.02 - ACUTE RESPIRATORY FAILURE WITH HYPERCAPNIA Status: Acute (2) COPD exacerbation Code(s): J44.1 - CHRONIC OBSTRUCTIVE PULMONARY DISEASE W (ACUTE) EXACERBATION Status: Acute (3) Pneumonia Code(s): J18.9 - PNEUMONIA, UNSPECIFIED ORGANISM Status: Acute Qualifiers: Laterality: right Lung location: upper lobe of lung (4) Severe sepsis Code(s): A41.9 - SEPSIS, UNSPECIFIED ORGANISM; R65.20 - SEVERE SEPSIS WITHOUT SEPTIC SHOCK Status: Acute (5) Atrial fibrillation Code(s): I48.91 - UNSPECIFIED ATRIAL FIBRILLATION Status: Chronic Qualifiers: Atrial fibrillation type: chronic (6) Chronic diastolic heart failure Code(s): I50.32 - CHRONIC DIASTOLIC (CONGESTIVE) HEART FAILURE Status: Chronic (7) Cognitive impairment Code(s): R41.89 - OTH SYMPTOMS AND SIGNS W COGNITIVE FUNCTIONS AND AWARENESS Status: Chronic (8) Hypertension Code(s): I10 - ESSENTIAL (PRIMARY) HYPERTENSION Status: Chronic Qualifiers: Hypertension type: essential hypertension Qualified Code(s): I10 - Essential (primary) hypertension (9) Protein-calorie malnutrition, moderate Code(s): E44.0 - MODERATE PROTEIN-CALORIE MALNUTRITION Status: Chronic - Plan continue antibiotics, PT/OT, respiratory therapy Pt is on BiPAP, managed in IMCU. Will continue IV vancomycin and IV Zosyn. Continue Cardizem drip for a. fib with RVR Orthopedic surgery following re: dislodged hip hardware. Chest physiotherapy has been started.
--- NOTE | 2019-09-07 14:35 | PRG ---
DATE OF SERVICE: 09/07/2019 SERVICE: Pulmonary Medicine. INTERVAL HISTORY: The patient is doing very poorly from respiratory standpoint. She cannot tolerate any BiPAP breaks whatsoever. She is requiring frequent doses of morphine and/or Ativan just to maintain comfort. Ultimately, it is becoming quite clear that she is not going to be able to tolerate any breaks from the BiPAP. As such, she is most likely going to be passing away from her respiratory failure that has been progressing over the past several weeks. She cannot provide any additional elements of the history currently. PHYSICAL EXAMINATION: VITAL SIGNS: Currently, afebrile with a T-max 99.7, pulse 82, blood pressure 147/78, respirations 23, saturation 97%, currently on 30% FiO2 delivered via BiPAP at 12/6. HEENT: Normocephalic and atraumatic. Sclerae white. Conjunctivae pink. Oral mucosa is dry. LUNGS: Decent air entry. Extensive rhonchi are present. There is a slightly prolonged expiratory phase, but I do not appreciate any wheezing currently. HEART: Normal rate, regular. ABDOMEN: Soft, nontender, nondistended. Bowel sounds are positive. MUSCULOSKELETAL: No cyanosis or clubbing. There is no pitting throughout. NEUROLOGIC: Grossly nonfocal. LABORATORY DATA: WBC 15.6, hemoglobin 9.5, platelets 383,000. Sodium 147 and gently downtrending. Basic metabolic profile is otherwise unremarkable. Vancomycin trough 17.1. Coag-negative staph, and yeast are growing in the urine culture and blood cultures. ASSESSMENT: 1. Acute hypoxic and hypercapnic respiratory failure. 2. Hypernatremia, improving. 3. Metabolic encephalopathy. 4. Chronic obstructive pulmonary disease with mild exacerbation. 5. Deconditioning, severe. 6. Atrial fibrillation with rapid ventricular response, currently rate control. DISCUSSION AND PLAN: We will continue the free water. We will also continue antibiotics. We will continue giving her breaks off the BiPAP 3 times daily and increase as tolerated. Truth be told, we are not giving her a lot of support on the BiPAP. That being said, she has absolutely no strength to breathe or cough on her own. She is a DNI/DNR. The likelihood of a meaningful recovery from her current position is extraordinarily low. We have been talking to family about transition over to comfort care only. Because it is clear that she is not tolerating any breaks off the BiPAP, I do think it would be reasonable to transition over to comfort care only. I talked to the about this and he is actually amenable to this transition. He would like to wait, however, for her son to get here. It is my understanding, that he is en route. Job ID: [id number] MTDD
[2019-09-07] MEDS ORDERED: Lorazepam 2 MG/ML VIAL SLOW IVP PRN (16:50)
--- NOTE | 2019-09-08 12:52 | DIS ---
DATE OF ADMISSION: 09/01/2019 DATE OF DISCHARGE: 09/07/2019 PRIMARY CARE PROVIDER: Dr. Shalom Leon. DATE OF : September 07, 2019. DIAGNOSES: 1. Acute hypoxic respiratory failure. 2. Right lower lobe pneumonia. 3. Chronic obstructive pulmonary disease exacerbation. 4. Atrial fibrillation with rapid ventricular response, status post electrical cardioversion. 5. Moderate protein-calorie malnutrition. 6. Hypernatremia. 7. Acute metabolic encephalopathy. 8. Severe physical deconditioning. CONSULTATIONS DURING THIS HOSPITALIZATION: 1. Cardiology, Dr. Camp. 2. Orthopedics Dr. Coburn. 3. Pulmonology, Dr. Drake. HOSPITAL COURSE: Ms. Powell was a pleasant 74-year-old lady, who was admitted to [facility] on September 01, 2019, for acute hypoxic respiratory failure secondary to right lower lobe pneumonia and COPD exacerbation. Please refer to Dr. Curtis's history and physical note dated September 01, 2019, for further details. At the time of admission, she was also in atrial fibrillation with rapid ventricular response. Electrical cardioversion was attempted in the emergency room without much success. She was treated with Cardizem with improvement in heart rate. She was seen by Pulmonology and Cardiology Services. She was also seen by Orthopedic Surgery Service for left hip intramedullary nail loosening. They felt that she was not a good candidate for surgery at that time and wanted to see how she does in terms of her respiratory status before deciding on surgery. The patient was treated with intravenous antibiotics. She worsened on September 05. She was moved to the [facility] and started on BiPAP therapy. She did not improve significantly. Goals of care were changed to comfort care. She at 2027 hours on September 07, 2019. Many thanks for allowing me to participate in your patient's care. Please feel free to contact me with any questions or concerns. Job ID: [id number]
== END 2019-09-07 20:27 | disposition expired | DRG 871 ==
LOC: ERS 08:28 → CCU 12:40 → 2NO 09-02 15:15 → IMCU/EMU 09-05 14:37
PROVIDERS: ADMIT Internal Medicine; ATTEND Internal Medicine
DX: A41.9 Sepsis, unspecified organism (principal); J18.9 Pneumonia, unspecified organism; J96.01 Acute respiratory failure with hypoxia; G93.41 Metabolic encephalopathy; J96.02 Acute respiratory failure with hypercapnia; I21.A1 Myocardial infarction type 2; E44.0 Moderate protein-calorie malnutrition; T84.125A Displacement of internal fixation device of left femur, initial encounter; J44.1 Chronic obstructive pulmonary disease with (acute) exacerbation; I50.32 Chronic diastolic (congestive) heart failure; E87.0 Hyperosmolality and hypernatremia; J44.0 Chronic obstructive pulmonary disease with (acute) lower respiratory infection; Z51.5 Encounter for palliative care; Z66 Do not resuscitate; L89.152 Pressure ulcer of sacral region, stage 2; I11.0 Hypertensive heart disease with heart failure; R65.20 Severe sepsis without septic shock; I48.91 Unspecified atrial fibrillation; E78.5 Hyperlipidemia, unspecified; F17.210 Nicotine dependence, cigarettes, uncomplicated; F41.9 Anxiety disorder, unspecified; E11.9 Type 2 diabetes mellitus without complications; R41.89 Other symptoms and signs involving cognitive functions and awareness; R53.81 Other malaise; Z68.20 Body mass index [BMI] 20.0-20.9, adult; Z86.73 Personal history of transient ischemic attack (TIA), and cerebral infarction without residual deficits; Z90.49 Acquired absence of other specified parts of digestive tract; Z79.899 Other long term (current) drug therapy
CPT/HCPCS: 36415; 36556; 51702; 71045; 80048; 80053; 80202; 81003; 81015; 82553; 82805; 83605; 83735; 84484; 85025; 86140; 87040; 87086; 87149; 93005; 94640; 94660; 94667; 94668; 96365; 96367; 96368; 96375; J0131; J0692; J1160; J1956; J2060; J2270; J2543; J2704; J2920; J3010; J3370; J3490; J7050; J7620; J7626; S0028